=== PATIENT | female | born 1965 | race Caucasian/White ===

== ENCOUNTER 2024-01-23 18:36 | Emergency (ER) | payer MEDICAID, SELFPAY ==
[2024-01-23 18:37] VITALS: BP 122/68; PULSE 96; RESP 17; TEMP 36.3; O2SAT 97
--- NOTE | 2024-01-23 19:26 | CT_ITS ---
EXAM: CT RIGHT LOWER EXTREMITY WITHOUT INTRAVENOUS CONTRAST CLINICAL INDICATION: Pain TECHNIQUE: Helically acquired images were obtained of the right lower extremity without intravenous contrast. 2-D reformats were performed by the technologist. This CT exam was performed using one or more of the following dose reduction techniques: automated exposure control, adjustment of the mA and/or kV according to patient size, and/or use of iterative reconstruction technique. COMPARISON: No relevant prior studies available. FINDINGS: BONES/JOINTS: There is severe tricompartmental primary osteoarthritis. Medium-sized knee joint effusion. Tricompartmental joint space narrowing, marginal osteophytosis, articular sclerosis, patellar enthesopathy, and articular surfaces eburnation are identified. There is no acute fracture or dislocation. SOFT TISSUES: No significant abnormality. No soft tissue swelling or gas. No radiopaque foreign body. CT/Extremity Lower without Contra IMPRESSION: 1. There is severe tricompartmental primary osteoarthritis. Knee joint effusion. 2. There is no acute fracture or dislocation. Electronically Signed: Harry Story DO at 20:15 EDT ,
--- NOTE | 2024-01-23 19:37 | ED.VIS.LOWEX ---
HPI History of Present Illness HPI Narrative: Patient presents with possible fracture in her right knee that occurred today after a fall. Patient states she twisted her right knee and fell. Patient went to urgent care and had x-rays done of her left wrist and right knee. Patient states they initially read the x-rays as negative. Patient states that she was referred to [facility] for possible DVT of her leg. Patient states she had an ultrasound there which was negative. Patient states that when she went back to the urgent care, they told her she could have a fracture of her right tibial plateau. Patient states she was told to come to the emergency department for further imaging of her knee. Patient states that her wrist pain is still worse than her knee pain. Patient denies any head injury or loss of consciousness. Patient denies any other injuries. Chief Complaint: Lower Extremity Injury Informant: patient Occured/Mechanism Mechanism/Context: Yes injury Onset/Context/Timing Onset: Today Context: Sudden Onset Timing: Continuous Quality of Pain: Aching Location: Right knee, left wrist Worsened by: Weightbearing, movement Relieved by: Nothing Associated Symptoms Associated Symptoms: Negative for Parasthesia, Weakness or Loss of Funtion PFSH PFS Medical History (Updated 01/23/24 @ 21:[address] Carter Heart DO) Thyroid cancer Allergy/AdvReac Type Severity Reaction Status Date / Time ciprofloxacin (From Cipro) Allergy Mild Heart Verified 01/23/24 18:40 Condition fluconazole (From Diflucan) Allergy Mild Nausea Verified 01/23/24 18:40 Opioids - Morphine Analogues Allergy Mild Abd Pain Verified 01/23/24 18:40 Penicillins Allergy Mild Heart Verified 01/23/24 18:40 Condition Surgical History (Updated 01/23/24 @ 19:[address] Carter Heart DO) Hx of right knee surgery History of bladder suspension procedure History of herniorrhaphy History of total abdominal hysterectomy Hx of cholecystectomy Hx of appendectomy Social History Smoking Status: Never smoker ROS ROS ED Constitutional Constitutional ED: Denies chills or fever(s) Eyes Eyes: Denies blurry vision or change in vision ENT ENT ED: Denies rhinorrhea or sore throat Cardiovascular Cardiovascular: Denies chest pain or palpitations Respiratory/Chest Respiratory/Chest: Denies cough or dyspnea Gastrointestinal Gastrointestinal: Denies nausea or vomiting Genitourinary Genitourinary ED: Denies dysuria or hematuria Musculoskeletal Musculoskeletal: Reports neck pain; Denies back pain Integumentary Denies abscess or rash Neurologic Neurologic: Denies headache(s) or weakness Allergic/Immunologic Allergic/Immunologic ED: Denies mouth swelling or urticaria EXAM Physical Exam Const Vital Signs: 01/23/24 18:37 Temperature 97.4 F L Temperature Source Temporal Pulse Rate 96 Respiratory Rate 17 Blood Pressure 122/68 H Blood Pressure Mean 86 Pulse Ox 97 Oxygen Delivery Method Room Air Positive well nourished and well developed General Appearance ED: well developed and NAD HEENT Reports moist mucous membranes Neck full ROM Extremity Extremity Narrative: There is tenderness and mild edema over the left wrist. There is also mild tenderness over the right knee. There is no obvious deformity noted. Range of motion of the left wrist and right knee were somewhat limited in all motions secondary to pain. Radial and pedal pulses are equal bilaterally. Strength is 5/5 in the radial, median, and ulnar areas bilaterally. Strength is 5/5 bilaterally in the lower extremities. There are no sensory deficits noted. Neuro oriented x3, CN's II-XII intact bilaterally, moves all extremities and no sensory deficits noted Sensorium / Orientation: alert Motor Exam: strength 5/5 throughout MDM MDM MDM Narrative Medical decision making narrative: Differential diagnosis includes occult fracture of the left wrist, occult fracture of the right tibial plateau, sprain, and contusion. X-rays of the left wrist will be obtained to assess for fracture. CT scan of the right knee will be obtained to assess for tibial plateau fracture. Radiography Diagnostic Testing: Clinical Impression(s) from Imaging Studies Lower Extremity CT 01/23/24 19:26 IMPRESSION: 1. There is severe tricompartmental primary osteoarthritis. Knee joint effusion. 2. There is no acute fracture or dislocation. Electronically Signed: Harry Story DO at 20:15 EDT , Wrist X-Ray 01/23/24 20:02 IMPRESSION: No discrete fracture. Degenerative changes and soft tissue swelling. Electronically Signed: Harry Story DO at 20:15 EDT , X-rays of the left wrist were obtained. There are 3 views. On my independent interpretation, there is no acute fracture. There are some degenerative changes noted. There is some mild soft tissue swelling noted. Radiologist also interpreted the x-rays and agrees. CT scan of the right knee was obtained. There is osteoarthritis noted. There is a knee effusion. There is no acute fracture. This was interpreted by the radiologist was also independently reviewed by myself. Treatment and Re-Evaluation Narrative: Patient was advised of her findings. Patient was given a Velcro wrist splint. Patient was instructed to ice and elevate the left wrist and right knee. Patient was instructed to continue with Tylenol as needed for pain. Patient was instructed to return if worse in any way. Patient was instructed to follow-up with her primary care physician in 5 to 7 days. Patient and spouse understood and were agreeable with the plan. All questions were answered. Discharge Plan Triage Chief Complaint: Lower Extremity Injury ED Provider: Carter eHart Dx/Rx/DC Orders Clinical Impression: Right knee sprain, Left wrist sprain, Fall Instructions: ED Knee Sprain, ED Wrist Sprain Primary Care Provider: Care Physician,No Primary Referrals: Zoe Bose MD [Med Staff - Mechanical Research Engineer] - 5-7 Days Care Physician,No Primary [Primary Care Provider] - Print Language: Azeri Disposition Disposition: Home, Self Care
--- NOTE | 2024-01-23 20:02 | RAD_ITS ---
EXAM: XR LEFT WRIST COMPLETE, 3 OR MORE VIEWS CLINICAL INDICATION: Injury/Pain TECHNIQUE: Frontal, lateral and oblique views of the left wrist. COMPARISON: No relevant prior studies available. FINDINGS: BONES/JOINTS: Degenerative changes at the basal joint of the thumb. No acute fracture. No subluxation. Normal alignment. No sclerotic or destructive changes observed. SOFT TISSUES: Soft tissue swelling. No radiopaque foreign body. RAD/Wrist min 3 Views IMPRESSION: No discrete fracture. Degenerative changes and soft tissue swelling. Electronically Signed: Harry Story DO at 20:15 EDT ,
[2024-01-23 21:41] VITALS: BP 125/70; PULSE 81; RESP 17; TEMP 36.3; O2SAT 97
== END 2024-01-23 21:42 | disposition home or self-care (01) ==
PROVIDERS: Emergency Provider Emergency Medicine; Visit Provider Emergency Medicine
DX: S83.91XA Sprain of unspecified site of right knee, initial encounter (principal); S83.92XA Sprain of unspecified site of left knee, initial encounter; W19.XXXA Unspecified fall, initial encounter
CPT/HCPCS: 73110; 73700; 99283

== ENCOUNTER 2024-02-14 10:40 | Emergency (ER) | payer MEDICAID, SELFPAY ==
[2024-02-14 10:41] VITALS: BP 161/74; PULSE 93; RESP 14; TEMP 36.1; O2SAT 98
[2024-02-14 10:56] VITALS: BMI 42.3
--- NOTE | 2024-02-14 11:03 | EX.ED.DYSGE1 ---
HPI History of Present Illness Chief Complaint: Dizziness Informant: patient Onset/Context/Timing Onset: Days Context: Gradual Onset Current Severity: Mild Maximum Severity: Moderate Narrative Narrative: Patient presents secondary to diarrhea and weakness. She has a history of C. difficile, diagnosed in May of last year. She was on treatment until September of this year when she finally cleared the infection. She states over the past 5 days she has had recurrent diarrhea with a lot of mucus. She is now feeling weak and dizzy. She has not noted fever or chills. No blood in the stool. She moved here from [place] and does bring her records with her from her prior physician. [facility] Medical History (Updated 02/14/24 @ 14:[address] Sara Perales MD) Depression Hypertension History of ventricular tachycardia Hx of gastroesophageal reflux (GERD) Anxiety Gastritis Essential tremor Endometriosis COPD (chronic obstructive pulmonary disease) Cervical radiculopathy Coronary artery disease History of Clostridioides difficile colitis Right bundle branch block Atopic dermatitis Thyroid cancer Home Medications ?Medication ?Instructions ?Recorded ?Last Taken ?Type clonazepam 1 mg tablet mg PO 02/14/24 Unknown History dicyclomine 20 mg tablet 20 mg PO BID PRN abdominal pain 02/14/24 Unknown Rx #14 tabs valsartan 160 mg tablet 240 mg PO DAILY 02/14/24 Unknown History Allergy/AdvReac Type Severity Reaction Status Date / Time ciprofloxacin (From Cipro) Allergy Mild Heart Verified 02/14/24 10:41 Condition fluconazole (From Diflucan) Allergy Mild Nausea Verified 02/14/24 10:41 Opioids - Morphine Analogues Allergy Mild Abd Pain Verified 02/14/24 10:41 Penicillins Allergy Mild Heart Verified 02/14/24 10:41 Condition Surgical History Hx of right knee surgery History of bladder suspension procedure History of herniorrhaphy History of total abdominal hysterectomy Hx of cholecystectomy Hx of appendectomy Social History Smoking Status: Current every day smoker tobacco type: cigarettes ROS ROS ED Constitutional Constitutional ED: Denies chills or fever(s) Eyes Eyes: Denies change in vision ENT ENT ED: Denies rhinorrhea or sore throat Cardiovascular Cardiovascular: Denies chest pain or palpitations Respiratory/Chest Respiratory/Chest: Denies cough or dyspnea Gastrointestinal Gastrointestinal: Reports abdominal pain and diarrhea; Denies nausea or vomiting Genitourinary Genitourinary ED: Denies dysuria Musculoskeletal Musculoskeletal: Denies back pain or extremity pain Integumentary Denies Abrasions or rash Neurologic Neurologic: Reports weakness; Denies headache(s) Psychiatric Psychiatric: Denies anxiety or depression Allergic/Immunologic Allergic/Immunologic ED: Denies lip swelling or urticaria EXAM Physical Exam Const Vital Signs: 02/14/24 10:41 02/14/24 12:41 02/14/24 14:00 Temperature 96.9 F L Temperature Source Temporal Pulse Rate 93 81 75 Respiratory Rate 14 16 16 Blood Pressure 161/74 H 150/77 H 148/76 H Blood Pressure Mean 103 101 100 Pulse Ox 98 98 98 Oxygen Delivery Method Room Air Room Air Room Air Positive well nourished and well developed General Appearance ED: well developed HEENT Reports moist mucous membranes Eyes EOMs intact bilaterally Chest Wall inspection of chest normal and palpation of chest normal Resp normal respiratory effort and clear to auscultation bilaterally Cardio regular rate and regular rhythm GI GI Narrative: Abdomen soft with mild diffuse tenderness. No guarding or rebound. Extremity normal to inspection Neuro oriented x3 and no sensory deficits noted Motor Exam: strength 5/5 throughout Psych mental status grossly normal Skin no rashes or lesions noted MDM MDM MDM Narrative Medical decision making narrative: IV line established. Patient given IV fluids along with Bentyl for abdominal cramping. Labwork obtained to evaluate for leukocytosis, anemia, and electrolyte derangement. Stool studies will be sent to evaluate for potential recurrent C. difficile. History & Record Review Discussion w/independent historian: Patient Lab Data Attestation: I reviewed the patient's lab results. Labs: Laboratory Results - last 24 hr 02/14/24 02/14/24 11:22 11:40 WBC 11.9 H RBC 5.53 H Hgb 16.1 H Hct 49.7 H MCV 89.9 MCH 29.1 MCHC 32.4 RDW Std Deviation 46.5 H RDW Coeff of Davy 14.0 Plt Count 250 MPV 9.4 Immature Gran % (Auto) 0.400 Neut % (Auto) 68.9 Lymph % (Auto) 19.8 [place] % (Auto) 7.2 Eos % (Auto) 2.9 Baso % (Auto) 0.8 Absolute Neuts (auto) 8.2 H Absolute Lymphs (auto) 2.35 Nucleated RBC % 0 Sodium 140 Potassium 4.1 Chloride 107 Carbon Dioxide 27.0 Anion Gap 6 BUN 13 Creatinine 0.98 Estim Creat Clear Calc 92.40 Est GFR (MDRD) Af Amer 75 Est GFR (MDRD) Non-Af 62 BUN/Creatinine Ratio 13.3 Glucose 114 H Calcium 9.4 Urine Color Yellow Urine Clarity Clear Urine pH 5.0 Ur Specific Lancing 1.025 Urine Protein 15 H Urine Glucose (UA) Normal Urine Ketones 5 H Urine Occult Blood 25 H Urine Nitrite Negative Urine Bilirubin 1 H Urine Urobilinogen 1 H Ur Leukocyte Esterase 25 H Urine RBC 0 SEEN Urine WBC 0-5 SEEN Ur Squamous Epith Cells 10-25 SEEN Urine Bacteria 2+ Urine Mucus 3+ Radiography Diagnostic Testing: Clinical Impression(s) from Imaging Studies Abdomen/Pelvis CT 02/14/24 13:30 IMPRESSION: Status post cholecystectomy. Findings suggestive of a bilateral adrenal adenomas. Scattered sigmoid diverticula. Surgical anastomosis is seen in the rectum. Electronically Signed: Cuco Gonzalez MD at 13:48 EDT , Treatment and Re-Evaluation :: I repeat evaluation patient resting comfortably. She has not been able to have a bowel movement here but was able to provide a urine sample. CBC was a white count 11.9 with normal differential. Hemoglobin is concentrated at 16.1. Chemistry studies are remarkable only for glucose of 114. Renal function is normal. Potassium is normal at 4.1. Urinalysis reveals 10-25 epithelial cells with 2+ bacteria. 0-5 white cells and no nitrites noted. Patient has no dysuria. CT scan of the abdomen and pelvis with IV contrast is obtained. Findings suggestive of bilateral adrenal adenomas are noted. Scattered sigmoid diverticula with surgical anastomosis seen in the rectum. No evidence of colitis at this time. Patient will be given an outpatient order for stool studies. She has not yet established primary care in the area and states that any doctor's office she has called she has had to leave a message and not gotten a return call back. I will refer her to Dr. Hernandez who is next on the no doc list. I will also give her information for GI follow-up as well as surgery. She states that she has a thyroid nodule that needs to be biopsied and she has not been able to get this scheduled yet either. I will give her a prescription for Bentyl. Return instructions were provided. Discharge Plan Triage Chief Complaint: Dizziness ED Provider: Sara Perales Dx/Rx/DC Orders Clinical Impression: Diarrhea, Abdominal pain, Dehydration Instructions: ED Dehydration (Adult), ED Diarrhea, Unknown Cause Prescriptions: New dicyclomine 20 mg tablet 20 mg PO BID PRN (Reason: abdominal pain) Qty: 14 0RF No Action valsartan 160 mg tablet 240 mg PO DAILY clonazepam 1 mg tablet PO Primary Care Provider: Care Physician,No Primary Referrals: Lizzie Vilchis MD [Med Staff - Active Staff] - 1-2 Weeks Stewart Pastor MD [Non-Staff] - 1-2 Weeks Conor Hernandez MD [Med Staff - Product Picker] - As soon as possible Care Physician,No Primary [Primary Care Provider] - Print Language: [place] Islander Disposition Disposition: Home, Self Care
[2024-02-14] MEDS: Dicyclomine 10 MG Capsule 20 MG PO (11:22)
[2024-02-14] MEDS: 0.9% Normal Saline (1000mL) 1,000 ML 1000 ML IV (11:25)
[2024-02-14 11:35] LABS: Absolute Lymphocyte Count 2.35 X10^3/uL (0.83-4.51); Absolute Neutrophil Count 8.2 X10^3/uL (2.0-7.7); Basophil# 0.09 X10^3/uL; Basophil% 0.8 % (0-1); Eosinophil# 0.34 X10^3/uL; Eosinophils% 2.9 % (0-5); Hematocrit 49.7 % (37-47); Hemoglobin 16.1 g/dL (12.0-15.0); Lymphocyte # 2.35 X10^3/ul (0.83-4.51); Lymphocyte % 19.8 % (19-41); Mean Corp Hgb Conc 32.4 g/dL (32-36); Mean Corpuscular Hgb 29.1 pg (27.0-32.0); Mean Corpuscular Volume 89.9 fL (81-99); Mean Platelet Vol. 9.4 fl (6.2-12.0); Monocyte# 0.86 X10^3/uL; Monocyte% 7.2 % (0-10); NRBC Flagged by Analyzer 0 % (0-5); Neutrophil % 68.9 % (47-70); Platelet Count 250 K/mm3 (150-450); RBC Distribution Width SD 46.5 fl (35.1-43.9); Red Blood Count 5.53 M/mm3 (4.2-5.4); White Blood Count 11.9 K/mm3 (4.4-11.0)
[2024-02-14 11:49] LABS: Anion Gap 6 (5-15); BUN 13 mg/dL (7-18); BUN/Creat Ratio 13.3 RATIO (10-20); Calcium,Total 9.4 mg/dL (8.5-10.1); Chloride 107 mmol/L (98-107); Creatinine, Serum 0.98 mg/dL (0.55-1.02); EST Glomerular Filtration Rate 62 mL/min (>60); Est Glom Filt Rate - Afr Amer 75 mL/min (>60); Glucose 114 mg/dL (74-106); Potassium 4.1 mmol/L (3.5-5.1); Sodium Level 140 mmol/L (136-145)
[2024-02-14 11:52] LABS: Color, Urine Yellow (Yellow); Glucose, Dipstick Normal (Normal); Ketone-Dipstick 5 mg/dl (Negative); Leukocyte Esterase-Dipstick 25 /ul (Negative); Nitrite-Dipstick Negative (Negative); Occult Blood-Urine 25 /ul (Negative); Protein-Dipstick 15 mg/dl (Negative); Specific Gravity, Urine 1.025 (1.002-1.030); Urine Bilirubin Dipstick 1 mg/dL (Negative); Urine Clarity Clear (Clear); Urine Urobilinogen 1 mg/dl (Normal)
[2024-02-14 12:03] LABS: Bacteria 2+ /hpf (None Seen); Red Blood Cells-Urine 0 SEEN /hpf (0-5); Squamous Epithelial Cells - UA 10-25 SEEN /hpf (5-10); White Blood Cells 0-5 SEEN /hpf (0-5)
[2024-02-14 12:04] LABS: Mucous, Urine 3+ /hpf (<or=2+)
[2024-02-14 12:41] VITALS: BP 150/77; PULSE 81; RESP 16; O2SAT 98
--- NOTE | 2024-02-14 13:30 | CT_ITS ---
STUDY: CT ABDOMEN AND PELVIS WITH CONTRAST REASON FOR EXAM: Female, 58 years old. Colitis. 5 day history of diarrhea. RADIATION DOSAGE (If Supplied By Facility): CTDIvol = ( 14.39 ) mGy, DLP = ( 1195.81 ) mGycm TECHNIQUE: Transaxial images were obtained from the dome of the diaphragm to the symphysis pubis without oral contrast. IV 100mL Isovue-300 was administered. Sagittal and coronal images were reconstructed. Individualized dose optimization techniques were used for this CT. COMPARISON: None. FINDINGS: The visualized lung bases are unremarkable. The visualized portions of the heart are within normal limits. Normal liver. The patient is status post cholecystectomy. There is a benign calcified granuloma of the spleen. Normal pancreas. There is a small, circumscribed, smooth, low attenuation right adrenal mass, consistent with an adrenal adenoma. This measures 2.7 cm. There is also evidence of a 2.3 cm low-density nodule in the left adrenal gland suggestive of a left adrenal adenoma. Normal right kidney. Normal left kidney. Normal visualized stomach. Normal small intestine. There are scattered colonic diverticula consistent with diverticulosis. Surgical anastomosis is seen in the rectum. The appendix is visualized and appears normal. There is scattered atherosclerotic calcification of the abdominal aorta, without a demonstrated aneurysm. Normal inferior vena cava. Normal retroperitoneum. Normal urinary bladder. There is absence of the uterus consistent with a prior hysterectomy. There is a small umbilical hernia containing fat. Small benign-appearing bilateral inguinal lymph nodes. There are mild degenerative changes of the visualized lumbar spine. Straightening of the normal lumbar lordosis. CT/Abdomen/Pelvis W IV Cont ONLY IMPRESSION: Status post cholecystectomy. Findings suggestive of a bilateral adrenal adenomas. Scattered sigmoid diverticula. Surgical anastomosis is seen in the rectum. Electronically Signed: Cuco Gonzalez MD at 13:48 EDT ,
[2024-02-14 14:00] VITALS: BP 148/76; PULSE 75; RESP 16; O2SAT 98
[2024-02-14 15:00] VITALS: BP 139/88; PULSE 80; RESP 16; TEMP 36.7; O2SAT 99
== END 2024-02-14 15:01 | disposition home or self-care (01) ==
PROVIDERS: Emergency Provider Emergency Medicine; Visit Provider Emergency Medicine
DX: R19.7 Diarrhea, unspecified (principal); J44.9 Chronic obstructive pulmonary disease, unspecified; R10.9 Unspecified abdominal pain; E86.0 Dehydration; F17.210 Nicotine dependence, cigarettes, uncomplicated; I25.10 Atherosclerotic heart disease of native coronary artery without angina pectoris; Z79.899 Other long term (current) drug therapy
CPT/HCPCS: 74177; 80048; 81001; 85025; 99283; Q9967

== ENCOUNTER 2024-03-11 10:51 | Emergency (ER) | payer MEDICAID, SELFPAY ==
[2024-03-11] VITALS (9 sets, daily range): BP systolic 110–162; BP diastolic 60–84; PULSE 64–92; RESP 14–21; TEMP 36.3–36.4; O2SAT 95–99; BMI 42.2
--- NOTE | 2024-03-11 10:57 | ED.RN ---
DISCUSSED SX WITH DR. RUSSO, CONTINUE TRIAGING PT.
--- NOTE | 2024-03-11 12:41 | EKG12_ITS ---
Test Reason : Blood Pressure : / mmHG Vent. Rate : 077 BPM Atrial Rate : 077 BPM P-R Int : 170 ms QRS Dur : 098 ms QT Int : 374 ms P-R-T Axes : 065 243 051 degrees QTc Int : 423 ms Normal sinus rhythm Right superior axis deviation Cannot rule out Inferior-posterior infarct , age undetermined Abnormal ECG Confirmed by Toni Dean ([id number]), school photograph editor JARRED JURADO ([id number]) on 03/12/2024 9:55:22 AM Referred By: Confirmed By:Toni Dean
--- NOTE | 2024-03-11 12:42 | CT_ITS ---
STUDY: CT BRAIN WITHOUT CONTRAST REASON FOR EXAM: Female, 59 years old. Two-week history of light headedness. RADIATION DOSAGE (If Supplied By Facility): CTDIvol = ( 47.06 ) mGy, DLP = ( 890.33 ) mGycm TECHNIQUE: Transaxial CT imaging of the brain was performed without administration of intravenous contrast material. Individualized dose optimization techniques were used for this CT. COMPARISON: No relevant priors. FINDINGS: Normal soft tissue structures. Normal calvarium. There is mild cerebral atrophy with widening of the extra-axial spaces and ventricular dilatation. Question 1.1 cm soft tissue density in the left lateral ventricle with focal calcification. Correlation with MRI is recommended. Normal white matter tracts of the cerebral hemispheres. Normal basal ganglia and thalami. Normal brainstem. Normal cerebellum. There is no intracranial hemorrhage. There are no findings of an acute ischemic infarction. Normal visualized paranasal sinuses. CT/Brain/Head without Contrast IMPRESSION: Chronic involutional changes of the brain. 1.1 cm questionable soft tissue density in the body of the left lateral ventricle with focal calcification. Correlation with MRI recommended. Electronically Signed: Cuco Gonzalez MD at 13:26 EDT ,
[2024-03-11] MEDS: DiphenhydrAMINE 50 MG/ML Syringe 25 MG IV (12:47)
[2024-03-11] MEDS: Metoclopramide 10 MG/2 ML Vial IV (12:48)
[2024-03-11] MEDS: 0.9% Normal Saline (1000mL) 1,000 ML 999 ML IV (12:48)
--- NOTE | 2024-03-11 12:49 | NURSING ---
NO OLD EKGS
[2024-03-11 12:54] LABS: Absolute Lymphocyte Count 1.81 X10^3/uL (0.83-4.51); Absolute Neutrophil Count 7.7 X10^3/uL (2.0-7.7); Basophil# 0.09 X10^3/uL; Basophil% 0.9 % (0-1); Eosinophil# 0.24 X10^3/uL; Eosinophils% 2.3 % (0-5); Hematocrit 51.3 % (37-47); Hemoglobin 16.5 g/dL (12.0-15.0); Lymphocyte # 1.81 X10^3/ul (0.83-4.51); Lymphocyte % 17.2 % (19-41); Mean Corp Hgb Conc 32.2 g/dL (32-36); Mean Corpuscular Hgb 29.1 pg (27.0-32.0); Mean Corpuscular Volume 90.5 fL (81-99); Mean Platelet Vol. 9.7 fl (6.2-12.0); Monocyte# 0.71 X10^3/uL; Monocyte% 6.7 % (0-10); NRBC Flagged by Analyzer 0 % (0-5); Neutrophil # 7.65 X10^3/uL (2.7-7.7); Neutrophil % 72.5 % (47-70); Platelet Count 238 K/mm3 (150-450); RBC Distribution Width CV 14.1 % (11.6-14.6); RBC Distribution Width SD 47.3 fl (35.1-43.9); Red Blood Count 5.67 M/mm3 (4.2-5.4); White Blood Count 10.5 K/mm3 (4.4-11.0)
--- NOTE | 2024-03-11 13:05 | RAD_ITS ---
STUDY: X-RAY CHEST REASON FOR EXAM: Female, 59 years old. Chest pain TECHNIQUE: Single AP portable view of the chest. COMPARISON: None. FINDINGS: EKG electrodes are seen. The lungs are clear and expanded. There is no demonstrated pleural abnormality. Normal size heart. Normal mediastinum and elissa. Normal visualized pulmonary arteries. Normal visualized aortic arch and descending thoracic aorta. Normal visualized thoracic spine. Normal visualized ribs, clavicles, and shoulders. There is no demonstrated abnormality of the visualized soft tissue structures of the upper abdomen. RAD/Chest 1 View (Portable) IMPRESSION: Normal x-ray examination of the chest. Electronically Signed: Cuco Gonzalez MD at 13:27 EDT ,
[2024-03-11 13:14] LABS: Anion Gap 6 (5-15); BUN 12 mg/dL (7-18); BUN/Creat Ratio 11.8 RATIO (10-20); Calcium,Total 9.1 mg/dL (8.5-10.1); Chloride 107 mmol/L (98-107); Creatinine, Serum 1.02 mg/dL (0.55-1.02); EST Glomerular Filtration Rate 59 mL/min (>60); Est Glom Filt Rate - Afr Amer 71 mL/min (>60); Glucose 117 mg/dL (74-106); Potassium 4.4 mmol/L (3.5-5.1); Sodium Level 138 mmol/L (136-145); Thyroid Stim Hormone (TSH) 1.76 uIU/mL (0.358-3.74); Troponin-I HS < 3 pg/mL (3.0-54.0)
--- NOTE | 2024-03-11 14:56 | EX.ED.VIS.HA ---
HPI History of Present Illness Chief Complaint: Dizziness Narrative Narrative: Patient presenting with headache for about a week. She states she has had fevers next week. She denies neck stiffness. No history of migraines or other types of headaches. Patient states her last fever was 101 ?F yesterday. She states that at times she feels lightheaded and her vision goes blurry. She states this happens at rest and with walking. She states Tylenol seems to help. It does not alleviate the pain completely. She has not tried ibuprofen. Denies any trauma. She is not on any anticoagulation. Patient reports she recently moved here and she was in the middle of trying to diagnose thyroid cancer. She states her thyroid numbers were normal. She is currently following with Dr. Jayne gupta he did some lab work last week and she noted she had a 13,000 white count. Patient denies any cough, shortness of breath. She denies urinary or vaginal complaints. Denies abdominal pain. [facility] Medical History Depression Hypertension History of ventricular tachycardia Hx of gastroesophageal reflux (GERD) Anxiety Gastritis Essential tremor Endometriosis COPD (chronic obstructive pulmonary disease) Cervical radiculopathy Coronary artery disease History of Clostridioides difficile colitis Right bundle branch block Atopic dermatitis Thyroid cancer Home Medications ?Medication ?Instructions ?Recorded ?Last Taken ?Type clonazepam 1 mg tablet mg PO 02/14/24 Unknown History dicyclomine 20 mg tablet 20 mg PO BID PRN abdominal pain 02/14/24 Unknown Rx #14 tabs valsartan 160 mg tablet 240 mg PO DAILY 02/14/24 Unknown History Allergy/AdvReac Type Severity Reaction Status Date / Time ciprofloxacin (From Cipro) Allergy Mild Heart Verified 03/11/24 10:51 Condition fluconazole (From Diflucan) Allergy Mild Nausea Verified 03/11/24 10:51 Opioids - Morphine Analogues Allergy Mild Abd Pain Verified 03/11/24 10:51 Penicillins Allergy Mild Heart Verified 03/11/24 10:51 Condition Surgical History Hx of right knee surgery History of bladder suspension procedure History of herniorrhaphy History of total abdominal hysterectomy Hx of cholecystectomy Hx of appendectomy Social History Smoking Status: Current every day smoker tobacco type: cigarettes ROS ROS ED Constitutional Constitutional ED: Denies chills, fever(s) or sweats Eyes Eyes: Reports other Details: Blurring of vision ; Denies blurry vision or change in vision ENT ENT ED: Denies ear pain or sore throat Cardiovascular Cardiovascular: Denies chest pain, palpitations or racing heartbeat Respiratory/Chest Respiratory/Chest: Denies cough, dyspnea or sputum Gastrointestinal Gastrointestinal: Denies abdominal pain, constipation, diarrhea, nausea or vomiting Genitourinary Genitourinary ED: Denies dysuria, hematuria or urinary frequency Musculoskeletal Musculoskeletal: Denies arthralgias, myalgias or neck pain Integumentary Denies abscess, Abrasions or rash Neurologic Neurologic: Reports headache(s); Denies paresthesias or weakness Psychiatric Psychiatric: Denies anxiety, depression, suicidal ideation or suicidal thoughts Endocrine Endocrinology: Denies polydipsia or polyuria EXAM Physical Exam Const Vital Signs: 03/11/24 10:51 03/11/24 11:57 03/11/24 12:00 Temperature 97.3 F L Temperature Source Temporal Pulse Rate 82 81 Pulse Rate [Lying] Pulse Rate [Sitting (for 1 minute prior to obtaining)] Pulse Rate [Standing (for 1 minute prior to obtaining)] Respiratory Rate 14 17 Blood Pressure 162/80 H 142/82 H 147/81 H Blood Pressure [Lying] Blood Pressure [Sitting (for 1 minute prior to obtaining)] Blood Pressure [Standing (for 1 minute prior to obtaining)] Blood Pressure Mean 107 102 103 Blood Pressure Mean [Lying] Blood Pressure Mean [Sitting (for 1 minute prior to obtaining)] Blood Pressure Mean [Standing (for 1 minute prior to obtaining)] Pulse Ox 98 98 Oxygen Delivery Method Room Air Room Air 03/11/24 12:41 03/11/24 13:00 03/11/24 14:00 Temperature Temperature Source Pulse Rate 81 82 Pulse Rate [Lying] Pulse Rate [Sitting (for 1 minute prior to obtaining)] Pulse Rate [Standing (for 1 minute prior to obtaining)] Respiratory Rate 18 21 H Blood Pressure 110/64 113/73 Blood Pressure [Lying] Blood Pressure [Sitting (for 1 minute prior to obtaining)] Blood Pressure [Standing (for 1 minute prior to obtaining)] Blood Pressure Mean 79 86 Blood Pressure Mean [Lying] Blood Pressure Mean [Sitting (for 1 minute prior to obtaining)] Blood Pressure Mean [Standing (for 1 minute prior to obtaining)] Pulse Ox 98 98 95 Oxygen Delivery Method Nasal Cannula Room Air Room Air 03/11/24 14:27 Temperature Temperature Source Pulse Rate Pulse Rate [Lying] 74 Pulse Rate [Sitting (for 1 minute prior to obtaining)] 76 Pulse Rate [Standing (for 1 minute prior to obtaining)] 92 Respiratory Rate Blood Pressure Blood Pressure [Lying] 117/60 Blood Pressure [Sitting (for 1 minute prior to obtaining)] 113/73 Blood Pressure [Standing (for 1 minute prior to obtaining)] 124/84 H Blood Pressure Mean Blood Pressure Mean [Lying] 79 Blood Pressure Mean [Sitting (for 1 minute prior to obtaining)] 86 Blood Pressure Mean [Standing (for 1 minute prior to obtaining)] 97 Pulse Ox Oxygen Delivery Method General Appearance ED: Negative for pallor HEENT Reports normocephalic atraumatic Eyes PERRL and EOMs intact bilaterally Neck no lymphadenopathy and no meningeal signs Resp normal respiratory effort and clear to auscultation bilaterally Cardio regular rate and regular rhythm GI non-tender Neuro oriented x3 and CN's II-XII intact bilaterally Neuro Narrative: No focal neurologic deficits. Motor Exam: strength 5/5 throughout Psych mental status grossly normal Mood & Affect: tearful Skin General Skin Exam: Negative for jaundice or pallor MDM MDM MDM Narrative Medical decision making narrative: Patient presenting with headache. She states has had about a week. She does have intermittent fevers. No neck pain or stiffness. No meningeal signs. Vital signs stable and patient is afebrile. No focal neurologic deficits on exam. Negative Maico-Hallpike. Differential includes dysrhythmia, dehydration, anemia, electrolyte abnormalities, atypical migraine, brain mass, intracranial hemorrhage, viral syndrome. CBC will be obtained to assess white blood cell count, hemoglobin, platelets. BMP to assess renal function, electrolytes, glucose. High-sensitivity troponin and EKG to assess for ischemia/dysrhythmia. Chest x-ray to rule out pneumonia. CT of the brain will be obtained to rule out acute female pathology. TSH reviewed with [facility], thyroid studies normal. Urine CBC shows normal white blood cell count on file. He provide 16.5. Platelets 238. Renal function and electrolytes was negative. High-sensitivity troponin less than 3. Orthostatic vital signs were negative. EKG she states she has interpreted by myself shows a sinus rhythm at 77 bpm without sign of ischemic change or dysrhythmia. CT of the brain shows a 1.1 cm questionable soft tissue density in the lateral ventricle. I spoke with radiology regarding this and recommendation is for a follow-up outpatient MRI. He did not believe the patient needed anything acute. Discussed this at length with the patient. I did put a call out to her primary care physician who has not called back yet. I counseled her that if she calls back after she is discharged I will arrange follow-up. She was given follow-up with Dr. Sawant as well. All questions were answered. Impression: 1. Headache 2. Soft tissue mass left lateral ventricle 1.1 cm Lab Data Attestation: I reviewed the patient's lab results. Labs: Laboratory Results - last 24 hr 03/11/24 12:09 WBC 10.5 RBC 5.67 H Hgb 16.5 H Hct 51.3 H MCV 90.5 MCH 29.1 MCHC 32.2 RDW Std Deviation 47.3 H RDW Coeff of Davy 14.1 Plt Count 238 MPV 9.7 Immature Gran % (Auto) 0.400 Neut % (Auto) 72.5 H Lymph % (Auto) 17.2 L [place] % (Auto) 6.7 Eos % (Auto) 2.3 Baso % (Auto) 0.9 Absolute Neuts (auto) 7.7 Absolute Lymphs (auto) 1.81 Nucleated RBC % 0 Sodium 138 Potassium 4.4 Chloride 107 Carbon Dioxide 25.0 Anion Gap 6 BUN 12 Creatinine 1.02 Est GFR (MDRD) Af Amer 71 Est GFR (MDRD) Non-Af 59 L BUN/Creatinine Ratio 11.8 Glucose 117 H Calcium 9.1 Troponin I High Sens < 3 L TSH 1.76 Radiography Diagnostic Testing: Clinical Impression(s) from Imaging Studies Brain CT 03/11/24 12:42 IMPRESSION: Chronic involutional changes of the brain. 1.1 cm questionable soft tissue density in the body of the left lateral ventricle with focal calcification. Correlation with MRI recommended. Electronically Signed: Cuco Gonzalez MD at 13:26 EDT , Chest X-Ray 03/11/24 13:05 IMPRESSION: Normal x-ray examination of the chest. Electronically Signed: Cuco Gonzalez MD at 13:27 EDT , Discharge Plan Triage Chief Complaint: Dizziness ED Provider: Michael Gauthier Dx/Rx/DC Orders Clinical Impression: Brain mass Instructions: Self-Care for Headaches Prescriptions: No Action valsartan 160 mg tablet 240 mg PO DAILY clonazepam 1 mg tablet PO dicyclomine 20 mg tablet 20 mg PO BID PRN (Reason: abdominal pain) Qty: 14 0RF Primary Care Provider: Jayne Gupta Referrals: Jayne Gupta DO [Primary Care Provider] - Sj Wray MD [Non-Staff -Ordering Privileges] - As soon as possible Activity Restrictions/Additional Instructions: You were found today to have a 1.1 cm mass on the left lateral ventricle. I discussed this with the radiologist recommended that you do follow-up for an MRI of the brain. I reached out to your primary care physician who is not called back. Please touch base with her office and make sure you make follow-up. I will give you follow-up with Dr. Sawant from neurology. Print Language: Japanese Disposition Disposition: Home, Self Care
== END 2024-03-11 15:47 | disposition home or self-care (01) ==
PROVIDERS: Emergency Provider Student in an Organized Health Care Education/Training Program; PCP Family Medicine; Visit Provider Student in an Organized Health Care Education/Training Program
DX: R51.9 Headache, unspecified (principal); J44.9 Chronic obstructive pulmonary disease, unspecified; R22.0 Localized swelling, mass and lump, head; I25.10 Atherosclerotic heart disease of native coronary artery without angina pectoris; F17.210 Nicotine dependence, cigarettes, uncomplicated; I10 Essential (primary) hypertension
CPT/HCPCS: 70450; 71045; 80048; 84443; 84484; 85025; 93005; 96374; 96375; 99283; J7030; A4216

== ENCOUNTER 2024-05-18 11:47 | Emergency (ER) | payer MEDICARE, SELFPAY ==
[2024-05-18 11:48] VITALS: BP 169/58; PULSE 92; RESP 20; TEMP 37.1; O2SAT 94; BMI 42.5
[2024-05-18 13:00] VITALS: BP 161/82; PULSE 78; RESP 19; TEMP 36.6
--- NOTE | 2024-05-18 13:06 | CT_ITS ---
STUDY: CT ABDOMEN AND PELVIS WITH CONTRAST REASON FOR EXAM: Female, 59 years old. LLQ abdominal pain RADIATION DOSAGE (If Supplied By Facility): CTDIvol = ( 34.74 ) mGy, DLP = ( 1883.73 ) mGycm TECHNIQUE: IV 100mL Isovue-370 was administered. Transaxial images were obtained from the dome of the diaphragm to the symphysis pubis. Multiplanar coronal and sagittal images were reformatted. The protocol utilizes one or more of the following dose reduction techniques: automated exposure control, adjustment of mA and/or kV according to patient size,and/or use of iterative reconstruction technique. COMPARISON: Prior study dated: 02/14/2024 FINDINGS: The visualized lung bases are unremarkable. The visualized portions of the heart are within normal limits. Mild coronary calcifications. Mild hepatic steatosis. No focal lesion is seen in the liver. Absent gallbladder likely due to previous cholecystectomy. Normal spleen. Normal pancreas. Bilateral adrenal masses unchanged prior examination consistent with bilateral adenomas. Normal visualized stomach. Normal in caliber small bowel loops. No evidence of acute diverticulitis. Surgical anastomosis sutures in the region of the rectum. There is non-visualization of the appendix. There is diffuse atherosclerotic calcification of the abdominal aorta, without a demonstrated aneurysm. No retroperitoneal adenopathy. Normal right kidney. Normal left kidney. Normal urinary bladder. There is absence of the uterus consistent with a prior hysterectomy. There is a small umbilical hernia containing fat. Degenerative changes in the lower lumbar spine. CT/Abdomen/Pelvis W IV Cont ONLY IMPRESSION: 1. No focal acute inflammatory process. 2. Cholecystectomy, hysterectomy and rectal surgery. 3. Bilateral adrenal masses/adenomas unchanged. Electronically Signed: Isaiah Crews MD at 15:35 EDT ,
--- NOTE | 2024-05-18 13:07 | ED.VIS.GI ---
HPI HPI - GI History of Present Illness Chief Complaint: Abd Pain Detail of Chief Complaint: Abdominal pain Informant: patient Narrative Narrative: Patient presents to the emergency department complaint of lower abdominal pain that she has had for going on 2 weeks. She states she has had off-and-on low-grade fever. She was seen by her primary care physician 5 days ago and had a urinalysis that was unremarkable but thought that she might have diverticulitis so she was started on Flagyl because of some allergies that she has and she has had prior history of C. difficile that took 4 months to clear up. Patient states that she did not do well with the Flagyl made her very sick after the second dose and she became hypoxic and so her doctor told her to discontinue it. Today she woke up and had 2 bouts of watery stool and now has left lower quadrant and left upper quadrant abdominal pain. Patient's had prior appendectomy as well as cholecystectomy and prior bladder suspension and hysterectomy. PFSH PFSH Medical History (Updated 05/18/24 @ 16:[address] Courtney Figueroa DO) Chest pain Fibromyalgia Depression Hypertension History of ventricular tachycardia Hx of gastroesophageal reflux (GERD) Anxiety Gastritis Essential tremor Endometriosis COPD (chronic obstructive pulmonary disease) Cervical radiculopathy Coronary artery disease History of Clostridioides difficile colitis Right bundle branch block Atopic dermatitis Thyroid cancer Home Medications ?Medication ?Instructions ?Recorded ?Last Taken ?Type dicyclomine 20 mg tablet 20 mg PO BID PRN abdominal pain 02/14/24 Unknown Rx #14 tabs valsartan 160 mg tablet 240 mg PO DAILY 02/14/24 Unknown History clonazepam 1 mg tablet 1 mg PO 03/28/24 Unknown History Allergy/AdvReac Type Severity Reaction Status Date / Time metronidazole (From Flagyl) Allergy Severe Shortness Verified 05/18/24 11:48 of breath ciprofloxacin (From Cipro) Allergy Mild Heart Verified 05/18/24 11:48 Condition fluconazole (From Diflucan) Allergy Mild Nausea Verified 05/18/24 11:48 Opioids - Morphine Analogues Allergy Mild Abd Pain Verified 05/18/24 11:48 Penicillins Allergy Mild Rash, GI Verified 05/18/24 11:48 Upset Family History (Updated 03/28/24 @ 08:56 by Didi Kim RN) Mother Hypertension Father Leukemia Surgical History Hx of right knee surgery History of bladder suspension procedure History of herniorrhaphy History of total abdominal hysterectomy Hx of cholecystectomy Hx of appendectomy Social History (Updated 03/28/24 @ 08:56 by Didi Kim RN) Smoking Status: Current every day smoker tobacco type: cigarettes alcohol intake: never substance use type: does not use ROS ROS ED Review of Systems ROS Unobtainable: other Constitutional Constitutional ED: Reports lethargy; Denies chills, fever(s), sweats or weight loss Eyes Eyes: Denies blurry vision, change in vision or diplopia ENT ENT ED: Denies rhinorrhea or sore throat Cardiovascular Cardiovascular: Denies chest pain, orthopnea or racing heartbeat Respiratory/Chest Respiratory/Chest: Denies cough, dyspnea, dyspnea on exertion, orthopnea or sputum Gastrointestinal Gastrointestinal: Reports abdominal pain, diarrhea and nausea; Denies vomiting Genitourinary Genitourinary ED: Denies dysuria, hematuria or urinary frequency Musculoskeletal Musculoskeletal: Denies arthralgias, back pain, myalgias or neck pain Integumentary Denies abscess, Abrasions or rash Neurologic Neurologic: Denies headache(s) or weakness Psychiatric Psychiatric: Denies anxiety, depression or suicidal thoughts Endocrine Endocrinology: Denies polydipsia, polyphagia or polyuria Hematologic/Lymphatic Hematologic/Lymphatic: Denies easy bleeding, easy bruising or lymphadenopathy Allergic/Immunologic Allergic/Immunologic ED: Denies mouth swelling, tongue swelling or urticaria EXAM Physical Exam Const Vital Signs: 05/18/24 11:48 05/18/24 13:00 05/18/24 14:00 Temperature 98.8 F 98 F 98.2 F Temperature Source Oral Oral Oral Pulse Rate 92 78 81 Respiratory Rate 20 H 19 H 16 Blood Pressure 169/58 H 161/82 H 120/69 Blood Pressure Mean 95 108 86 Pulse Ox 94 96 Oxygen Delivery Method Room Air Room Air 05/18/24 14:00 05/18/24 16:01 Temperature 98.2 F 98 F Temperature Source Oral Pulse Rate 81 78 Respiratory Rate 16 18 Blood Pressure 120/69 122/81 H Blood Pressure Mean 86 94 Pulse Ox 96 99 Oxygen Delivery Method Room Air Positive well nourished and well developed General Appearance ED: well developed and NAD HEENT Reports TM's clear and moist mucous membranes normocephalic and atraumatic; Negative for trauma or tenderness Tympanic Membrane ED: Yes TM's clear Eyes PERRL and EOMs intact bilaterally General Eye ED: Negative for pale conjunctiva or scleral icterus Neck no lymphadenopathy, supple and no JVD General: Negative for tenderness Chest Wall inspection of chest normal and palpation of chest normal Chest: Negative for tenderness Resp normal respiratory effort and clear to auscultation bilaterally Effort and Inspection: Negative for respiratory distress or pain with movement Auscultation: Negative for rhonchi, wheezes or diminished lung sounds Cardio regular rate, regular rhythm, S1 normal heart sound, S2 normal heart sound and no murmurs Peripheral Pulses: pulses 2+ throughout GI normal to inspection, nondistended, normoactive bowel sounds, soft to palpation, non-distended and no masses GI Narrative: Tenderness palpation over suprapubic region left lower quadrant with some mild guarding. There is no rebound, rigidity, or purulent signs. No mass palpated. Back/Spine no CVA tenderness and no thoracic nor lumbar tenderness Extremity normal to inspection General Extremety ED: Negative for edema General Extremity: Negative for edema Neuro oriented x3, CN's II-XII intact bilaterally, no sensory deficits noted and gait normal Sensorium / Orientation: awake, alert, oriented to person, oriented to place and oriented to time Motor Exam: strength 5/5 throughout and strength abnormal Psych mental status grossly normal Skin no rashes or lesions noted and no wounds MDM MDM MDM Narrative Medical decision making narrative: Patient presents with abdominal pain that she has had for over 2 weeks. Initially was thought she may have a UTI but had a urinalysis that was unremarkable and then was empirically started on Flagyl to treat possible diverticulitis which she could not tolerate the Flagyl very well and discontinued. Today she had diarrhea x 2. Pains mostly left lower quadrant today. She does have remote history of C. difficile. CBC with differential count 12.8 with hemoglobin 16.8 and platelet count of 299. Chemistries unremarkable. LFTs unremarkable. Lactate was elevated 3.1 however I do not think patient is septic. Urinalysis was unremarkable. I did obtain a CT scan of the abdomen pelvis with IV contrast that did not show any acute process or inflammatory process. This point etiology of her pain unclear. I did order stool for C. difficile as well as enteric pathogens however she could not produce sample. This point I will give her an outpatient order to bring back a stool sample. Advised to follow-up with general surgeon on-call if pain persists. Advised to return if worsening pain, fever, vomiting, or condition should worsen anyway. Patient also tells me she had a colonoscopy in September of this year that was normal. Lab Data Attestation: I reviewed the patient's lab results. Labs: Laboratory Results - last 24 hr 05/18/24 05/18/24 05/18/24 13:02 13:15 13:16 WBC 12.8 H RBC 5.82 H Hgb 16.8 H Hct 52.3 H MCV 89.9 MCH 28.9 MCHC 32.1 RDW Std Deviation 46.8 H RDW Coeff of Davy 14.3 Plt Count 299 MPV 9.3 Immature Gran % (Auto) 0.500 Neut % (Auto) 68.7 Lymph % (Auto) 20.0 Terry % (Auto) 7.8 Eos % (Auto) 2.3 Baso % (Auto) 0.7 Absolute Neuts (auto) 8.8 H Absolute Lymphs (auto) 2.56 Nucleated RBC % 0 Sodium 137 Potassium 3.4 L Chloride 101 Carbon Dioxide 27.0 Anion Gap 9 BUN 14 Creatinine 1.02 Estim Creat Clear Calc 87.78 Est GFR (MDRD) Af Amer 71 Est GFR (MDRD) Non-Af 59 L BUN/Creatinine Ratio 13.7 Glucose 115 H Lactic Acid 3.1 H* Calcium 9.6 Total Bilirubin 0.30 AST 15 ALT 31 Alkaline Phosphatase 100 Total Protein 7.7 Albumin 3.6 Globulin 4.1 Albumin/Globulin Ratio 0.9 Urine Color Yellow Urine Clarity Urine pH Ur Specific [place] U Specif Grav (Refrac) Urine Protein Urine Glucose (UA) Urine Ketones Urine Occult Blood Urine Nitrite Urine Bilirubin Urine Urobilinogen Ur Leukocyte Esterase Urine RBC Urine WBC Ur Squamous Epith Cells Ur Transition Epith Cell Ur Renal Epithelial Cell Calcium Oxalate Crystal Uric Acid Crystals Triple Phos Crystals Other Crystals Amorphous Sediment Urine Bacteria Hyaline Casts Fine Granular Casts Coarse Granular Casts Waxy Casts RBC Casts WBC Casts Urine Mucus Urine Trichomonas Urine Yeast 05/18/24 05/18/24 05/18/24 13:16 13:16 13:16 WBC RBC Hgb Hct MCV MCH MCHC RDW Std Deviation RDW Coeff of Davy Plt Count MPV Immature Gran % (Auto) Neut % (Auto) Lymph % (Auto) Terry % (Auto) Eos % (Auto) Baso % (Auto) Absolute Neuts (auto) Absolute Lymphs (auto) Nucleated RBC % Sodium Potassium Chloride Carbon Dioxide Anion Gap BUN Creatinine Estim Creat Clear Calc Est GFR (MDRD) Af Amer Est GFR (MDRD) Non-Af BUN/Creatinine Ratio Glucose Lactic Acid Calcium Total Bilirubin AST ALT Alkaline Phosphatase Total Protein Albumin Globulin Albumin/Globulin Ratio Urine Color Cancelled Urine Clarity Sl. Cloudy Cancelled Urine pH 5.0 Cancelled Ur Specific [place] 1.025 U Specif Grav (Refrac) Urine Protein Urine Glucose (UA) Urine Ketones Urine Occult Blood Urine Nitrite Urine Bilirubin Urine Urobilinogen Ur Leukocyte Esterase Urine RBC Urine WBC Ur Squamous Epith Cells Ur Transition Epith Cell Ur Renal Epithelial Cell Calcium Oxalate Crystal Uric Acid Crystals Triple Phos Crystals Other Crystals Amorphous Sediment Urine Bacteria Hyaline Casts Fine Granular Casts Coarse Granular Casts Waxy Casts RBC Casts WBC Casts Urine Mucus Urine Trichomonas Urine Yeast 05/18/24 05/18/24 05/18/24 13:16 13:16 13:16 WBC RBC Hgb Hct MCV MCH MCHC RDW Std Deviation RDW Coeff of Davy Plt Count MPV Immature Gran % (Auto) Neut % (Auto) Lymph % (Auto) Terry % (Auto) Eos % (Auto) Baso % (Auto) Absolute Neuts (auto) Absolute Lymphs (auto) Nucleated RBC % Sodium Potassium Chloride Carbon Dioxide Anion Gap BUN Creatinine Estim Creat Clear Calc Est GFR (MDRD) Af Amer Est GFR (MDRD) Non-Af BUN/Creatinine Ratio Glucose Lactic Acid Calcium Total Bilirubin AST ALT Alkaline Phosphatase Total Protein Albumin Globulin Albumin/Globulin Ratio Urine Color Urine Clarity Urine pH Ur Specific [place] Cancelled U Specif Grav (Refrac) Cancelled Urine Protein 30 H Cancelled Urine Glucose (UA) Normal Cancelled Urine Ketones Negative Urine Occult Blood Urine Nitrite Urine Bilirubin Urine Urobilinogen Ur Leukocyte Esterase Urine RBC Urine WBC Ur Squamous Epith Cells Ur Transition Epith Cell Ur Renal Epithelial Cell Calcium Oxalate Crystal Uric Acid Crystals Triple Phos Crystals Other Crystals Amorphous Sediment Urine Bacteria Hyaline Casts Fine Granular Casts Coarse Granular Casts Waxy Casts RBC Casts WBC Casts Urine Mucus Urine Trichomonas Urine Yeast 05/18/24 05/18/24 05/18/24 13:16 13:16 13:16 WBC RBC Hgb Hct MCV MCH MCHC RDW Std Deviation RDW Coeff of Davy Plt Count MPV Immature Gran % (Auto) Neut % (Auto) Lymph % (Auto) Terry % (Auto) Eos % (Auto) Baso % (Auto) Absolute Neuts (auto) Absolute Lymphs (auto) Nucleated RBC % Sodium Potassium Chloride Carbon Dioxide Anion Gap BUN Creatinine Estim Creat Clear Calc Est GFR (MDRD) Af Amer Est GFR (MDRD) Non-Af BUN/Creatinine Ratio Glucose Lactic Acid Calcium Total Bilirubin AST ALT Alkaline Phosphatase Total Protein Albumin Globulin Albumin/Globulin Ratio Urine Color Urine Clarity Urine pH Ur Specific [place] U Specif Grav (Refrac) Urine Protein Urine Glucose (UA) Urine Ketones Cancelled Urine Occult Blood 10 H Cancelled Urine Nitrite Negative Cancelled Urine Bilirubin Negative Urine Urobilinogen Ur Leukocyte Esterase Urine RBC Urine WBC Ur Squamous Epith Cells Ur Transition Epith Cell Ur Renal Epithelial Cell Calcium Oxalate Crystal Uric Acid Crystals Triple Phos Crystals Other Crystals Amorphous Sediment Urine Bacteria Hyaline Casts Fine Granular Casts Coarse Granular Casts Waxy Casts RBC Casts WBC Casts Urine Mucus Urine Trichomonas Urine Yeast 05/18/24 05/18/24 05/18/24 13:16 13:16 13:16 WBC RBC Hgb Hct MCV MCH MCHC RDW Std Deviation RDW Coeff of Davy Plt Count MPV Immature Gran % (Auto) Neut % (Auto) Lymph % (Auto) Terry % (Auto) Eos % (Auto) Baso % (Auto) Absolute Neuts (auto) Absolute Lymphs (auto) Nucleated RBC % Sodium Potassium Chloride Carbon Dioxide Anion Gap BUN Creatinine Estim Creat Clear Calc Est GFR (MDRD) Af Amer Est GFR (MDRD) Non-Af BUN/Creatinine Ratio Glucose Lactic Acid Calcium Total Bilirubin AST ALT Alkaline Phosphatase Total Protein Albumin Globulin Albumin/Globulin Ratio Urine Color Urine Clarity Urine pH Ur Specific [place] U Specif Grav (Refrac) Urine Protein Urine Glucose (UA) Urine Ketones Urine Occult Blood Urine Nitrite Urine Bilirubin Cancelled Urine Urobilinogen 1 H Cancelled Ur Leukocyte Esterase 25 H Cancelled Urine RBC 0 SEEN Urine WBC Ur Squamous Epith Cells Ur Transition Epith Cell Ur Renal Epithelial Cell Calcium Oxalate Crystal Uric Acid Crystals Triple Phos Crystals Other Crystals Amorphous Sediment Urine Bacteria Hyaline Casts Fine Granular Casts Coarse Granular Casts Waxy Casts RBC Casts WBC Casts Urine Mucus Urine Trichomonas Urine Yeast 05/18/24 05/18/24 05/18/24 13:16 13:16 13:16 WBC RBC Hgb Hct MCV MCH MCHC RDW Std Deviation RDW Coeff of Davy Plt Count MPV Immature Gran % (Auto) Neut % (Auto) Lymph % (Auto) Terry % (Auto) Eos % (Auto) Baso % (Auto) Absolute Neuts (auto) Absolute Lymphs (auto) Nucleated RBC % Sodium Potassium Chloride Carbon Dioxide Anion Gap BUN Creatinine Estim Creat Clear Calc Est GFR (MDRD) Af Amer Est GFR (MDRD) Non-Af BUN/Creatinine Ratio Glucose Lactic Acid Calcium Total Bilirubin AST ALT Alkaline Phosphatase Total Protein Albumin Globulin Albumin/Globulin Ratio Urine Color Urine Clarity Urine pH Ur Specific [place] U Specif Grav (Refrac) Urine Protein Urine Glucose (UA) Urine Ketones Urine Occult Blood Urine Nitrite Urine Bilirubin Urine Urobilinogen Ur Leukocyte Esterase Urine RBC Cancelled Urine WBC 0-5 SEEN Cancelled Ur Squamous Epith Cells 5-10 SEEN Cancelled Ur Transition Epith Cell Cancelled Ur Renal Epithelial Cell Cancelled Calcium Oxalate Crystal Cancelled Uric Acid Crystals Cancelled Triple Phos Crystals Cancelled Other Crystals Cancelled Amorphous Sediment Cancelled Urine Bacteria 1+ Hyaline Casts Fine Granular Casts Coarse Granular Casts Waxy Casts RBC Casts WBC Casts Urine Mucus Urine Trichomonas Urine Yeast 05/18/24 05/18/24 05/18/24 13:16 13:16 13:16 WBC RBC Hgb Hct MCV MCH MCHC RDW Std Deviation RDW Coeff of Davy Plt Count MPV Immature Gran % (Auto) Neut % (Auto) Lymph % (Auto) Terry % (Auto) Eos % (Auto) Baso % (Auto) Absolute Neuts (auto) Absolute Lymphs (auto) Nucleated RBC % Sodium Potassium Chloride Carbon Dioxide Anion Gap BUN Creatinine Estim Creat Clear Calc Est GFR (MDRD) Af Amer Est GFR (MDRD) Non-Af BUN/Creatinine Ratio Glucose Lactic Acid Calcium Total Bilirubin AST ALT Alkaline Phosphatase Total Protein Albumin Globulin Albumin/Globulin Ratio Urine Color Urine Clarity Urine pH Ur Specific [place] U Specif Grav (Refrac) Urine Protein Urine Glucose (UA) Urine Ketones Urine Occult Blood Urine Nitrite Urine Bilirubin Urine Urobilinogen Ur Leukocyte Esterase Urine RBC Urine WBC Ur Squamous Epith Cells Ur Transition Epith Cell Ur Renal Epithelial Cell Calcium Oxalate Crystal Uric Acid Crystals Triple Phos Crystals Other Crystals Amorphous Sediment Urine Bacteria Cancelled Hyaline Casts 0-5 SEEN Cancelled Fine Granular Casts Cancelled Coarse Granular Casts Cancelled Waxy Casts Cancelled RBC Casts Cancelled WBC Casts Cancelled Urine Mucus RARE Cancelled Urine Trichomonas Cancelled Urine Yeast Cancelled Radiography Diagnostic Testing: Clinical Impression(s) from Imaging Studies Abdomen/Pelvis CT 05/18/24 13:06 IMPRESSION: 1. No focal acute inflammatory process. 2. Cholecystectomy, hysterectomy and rectal surgery. 3. Bilateral adrenal masses/adenomas unchanged. Electronically Signed: Isaiah Crews MD at 15:35 EDT , Discharge Plan Triage Chief Complaint: Abd Pain ED Provider: Courtney Figueroa Dx/Rx/DC Orders Clinical Impression: Abdominal pain, Diarrhea Instructions: ED Abdominal Pain Unkn Cause Fem, ED Diarrhea, Unknown Cause Prescriptions: No Action valsartan 160 mg tablet 240 mg PO DAILY dicyclomine 20 mg tablet 20 mg PO BID PRN (Reason: abdominal pain) Qty: 14 0RF clonazepam 1 mg tablet 1 mg PO Rx Instructions: one tablet in AM and two tablets in PM Primary Care Provider: Jayne Gaspar Referrals: Jayne Gaspar DO [Primary Care Provider] - Lizzie Vilchis MD [Med Staff - Active Staff] - 3-5 Days Print Language: Greek Disposition Disposition: Home, Self Care Discharge Date/Time: 05/18/24 16:12
[2024-05-18 13:16] LABS: Absolute Lymphocyte Count 2.56 X10^3/uL (0.83-4.51); Absolute Neutrophil Count 8.8 X10^3/uL (2.0-7.7); Basophil# 0.09 X10^3/uL; Basophil% 0.7 % (0-1); Eosinophil# 0.29 X10^3/uL; Eosinophils% 2.3 % (0-5); Hematocrit 52.3 % (37-47); Hemoglobin 16.8 g/dL (12.0-15.0); Lymphocyte # 2.56 X10^3/ul (0.83-4.51); Mean Corp Hgb Conc 32.1 g/dL (32-36); Mean Corpuscular Hgb 28.9 pg (27.0-32.0); Mean Corpuscular Volume 89.9 fL (81-99); Mean Platelet Vol. 9.3 fl (6.2-12.0); Monocyte% 7.8 % (0-10); NRBC Flagged by Analyzer 0 % (0-5); Neutrophil # 8.82 X10^3/uL (2.7-7.7); Neutrophil % 68.7 % (47-70); Platelet Count 299 K/mm3 (150-450); RBC Distribution Width CV 14.3 % (11.6-14.6); RBC Distribution Width SD 46.8 fl (35.1-43.9); Red Blood Count 5.82 M/mm3 (4.2-5.4); White Blood Count 12.8 K/mm3 (4.4-11.0)
[2024-05-18] MEDS: 0.9% Normal Saline (1000mL) 1,000 ML 125 ML IV (13:17)
[2024-05-18 13:26] LABS: Red Blood Cells-Urine 0 SEEN /hpf (0-5)
[2024-05-18 13:28] LABS: ALB/GLOB Ratio 0.9 RATIO (0.9-2.4); AST(SGOT) 15 U/L (15-37); Alanine Aminotransfer ALT/SGPT 31 U/L (13-56); Albumin, Serum 3.6 g/dL (3.2-5.0); Alkaline Phosphatase 100 U/L (45-117); Anion Gap 9 (5-15); BUN 14 mg/dL (7-18); BUN/Creat Ratio 13.7 RATIO (10-20); Calcium,Total 9.6 mg/dL (8.5-10.1); Chloride 101 mmol/L (98-107); Creatinine, Serum 1.02 mg/dL (0.55-1.02); EST Glomerular Filtration Rate 59 mL/min (>60); Est Glom Filt Rate - Afr Amer 71 mL/min (>60); Estimated Creatinine Clearance 87.78 ml/min; Globulin 4.1 g/dL (2.2-4.2); Glucose 115 mg/dL (74-106); Potassium 3.4 mmol/L (3.5-5.1); Protein, Total 7.7 g/dL (6.4-8.2); Sodium Level 137 mmol/L (136-145)
[2024-05-18 13:40] LABS: Color, Urine Yellow (Yellow); Glucose, Dipstick Normal (Normal); Ketone-Dipstick Negative (Negative); Leukocyte Esterase-Dipstick 25 /ul (Negative); Nitrite-Dipstick Negative (Negative); Occult Blood-Urine 10 /ul (Negative); Protein-Dipstick 30 mg/dl (Negative); Specific Gravity, Urine 1.025 (1.002-1.030); Urine Bilirubin Dipstick Negative (Negative); Urine Clarity Sl. Cloudy (Clear); Urine Urobilinogen 1 mg/dl (Normal)
[2024-05-18 13:52] LABS: Bacteria 1+ /hpf (None Seen); Hyaline Cast 0-5 SEEN /lpf (0-5); White Blood Cells 0-5 SEEN /hpf (0-5)
[2024-05-18 13:54] LABS: Mucous, Urine RARE /hpf (<or=2+); Squamous Epithelial Cells - UA 5-10 SEEN /hpf (5-10)
[2024-05-18 14:00] VITALS: BP 120/69; PULSE 81; RESP 16; TEMP 36.8; O2SAT 96
[2024-05-18 14:05] LABS: Lactic Acid 3.1 mmol/L (0.4-1.9)
[2024-05-18 16:01] VITALS: BP 122/81; PULSE 78; RESP 18; TEMP 36.6; O2SAT 99
[2024-05-18 17:32] LABS: Reflex Lactate? Y
== END 2024-05-18 16:12 | disposition home or self-care (01) ==
PROVIDERS: Emergency Provider Emergency Medicine; PCP Family Medicine; Visit Provider Emergency Medicine
DX: R10.32 Left lower quadrant pain (principal); J44.9 Chronic obstructive pulmonary disease, unspecified; R10.12 Left upper quadrant pain; R19.7 Diarrhea, unspecified; F41.9 Anxiety disorder, unspecified; I10 Essential (primary) hypertension; M79.7 Fibromyalgia; I25.10 Atherosclerotic heart disease of native coronary artery without angina pectoris; F17.210 Nicotine dependence, cigarettes, uncomplicated; Z88.1 Allergy status to other antibiotic agents; Z88.0 Allergy status to penicillin; Z88.5 Allergy status to narcotic agent; Z90.49 Acquired absence of other specified parts of digestive tract; Z86.19 Personal history of other infectious and parasitic diseases; Z87.19 Personal history of other diseases of the digestive system; Z85.850 Personal history of malignant neoplasm of thyroid; Z79.899 Other long term (current) drug therapy
CPT/HCPCS: 74177; 80053; 81001; 83605; 85025; 99282; J7030; Q9967; A4216

== ENCOUNTER → 2024-05-18 | Outpatient (CLI) | payer MEDICARE, SELFPAY | END | disposition home or self-care (01) | PROVIDERS: Referring Provider Family Medicine; Visit Provider Family Medicine | DX: R19.7 Diarrhea, unspecified (principal) | CPT/HCPCS: 87493; 87506 ==

== ENCOUNTER 2024-06-26 14:10 | Emergency (ER) | payer MEDICARE, MEDICAID, SELFPAY ==
[2024-06-26] VITALS (10 sets, daily range): BP systolic 124–144; BP diastolic 69–96; PULSE 78–94; RESP 16–22; TEMP 36.8–37.1; O2SAT 95–98; BMI 42.4
[2024-06-26 16:32] LABS: Lactic Acid 1.7 mmol/L (0.4-1.9)
--- NOTE | 2024-06-26 17:38 | EDS_ITS ---
HPI History of Present Illness Chief Complaint: Fever Informant: patient Narrative Narrative: 59-year-old female that presents with a fever up to 101 that started yesterday, generalized malaise, and myalgias with low back pain nonlateralizing. She is currently dealing with her fourth bout of C. difficile in the last couple years, this 1 started with aggressive diarrhea and left lower quadrant pain 3 weeks ago, the next day she had a stool specimen that was positive for C. difficile and her doctor started her on oral vancomycin. She states the diarrhea has improved compared with how it was in the very beginning but not totally resolved. This fever started yesterday, and she states she had a bad night of diarrhea which has happened before in the last several weeks. The left lower quadrant pain is still there but it has been there throughout the last few weeks and not necessarily worse. She also states for the past 5 or 6 weeks she has had dysuria with urinary urgency but no gross hematuria. Those symptoms have not really changed. She states based on all of this she did a telemedicine visit today and was advised to go to the ER. They told her that she could be septic from C. difficile and need a medication change. The vancomycin that she is on is on a long taper that is not due to be finished well into July. She states she just tapered for the first time 4 days ago to the stepdown dose compared with the beginning dose. She states all day today, she has not had any diarrhea. She is seen and evaluated around 1730. [facility] Medical History Chest pain Fibromyalgia Depression Hypertension History of ventricular tachycardia Hx of gastroesophageal reflux (GERD) Anxiety Gastritis Essential tremor Endometriosis COPD (chronic obstructive pulmonary disease) Cervical radiculopathy Coronary artery disease History of Clostridioides difficile colitis Right bundle branch block Atopic dermatitis Thyroid cancer Home Medications ?Medication ?Instructions ?Recorded ?Last Taken ?Type dicyclomine 20 mg tablet 20 mg PO BID PRN abdominal pain 02/14/24 Unknown Rx #14 tabs valsartan 160 mg tablet 240 mg PO DAILY 02/14/24 Unknown History clonazepam 1 mg tablet 1 mg PO 03/28/24 Unknown History Allergy/AdvReac Type Severity Reaction Status Date / Time metronidazole (From Flagyl) Allergy Severe Shortness Verified 05/18/24 11:48 of breath ciprofloxacin (From Cipro) Allergy Mild Heart Verified 05/18/24 11:48 Condition fluconazole (From Diflucan) Allergy Mild Nausea Verified 05/18/24 11:48 Opioids - Morphine Analogues Allergy Mild Abd Pain Verified 05/18/24 11:48 Penicillins Allergy Mild Rash, GI Verified 05/18/24 11:48 Upset phenazopyridine (From Allergy Vomiting Verified 06/26/24 14:13 Pyridium) Family History Mother Hypertension Father Leukemia Surgical History Hx of right knee surgery History of bladder suspension procedure History of herniorrhaphy History of total abdominal hysterectomy Hx of cholecystectomy Hx of appendectomy Social History Smoking Status: Current every day smoker tobacco type: cigarettes alcohol intake: never substance use type: does not use ROS ROS ED Constitutional Constitutional ED: Reports chills, fever(s), malaise and weakness Eyes Eyes: Denies change in vision or diplopia ENT ENT ED: Denies ear pain, rhinorrhea or sore throat Cardiovascular Cardiovascular: Denies chest pain or palpitations Respiratory/Chest Respiratory/Chest: Denies cough or dyspnea Gastrointestinal Gastrointestinal: Reports abdominal pain and diarrhea; Denies hematochezia, nausea or vomiting Genitourinary Genitourinary ED: Reports dysuria and urinary urgency; Denies hematuria Musculoskeletal Musculoskeletal: Reports back pain and myalgias; Denies neck pain Integumentary Denies abscess or rash Neurologic Neurologic: Denies headache(s), paresthesias or weakness EXAM Physical Exam Const Vital Signs: 06/26/24 14:13 06/26/24 14:16 06/26/24 15:36 Temperature 98.8 F 98.8 F Temperature Source Oral Oral Pulse Rate 94 94 Respiratory Rate 22 H 22 H Respiratory Effort Respiratory Pattern Blood Pressure 132/89 H 132/89 H Blood Pressure Mean 103 103 Pulse Ox 98 98 96 Oxygen Delivery Method Room Air Room Air Room Air 06/26/24 15:36 06/26/24 15:36 06/26/24 15:38 Temperature 98.4 F Temperature Source Oral Pulse Rate Respiratory Rate 18 Respiratory Effort Normal Non-Labored Respiratory Pattern Normal Blood Pressure Blood Pressure Mean Pulse Ox 96 Oxygen Delivery Method Room Air 06/26/24 16:16 06/26/24 17:00 06/26/24 18:00 Temperature 98.4 F 98.4 F 98.3 F Temperature Source Oral Oral Oral Pulse Rate 80 78 78 Respiratory Rate 17 16 16 Respiratory Effort Respiratory Pattern Blood Pressure 144/79 H 128/69 H 132/80 H Blood Pressure Mean 100 88 97 Pulse Ox 98 98 95 Oxygen Delivery Method Room Air Room Air Room Air 06/26/24 19:00 06/26/24 20:00 06/26/24 21:00 Temperature 98.6 F 98.3 F Temperature Source Oral Oral Pulse Rate 81 78 89 Respiratory Rate 16 18 Respiratory Effort Respiratory Pattern Blood Pressure 132/84 H 124/76 H 136/96 H Blood Pressure Mean 100 92 109 Pulse Ox 98 98 Oxygen Delivery Method Room Air Room Air Positive well nourished, well developed and obese General Appearance ED: well developed and NAD Nutritional Appearance: obese HEENT Reports moist mucous membranes normocephalic and atraumatic Eyes PERRL and EOMs intact bilaterally Neck full ROM and supple Resp normal respiratory effort and clear to auscultation bilaterally Cardio regular rate, regular rhythm and no murmurs GI non-distended GI Narrative: Mildly tender suprapubic area and left lower quadrant no guarding or rebound tenderness. Auscultation: normoactive bowel sounds Palpation: soft Back/Spine no CVA tenderness General Back: other FROM; pain is bilat L-S back, much lower than renal level Extremity normal to inspection General Extremety ED: Negative for edema, pulses abnormal or tenderness General Extremity: Negative for edema or pulses abnormal Neuro oriented x3, CN's II-XII intact bilaterally and no sensory deficits noted Sensorium / Orientation: awake and alert Motor Exam: strength 5/5 throughout Psych mental status grossly normal Skin no rashes or lesions noted and no wounds MDM MDM MDM Narrative Medical decision making narrative: Patient has not had diarrhea all day and her abdominal symptoms are no worse than they had been, so my suspicion is that this is not worsening C. difficile colitis. I did a workup evaluating for other causes of her fevers which she does not have here, in addition to a lactic acid evaluating for sepsis related to C. difficile. I reviewed all these test, there essentially normal. She has a slightly elevated alkaline phosphatase and AST which are nonspecific. Her other liver enzymes are normal. Urinalysis cath urine specimen given her symptoms is negative for acute infection to explain this. Her COVID test is negative. Do not think she needs a chest x-ray. There is no IV fluid shortage so is not able to give her a bolus of fluids but she is not dehydrated according to her renal function. Her vital signs are normal. She does have fibromyalgia which may be contributing to the symptoms. At this time I do not think I would change the vancomycin based on all of this. It is certainly possible that she has a different virus that is contributing to all of this, that I cannot test for. She understands. She states that her doctor referred her to Dr. Deanna CULP. I advised her that I would be happy to consult with him however he is not on-call tonight. Advised to follow-up. Lab Data Attestation: I reviewed the patient's lab results. Labs: Laboratory Results - last 24 hr 06/26/24 06/26/24 15:45 17:43 WBC 11.0 RBC 5.93 H Hgb 17.2 H Hct 53.2 H MCV 89.7 MCH 29.0 MCHC 32.3 RDW Std Deviation 46.0 H RDW Coeff of Davy 13.9 Plt Count 294 MPV 10.0 Immature Gran % (Auto) 0.500 Neut % (Auto) 66.5 Lymph % (Auto) 22.4 Young % (Auto) 7.8 Eos % (Auto) 2.0 Baso % (Auto) 0.8 Absolute Neuts (auto) 7.3 Absolute Lymphs (auto) 2.45 Nucleated RBC % 0 Sodium 137 Potassium 4.9 Chloride 109 H Carbon Dioxide 22.0 Anion Gap 6 BUN 13 Creatinine 0.94 Estim Creat Clear Calc 95.22 Est GFR (MDRD) Af Amer 79 Est GFR (MDRD) Non-Af 65 BUN/Creatinine Ratio 13.9 Glucose 103 Lactic Acid 1.7 Calcium 9.0 Total Bilirubin 0.30 AST 38 H ALT 42 Alkaline Phosphatase 123 H Total Protein 7.7 Albumin 3.4 Globulin 4.3 H Albumin/Globulin Ratio 0.8 L Urine Color Yellow Urine Clarity Sl. Cloudy Urine pH 5.0 Ur Specific [place] 1.015 Urine Protein 15 H Urine Glucose (UA) Normal Urine Ketones Negative Urine Occult Blood 10 H Urine Nitrite Negative Urine Bilirubin Negative Urine Urobilinogen 1 H Ur Leukocyte Esterase 25 H Urine RBC 0 SEEN Urine WBC 0-5 SEEN Ur Squamous Epith Cells 5-10 SEEN Urine Bacteria 1+ Urine Mucus 0 SEEN Discharge Plan Triage Chief Complaint: Fever Other Complaint: Weakness ED Provider: Ludin Parker Dx/Rx/DC Orders Clinical Impression: Fever, C. difficile colitis, Dysuria Instructions: My C. Diff Infection Treatment Plan Prescriptions: No Action valsartan 160 mg tablet 240 mg PO DAILY dicyclomine 20 mg tablet 20 mg PO BID PRN (Reason: abdominal pain) Qty: 14 0RF clonazepam 1 mg tablet 1 mg PO Rx Instructions: one tablet in AM and two tablets in PM Primary Care Provider: Jayne Gaspar Referrals: Jayne Gaspar DO [Primary Care Provider] - 3-5 Days if not improving Prashant Huerta DO [Med Staff - Active Staff] - (call for appt) Activity Restrictions/Additional Instructions: Unclear if your fevers are related to your C. difficile, viral infection that we were not able to test for, or something else but your test were otherwise unremarkable. Continue the vancomycin as prescribed and follow-up with your doctor and/or GI when able. Print Language: [place] Disposition Disposition: Home, Self Care
[2024-06-26 17:48] LABS: Mucous, Urine 0 SEEN /hpf (<or=2+); Red Blood Cells-Urine 0 SEEN /hpf (0-5)
[2024-06-26 17:53] LABS: Color, Urine Yellow (Yellow); Glucose, Dipstick Normal (Normal); Ketone-Dipstick Negative (Negative); Leukocyte Esterase-Dipstick 25 /ul (Negative); Nitrite-Dipstick Negative (Negative); Occult Blood-Urine 10 /ul (Negative); Protein-Dipstick 15 mg/dl (Negative); Specific Gravity, Urine 1.015 (1.002-1.030); Urine Bilirubin Dipstick Negative (Negative); Urine Clarity Sl. Cloudy (Clear); Urine Urobilinogen 1 mg/dl (Normal)
[2024-06-26 17:57] LABS: Absolute Lymphocyte Count 2.45 X10^3/uL (0.83-4.51); Absolute Neutrophil Count 7.3 X10^3/uL (2.0-7.7); Basophil# 0.09 X10^3/uL; Basophil% 0.8 % (0-1); Eosinophil# 0.22 X10^3/uL; Hematocrit 53.2 % (37-47); Hemoglobin 17.2 g/dL (12.0-15.0); Lymphocyte # 2.45 X10^3/ul (0.83-4.51); Lymphocyte % 22.4 % (19-41); Mean Corp Hgb Conc 32.3 g/dL (32-36); Mean Corpuscular Volume 89.7 fL (81-99); Monocyte# 0.85 X10^3/uL; Monocyte% 7.8 % (0-10); NRBC Flagged by Analyzer 0 % (0-5); Neutrophil % 66.5 % (47-70); Platelet Count 294 K/mm3 (150-450); RBC Distribution Width CV 13.9 % (11.6-14.6); Red Blood Count 5.93 M/mm3 (4.2-5.4)
[2024-06-26 18:05] LABS: Bacteria 1+ /hpf (None Seen); Squamous Epithelial Cells - UA 5-10 SEEN /hpf (5-10); White Blood Cells 0-5 SEEN /hpf (0-5)
--- OUTSIDE RECORDS SUMMARY | 2024-06-26 18:13 | XMS RPT_ITS | CCD ---
Author Organization [facility] Care Team Providers Care Solution Manager Name Role Phone Unavailable Primary Care Provider Unavailabl e Sheets DO, Jayne C Primary Care Provider SHEETS, JAYNE C Referring Unavailable SHEETS, JAYNE C Primary Care Unavailable PROVIDER, UNKNOWN Referring Unavailable SHEETS, JAYNE C Primary Care Unavailable ELLEN JIM Attending Unavailable SHEETS, JAYNE C Primary Care Unavailable SHEETS, JAYNE C Referring Unavailable SHEETS, JAYNE C Primary Care Unavailable BRYAN DURAND Attending Unavailable SHEETS, JAYNE C Primary Care Unavailable KATINA BROOKS Referring Unavailable SHEETS, JAYNE C Primary Care Unavailable BRYAN DURAND Attending Unavailable KEENAN CHAMPAGNE JR Attending Unava ilable SHEETS, JAYNE C Primary Care Unavailable SHEETS, JAYNE C Primary Care Unavailable SHEETS, JAYNE C Referring Unavailable SHEETS, JANYE C Primary Care Unavailable SHEETS, JAYNE C Referring Unavailable SHEETS, JAYNE C Primary Care Unavailable SHEETS, JAYNE C Attending Unavailable SHEETS, JAYNE C Primary Care Unavailable SHEETS, JAYNE C Primary Care Unavailable SHEETS, JAYNE C Referring Unavailable SHEETS, JAYNE C Attending Unavailable SHEETS, JAYNE C Primary Care Unavailable SHEETS, JAYNE C Attending Unavailable SHEETS, JAYNE C Primary Care Unavailable SHEETS, JAYNE C Referring Unavailable SHEETS, JAYNE C Primary Care Unavailable SHEETS, JAYNE C Attending Unavailable SELF Referring Unavailable SHEETS, JAYNE C Primary Care Unavailable SHEETS, JAYNE C Referring Unavailable Allergies Allergy Classification Reported Allergen(s) Allergy Type Date of Onset Reaction(s) Facility Azole Antifungals (1 source) Fluconazole Drug Allergy 4 GI Upset [facility] Penicillins (antibiotic) (1 source) Penicillins Drug Allergy 4 Rash, GI Upset [facility] Quinolones (antibiotic) (1 source) Ciprofloxacin Drug Allergy 4 Other: See Comments [facility] (20 sources) Ciprofloxacin; Translations: [CIPROFLOXACIN HCL] Drug Allergy 4 Other: See Comments [facility] (20 sources) Fluconazole; Translations: [FLUCONAZOLE] Drug Allergy 4 GI Upset [facility] (20 sources) Morphinan opioid; Translations: [OPIOIDS - MORPHINE ANALOGUES] Drug Intolerance 4 GI Upset [facility] (20 sources) Penicillins; Translations: [PENICILLINS] Drug Allergy 4 Rash, GI Upset [facility] (14 sources) aMILoride / hydroCHLOROthiazi de; Translations: [AMILORIDE-HYDROC HLOROTHIAZIDE] Drug Allergy 4 Intolerance [facility] (14 sources) metroNIDAZOLE; Translations: [METRONIDAZOLE] Drug Allergy 4 Shortness of Breath [facility] Medications Current Medications Medication Drug Class(es) Dates Sig (Normalized) Sig (Original) atropine sulfate 0.025 mg / diphenoxylate hydrochloride 2.5 mg oral tablet (5 sources) Anticholinergic, Cholinergic Muscarinic Antagonist, Antidiarrheal Start: 05-22-2024 take 1 tablet by mouth once at bedtime diphenoxylate-atrop ine (LOMOTIL) 2.5-0.025 mg per tablet Indications: Diarrhea, unspecified type Take 1 tablet by mouth before meals and at bedtime for 5 days. 20 tablet 05/22/2024 Active clonazePAM 1 mg oral tablet (20 sources) Benzodiazepine Start: 01-04-2024 End: 05-11-2024 take 1 tablet by mouth in the morning, then take 2 tablets by mouth in the evening clonazePAM (KLONOPIN) 1 mg tablet Indications: Depression with anxiety TAKE 1 TABLET BY MOUTH IN THE MORNING AND 2 IN THE EVENING 90 tablet 04/10/2024 Active iv contrast (will be provided with radiology test) (2 sources) Start: 05-14-2024 End: 05-15-2024 iv contrast (will be provided with radiology test) Indications: Generalized abdominal pain CT ABD/PEL -Inject, intravenously, once for 1 dose.No IV access, insert saline lock prior to the beginning of sedation, infusion, injection of imaging exam. Discontinue saline lock post exam. If Pt. has a central line or IVAD, may access for administration according to line specific nursing protocol. Once exam is complete flush line and de-access according to line specific nursing protocol in the CT contrast administration guidelines link. 1 Each 05/14/2024 05/15/2024 Active Start: 03-11-2024 End: 03-12-2024 inject 1 dose intravenously once iv contrast (will be provided with radiology test) MRI Brain Inject, intravenously, once for 1 dose.No IV access, insert saline lock prior to beginning of sedation, infusion, injection of imaging exam.Discontinue saline lock post exam. If Pt. has a central line or IVAD, may access for administration according to line specific nursing protocol.Once exam is complete flush line and de-access according to line specific nursing protocol in the MR contrast administration guidelines link 1 Each 0 03/11/2024 03/12/2024 Active methylPREDNISolone (2 sources) Corticosteroid Start: 03-12-2024 End: 03-18-2024 methylPREDNISolone (MEDROL, KINDRA,) 4 mg Dose-Pack Take as instructed per package. 21 tablet 0 03/12/2024 03/18/2024 Active mirtazapine 15 mg oral tablet (13 sources) Start: 05-12-2024 take 1 tablet by mouth once daily at bedtime mirtazapine (REMERON) 15 mg tablet Take 15 mg by mouth daily at bedtime. 05/12/2024 Active phenazopyridine hydrochloride 100 mg oral tablet (5 sources) Start: 06-04-2024 take 2 tablets by mouth every eight hours as needed phenazopyridine (PYRIDIUM) 100 mg tablet Take 2 tablets by mouth three times a day as needed. 12 tablet 06/04/2024 Active sulfamethoxazole 800 mg / trimethoprim 160 mg oral tablet (3 sources) Dihydrofolate Reductase Inhibitor Antibacterial, Sulfonamide Antimicrobial Start: 06-09-2024 End: 06-12-2024 take 1 tablet by mouth twice daily sulfamethoxazole-trim ethoprim (BACTRIM DS) 800-160 mg per tablet Take 1 tablet by mouth two times a day for 3 days. 6 tablet 06/09/2024 06/12/2024 Active valsartan 160 mg oral tablet (20 sources) Angiotensin 2 Receptor Joseph Start: 05-20-2024 take 1 tablet by mouth once valsartan (DIOVAN) 160 mg tablet Indications: Hypertension, essential Take 1 tablet by mouth every afternoon. 30 tablet 2 05/20/2024 Active Start: 01-04-2024 End: 05-13-2024 take 1 tablet by mouth once valsartan (DIOVAN) 160 mg tablet Take 1 tablet by mouth every afternoon. 01/04/2024 05/13/2024 Discontinued End: 05-13-2024 take 1 tablet by mouth once daily valsartan (DIOVAN) 80 mg tablet Take 80 mg by mouth once daily. 05/13/2024 Discontinued vancomycin 125 mg oral capsule (3 sources) Glycopeptide Antibacterial Start: 06-09-2024 End: 07-21-2024 take 1 capsule by mouth four times daily, then take 1 capsule by mouth twice daily, then take 1 capsule by mouth once daily, then take 1 capsule by mouth every other day vancomycin (VANCOCIN) 125 mg capsule Indications: C. difficile colitis Take 1 capsule by mouth four times daily for 14 days, THEN 1 capsule two times a day for 7 days, THEN 1 capsule once daily for 7 days, THEN 1 capsule every other day for 14 days. 84 capsule 06/09/2024 07/21/2024 Active Completed/Discontinued Medications Medication Drug Class(es) Dates Sig (Normalized) Sig (Original) doxycycline hyclate 100 mg oral tablet (7 sources) Tetracycline-class Drug Start: 4 End: 4 take 1 tablet by mouth twice daily doxycycline (VIBRA-TABS) 100 mg tablet Take 1 tablet by mouth two times a day. 20 tablet 03/20/2024 05/05/2024 Discontinued (Course of therapy completed) hydroCHLOROthiazide 12.5 mg / valsartan 160 mg oral tablet (6 sources) Thiazide Diuretic, Angiotensin 2 Receptor Joseph Start: 4 End: 4 take 1 tablet by mouth once daily Valsartan-hydroCHL OROthiazide (DIOVAN HCT) 160-12.5 mg per tablet Indications: Hypertension, essential Take 1 tablet by mouth once daily. 30 tablet 2 05/13/2024 05/20/2024 Discontinued metroNIDAZOLE 500 mg oral tablet (6 sources) Nitroimidazole Antimicrobial Start: 4 End: 4 take 1 tablet by mouth three times daily metroNIDAZOLE (FLAGYL) 500 mg tablet Indications: Lower abdominal pain , Diverticulosis Take 1 tablet by mouth three times a day for 10 days. 20 tablet 05/13/2024 05/20/2024 Discontinued Problems Active Problems Problem Classification Problem Date Documented Da te Episodic/Chronic Abdominal pain (7 sources) Lower abdominal pain; Translations: [Lower abdominal pain, unspecified] Onset: 4 05-05-2024 Episodic Anxiety disorders (20 sources) Generalized anxiety disorder; Translations: [Generalized anxiety disorder] Onset: 4 03-07-2024 Chronic Chronic obstructive pulmonary disease and bronchiectasis (20 sources) Chronic bronchitis; Translations: [Unspecified chronic bronchitis] Onset: 4 03-07-2024 Chronic Diseases of white blood cells (4 sources) Leukocytosis; Translations: [Elevated white blood cell count, unspecified] Onset: 4 03-07-2024 Chronic Diverticulosis and diverticulitis (2 sources) Diverticular disease; Translations: [Diverticulosis of intestine, part unspecified, without perforation or abscess without bleeding] Onset: 4 05-13-2024 Chronic Essential hypertension (20 sources) Essential hypertension; Translations: [Essential (primary) hypertension] Onset: 4 03-07-2024 Chronic Fluid and electrolyte disorders (12 sources) Hypokalemia; Translations: [Hypokalemia] Onset: 4 05-20-2024 Episodic Genitourinary symptoms and ill-defined conditions (3 sources) Urgent desire to urinate; Translations: [Urgency of urination] 05-05-2024 Episodic Headache; including migraine (1 source) Headache; including migraine; Translations: [Headache, unspecified headache type] Onset: 4 Intestinal infection (2 sources) Enterocolitis due to Clostridium difficile, not specified as recurrent; Translations: [Clostridium difficile colitis] Onset: 4 06-09-2024 Episodic Other connective tissue disease (2 sources) Swelling of lower limb; Translations: [Other specified soft tissue disorders] 01-23-2024 Episodic Other endocrine disorders (1 source) Disorder of adrenal gland, unspecified; Translations: [Adrenal nodule (HCC)] Onset: 4 Chronic Other endocrine disorders (1 source) Adrenal mass; Translations: [Disorder of adrenal gland, unspecified] 06-09-2024 Chronic Other female genital disorders (1 source) Pruritus of vagina; Translations: [Other specified noninflammatory disorders of vagina] 03-19-2024 Episodic Other female genital disorders (1 source) Other specified noninflammatory disorders of vagina; Translations: [Vaginal itching] Onset: Episodic Other gastrointestinal disorders (2 sources) Diarrhea; Translations: [Diarrhea, unspecified] 05-20-2024 Episodic Other gastrointestinal disorders (3 sources) Diarrhea, unspecified; Translations: [Diarrhea, unspecified type] Onset: Episodic Other nervous system disorders (2 sources) Mass lesion of brain; Translations: [Other specified disorders of brain] 03-11-2024 Chronic Other nervous system disorders (1 source) Other specified disorders of brain; Translations: [Brain mass] Onset: Chronic Other non-traumatic joint disorders (1 source) Pain in wrist; Translations: [Pain in left wrist] 01-23-2024 Episodic Other nutritional; endocrine; and metabolic disorders (20 sources) Severe obesity; Translations: [Morbid (severe) obesity due to excess calories] Onset: 4 03-07-2024 Chronic Other nutritional; endocrine; and metabolic disorders (1 source) Morbid (severe) obesity due to excess calories; Translations: [Class 3 severe obesity with body mass index (BMI) of 45.0 to 49.9 in adult, unspecified obesity type, unspecified whether serious comorbidity present (HCC)] Onset: 4 Chronic Other nutritional; endocrine; and metabolic disorders (1 source) Body mass index (BMI) 45.0-49.9, adult; Translations: [Class 3 severe obesity with body mass index (BMI) of 45.0 to 49.9 in adult, unspecified obesity type, unspecified whether serious comorbidity present (HCC)] Onset: 4 Chronic Rheumatoid arthritis and related disease (20 sources) Undifferentiated inflammatory arthritis; 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 polyarthropathy] Onset: 4 03-07-2024 Chronic Substance-related disorders (20 sources) Smoker; Translations: [Nicotine dependence, unspecified, uncomplicated] Onset: 03-07-2024 Chronic Thyroid disorders (20 sources) Thyroid nodule; Translations: [Nontoxic single thyroid nodule] Onset: 4 03-07-2024 Chronic Urinary tract infections (2 sources) Interstitial cystitis (chronic) without hematuria; Translations: [Chronic interstitial cystitis] Onset: 06-09-2024 Chronic Past or Other Problems Problem Classification Problem Date Documented Da te Episodic/Chronic Allergic reactions (20 sources) Allergy to drug; Translations: [Allergy status to narcotic agent status] Onset: 03-07-2024 03-07-2024 Episodic E Codes: Fall (3 sources) Fall; Translations: [Unspecified fall, initial encounter] Onset: 01-23-2024 01-23-2024 Episodic Fever of unknown origin (2 sources) Fever; Translations: [Fever presenting with conditions classified elsewhere] Onset: 03-07-2024 03-07-2024 Episodic Headache; including migraine (20 sources) Headache; Translations: [Headache, unspecified headache type] Onset: 03-07-2024 03-07-2024 Episodic Inflammatory diseases of female pelvic organs (2 sources) Chronic vaginitis; Translations: [Subacute and chronic vaginitis] Onset: 03-07-2024 03-07-2024 Episodic Nonspecific chest pain (2 sources) Chest pain; Translations: [Other chest pain] Onset: 03-07-2024 03-07-2024 Episodic Other connective tissue disease (1 source) Other specified soft tissue disorders; Translations: [Leg swelling] Onset: 01-23-2024 Episodic Other injuries and conditions due to external causes (1 source) Unspecified injury of right lower leg, initial encounter; Translations: [Knee injury, right, initial encounter] Onset: 01-23-2024 Episodic Other screening for suspected conditions (not mental disorders or infectious disease) (9 sources) Plain X-ray knee abnormal; Translations: [Abnormal findings on diagnostic imaging of limbs] Onset: 03-07-2024 01-23-2024 Episodic Other upper respiratory disease (20 sources) Polyp of nasal cavity and/or nasal sinus; Translations: [Nasal polyp, unspecified] Onset: 03-07-2024 03-07-2024 Episodic Other upper respiratory disease (1 source) Nasal polyp, unspecified; Translations: [Nose polyp] Onset: 03-07-2024 Episodic Other upper respiratory infections (4 sources) Sore throat symptom; Translations: [Acute pharyngitis, unspecified] Onset: 03-07-2024 03-07-2024 Episodic Results Test Name Value Interpretation Reference Range Facility [facility] 06-12-[address] [facility] Telephone (AGFAMPLE) CARLI JEREZ ([id number]) 1965 F Date Time Provider Department 06/12/24 JAYNE KHANNA During your visit today, we recorded the following information about you: Jeanna Napoles MA 06/12/2024 8:17 AM Signed ----- Message from John Nieves MA sent at 05/13/2024 11:39 AM EDT ----- Remind pt time to recheck potassium after starting valsartan/ hctz Allergies As of Date: 06/12/2024 Noted Allergy Reaction CIPRO (CIPROFLOXACIN HCL) 01/23/2024 14 - Other: See Comments Comments: Messes with heart DIFLUCAN (FLUCONAZOLE) 01/23/2024 8 - GI Upset FLAGYL (METRONIDAZOLE) 05/20/2024 12 - Shortness of Breath HCTZ (AMILORIDE-HYDROCHLOROT HIAZI*05/20/2024 5 - Intolerance Comments: Hypokalemia OPIOIDS - MORPHINE ANALOGUES 01/23/2024 8 - GI Upset PENICILLINS 01/23/2024 2 - Rash 8 - GI Upset Date Reviewed: 06/09/2024 Reviewed by: Jayne Khanna DO - Fully Assessed Reason for Visit: Lab Orders [[id number]] Prescriptions as of 06/12/2024 - vancomycin (VANCOCIN) 125 mg capsule Take 1 capsule by mouth four times daily for 14 days, THEN 1 capsule two times a day for 7 days, THEN 1 capsule once daily for 7 days, THEN 1 capsule every other day for 14 days. - sulfamethoxazole-trimet hoprim (BACTRIM DS) 800-160 mg per tablet Take 1 tablet by mouth two times a day for 3 days. - phenazopyridine (PYRIDIUM) 100 mg tablet Take 2 tablets by mouth three times a day as needed. - diphenoxylate-atropine (LOMOTIL) 2.5-0.025 mg per tablet Take 1 tablet by mouth before meals and at bedtime for 5 days. - valsartan (DIOVAN) 160 mg tablet Take 1 tablet by mouth every afternoon. - mirtazapine (REMERON) 15 mg tablet Take 15 mg by mouth daily at bedtime. - clonazePAM (KLONOPIN) 1 mg tablet TAKE 1 TABLET BY MOUTH IN THE MORNING AND 2 IN THE EVENING Problem List As Of Date 06/12/2024 Noted Resolved Chronic bronchitis (HCC) [J42] 03/07/2024 BLAISE (generalized anxiety disorder) [F41.1] 03/07/2024 Hypertension, essential [I10] 03/07/2024 Depression with anxiety [F41.8] 03/07/2024 Undifferentiated inflammatory arthritis (HCC) [*03/07/2024 Class 3 severe obesity with body mass index (BM*03/07/2024 Thyroid nodule [E04.1] 03/07/2024 Headache, unspecified headache type [R51.9] 03/07/2024 Nose polyp [J33.9] 03/07/2024 Smoker [F17.200] 03/07/2024 Allergy to opioid analgesic [Z88.5] 03/07/2024 Hypokalemia [E87.6] 05/20/2024 Encounter Status:Closed by JEANNA NAPOLES on 06/12/24 Normal [facility] CBC W Auto Differential pane l (Bld)on 06-06-2024 Basophils (Bld) [#/Vol] 0.06 10*3/uL Normal <0.11 [facility] Comment on above: Order Comment: Speci men Type: BLOOD SPECIMEN Ordering Facility: [facility] Address: [address] [place] [address] Performed By: #### 5 7021-8 #### [facility] CLIA [id number] [address] [place] Basophils/100 WBC (Bld) 0.6 % Normal [facility] Comment on above: Order Comment: Speci men Type: BLOOD SPECIMEN Ordering Facility: [facility] Address: [facility] [place] [address] Performed By: #### 5 7021-8 #### [facility] CLIA [id number] [address] [place] Differential cell count method Nom (Bld) Auto Normal [facility] Comment on above: Order Comment: Speci men Type: BLOOD SPECIMEN Ordering Facility: [facility] Address: [address] [place] [address] Performed By: #### 5 7021-8 #### [facility] CLIA [id number] [address] [place] Eosinophils (Bld) [#/Vol] 0.27 10*3/uL Normal <0.46 [facility] Comment on above: Order Comment: Speci men Type: BLOOD SPECIMEN Ordering Facility: [facility] Address: [address] [place] [address] Performed By: #### 5 7021-8 #### [facility] CLIA [id number] [address] [place] [facility] Eosinophils/100 WBC (Bld) 2.7 % Normal [facility] Comment on above: Order Comment: Speci men Type: BLOOD SPECIMEN Ordering Facility: [facility] Address: [address] [place] [address] Performed By: #### 5 7021-8 #### [facility] CLIA [id number] [address] [place] Erythrocyte distribution width (RBC) [Ratio] 14.2 % Normal 11.5-15.0 [facility] Comment on above: Order Comment: Speci men Type: BLOOD SPECIMEN Ordering Facility: [facility] Address: [address] [place] [address] Performed By: #### 5 7021-8 #### [facility] CLIA [id number] [address] [place] Hematocrit (Bld) [Volume fraction] 50.8 % High 36.0-46.0 [facility] Comment on above: Order Comment: Speci men Type: BLOOD SPECIMEN Ordering Facility: [facility] Address: [address] [place] [address] Performed By: #### 5 7021-8 #### [facility] CLIA [id number] [address] [place] [address] [place] Hemoglobin (Bld) [Mass/Vol] 16.6 g/dL High 11.5-15.5 [facility] Comment on above: Order Comment: Speci men Type: BLOOD SPECIMEN Ordering Facility: [facility] Address: [address] [place] [address] Performed By: #### 5 7021-8 #### [facility] CLIA [id number] [address] [place] [address] [place] Immature granulocytes (Bld) [#/Vol] 0.05 10*3/uL Normal <0.10 [facility] Comment on above: Order Comment: Speci men Type: BLOOD SPECIMEN Ordering Facility: [facility] Address: [address] [place] [address] Performed By: #### 5 7021-8 #### [facility] CLIA [id number] [address] [place] [address] [place] Immature granulocytes/100 WBC (Bld) 0.5 % Normal [facility] Comment on above: Order Comment: Speci men Type: BLOOD SPECIMEN Ordering Facility: [facility] Address: [address] [place] [address] Performed By: #### 5 7021-8 #### [facility] CLIA [id number] [address] [place] [address] [place] Lymphocytes (Bld) [#/Vol] 1.95 10*3/uL Normal 1.00-4.00 [facility] Comment on above: Order Comment: Speci men Type: BLOOD SPECIMEN Ordering Facility: [facility] Address: [address] [place] [address] Performed By: #### 5 7021-8 #### [facility] CLIA [id number] [address] Lymphocytes/100 WBC (Bld) 19.4 % Normal [facility] Comment on above: Order Comment: Speci men Type: BLOOD SPECIMEN Ordering Facility: [facility] Address: [facility] [place] [address] Performed By: #### 5 7021-8 #### [facility] CLIA [id number] [address] MCH (RBC) [Entitic mass] 29.3 pg Normal 26.0-34.0 [facility] Comment on above: Order Comment: Speci men Type: BLOOD SPECIMEN Ordering Facility: [facility] Address: [address] [place] [address] Performed By: #### 5 7021-8 #### [facility] CLIA [id number] [address] MCHC (RBC) [Mass/Vol] 32.7 g/dL Normal 30.5-36.0 [facility] Comment on above: Order Comment: Speci men Type: BLOOD SPECIMEN Ordering Facility: [facility] Address: [address] [place] [address] Performed By: #### 5 7021-8 #### [facility] CLIA [id number] [address] MCV (RBC) [Entitic vol] 89.8 fL Normal 80.0-100.0 [facility] Comment on above: Order Comment: Speci men Type: BLOOD SPECIMEN Ordering Facility: [facility] Address: [address] [place] [address] Performed By: #### 5 7021-8 #### [facility] CLIA [id number] [address] Monocytes (Bld) [#/Vol] 0.75 10*3/uL Normal <0.87 [facility] Comment on above: Order Comment: Speci men Type: BLOOD SPECIMEN Ordering Facility: [facility] Address: [address] [place] [address] Performed By: #### 5 7021-8 #### [facility] CLIA [id number] [address] Monocytes/100 WBC (Bld) 7.5 % Normal [facility] Comment on above: Order Comment: Speci men Type: BLOOD SPECIMEN Ordering Facility: [facility] Address: [address] [place] [address] Performed By: #### 5 7021-8 #### [facility] CLIA [id number] [address] [place] [address] [place] Neutrophils (Bld) [#/Vol] 6.98 10*3/uL Normal 1.45-7.50 [facility] Comment on above: Order Comment: Speci men Type: BLOOD SPECIMEN Ordering Facility: [facility] Address: [address] [place] [address] Performed By: #### 5 7021-8 #### [facility] CLIA [id number] [address] Neutrophils/100 WBC (Bld) 69.3 % Normal [facility] Comment on above: Order Comment: Speci men Type: BLOOD SPECIMEN Ordering Facility: [facility] Address: [address] [place] [address] Performed By: #### 5 7021-8 #### [facility] CLIA [id number] [address] [place] [address] [place] Nucleated RBC (Bld) [#/Vol] 10*3/uL Normal <0.01 [facility] Comment on above: Order Comment: Speci men Type: BLOOD SPECIMEN Ordering Facility: [facility] Address: [address] [place] [address] Performed By: #### 5 7021-8 #### [facility] CLIA [id number] [address] [place] [address] [facility] [place] Nucleated RBC/100 WBC (Bld) [Ratio] 0.0 /100 WBC Normal [facility] Comment on above: Order Comment: Speci men Type: BLOOD SPECIMEN Ordering Facility: [facility] Address: [address] [place] [address] Performed By: #### 5 7021-8 #### [facility] CLIA [id number] [address] [place] [address] [place] Platelet mean volume (Bld) [Entitic vol] 9.1 fL Normal 9.0-12.7 [facility] Comment on above: Order Comment: Speci men Type: BLOOD SPECIMEN Ordering Facility: [facility] Address: [address] [place] [address] Performed By: #### 5 7021-8 #### [facility] CLIA [id number] [address] [place] [address] [place] Platelets (Bld) [#/Vol] 277 10*3/uL Normal 150-400 [facility] Comment on above: Order Comment: Shahnazi men Type: BLOOD SPECIMEN Ordering Facility: [facility] Address: [address] [place] [address] Performed By: #### 5 7021-8 #### [facility] CLIA [id number] [address] [place] [address] [place] RBC (Bld) [#/Vol] 5.66 10*6/uL High 3.90-5.20 [facility] Comment on above: Order Comment: Speci men Type: BLOOD SPECIMEN Ordering Facility: [facility] Address: [address] [place] [address] Performed By: #### 5 7021-8 #### [facility] CLIA [id number] [address] [place] WBC (Bld) [#/Vol] 10.06 10*3/uL Normal 3.70-11.00 [facility] Comment on above: Order Comment: Shahnazi men Type: BLOOD SPECIMEN Ordering Facility: [facility] Address: [address] [place] [address] Performed By: #### 5 7021-8 #### [facility] CLIA [id number] [address] [place] [address] [facility] [place] CT ABD/PEL WO IVCONon 2023 CT ABD/PEL WO IVCON * * *Final Report* * * DATE OF EXAM: Jun 06 2024 2:23PM [facility] 0531 - CT ABD/PEL WO IVCON / PROCEDURE REASON: diarrhea, low abd pain * * * * Physician Interpretation * * * * EXAMINATION: CT ABDOMEN AND PELVIS WITHOUT IV CONTRAST CLINICAL HISTORY: Diarrhea and lower abdominal pain TECHNIQUE: Non-IV contrast imaging of the abdomen and pelvis was performed using standard technique, scanning from just above the dome of the diaphragm to the symphysis pubis. Unenhanced imaging is limited for the evaluation of some intra-abdominal and pelvic pathology. MQ: CTAPWO_3 Contrast: IV: None CT Radiation dose: Integrated Dose-length product (DLP) for this visit = 1351 mGy*cm. CT Dose Reduction Employed: Automated exposure control(AEC) and iterative recon COMPARISON: None. RESULT: Abdomen / Pelvis: Liver: Unremarkable. Biliary: S/p cholecystectomy. Spleen: No splenomegaly. Pancreas: Unremarkable. Adrenals: Lateral RIGHT adrenal mass 2.9 x 1.8 cm with attenuation -10 Hounsfield units. LEFT adrenal nodule measuring 5.0 x 3.2 x 2.7 cm. Attenuation -19 Hounsfield units. Kidneys: No calculus, hydronephrosis or finding to suggest a cyst or mass in the unenhanced kidney. GI Tract: No bowel dilation. There are bowel sutures at the region of the rectum and distal colon. No diverticulosis is noted. Lymph Nodes: No lymphadenopathy. Mesentery/peritoneum: No ascites. Retroperitoneum: No mass. Vasculature: Arterial atherosclerotic disease without aneurysm. Pelvis: No mass or ascites. Bones/Soft Tissues: No acute abnormality. Lower thorax: Unremarkable. Localizer images: No additional findings. IMPRESSION: No acute finding Bilateral adrenal nodules. Left adrenal nodule larger than RIGHT with maximal diameter of 5 cm. Recommend biochemical assay to determine functional status and exclude pheochromocytoma. Consider surgical resection. Right adrenal nodule 2.9 cm maximal diameter suggesting adenoma. Commercial Coordinator: PSCB Transcribe Date/Time: Jun 06 2024 2:31P Dictated by : TRUONG CARREON MD This examination was interpreted and the report reviewed and electronically signed by: TRUONG CARREON MD on Jun 06 2024 2:50PM EST [id number] Normal [facility] Comprehensive metabolic 2000 panelon 06-06-2024 Albumin [Mass/Vol] 4.0 g/dL Normal 3.9-4.9 [facility] Comment on above: Order Comment: Speci men Type: BLOOD SPECIMEN Ordering Facility: [facility] Address: [address] [place] [address] Performed By: #### 2 4323-8, 3040-3, #### [facility] CLIA [id number] [address] [place] [address] [place] ALP [Catalytic activity/Vol] 102 U/L Normal 34-123 [facility] Comment on above: Order Comment: Speci men Type: BLOOD SPECIMEN Ordering Facility: [facility] Address: [address] [place] [address] Performed By: #### 2 4323-8, 3040-3, #### [facility] CLIA [id number] [address] [place] [address] [place] ALT [Catalytic activity/Vol] 21 U/L Normal 7-38 [facility] Comment on above: Order Comment: Speci men Type: BLOOD SPECIMEN Ordering Facility: [facility] Address: [address] [place] [address] Performed By: #### 2 4323-8, 3040-3, #### [facility] CLIA [id number] [address] [place] [address] [place] Anion gap [Moles/Vol] 9 mmol/L Normal 8-15 [facility] Comment on above: Order Comment: Speci men Type: BLOOD SPECIMEN Ordering Facility: [facility] Address: [address] [place] [address] Performed By: #### 2 4323-8, 3040-3, #### [facility] CLIA [id number] [address] [place] AST [Catalytic activity/Vol] 17 U/L Normal 13-35 [facility] Comment on above: Order Comment: Speci men Type: BLOOD SPECIMEN Ordering Facility: [facility] Address: [address] [place] [address] Performed By: #### 2 4323-8, 3040-3, #### [facility] CLIA [id number] [address] [place] [address] [place] Bilirubin [Mass/Vol] 0.3 mg/dL Normal 0.2-1.3 [facility] Comment on above: Order Comment: Speci men Type: BLOOD SPECIMEN Ordering Facility: [facility] Address: [address] [place] [address] Performed By: #### 2 4323-8, 3040-3, #### [facility] CLIA [id number] [address] [place] [address] [place] Calcium [Mass/Vol] 9.1 mg/dL Normal 8.5-10.2 [facility] Comment on above: Order Comment: Speci men Type: BLOOD SPECIMEN Ordering Facility: [facility] Address: [address] [place] [address] Performed By: #### 2 4323-8, 0-3, #### [facility] CLIA [id number] [address] [place] [address] [place] Chloride [Moles/Vol] 103 mmol/L Normal 98-107 [facility] Comment on above: Order Comment: Speci men Type: BLOOD SPECIMEN Ordering Facility: [facility] Address: [address] [place] [address] Performed By: #### 2 4323-8, 3, #### [facility] CLIA [id number] [address] [place] [address] [place] CO2 [Moles/Vol] 27 mmol/L Normal 22-30 [facility] Comment on above: Order Comment: Speci men Type: BLOOD SPECIMEN Ordering Facility: [facility] Address: [address] [place] [address] Performed By: #### 2 4323-8, 3, #### [facility] CLIA [id number] [address] [place] [address] [place] Creatinine [Mass/Vol] 0.92 mg/dL Normal 0.58-0.96 [facility] Comment on above: Order Comment: Speci men Type: BLOOD SPECIMEN Ordering Facility: [facility] Address: [address] [place] [address] Performed By: #### 2 4323-8, 0-3, #### [facility] CLIA [id number] [address] [place] [address] [place] Creatinine and Glomerular filtration rate.predicted panel (S/P/Bld) 71 mL/min/1.73m??? Normal >=60 [facility] Comment on above: Order Comment: Princess lawton Type: BLOOD SPECIMEN Ordering Facility: [facility] Address: [address] [place] [address] Result Comment: Paola mated Glomerular Filtration Rate (eGFR) is calculated using the 2020 CKD-EPI creatinine equation. This equation utilizes serum creatinine, sex, and age as parameters. The creatinine assay has traceable calibration to isotope dilution-mass spectrometry. Refer to KDIGO guidelines for clinical interpretation. In patients with unstable renal function, e.g. those with acute kidney injury, the eGFR may not accurately reflect actual GFR. Performed By: #### 2 4323-8, 0-3, #### [facility] CLIA [id number] [address] [place] [address] [place] Glucose [Mass/Vol] 103 mg/dL High 74-99 [facility] Comment on above: Order Comment: Princess lawton Type: BLOOD SPECIMEN Ordering Facility: [facility] Address: [address] [place] [address] Result Comment: The [place] [employer] (ADA) provides guidance for cutoff values for fasting glucose and random glucose. The ADA defines fasting as no caloric intake for at least 8 hours. Fasting plasma glucose results between 100 to 125 mg/dL indicate increased risk for diabetes (prediabetes). Fasting plasma glucose results greater than or equal to 126 mg/dL meet the criteria for diagnosis of diabetes. In the absence of unequivocal hyperglycemia, results should be confirmed by repeat testing. In a patient with classic symptoms of hyperglycemia or hyperglycemic crisis, random plasma glucose results greater than or equal to 200 mg/dL meet the criteria for diagnosis of diabetes. Reference: Standards of Medical Care in Diabetes 2016, [place] [employer]. Diabetes Care. 2016.39(Suppl 1). Performed By: #### 2 4323-8, 0-3, #### [facility] CLIA [id number] [address] [place] [address] [place] Potassium [Moles/Vol] 4.5 mmol/L Normal 3.7-5.1 [facility] Comment on above: Order Comment: Speci men Type: BLOOD SPECIMEN Ordering Facility: [facility] Address: [address] [place], [place] [address] Performed By: #### 2 4323-8, 3040-3, #### [facility] CLIA [id number] [address] [place] Protein [Mass/Vol] 7.1 g/dL Normal 6.3-8.0 [facility] Comment on above: Order Comment: Speci men Type: BLOOD SPECIMEN Ordering Facility: [facility] Address: [address] [place] [address] Performed By: #### 2 4323-8, 3040-3, #### [facility] CLIA [id number] [address] Sodium [Moles/Vol] 139 mmol/L Normal 136-144 [facility] Comment on above: Order Comment: Speci men Type: BLOOD SPECIMEN Ordering Facility: [facility] Address: [address] [place] [address] Performed By: #### 2 4323-8, 3040-3, #### [facility] CLIA [id number] [address] [place] Urea nitrogen [Mass/Vol] 6 mg/dL Low 7-21 [facility] Comment on above: Order Comment: Speci men Type: BLOOD SPECIMEN Ordering Facility: [facility] Address: [address] [place] [address] Performed By: #### 2 4323-8, 3040-3, #### [facility] CLIA [id number] [address] [place] [address] [place] ED NOTEon 06-06-2024 ED NOTE HNO ID: [id number] Author: ESTEPHANIA BOSWELL RN Service: ? Author Type: Registered Nurse Type: ED Notes Filed: 06/06/2024 16:28 Note Text: Discharge instructions d/w pt and spouse at bedside. Stated understanding with no further questions for this nurse. Encouraged f/u with PCP and referring doctors given. Stated understanding. Normal [facility] ED PROV NOTEon 06-06-2024 ED PROV NOTE HNO ID: [id number] Author: ELLEN JIM MD Service: ? Author Type: Physician Type: ED Provider Notes Filed: 06/06/2024 17:38 Note Text: ED Provider Note Patient Name: Carli Jerez : 1965 SERVICE DATE: 06/06/24 History Patient presents with: Abdominal Pain: Patient presents to ED with CC of lower abdominal pain and diarrhea. Patient states she has had hx of c difficile in the past and this feels similar. Patient states she started with symptoms yesterday. She reports associated nausea with no vomiting. Decreased oral intake. She notes recent flagyl use. She started oral vancomycin at home last night. Diarrhea Patient presents for 1 month of diarrhea, worsening yesterday, with low abdominal and pelvic pain. Patient has a history of prior C. difficile diarrhea. She has been tested recently and it was negative. She states yesterday she had an uncontrolled episode of diarrhea that was very foul-smelling. She is having pelvic pain for which she saw gynecology yesterday. Patient's pelvic pain returned after she had completed a course of Flagyl for C. difficile. She had oral vancomycin that she started last night that had been written as a as needed prescription by a doctor in [place]. Patient has nausea and feels chilled. PAST MEDICAL HISTORY Diagnosis Date Cervical radiculopathy COPD (chronic obstructive pulmonary disease) (HCC) Coronary artery disease Depression Endometriosis Essential hypertension Essential tremor Fibromyalgia Gastritis Generalized anxiety disorder GERD (gastroesophageal reflux disease) History of Clostridioides difficile colitis Thyroid cancer (HCC) PAST SURGICAL HISTORY Procedure Laterality Date APPENDECTOMY 2003 BLADDER SURGERY HX 2003 bladder lift COLON SURGERY HX 2003 colon resection COLONOSCOPY SCREENING 10/17/2023 ESOPHAGUS stricture repair HERNIA REPAIR HX 2002 x2 KNEE SURGERY HX Right 2014 cleaned out REDUCTION OF LARGE BREAST 1992 REMOVAL GALLBLADDER 2010 TOTAL ABDOM HYSTERECTOMY FAMILY HISTORY Problem Relation Age of Onset Hypertension Mother Leukemia Father metastacized Social History Tobacco Use Smoking status: Every Day Current packs/day: 0.25 Types: Cigarettes Passive exposure: Current Smokeless tobacco: Never Vaping Use Vaping status: Never Used Substance and Sexual Activity Alcohol use: Never Drug use: Never Sexual activity: Not on file ALLERGIES Allergen Reactions Cipro [Ciprofloxaci* Other: See Comments Messes with heart Diflucan [Fluconazo* GI Upset Flagyl [Metronidazo* Shortness of Breath Hctz [Amiloride-Hyd* Intolerance Hypokalemia Opioids - Morphine * GI Upset Penicillins Rash, GI Upset Review of Systems Constitutional: Pertinent positives and negatives as per HPI. Physical Exam Vitals [06/06/24 1321] BP Pulse Temp Temp src Resp SpO2 Weight Height 149/74 (!) 91 36.6 ?C (97.9 ?F) Oral 20 98 % 133.8 kg (295 lb) -- Physical Exam Vitals and nursing note reviewed. Constitutional: Appearance: She is well-developed. She is not ill-appearing. Comments: Patient very tearful Cardiovascular: Rate and Rhythm: Normal rate and regular rhythm. Heart sounds: No murmur heard. Pulmonary: Effort: Pulmonary effort is normal. Breath sounds: No wheezing, rhonchi or rales. Abdominal: Palpations: Abdomen is soft. Tenderness: There is abdominal tenderness in the right lower quadrant, periumbilical area, suprapubic area and left lower quadrant. There is no guarding or rebound. Neurological: General: No focal deficit present. Mental Status: She is alert and oriented to person, place, and time. Diagnostic Testing ED Labs Ordered and Reviewed - No data to display Procedures ED Course / Clinical Impression ED Course as of 06/06/241735 Ellen Jim's Documentation SunJun 06, 2024 1455 Urinalysis w Microscopic, reflex Culture(!): Color Yellow Clarity Slightly Cloudy(!) Glucose, Urine Negative Bilirubin, Urine Negative Ketones, Urine Negative Specific [place], Ur 1.015 Hemoglobin/Blood,Ur Trace(!) pH, Urine 6.0 Protein, Urine Negative Urobilinogen 0.2 EU/dL Nitrites Negative Leukest Negative WBC, Urine 0-5 /HPF RBC, Urine 0-3 /HPF Epithelial Cells Moderate Urine is negative for infection 1455 Lipase: 25 Lipase normal 1455 Glucose(!): 103 Glucose appropriate, no electrolyte, renal or hepatic abnormalities Clinical Impressions as of 06/06/24 1736 Abdominal pain, unspecified abdominal location Diarrhea, unspecified type Hypertension, essential MDM / Disposition / Plan Medical Decision Making: Differential includes, but is not limited to, C. difficile diarrhea, colitis, diverticulitis, UTI, kidney stone, viral syndrome. Patient was given Zofran for symptomatic treatment. She was offered pain medication and declined. She is sensitive to multiple pain medications. Patient's (more content not included)... Normal [facility] Lipase SerPl-cCncon 06-06-20 24 Lipase [Catalytic activity/Vol] 25 U/L Normal 16-61 [facility] Comment on above: Order Comment: Speci men Type: BLOOD SPECIMEN Ordering Facility: [facility] Address: [address] [place] [address] Performed By: #### 2 4323-8, 0-3, #### [facility] CLIA [id number] [address] [place] Magnesium [facility]-mCncon 06-06 Magnesium [Mass/Vol] 2.0 mg/dL Normal 1.7-2.3 [facility] Comment on above: Order Comment: Speci men Type: BLOOD SPECIMEN Ordering Facility: [facility] Address: [address] [place] [address] Performed By: #### 2 4323-8, 3039-3, #### [facility] CLIA [id number] [address] [place] SEPSIS LACTATE W/ REFLEX (IN ITIAL)on 06-06-2024 Lactate [Moles/Vol] 1.3 mmol/L Normal 0.5-2.0 [facility] Comment on above: Order Comment: Speci men Type: BLOOD SPECIMEN Ordering Facility: [facility] Address: [address] [place] [address] Performed By: #### S LACTR #### [facility] CLIA [id number] [address] [place] Urinalysis complete panel (U )on 06-06-2024 Bilirubin Ql (U) Negative Normal Negative [facility] Comment on above: Order Comment: Speci men Type: URINE SPECIMEN Ordering Facility: [facility] Address: [address] [place] [address] Performed By: #### 2 4356-8 #### [facility] CLIA [id number] [address] [place] [address] [place] Clarity (Unsp spec) Slightly Cloudy Abnormal Clear [facility] Comment on above: Order Comment: Speci men Type: URINE SPECIMEN Ordering Facility: [facility] Address: [address] [place] [address] Performed By: #### 2 4356-8 #### [facility] CLIA [id number] [address] [place] Color (U) Yellow Normal Yellow [facility] Comment on above: Order Comment: Speci men Type: URINE SPECIMEN Ordering Facility: [facility] Address: [address] [place] [address] Performed By: #### 2 4356-8 #### [facility] CLIA [id number] [address] [place] Epithelial cells LM.HPF (Urine sed) [#/Area] Moderate Normal [facility] Comment on above: Order Comment: Speci men Type: URINE SPECIMEN Ordering Facility: [facility] Address: [address] [place] [address] Performed By: #### 2 4356-8 #### [facility] CLIA [id number] [address] [place] Glucose Test strip (U) [Mass/Vol] Negative Normal Negative [facility] Comment on above: Order Comment: Speci men Type: URINE SPECIMEN Ordering Facility: [facility] Address: [address] [place] [address] Performed By: #### 2 4356-8 #### [facility] CLIA [id number] [address] [place] [address] [place] Hemoglobin Ql (U) Trace Abnormal Negative [facility] Comment on above: Order Comment: Speci men Type: URINE SPECIMEN Ordering Facility: [facility] Address: [address] [place] [address] Performed By: #### 2 4356-8 #### [facility] CLIA [id number] [address] [place] Ketones Ql (U) Negative Normal Negative [facility] Comment on above: Order Comment: Speci men Type: URINE SPECIMEN Ordering Facility: [facility] Address: [address] [place] [address] Performed By: #### 2 4356-8 #### [facility] CLIA [id number] [address] Leukocyte esterase Test strip Ql (U) Negative Normal Negative [facility] Comment on above: Order Comment: Speci men Type: URINE SPECIMEN Ordering Facility: [facility] Address: [address] [place] [address] Performed By: #### 2 4356-8 #### [facility] CLIA [id number] [address] [place] [address] [place] Nitrite Ql (U) Negative Normal Negative [facility] Comment on above: Order Comment: Speci men Type: URINE SPECIMEN Ordering Facility: [facility] Address: [address] [place] [address] Performed By: #### 2 4356-8 #### [facility] CLIA [id number] [address] [place] pH (U) 6.0 [pH] Normal 5.0-8.0 [facility] Comment on above: Order Comment: Speci men Type: URINE SPECIMEN Ordering Facility: [facility] Address: [address] [place] [address] Performed By: #### 2 4356-8 #### [facility] CLIA [id number] [address] [place] Protein (U) [Mass/Vol] Negative Normal Negative [facility] Comment on above: Order Comment: Speci men Type: URINE SPECIMEN Ordering Facility: [facility] Address: [address] [place] [address] Performed By: #### 2 4356-8 #### [facility] CLIA [id number] [address] [place] [address] [place] RBC LM.HPF (Urine sed) [#/Area] 0-3 /HPF Normal 0-3 /HPF [facility] Comment on above: Order Comment: Speci men Type: URINE SPECIMEN Ordering Facility: [facility] Address: [address] [place] [address] Performed By: #### 2 4356-8 #### [facility] CLIA [id number] [address] Specific gravity (U) [Rel density] 1.015 Normal 1.005-1.030 [facility] Comment on above: Order Comment: Speci men Type: URINE SPECIMEN Ordering Facility: [facility] Address: [address] [place] [address] Performed By: #### 2 4356-8 #### [facility] CLIA [id number] [address] [place] [address] [place] Urobilinogen Ql (U) 0.2 EU/dL Normal 0.2-1.0 EU/dL [facility] Comment on above: Order Comment: Speci men Type: URINE SPECIMEN Ordering Facility: [facility] Address: [address] [place] [address] Performed By: #### 2 4356-8 #### [facility] CLIA [id number] [address] [place] WBC LM.HPF (Urine sed) [#/Area] 0-5 /HPF Normal 0-5 /HPF [facility] Comment on above: Order Comment: Speci men Type: URINE SPECIMEN Ordering Facility: [facility] Address: [address] [place] [address] Performed By: #### 2 4356-8 #### [facility] CLIA [id number] [address] OF [facility] CNOVon 06-04-2024 CNOV Office Visit (OBGYWM ) CARLI JEREZ ([id number]) 1965 F Date Time Provider Department 06/04/24 9:30 AM BRYAN DURAND OBGYWM During your visit today, we recorded the following information about you: Blood pressure 112/70 Bryan Durand MD 06/04/2024 10:25 AM 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 Carli Jerez is a 59 year old female who presents for problem visit evaluation of suprapubic pain for ~ month and evaluated in the ER w/o a specific diagnosis.. HPI: Hx of TENA BSO OB History No obstetric history on file. 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 Comments: Sexual Activity: No sexual activity data on record; No partner data on record Contraception: No contraception data on record PAST MEDICAL HISTORY Diagnosis Date Cervical radiculopathy COPD (chronic obstructive pulmonary disease) (HCC) Coronary artery disease Depression Endometriosis Essential hypertension Essential tremor Fibromyalgia Gastritis Generalized anxiety disorder GERD (gastroesophageal reflux disease) History of Clostridioides difficile colitis Thyroid cancer (HCC) PAST SURGICAL HISTORY Procedure Laterality Date APPENDECTOMY 2003 BLADDER SURGERY HX 2003 bladder lift COLON SURGERY HX 2003 colon resection COLONOSCOPY SCREENING 10/17/2023 ESOPHAGUS stricture repair HERNIA REPAIR HX 2003 x2 KNEE SURGERY HX Right 2015 cleaned out REDUCTION OF LARGE BREAST 1992 REMOVAL GALLBLADDER 2010 TOTAL ABDOM HYSTERECTOMY FAMILY HISTORY Problem Relation Age of Onset Hypertension Mother Leukemia Father metastacized Social History Tobacco Use Smoking status: Every Day Current packs/day: 0.25 Types: Cigarettes Passive exposure: Current Smokeless tobacco: Never Vaping Use Vaping status: Never Used Substance Use Topics Alcohol use: Never Drug use: Never Current Outpatient Medications Medication Sig diphenoxylate-atropine (LOMOTIL) 2.5-0.025 mg per tablet Take 1 tablet by mouth before meals and at bedtime for 5 days. valsartan (DIOVAN) 160 mg tablet Take 1 tablet by mouth every afternoon. mirtazapine (REMERON) 15 mg tablet Take 15 mg by mouth daily at bedtime. clonazePAM (KLONOPIN) 1 mg tablet TAKE 1 TABLET BY MOUTH IN THE MORNING AND 2 IN THE EVENING No current facility-administered medications for this visit. Allergies As of Date: 06/04/2024 Allergen Noted Reaction CIPRO [CIPROFLOXACIN HCL] 01/23/2024 Other: See Comments DIFLUCAN [FLUCONAZOLE] 01/23/2024 GI Upset FLAGYL [METRONIDAZOLE] 05/20/2024 Shortness of Breath HCTZ [AMILORIDE-HYDROCHLOROT HIAZI*05/20/2024 Intolerance OPIOIDS - MORPHINE ANALOGUES 01/23/2024 GI Upset PENICILLINS 01/23/2024 Rash and GI Upset Fully Assessed 05/20/2024 REVIEW OF SYSTEMS Abdomen: No abdominal pain, nausea, vomiting, diarrhea, or constipation. No bloating, early satiety, indigestion, or increased flatulence. No abdominal pain, nausea, vomiting, diarrhea, or constipation. Bladder: No dysuria, gross hematuria, urinary frequency, urinary urgency, or incontinence. Breast: No breast lumps, nipple d/c, overlying skin changes, redness or skin retraction. Expanded ROS: N/A Allergies and current medication updated:Yes SENSITIVE EXAM: The sensitive examination was discussed with the Patient or Patient's Authorized Environmental Services Manager. As applicable, any other physician, advance practice provider, medical student, or other health professional student that will be observing or involved in the sensitive examination for educational or training purposes was discussed with the Patient or Authorized Environmental Services Manager. The Patient or Authorized Environmental Services Manager has agreed to proceed with the sensitive examination. (Sensitive examination includes inspection and/or palpation of the breasts, pelvis, prostate and anorectal regions). EXAM: BP 112/70 Wt 0 lb (0.0kg) GENERAL: pleasant, female ABDOMEN: soft, non-tender, no masses, and obese PELVIC: external genitalia normal, normal Bartholin's glands, urethra, George Mason's glands, no vulvar lesions, good vaginal support, physiologic discharge present, normal appearing perineal body and perianal region, cervix surgically absent BIMANUAL: no adnexal masses, non-tender, and uterus surgically absent. Retropubic tenderness NEURO: alert and oriented x3,exam grossly non-focal ASSESSMENT AND PLAN: ? bladder tenderness - pyridium trial ftfc>30m Bryan Durand MD Allergies As of Date: 06/04/2024 Noted Allergy Reaction CIPRO (CIPROFLOXACIN HCL) 01/23/2024 14 - Other: See Comments Comments: Messes with heart DIFLUCAN (FLUCONAZOLE) 01/23/2024 8 - GI Upset FLAGYL (METRONIDAZOLE) 05/20/2024 12 - Shortness of Breath HCTZ (AMILORIDE-HYDROCHLOROT HIAZI*05/20/2024 5 - (more content not included)... Normal [facility] G lamblia+Cryptosp Ag Stl Ql IAon 05-21-2024 G. lamblia+Cryptosporidi um sp Ag IA Ql (Stl) CRYPTOSPORIDIUM ANTIGEN BY EIA: Negative for Cryptosporidium by EIA. GIARDIA ANTIGEN BY EIA: Negative for Giardia lamblia by EIA. Normal [facility] Comment on above: Performed By: #### 4 8059-0 ####[facility] LABCLIA [id number] [place] [address] [place] C diff Tox gens Stl Ql MICHELINE+p robeon 05-20-2024 C. difficile toxin genes MICHELINE+probe Ql (Stl) Negative Normal Negative for C. difficile toxin by PCR [facility] Comment on above: Order Comment: Speci men Type: STOOL SPECIMENOrdering Facility: [facility] Address: [address] [place] [address] Performed By: #### 5 4067-4, 25628-6 ####[facility] LABCLIA [id number] [address] [place] CNOVon 05-20-2024 CNOV Office Visit (AGFAMP LE) CARLI JEREZ ([id number]) 1965 F Date Time Provider Department 05/20/24 8:20 AM JAYNE KHANNA During your visit today, we recorded the following information about you: Temperature Pulse Respiration Blood pressure 97.9 degrees 89/minute 18/minute 110/68 Weight Height 134.7 kg 1.715 m Jayne Khanna DO 05/20/2024 2:46 PM Signed Subjective HPI Pt is here for ER f/u She was seen in the ED of [place] for diarrhea She had stool study at [place], negative for c. Diff, but sample was not prepared properly Before the diarrhea, she was constipated and stools were bloody, possibly due to hemorrhoids She had diarrhea yesterday morning, has not had BM yet today In the ED her potassium was low At her last visit here, she requested that she be put back on losartan/hctz in spite of low potassium, She had CT of the abdomen, that did not show diverticulitis She is intolerant to flagyl, got shortness of breath, only took 2 doses then stopped ALLERGIES Allergen Reactions Cipro [Ciprofloxaci* Other: See Comments Messes with heart Diflucan [Fluconazo* GI Upset Flagyl [Metronidazo* Shortness of Breath Opioids - Morphine * GI Upset Penicillins Rash, GI Upset Current Outpatient Medications Medication Sig Dispense Refill mirtazapine (REMERON) 15 mg tablet Take 15 mg by mouth daily at bedtime. Valsartan-hydroCHLOROth iazide (DIOVAN HCT) 160-12.5 mg per tablet Take 1 tablet by mouth once daily. 30 tablet 2 clonazePAM (KLONOPIN) 1 mg tablet TAKE 1 TABLET BY MOUTH IN THE MORNING AND 2 IN THE EVENING 90 tablet 0 metroNIDAZOLE (FLAGYL) 500 mg tablet Take 1 tablet by mouth three times a day for 10 days. (Patient not taking: Reported on 05/20/2024) 20 tablet 0 No current facility-administered medications for this visit. ACTIVE PROBLEM LIST Chronic Bronchitis (Hcc) Blaise (Generalized Anxiety Disorder) Hypertension, Essential Depression With Anxiety Undifferentiated Inflammatory Arthritis (Hcc) Class 3 Severe Obesity With Body Mass Index (Bmi) of 45.0 to 49.9 in Adult (Hcc) Thyroid Nodule Headache, Unspecified Headache Type Nose Polyp Smoker Allergy to Opioid Analgesic Social History Tobacco Use Smoking status: Every Day Current packs/day: 0.25 Types: Cigarettes Passive exposure: Current Smokeless tobacco: Never Vaping Use Vaping status: Never Used Substance Use Topics Alcohol use: Never Drug use: Never Family History Problem Relation Age of Onset Hypertension Mother Leukemia Father metastacized Reviewed past medical history, family history and surgeries. All medications and supplements were reviewed with the patient. Review of Systems Constitutional: Negative for chills, diaphoresis, fever, malaise/fatigue and weight loss. HENT: Negative for ear pain and hearing loss. Eyes: Negative for blurred vision and double vision. Respiratory: Negative for cough and shortness of breath. Cardiovascular: Negative for chest pain, palpitations and leg swelling. Gastrointestinal: Positive for abdominal pain, blood in stool and diarrhea. Negative for constipation, heartburn, nausea and vomiting. Genitourinary: Negative for dysuria and frequency. Musculoskeletal: Negative for back pain, falls, joint pain and myalgias. Skin: Negative for itching and rash. Neurological: Negative for dizziness, weakness and headaches. Endo/Heme/Allergies: Does not bruise/bleed easily. Psychiatric/Behavioral: Negative for depression and substance abuse. The patient does not have insomnia. Objective BP 110/68 Pulse 89 Temp 36.6 ?C (97.9 ?F) Resp 18 Ht 171.5 cm (5' 7.5 ) Wt 134.7 kg (297 lb) SpO2 96% BMI 45.83 kg/m? Physical Exam Constitutional: Appearance: Normal appearance. She is obese. HENT: Head: Normocephalic and atraumatic. Nose: Nose normal. Mouth/Throat: Mouth: Mucous membranes are moist. Dentition: Normal dentition. Eyes: General: Lids are normal. Extraocular Movements: Extraocular movements intact. Conjunctiva/sclera: Conjunctivae normal. Pupils: Pupils are equal, round, and reactive to light. Neck: Thyroid: No thyroid mass or thyromegaly. Vascular: No carotid bruit. Trachea: Phonation normal. Cardiovascular: Rate and Rhythm: Normal rate and regular rhythm. Heart sounds: Normal heart sounds. No murmur heard. No friction rub. No gallop. Pulmonary: Effort: Pulmonary effort is normal. Breath sounds: Normal breath sounds. No wheezing or rales. Abdominal: General: Bowel sounds are normal. There is no distension (in left lower quadrant). Palpations: Abdomen is soft. There is no mass. Tenderness: There is abdominal tenderness. There is no rebound. Musculoskeletal: General: No swelling or tenderness. Normal range of motion. Cervical back: Normal range of motion and neck supple. No edema. (more content not included)... Normal [facility] 05-20-[address] [facility] Telephone (YAZ) SOLITARIOCARLI ([id number]) 1965 F Date Time Provider Department 05/20/24 JAYNE KHANNA During your visit today, we recorded the following information about you: Jayne Khanna DO 05/20/2024 11:41 AM Signed I cannot sign the repeat order for the test, because the computer thinks it was already ordered today. Please call Lab Client Services [phone] for override thanks Jayne Khanna DO ENTERIC BACTERIAL PANEL BY PCR [SQSTLPCR] ... already ordered: 05/20/2024 8:52 AM Jayy Jones MA 05/20/2024 1:30 PM Signed Called Client Services and spoke with Isabella who states she cancelled the order that was started this morning and would like Dr. Khanna to try and sign the pending order. Will need to call Isabella back at [phone] once order is signed. Please advise. BETINA Aguirre Kimberly C, DO 05/20/2024 2:20 PM Signed Order still won't let me sign - I am getting a red box DO Zev Galarza Janie, MA 05/20/2024 3:07 PM Signed Isabella informed order was able to be placed. Jayy Jones MA Allergies As of Date: 05/20/2024 Noted Allergy Reaction CIPRO (CIPROFLOXACIN HCL) 01/23/2024 14 - Other: See Comments Comments: Messes with heart DIFLUCAN (FLUCONAZOLE) 01/23/2024 8 - GI Upset FLAGYL (METRONIDAZOLE) 05/20/2024 12 - Shortness of Breath HCTZ (AMILORIDE-HYDROCHLOROT HIAZI*05/20/2024 5 - Intolerance Comments: Hypokalemia OPIOIDS - MORPHINE ANALOGUES 01/23/2024 8 - GI Upset PENICILLINS 01/23/2024 2 - Rash 8 - GI Upset Date Reviewed: 05/20/2024 Reviewed by: Jayne Khanna DO - Fully Assessed Reason for Visit: Orders [681] Prescriptions as of 05/20/2024 - valsartan (DIOVAN) 160 mg tablet Take 1 tablet by mouth every afternoon. - mirtazapine (REMERON) 15 mg tablet Take 15 mg by mouth daily at bedtime. - clonazePAM (KLONOPIN) 1 mg tablet TAKE 1 TABLET BY MOUTH IN THE MORNING AND 2 IN THE EVENING Problem List As Of Date 05/20/2024 Noted Resolved Chronic bronchitis (HCC) [J42] 03/07/2024 BLAISE (generalized anxiety disorder) [F41.1] 03/07/2024 Hypertension, essential [I10] 03/07/2024 Depression with anxiety [F41.8] 03/07/2024 Undifferentiated inflammatory arthritis (HCC) [*03/07/2024 Class 3 severe obesity with body mass index (BM*03/07/2024 Thyroid nodule [E04.1] 03/07/2024 Headache, unspecified headache type [R51.9] 03/07/2024 Nose polyp [J33.9] 03/07/2024 Smoker [F17.200] 03/07/2024 Allergy to opioid analgesic [Z88.5] 03/07/2024 Hypokalemia [E87.6] 05/20/2024 Encounter Status:Closed by JAYY JONES on 05/20/24 Normal [facility] Gastrointestinal pathogens i dentified MICHELINE+probe Nom (Stl)on 05-20-2024 Campylobacter sp DNA MICHELINE+probe Nom (Unsp spec) Not detected Normal Not Detected [facility] Comment on above: Order Comment: Speci men Type: STOOL SPECIMENOrdering Facility: [facility] Address: [address] [place] [address] Performed By: #### 5 4067-4, 27707-2 ####[facility] LABCLIA [id number] [place] [address] [place] Salmonella sp DNA MICHELINE+probe Ql (Unsp spec) Not detected Normal Not Detected [facility] Comment on above: Order Comment: Speci men Type: STOOL SPECIMENOrdering Facility: [facility] Address: [address] [place] [address] Performed By: #### 5 4067-4, 87724-0 ####[facility] LABCLIA [id number] [address] [place] Shiga toxin stx gene MICHELINE+probe Nom (Unsp spec) Not detected Normal Not Detected [facility] Comment on above: Order Comment: Speci men Type: STOOL SPECIMENOrdering Facility: [facility] Address: [address] [place] [address] Performed By: #### 5 4067-4, 77010-7 ####[facility] LABIA [id number] [address] Shigella sp DNA MICHELINE+probe Ql (Unsp spec) Not detected Normal Not Detected [facility] Comment on above: Order Comment: Speci men Type: STOOL SPECIMENOrdering Facility: [facility] Address: [address] [place] [address] Performed By: #### 5 4067-4, 37830-0 ####[facility] LABIA [id number] [place] [address] [place] CREATININE BLDon 05-14-2024 Creatinine [Mass/Vol] 1.02 mg/dL High 0.58 - 0.96 mg/dL [facility] GFR/1.73 sq M.predicted among non-blacks MDRD (S/P/Bld) [Vol rate/Area] 63 mL/min/{1.73_m2} - PINF [facility] Comment on above: Estimated Glomerular Filtration Rate (eGFR) is calculated using the 2020 CKD-EPI creatinine equation. This equation utilizes serum creatinine, sex, and age as parameters. The creatinine assay has traceable calibration to isotope dilution-mass spectrometry. Refer to KDIGO guidelines for clinical interpretation. In patients with unstable renal function, e.g. those with acute kidney injury, the eGFR may not accurately reflect actual GFR. Interpretation and review of laboratory results Abnormal [facility] Creatinine [Mass/Vol] 1.02 mg/dL High 0.58-0.96 [facility] Comment on above: Order Comment: Speci men Type: BLOOD SPECIMENOrdering Facility: [facility] Address: [address] [place] [address] Performed By: #### C RET1 ####[facility] LABCLIA [id number] [place] [id number] [facility] Creatinine and Glomerular filtration rate.predicted panel (S/P/Bld) 63 mL/min/1.73m??? Normal >=60 [facility] Comment on above: Order Comment: Speci men Type: BLOOD SPECIMENOrdering Facility: [facility] Address: [address] [place] [address] Result Comment: Paola mated Glomerular Filtration Rate (eGFR) is calculated using the 2020 CKD-EPI creatinine equation. This equation utilizes serum creatinine, sex, and age as parameters. The creatinine assay has traceable calibration to isotope dilution-mass spectrometry. Refer to KDIGO guidelines for clinical interpretation. In patients with unstable renal function, e.g. those with acute kidney injury, the eGFR may not accurately reflect actual GFR. Performed By: #### C RET1 ####[facility] LAB[facility] [id number] [place], [place] [id number] [place] [address] [place] [facility] CBC W Auto Differential pane l (Bld)on 05-13-2024 Basophils (Bld) [#/Vol] 0.03 10*3/uL Normal <0.11 [facility] Comment on above: Order Comment: Speci men Type: BLOOD SPECIMENOrdering Facility: [facility] Address: [address] [place] [address] Performed By: #### 5 7021-8 ####[facility] LABCLIA [id number] [place] [address] [facility] Basophils/100 WBC (Bld) 0.2 % Normal [facility] Comment on above: Order Comment: Speci men Type: BLOOD SPECIMENOrdering Facility: [facility] Address: [address] [place] [address] Performed By: #### 5 7021-8 ####[facility] LABCLIA [id number] [place] [address] [facility] Differential cell count method Nom (Bld) Auto Normal [facility] Comment on above: Order Comment: Speci men Type: BLOOD SPECIMENOrdering Facility: [facility] Address: [address] [place] [address] Performed By: #### 5 7021-8 ####[facility] LABCLIA [id number] [place] [address] [facility] Eosinophils (Bld) [#/Vol] 0.38 10*3/uL Normal <0.46 [facility] Comment on above: Order Comment: Speci men Type: BLOOD SPECIMENOrdering Facility: [facility] Address: [address] [place] [address] Performed By: #### 5 7021-8 ####[facility] LABCLIA [id number] [place] [id number] [facility] Eosinophils/100 WBC (Bld) 2.8 % Normal [facility] Comment on above: Order Comment: Speci men Type: BLOOD SPECIMENOrdering Facility: [facility] Address: [address] [place] [address] Performed By: #### 5 7021-8 ####[facility] LABCLIA [id number] [place] [address] [facility] Erythrocyte distribution width (RBC) [Ratio] 14.5 % Normal 11.5-15.0 [facility] Comment on above: Order Comment: Speci men Type: BLOOD SPECIMENOrdering Facility: [facility] Address: [address] [place] [address] Performed By: #### 5 7021-8 ####[facility] LABCLIA [id number] [place] [id number] [facility] Hematocrit (Bld) [Volume fraction] 51.2 % High 36.0-46.0 [facility] Comment on above: Order Comment: Speci men Type: BLOOD SPECIMENOrdering Facility: [facility] Address: [address] [place] [address] Performed By: #### 5 7021-8 ####[facility] LABCLIA [id number] [place] [address] [place] Hemoglobin (Bld) [Mass/Vol] 16.2 g/dL High 11.5-15.5 [facility] Comment on above: Order Comment: Speci men Type: BLOOD SPECIMENOrdering Facility: [facility] Address: [address] [place] [address] Performed By: #### 5 7021-8 ####[facility] LABCLIA [id number] [facility] [place] [address] [place] Immature granulocytes (Bld) [#/Vol] 0.05 10*3/uL Normal <0.10 [facility] Comment on above: Order Comment: Speci men Type: BLOOD SPECIMENOrdering Facility: [facility] Address: [address] [place] [address] Performed By: #### 5 7021-8 ####[facility] LABCLIA [id number] [place] [address] [place] Immature granulocytes/100 WBC (Bld) 0.4 % Normal [facility] Comment on above: Order Comment: Speci men Type: BLOOD SPECIMENOrdering Facility: [facility] Address: [address] [place] [address] Performed By: #### 5 7021-8 ####[facility] LABCLIA [id number] [place] [address] [place] Lymphocytes (Bld) [#/Vol] 3.16 10*3/uL Normal 1.00-4.00 [facility] Comment on above: Order Comment: Speci men Type: BLOOD SPECIMENOrdering Facility: [facility] Address: [address] [place] [address] Performed By: #### 5 7021-8 ####[facility] LABCLIA [id number] [place] [address] [facility] [place] Lymphocytes/100 WBC (Bld) 23.1 % Normal [facility] Comment on above: Order Comment: Speci men Type: BLOOD SPECIMENOrdering Facility: [facility] Address: [address] [place] [address] Performed By: #### 5 7021-8 ####[facility] LABCLIA [id number] [place] [address] [facility] MCH (RBC) [Entitic mass] 29.3 pg Normal 26.0-34.0 [facility] Comment on above: Order Comment: Speci men Type: BLOOD SPECIMENOrdering Facility: [facility] Address: [address] [place] [address] Performed By: #### 5 7021-8 ####[facility] LABCLIA [id number] [place] [id number] [place] MCHC (RBC) [Mass/Vol] 31.6 g/dL Normal 30.5-36.0 [facility] Comment on above: Order Comment: Speci men Type: BLOOD SPECIMENOrdering Facility: [facility] Address: [address] [place] [address] Performed By: #### 5 7021-8 ####[facility] LABCLIA [id number] [address] [place] MCV (RBC) [Entitic vol] 92.6 fL Normal 80.0-100.0 [facility] Comment on above: Order Comment: Speci men Type: BLOOD SPECIMENOrdering Facility: [facility] Address: [address] [place] [address] Performed By: #### 5 7021-8 ####[facility] LABCLIA [id number] [place] [address] [facility] [place] Monocytes (Bld) [#/Vol] 1.07 10*3/uL High <0.87 [facility] Comment on above: Order Comment: Speci men Type: BLOOD SPECIMENOrdering Facility: [facility] Address: [address] [place] [address] Performed By: #### 5 7021-8 ####[facility] LABCLIA [id number] [facility] [place] [address] [place] Monocytes/100 WBC (Bld) 7.8 % Normal [facility] Comment on above: Order Comment: Speci men Type: BLOOD SPECIMENOrdering Facility: [facility] Address: [address] [place] [address] Performed By: #### 5 7021-8 ####[facility] LABCLIA [id number] [facility] [place] [address] [place] Neutrophils (Bld) [#/Vol] 8.98 10*3/uL High 1.45-7.50 [facility] Comment on above: Order Comment: Speci men Type: BLOOD SPECIMENOrdering Facility: [facility] Address: [address] [place] [address] Performed By: #### 5 7021-8 ####[facility] LABCLIA [id number] [facility] [place] [address] [place] Neutrophils/100 WBC (Bld) 65.7 % Normal [facility] Comment on above: Order Comment: Speci men Type: BLOOD SPECIMENOrdering Facility: [facility] Address: [address] [place] [address] Performed By: #### 5 7021-8 ####[facility] LABCLIA [id number] [facility] [place] [address] [place] Nucleated RBC (Bld) [#/Vol] Normal [facility] Comment on above: Order Comment: Speci men Type: BLOOD SPECIMENOrdering Facility: [facility] Address: [address] [place] [address] Performed By: #### 5 7021-8 ####[facility] LABCLIA [id number] [place] [address] [place] Nucleated RBC/100 WBC (Bld) [Ratio] Normal [facility] Comment on above: Order Comment: Speci men Type: BLOOD SPECIMENOrdering Facility: [facility] Address: [address] [place] [address] Performed By: #### 5 7021-8 ####[facility] [facility] LAB[facility]IA [id number] [facility] [place] [place] [address] [place] Platelet mean volume (Bld) [Entitic vol] 9.5 fL Normal 9.0-12.7 [facility] Comment on above: Order Comment: Speci men Type: BLOOD SPECIMENOrdering Facility: [facility] Address: [address] [place] [address] Performed By: #### 5 7021-8 ####[facility] LABCLIA [id number] [facility] [address] [facility] [place] Platelets (Bld) [#/Vol] 294 10*3/uL Normal 150-400 [facility] Comment on above: Order Comment: Speci men Type: BLOOD SPECIMENOrdering Facility: [facility] Address: [address] [place] [address] Performed By: #### 5 7021-8 ####[facility] LABCLIA [id number] [place] [address] [facility] [place] RBC (Bld) [#/Vol] 5.53 10*6/uL High 3.90-5.20 [facility] Comment on above: Order Comment: Speci men Type: BLOOD SPECIMENOrdering Facility: [facility] Address: [address] [place] [address] Performed By: #### 5 7021-8 ####[facility] LABCLIA [id number] [place] [address] [place] WBC (Bld) [#/Vol] 13.67 10*3/uL High 3.70-11.00 [facility] Comment on above: Order Comment: Speci men Type: BLOOD SPECIMENOrdering Facility: [facility] Address: [address] [place] [address] Performed By: #### 5 7021-8 ####[facility] LABCLIA [id number] [facility] [place] [address] [facility] CNOVon 05-13-2024 CNOV Office Visit (DEONDRE MICHAUD) JASONCARLI MORALES ([id number]) 1965 F Date Time Provider Department 05/13/24 10:40 AM JAYNE KHANNA During your visit today, we recorded the following information about you: Temperature Pulse Respiration Blood pressure 97.9 degrees 72/minute 16/minute 118/76 Weight Height 137 kg 1.715 m Jayne Khanna DO 05/20/2024 8:48 AM Signed Subjective HPI Pt is here for acute visit She has had suprapubic pain for about 2 weeks It started after a bout of constipation She was seen at an Urgent Care, not treated with antibiotics Pain is relieved by urination, having BMs or passing gas She had partial bowel resection for colon polyp, not cancer She was constipated, took senna, had multiple soft BMs, and pain relieved for a little while after that She had CT of the abdomen at [facility] in February 2024, showing diverticulosis She does not have a known history of diverticulitis She has had pain in her left lower quadrant in the past, but has not been treated for this pain She would like to talk about her BP meds She was on valsartan/hctz, but hctz was discontinued because she had low potassium She is retaining water, would like to go back on the combined medication ALLERGIES Allergen Reactions Cipro [Ciprofloxaci* Other: See Comments Messes with heart Diflucan [Fluconazo* GI Upset Opioids - Morphine * GI Upset Penicillins Rash, GI Upset Current Outpatient Medications Medication Sig Dispense Refill mirtazapine (REMERON) 15 mg tablet Take 15 mg by mouth daily at bedtime. clonazePAM (KLONOPIN) 1 mg tablet TAKE 1 TABLET BY MOUTH IN THE MORNING AND 2 IN THE EVENING 90 tablet 0 valsartan (DIOVAN) 160 mg tablet Take 1 tablet by mouth every afternoon. valsartan (DIOVAN) 80 mg tablet Take 80 mg by mouth once daily. No current facility-administered medications for this visit. ACTIVE PROBLEM LIST Chronic Bronchitis (Hcc) Blaise (Generalized Anxiety Disorder) Hypertension, Essential Depression With Anxiety Undifferentiated Inflammatory Arthritis (Hcc) Class 3 Severe Obesity With Body Mass Index (Bmi) of 45.0 to 49.9 in Adult (Hcc) Thyroid Nodule Headache, Unspecified Headache Type Nose Polyp Smoker Allergy to Opioid Analgesic Social History Tobacco Use Smoking status: Every Day Current packs/day: 0.25 Types: Cigarettes Passive exposure: Current Smokeless tobacco: Never Vaping Use Vaping status: Never Used Substance Use Topics Alcohol use: Never Drug use: Never Family History Problem Relation Age of Onset Hypertension Mother Leukemia Father metastacized Reviewed past medical history, family history and surgeries. All medications and supplements were reviewed with the patient. Review of Systems Constitutional: Negative for chills, diaphoresis, fever, malaise/fatigue and weight loss. HENT: Negative for ear pain and hearing loss. Eyes: Negative for blurred vision and double vision. Respiratory: Negative for cough and shortness of breath. Cardiovascular: Positive for leg swelling. Negative for chest pain and palpitations. Gastrointestinal: Negative for constipation, diarrhea and heartburn. Genitourinary: Negative for dysuria and frequency. Musculoskeletal: Negative for back pain, falls, joint pain and myalgias. Skin: Negative for itching and rash. Neurological: Negative for dizziness, weakness and headaches. Endo/Heme/Allergies: Does not bruise/bleed easily. Psychiatric/Behavioral: Negative for depression and substance abuse. The patient does not have insomnia. Objective BP 118/76 Pulse 72 Temp 36.6 ?C (97.9 ?F) Resp 16 Ht 171.5 cm (5' 7.5 ) Wt (!) 137 kg (302 lb) SpO2 95% BMI 46.60 kg/m? Physical Exam Constitutional: Appearance: Normal appearance. She is obese. HENT: Head: Normocephalic and atraumatic. Nose: Nose normal. Mouth/Throat: Mouth: Mucous membranes are moist. Dentition: Normal dentition. Eyes: General: Lids are normal. Extraocular Movements: Extraocular movements intact. Conjunctiva/sclera: Conjunctivae normal. Pupils: Pupils are equal, round, and reactive to light. Neck: Thyroid: No thyroid mass or thyromegaly. Vascular: No carotid bruit. Trachea: Phonation normal. Cardiovascular: Rate and Rhythm: Normal rate and regular rhythm. Heart sounds: Normal heart sounds. No murmur heard. No friction rub. No gallop. Pulmonary: Effort: Pulmonary effort is normal. Breath sounds: Normal breath sounds. No wheezing or rales. Abdominal: General: Bowel sounds are normal. There is no distension. Palpations: Abdomen is soft. There is no mass. Tenderness: There is no abdominal tenderness. Musculoskeletal: General: No swelling or tenderness. Normal range of motion. Cervical back: Normal range of motion and neck supple. No edema. Lymphadenopathy: Cervical (more content not included)... Normal [facility] 05-13-2024 CNPN Telephone (AGClonelessLE) CARLI JEREZ ([id number]) 1965 F Date Time Provider Department 05/13/24 JAYNE KHANNA During your visit today, we recorded the following information about you: John Barbour MA 05/13/2024 11:39 AM Signed ----- Message from Jayne Khanna DO sent at 05/13/2024 11:00 AM EDT ----- Check potassium in one month after restarting valsartan/hctz DO Shanice Galarza Mary, MA 05/13/2024 11:39 AM Signed Reminder placed. John Barbour MA Allergies As of Date: 05/13/2024 Noted Allergy Reaction CIPRO (CIPROFLOXACIN HCL) 01/23/2024 14 - Other: See Comments Comments: Messes with heart DIFLUCAN (FLUCONAZOLE) 01/23/2024 8 - GI Upset OPIOIDS - MORPHINE ANALOGUES 01/23/2024 8 - GI Upset PENICILLINS 01/23/2024 2 - Rash 8 - GI Upset Date Reviewed: 05/13/2024 Reviewed by: Sheets, Jayne C, DO - Fully Assessed Reason for Visit: Orders [681] Prescriptions as of 05/13/2024 - mirtazapine (REMERON) 15 mg tablet Take 15 mg by mouth daily at bedtime. - metroNIDAZOLE (FLAGYL) 500 mg tablet Take 1 tablet by mouth three times a day for 10 days. - Valsartan-hydroCHLOROth iazide (DIOVAN HCT) 160-12.5 mg per tablet Take 1 tablet by mouth once daily. - clonazePAM (KLONOPIN) 1 mg tablet TAKE 1 TABLET BY MOUTH IN THE MORNING AND 2 IN THE EVENING Problem List As Of Date 05/13/2024 Noted Resolved Chronic bronchitis (HCC) [J42] 03/07/2024 BLAISE (generalized anxiety disorder) [F41.1] 03/07/2024 Hypertension, essential [I10] 03/07/2024 Depression with anxiety [F41.8] 03/07/2024 Undifferentiated inflammatory arthritis (HCC) [*03/07/2024 Class 3 severe obesity with body mass index (BM*03/07/2024 Thyroid nodule [E04.1] 03/07/2024 Headache, unspecified headache type [R51.9] 03/07/2024 Nose polyp [J33.9] 03/07/2024 Smoker [F17.200] 03/07/2024 Allergy to opioid analgesic [Z88.5] 03/07/2024 Encounter Status:Closed by JOHN BARBOUR on 05/13/24 Normal [facility] UA DIP, URINE (POC)on 2023 BILIRUBIN UA (POCT) Small Abnormal Negative [facility] CLARITY UA (POCT) Cloudy [facility] COLOR UA (POCT) Dark yellow [facility] GLUCOSE UA (POCT) Negative Negative mg/dL [facility] Hemoglobin Ql (U) Negative Negative [facility] Interpretation and review of laboratory results Abnormal [facility] KETONE UA (POCT) Negative Negative mg/dL [facility] LEUKOCYTES UA (POCT) Negative Negative [facility] NITRITE UA (POCT) Negative Negative [facility] PH UA (POCT) 5.5 4.5 - 8.0 [facility] Protein Ql (U) Negative Negative mg/dL [facility] SPECIFIC GRAVITY UA (POCT) >=1.030 1.005 - 1.030 [facility] UROBILINOGEN UA (POCT) 0.2 Normal E.U./dL [facility] Location:[facility], [address] [place] [address], [address] [place] [address] POINT OF CARE [facility] CNPNon 05-08-2024 CNPN Telephone (AGFAMPLE) CARLI JEREZ ([id number]) 1965 F Date Time Provider Department 05/08/24 JAYNE KHANNA AGFAMPLE During your visit today, we recorded the following information about you: Jeanna Napoles MA 05/08/2024 7:31 AM Signed ----- Message from Jayy Coffey MA sent at 04/07/2024 8:58 AM EDT ----- Patient due for 1 month recheck CBC+Diff. BETINA Aguirre Kimberly C, DO 05/08/2024 2:11 PM Signed Order DO Chasity Matos Kimberly C, 05/08/2024 2:11 PM Signed Addended by: JAYNE KHANNA on: 05/08/2024 02:11 PM Modules accepted: Orders Jeanna Napoles MA 05/08/2024 2:59 PM Signed Patient is informed Jeanna Napoles MA Allergies As of Date: 05/08/2024 Noted Allergy Reaction CIPRO (CIPROFLOXACIN HCL) 01/23/2024 14 - Other: See Comments Comments: Messes with heart DIFLUCAN (FLUCONAZOLE) 01/23/2024 8 - GI Upset OPIOIDS - MORPHINE ANALOGUES 01/23/2024 8 - GI Upset PENICILLINS 01/23/2024 2 - Rash 8 - GI Upset Date Reviewed: 05/05/2024 Reviewed by: Vandana Molina PA-C - Fully Assessed Reason for Visit: Lab Orders [1688] Primary Visit Diagnosis:Neutrophilia [D72.9] Order(s):COMPLETE BLOOD COUNT AND DIFFERENTIAL [SQCBCDIF] Order #: [id number] FUTURE Prescriptions as of 05/08/2024 - clonazePAM (KLONOPIN) 1 mg tablet TAKE 1 TABLET BY MOUTH IN THE MORNING AND 2 IN THE EVENING - valsartan (DIOVAN) 160 mg tablet Take 1 tablet by mouth every afternoon. - valsartan (DIOVAN) 80 mg tablet Take 80 mg by mouth once daily. Problem List As Of Date 05/08/2024 Noted Resolved Chronic bronchitis (HCC) [J42] 03/07/2024 BLAISE (generalized anxiety disorder) [F41.1] 03/07/2024 Hypertension, essential [I10] 03/07/2024 Depression with anxiety [F41.8] 03/07/2024 Undifferentiated inflammatory arthritis (HCC) [*03/07/2024 Class 3 severe obesity with body mass index (BM*03/07/2024 Thyroid nodule [E04.1] 03/07/2024 Headache, unspecified headache type [R51.9] 03/07/2024 Nose polyp [J33.9] 03/07/2024 Smoker [F17.200] 03/07/2024 Allergy to opioid analgesic [Z88.5] 03/07/2024 Encounter Status:Closed by JEANNA NAPOLES on 05/08/24 [facility] 05-06-[address] [facility] Telephone (UCTR) CARLI JEREZ ([id number]) 1965 F Date Time Provider Department 05/06/24 CLEVE ZAVALA [facility] During your visit today, we recorded the following information about you: Cleve Zavala APRN.[facility] 05/06/2024 7:54 PM Signed Please notify that the urine culture showed no infection. Hematuria noted on ua, patient should have urine retested with pcp in 2-4 weeks to see if persisting. Salvador Flores LPN 05/06/2024 8:05 PM Signed Patient given results and verbalized understanding of instructions given. Salvador Folres LPN Allergies As of Date: 05/06/2024 Noted Allergy Reaction CIPRO (CIPROFLOXACIN HCL) 01/23/2024 14 - Other: See Comments Comments: Messes with heart DIFLUCAN (FLUCONAZOLE) 01/23/2024 8 - GI Upset OPIOIDS - MORPHINE ANALOGUES 01/23/2024 8 - GI Upset PENICILLINS 01/23/2024 2 - Rash 8 - GI Upset Date Reviewed: 05/05/2024 Reviewed by: Vandana Molina PA-C - Fully Assessed Reason for Visit: Results [95] Prescriptions as of 05/06/2024 - clonazePAM (KLONOPIN) 1 mg tablet TAKE 1 TABLET BY MOUTH IN THE MORNING AND 2 IN THE EVENING - valsartan (DIOVAN) 160 mg tablet Take 1 tablet by mouth every afternoon. - valsartan (DIOVAN) 80 mg tablet Take 80 mg by mouth once daily. Problem List As Of Date 05/06/2024 Noted Resolved Chronic bronchitis (HCC) [J42] 03/07/2024 BLAISE (generalized anxiety disorder) [F41.1] 03/07/2024 Hypertension, essential [I10] 03/07/2024 Depression with anxiety [F41.8] 03/07/2024 Undifferentiated inflammatory arthritis (HCC) [*03/07/2024 Class 3 severe obesity with body mass index (BM*03/07/2024 Thyroid nodule [E04.1] 03/07/2024 Headache, unspecified headache type [R51.9] 03/07/2024 Nose polyp [J33.9] 03/07/2024 Smoker [F17.200] 03/07/2024 Allergy to opioid analgesic [Z88.5] 03/07/2024 Encounter Status:Closed by SALVADOR FLORES on 05/06/24 Normal [facility] Bacteria Ur Culton Bacteria identified Cx Nom (U) ORGANISM ID: 1 10,000 -<50,000 CFU/ml Mixed microbiota No further workup Normal [facility] Comment on above: Performed By: #### 6 30-4 ####[facility] LABJUANIA [id number] LIANNA HELLERUNIVERSITY OF CALIFORNIA, IRV[facility] MEDICAL CENTEREzequiel [id number] [place], [place] [id number] [place] CNOVon 05-05-2024 CNOV Office Visit (UCWSTR ) CARLI JEREZ ([id number]) 1965 F Date Time Provider Department 05/05/24 2:30 PM VANDANA MOLINA WS During your visit today, we recorded the following information about you: Temperature Pulse Respiration Blood pressure 97.6 degrees 115/minute 22/minute 122/76 Weight 137.6 kg Vandana Molina PA-C 05/05/2024 2:46 PM Signed Subjective Carli Jerez is a 59 year old female with a past medical history of hypertension, COPD, anxiety, and depression who presents [facility] today for evaluation of urinary urgency, dysuria, and urinary frequency x 1 week. She also endorses pelvic bone pain . She states that the pain started after she was straining to have a bowel movement so she is unsure if she just pulled a muscle. She denies any fevers, sweats, chills, nausea, vomiting, or flank pain. Review of Systems Constitutional: Negative for chills, diaphoresis and fever. Gastrointestinal: Negative for abdominal pain, constipation, diarrhea, nausea and vomiting. Genitourinary: Positive for dysuria, frequency, pelvic pain and urgency. Negative for difficulty urinating and flank pain. Skin: Negative for rash and wound. All other systems reviewed and are negative. Objective BP 122/76 Pulse 115 Temp 36.4 ?C (97.6 ?F) Resp 22 Wt (!) 137.6 kg (303 lb 5.7 oz) SpO2 98% BMI 46.81 kg/m? Physical Exam Vitals reviewed. Constitutional: General: She is not in acute distress. Appearance: Normal appearance. She is obese. She is not ill-appearing or toxic-appearing. Comments: The patient appears to be non-toxic, in no acute distress, and resting comfortably on the table. HENT: Head: Normocephalic and atraumatic. Eyes: Extraocular Movements: Extraocular movements intact. Cardiovascular: Rate and Rhythm: Normal rate and regular rhythm. Heart sounds: Normal heart sounds. No murmur heard. No friction rub. No gallop. Pulmonary: Effort: Pulmonary effort is normal. No respiratory distress. Breath sounds: Normal breath sounds. No wheezing. Abdominal: Tenderness: There is no right CVA tenderness or left CVA tenderness. Musculoskeletal: General: Normal range of motion. Cervical back: Normal range of motion. Skin: General: Skin is warm and dry. Findings: No erythema or rash. Neurological: General: No focal deficit present. Mental Status: She is alert and oriented to person, place, and time. Mental status is at baseline. Psychiatric: Mood and Affect: Mood normal. Behavior: Behavior normal. Thought Content: Thought content normal. Assessment and Plan UA shows trace hemoglobin with no signs of infection. Chart review shows patient has a history of hematuria. Urine culture obtained. Results discussed with patient. Patient counseled regarding suspected diagnosis and advised to follow-up with her primary care provider as needed. ASSESSMENT/PLAN: 1. Urgency of urination - ICD9: 788.63, ICD10: R39.15 (primary diagnosis) - UA DIP, URINE (POC) - URINE CULTURE 2. Dysuria - ICD9: 788.1, ICD10: R30.0 - UA DIP, URINE (POC) - URINE CULTURE 3. Lower abdominal pain - ICD9: 789.09, ICD10: R10.30 - UA DIP, URINE (POC) - URINE CULTURE 4. Urinary frequency - ICD9: 788.41, ICD10: R35.0 - UA DIP, URINE (POC) - URINE CULTURE Medical Decision Making: Problems: Low: Acute, uncomplicated illness or injury Risk: Minimal: Minimal risk from testing/treatment Moderate: Drug management Medical Decision Making Level: 3 - Low I spent a total of 20 minutes on the date of the service which included preparing to see the patient, ozno-lp-libu patient care, completing clinical documentation, performing a medically appropriate examination, counseling and educating the patient/family/caregive r, and ordering medications, tests, or procedures. DANIEL Dejesus Ariana P, PA-C 05/05/2024 2:41 PM Signed PLEASE FOLLOW UP WITH YOUR PRIMARY CARE DOCTOR NEEDED. Allergies As of Date: 05/05/2024 Noted Allergy Reaction CIPRO (CIPROFLOXACIN HCL) 01/23/2024 14 - Other: See Comments Comments: Messes with heart DIFLUCAN (FLUCONAZOLE) 01/23/2024 8 - GI Upset OPIOIDS - MORPHINE ANALOGUES 01/23/2024 8 - GI Upset PENICILLINS 01/23/2024 2 - Rash 8 - GI Upset Date Reviewed: 05/05/2024 Reviewed by: Vandana Molina PA-C - Fully Assessed Reason for Visit: Urinary Problem [252] Cmt: Pelvis pain, burning with urination, urgency x 6 days Primary Visit Diagnosis:Urgency of urination [R39.15] Other Visit Diagnoses:Dysuria [R30.0] Lower abdominal pain [R10.30] Urinary frequency [R35.0] Order(s):UA DIP, URINE (POC) [8064570] Order #: [id number]. #:[id number] URINE CULTURE [SQURCUL] Order #: [id number]. #:[id number] Prescriptions as of 05/06/2024 - clonazePAM (KLONOPIN) 1 mg tablet TAKE 1 TABLET BY MOUTH IN T (more content not included)... Normal [facility] UA DIP, URINE (POC)on 2023 BILIRUBIN UA (POCT) Negative Negative [facility] CLARITY UA (POCT) Clear [facility] COLOR UA (POCT) Dark yellow [facility] GLUCOSE UA (POCT) Negative Negative mg/dL [facility] Hemoglobin Ql (U) Trace-intact Abnormal Negative [facility] Interpretation and review of laboratory results Abnormal [facility] KETONE UA (POCT) Negative Negative mg/dL [facility] LEUKOCYTES UA (POCT) Negative [facility] NITRITE UA (POCT) Negative Negative [facility] PH UA (POCT) 5.5 4.5 - 8.0 [facility] Protein Ql (U) Negative Negative mg/dL [facility] SPECIFIC GRAVITY UA (POCT) 1.025 1.005 - 1.030 [facility] UROBILINOGEN UA (POCT) 0.2 Normal E.U./dL [facility] Location:[facility], [address] [place] [address], [place], [address] [facility] HNO ID: [id number] Author: COORDINATOR, MAMMOGRAPHY, ? Service: ? Author Type: Physician Type: Letter Filed: 04/01/2024 11:09 Note Text: April 01, 2024 PID: [id number] Carli Jerez [address] [place] [address] Dear Ms. Jerez, We are pleased to inform you that the results of your recent breast imaging exam on 03/31/2024 are normal. Breast tissue can be either dense or not dense. Dense tissue makes it harder to find breast cancer on a mammogram and also raises the risk of developing breast cancer. Your breast tissue is not dense. Talk to your healthcare provider about breast density, risks for breast cancer, and your individual situation. Early detection of cancer is very important. We also understand recommendations regarding breast cancer screening are controversial. Please discuss with your primary care provider which strategy is best for you and whether a mammogram is right for you. Your imaging studies and report will be kept on file at [facility] as part of your permanent medical record and are available for your continuing care. Thank you for allowing us to help in meeting your health care needs. Sincerely, Dr. Rahman Interpreting Radiologist [facility] (Normal over 40) Normal [facility] MARU SCREENING W TOMOon 03-31 MARU SCREENING W MARIALUISA * * *Final Report* * * DATE OF EXAM: Mar 31 2024 2:41PM WRW [id number] - MARU SCREENING W MARIALUISA / PROCEDURE REASON: Encounter for screening mammogram for breast cancer * * * * Physician Interpretation * * * * RESULT: #[id number] - [facility] SCREENING W MARIALUISA BILATERAL DIGITAL SCREENING MAMMOGRAM TOMOSYNTHESIS WITH CAD: 03/31/2024 HISTORY: Encounter For Screening Mammogram For Breast Cancer /Screening Mammogram with MARIALUISA - patient reports NO breast symptoms /Patient has signed release for outside images that is scanned into syngo. RESULT: TECHNIQUE: The study was acquired using full field digital technology and interpreted from soft copy. Digital Breast Tomosynthesis (DBT) images were obtained and used to assist in the interpretation of this examination. Current study was also evaluated with a Computer Aided Detection (CAD). No prior exams were available for comparison. The breasts are almost entirely fatty. No significant masses, calcifications, or other findings are seen in either breast. IMPRESSION: NEGATIVE There is no mammographic evidence of malignancy. A 1 year screening mammogram is recommended. Kaitlin Rahman M.D. fa/derik:04/01/2024 11:09:17 Pyrometer Temperature Regulator(s): RT Veronika(R)(M), [facility] letter sent: Normal over 40 Mammogram BI-RADS: Category 1: Negative Multiple national specialty organizations have released breast cancer screening guidelines for women at average risk for developing breast cancer - guidelines that are based on both evidence and opinion, yet differ on when to start and how often to screen for breast cancer. With representation from Breast Imaging, Internal Medicine, Women's Health, Family Medicine, and Medical/Surgical Oncology, the [facility] has carefully reviewed the data and reached the following consensus: 1) All women should engage in shared decision-making with their providers to decide when to start and how often to screen; 2) All women should have the opportunity to start screening mammography at age 40; 3) For women ages 45-55, we recommend annual screening mammograms; 4) For women ages 55 and over, we support both the transition from an annual to a biennial interval if this aligns more with patient's values and preferences, or continuation with annual screening; 5) All women should discuss with their providers when to stop screening mammograms. Commercial Coordinator: Derik Transcribe Date/Time: Mar 31 2024 2:18P Dictated by: KAITLIN RAHMAN MD This examination was interpreted and the report reviewed and electronically signed by: KAITLIN RAHMAN MD on Apr 01 2024 11:09AM EST [id number] Normal [facility] CBC W Auto Differential pane l (Bld)on 03-29-2024 Basophils (Bld) [#/Vol] 0.04 10*3/uL Normal <0.11 [facility] Comment on above: Order Comment: Speci men Type: BLOOD SPECIMENOrdering Facility: [facility] Address: [address] [place] [address] Performed By: #### 5 7021-8 ####[facility] [place] LABCLIA [id number] [place] [address] [place] Basophils/100 WBC (Bld) 0.3 % Normal [facility] Comment on above: Order Comment: Speci men Type: BLOOD SPECIMENOrdering Facility: [facility] Address: [address] [place] [address] Performed By: #### 5 7021-8 ####[facility] [place] LABCLIA [id number] [place] [facility] [address] [facility] Differential cell count method Nom (Bld) Auto Normal [facility] Comment on above: Order Comment: Speci men Type: BLOOD SPECIMENOrdering Facility: [facility] Address: [address] [place] [address] Performed By: #### 5 7021-8 ####[facility] [place] LABCLIA [id number] [place] [address] [place] [facility] Eosinophils (Bld) [#/Vol] 0.38 10*3/uL Normal <0.46 [facility] Comment on above: Order Comment: Speci men Type: BLOOD SPECIMENOrdering Facility: [facility] Address: [address] [place] [address] Performed By: #### 5 7021-8 ####[facility] [place] LABCLIA [id number] [place] [address] [place] [facility] Eosinophils/100 WBC (Bld) 3.0 % Normal [facility] Comment on above: Order Comment: Speci men Type: BLOOD SPECIMENOrdering Facility: [facility] Address: [address] [place] [address] Performed By: #### 5 7021-8 ####[facility] [place] LABCLIA [id number] [place] [address] [place] Erythrocyte distribution width (RBC) [Ratio] 14.2 % Normal 11.5-15.0 [facility] Comment on above: Order Comment: Speci men Type: BLOOD SPECIMENOrdering Facility: [facility] Address: [address] [place] [address] Performed By: #### 5 7021-8 ####[facility] [place] LABCLIA [id number] [place] [address] [place] Hematocrit (Bld) [Volume fraction] 50.9 % High 36.0-46.0 [facility] Comment on above: Order Comment: Speci men Type: BLOOD SPECIMENOrdering Facility: [facility] Address: [address] [place] [address] Performed By: #### 5 7021-8 ####[facility] [id number] [place] [address] [place] Hemoglobin (Bld) [Mass/Vol] 15.9 g/dL High 11.5-15.5 [facility] Comment on above: Order Comment: Speci men Type: BLOOD SPECIMENOrdering Facility: [facility] Address: [address] [place] [address] Performed By: #### 5 7021-8 ####[facility] LAB[facility] [id number] [place] [address] [place] Immature granulocytes (Bld) [#/Vol] 0.05 10*3/uL Normal <0.10 [facility] Comment on above: Order Comment: Speci men Type: BLOOD SPECIMENOrdering Facility: [facility] Address: [address] [place] [address] Performed By: #### 5 7021-8 ####[facility] [place] LABCLIA [id number] [place] [address] [facility] [place] Immature granulocytes/100 WBC (Bld) 0.4 % Normal [facility] Comment on above: Order Comment: Speci men Type: BLOOD SPECIMENOrdering Facility: [facility] Address: [address] [place] [address] Performed By: #### 5 7021-8 ####[facility] [place] LABCLIA [id number] [place] [address] [place] Lymphocytes (Bld) [#/Vol] 2.96 10*3/uL Normal 1.00-4.00 [facility] Comment on above: Order Comment: Speci men Type: BLOOD SPECIMENOrdering Facility: [facility] Address: [address] [place] [address] Performed By: #### 5 7021-8 ####[facility] [id number] [place] [address] [facility] Lymphocytes/100 WBC (Bld) 23.7 % Normal [facility] Comment on above: Order Comment: Speci men Type: BLOOD SPECIMENOrdering Facility: [facility] Address: [address] [place] [address] Performed By: #### 5 7021-8 ####[facility] LAB[facility] [id number] [place] [address] [facility] MCH (RBC) [Entitic mass] 29.0 pg Normal 26.0-34.0 [facility] Comment on above: Order Comment: Speci men Type: BLOOD SPECIMENOrdering Facility: [facility] Address: [address] [place] [address] Performed By: #### 5 7021-8 ####[facility] LAB[facility] [id number] [place] [address] [place] MCHC (RBC) [Mass/Vol] 31.2 g/dL Normal 30.5-36.0 [facility] Comment on above: Order Comment: Speci men Type: BLOOD SPECIMENOrdering Facility: [facility] Address: [address] [place] [address] Performed By: #### 5 7021-8 ####[facility] LAB[facility] [id number] [place] [address] [place] MCV (RBC) [Entitic vol] 92.7 fL Normal 80.0-100.0 [facility] Comment on above: Order Comment: Speci men Type: BLOOD SPECIMENOrdering Facility: [facility] Address: [address] [place] [address] Performed By: #### 5 7021-8 ####[facility] [place] LABCLIA [id number] [place] [address] [place] Monocytes (Bld) [#/Vol] 0.91 10*3/uL High <0.87 [facility] Comment on above: Order Comment: Speci men Type: BLOOD SPECIMENOrdering Facility: [facility] Address: [address] [place] [address] Performed By: #### 5 7021-8 ####[facility] [place] LABCLIA [id number] [place] [address] [place] Monocytes/100 WBC (Bld) 7.3 % Normal [facility] Comment on above: Order Comment: Speci men Type: BLOOD SPECIMENOrdering Facility: [facility] Address: [address] [place] [address] Performed By: #### 5 7021-8 ####[facility] [place] LABCLIA [id number] [place] [address] [place] Neutrophils (Bld) [#/Vol] 8.16 10*3/uL High 1.45-7.50 [facility] Comment on above: Order Comment: Speci men Type: BLOOD SPECIMENOrdering Facility: [facility] Address: [address] [place] [address] Performed By: #### 5 7021-8 ####[facility] [place] LABCLIA [id number] [place] [address] [place] Neutrophils/100 WBC (Bld) 65.3 % Normal [facility] Comment on above: Order Comment: Speci men Type: BLOOD SPECIMENOrdering Facility: [facility] Address: [address] [place] [address] Performed By: #### 5 7021-8 ####[facility] [place] LABCLIA [id number] [place] [address] [place] Nucleated RBC (Bld) [#/Vol] Normal [facility] Comment on above: Order Comment: Speci men Type: BLOOD SPECIMENOrdering Facility: [facility] Address: [address] [id number] Performed By: #### 5 7021-8 ####[facility] [id number] [place] [address] [place] Nucleated RBC/100 WBC (Bld) [Ratio] Normal [facility] Comment on above: Order Comment: Speci men Type: BLOOD SPECIMENOrdering Facility: [facility] Address: [address] [place] [address] Performed By: #### 5 7021-8 ####[facility] [id number] [place] [address] [place] Platelet mean volume (Bld) [Entitic vol] 9.5 fL Normal 9.0-12.7 [facility] Comment on above: Order Comment: Speci men Type: BLOOD SPECIMENOrdering Facility: [facility] Address: [address] [place] [address] Performed By: #### 5 7021-8 ####[facility] LAB[facility] [id number] [place] [address] [place] Platelets (Bld) [#/Vol] 262 10*3/uL Normal 150-400 [facility] Comment on above: Order Comment: Speci men Type: BLOOD SPECIMENOrdering Facility: [facility] Address: [address] [place] [address] Performed By: #### 5 7021-8 ####[facility] LAB[facility] [id number] [place] [address] [place] RBC (Bld) [#/Vol] 5.49 10*6/uL High 3.90-5.20 [facility] Comment on above: Order Comment: Speci men Type: BLOOD SPECIMENOrdering Facility: [facility] Address: [address] [place] [address] Performed By: #### 5 7021-8 ####[facility] [place] LABCLIA [id number] [place] [address] [place] WBC (Bld) [#/Vol] 12.50 10*3/uL High 3.70-11.00 [facility] Comment on above: Order Comment: Speci men Type: BLOOD SPECIMENOrdering Facility: [facility] Address: [address] [place] [address] Performed By: #### 5 7021-8 ####[facility] [place] LABCLIA [id number] [place] [address] [facility] CNOVon 03-19-2024 CNOV Office Visit (OBGYWM ) ELMOCARLI BARRIOS ([id number]) 1965 F Date Time Provider Department 03/19/24 8:20 AM BRYAN DURAND OBMIGUEL AWElliott During your visit today, we recorded the following information about you: Blood pressure Weight 120/64 134.6 kg Bryan Durand MD 03/19/2024 9:27 AM Signed 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 Carli Jerez is a 59 year old female who presents for problem visit to evaluate longstanding vulvovaginal itching since 2016 refractory to all manner of topical treatments. Wakes up scratching and sleeps with towel between legs. Similar itching on abdomen, thighs (always unilateral?never bilateral)and even nose. Some improvement with benadryl cream. Very savvy re. vulvar irritants - uses only clear detergents and no dryer sheets. . HPI: as above OB History No obstetric history on file. 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 PAST SURGICAL HISTORY Procedure Laterality Date APPENDECTOMY 2003 BLADDER SURGERY HX 2003 bladder lift COLON SURGERY HX 2003 colon resection ESOPHAGUS stricture repair HERNIA REPAIR HX 2003 x2 KNEE SURGERY HX Right 2015 cleaned out REDUCTION OF LARGE BREAST 1992 REMOVAL GALLBLADDER 2010 TOTAL ABDOM HYSTERECTOMY FAMILY HISTORY Problem Relation Age of Onset Hypertension Mother Leukemia Father metastacized Social History Tobacco Use Smoking status: Every Day Packs/day: .75 Types: Cigarettes Passive exposure: Current Smokeless tobacco: Never Vaping Use Vaping Use: Never used Substance Use Topics Alcohol use: Never Drug use: Never Current Outpatient Medications Medication Sig clonazePAM (KLONOPIN) 1 mg tablet TAKE 1 TABLET BY MOUTH EVERY MORNING and 2 (TWO) TABLETS EVERY EVENING valsartan (DIOVAN) 160 mg tablet Take 1 tablet by mouth every afternoon. valsartan (DIOVAN) 80 mg tablet Take 80 mg by mouth once daily. No current facility-administered medications for this visit. Allergies As of Date: 03/19/2024 Allergen Noted Reaction CIPRO [CIPROFLOXACIN HCL] 01/23/2024 Other: See Comments DIFLUCAN [FLUCONAZOLE] 01/23/2024 GI Upset OPIOIDS - MORPHINE ANALOGUES 01/23/2024 GI Upset PENICILLINS 01/23/2024 Rash and GI Upset Fully Assessed 03/07/2024 REVIEW OF SYSTEMS Abdomen: No bloating, early satiety, indigestion, or increased flatulence. No abdominal pain, nausea, vomiting, diarrhea, or constipation. Bladder: No dysuria, gross hematuria, urinary frequency, urinary urgency, or incontinence. Breast: No breast lumps, nipple d/c, overlying skin changes, redness or skin retraction. Expanded ROS: N/A Allergies and current medication updated:Yes EXAM: BP 120/64 Wt 296 lb 12.8 oz (134.6kg) GENERAL: pleasant, female in no apparent distress PELVIC: external genitalia normal, normal Bartholin's glands, urethra, George Mason's glands, no vulvar lesions, good vaginal support, physiologic discharge present, normal appearing perineal body and perianal region, cervix surgically absent BIMANUAL: no adnexal masses, non-tender, and uterus surgically absent DERM: nbo lesions to account for itching ASSESSMENT AND PLAN: Vulvovaginal itching with convoluted history and no evidence of lesions of any kind Yeast culture pending - given sx beyond vulva/perineum will likely need derm referral. ftfc>30m Bryan Durand MD Allergies As of Date: 03/19/2024 Noted Allergy Reaction CIPRO (CIPROFLOXACIN HCL) 01/23/2024 14 - Other: See Comments Comments: Messes with heart DIFLUCAN (FLUCONAZOLE) 01/23/2024 8 - GI Upset OPIOIDS - MORPHINE ANALOGUES 01/23/2024 8 - GI Upset PENICILLINS 01/23/2024 2 - Rash 8 - GI Upset Date Reviewed: 03/07/2024 Reviewed by: Jayne Khanna DO - Fully Assessed Reason for Visit: problem visit [Other] Cmt: Vaginal Irritation Primary Visit Diagnosis:Vaginal itching [N89.8] Order(s):BACT/KERRIE VAG GRAM STAIN [SQBVCNSM] Order #: [id number]. #:[id number] Prescriptions as of 03/19/2024 - clonazePAM (KLONOPIN) 1 mg tablet TAKE 1 TABLET BY MOUTH EVERY MORNING and 2 (TWO) TABLETS EVERY EVENING - valsartan (DIOVAN) 160 mg tablet Take 1 tablet by mouth every afternoon. - valsartan (DIOVAN) 80 mg tablet Take 80 mg by mouth once daily. Problem List As Of Date 03/19/2024 Noted Resolved Chronic bronchitis (HCC) [J42] 03/07/2024 BLAISE (generalized anxiety disorder) [F41.1] 03/07/2024 Hypertension, essential [I10] 03/07/2024 Depression with anxiety [F41.8] 03/07/2024 Undifferentiated inflammatory arthritis (HCC) [*03/07/2024 Class 3 severe obesity with body mass index (BM*03/07/2024 Thyroi (more content not included)... Normal [facility] Gram Stn Vagon 03-19-2024 Microscopic observation Gram stain Nom (Vag fld) BACTERIAL VAGINOSIS: BACTERIAL VAGINOSIS RESULT: Stain results consistent with normal vaginal oren. No Yeast observed No Polymorphonuclear Leukocytes Normal [facility] Comment on above: Performed By: #### 1 4361-0 ####[facility] LABCLIA [id number] [place] [id number] [place] MR Brain WO and W contrast I Von 03-16-2024 IMPRESSION: Normal MRI of the brain for age. Commercial Coordinator: KISHORE Transcribe Date/Time: Mar 16 2024 12:06P Dictated by : ELINOR RAHMAN MD This examination was interpreted and the report reviewed and electronically signed by: ELINOR RAHMAN MD on Mar 16 2024 12:14PM [facility] * * *Final Report* * * DATE OF EXAM: Mar 16 2024 10:17AM [facility] 0295 - MRI BRAIN WO/W IVCON / PROCEDURE REASON: Brain mass * * * * Physician Interpretation * * * * EXAMINATION: MRI BRAIN WO/W IVCON CLINICAL HISTORY: Brain mass. Primary neoplasm/metastasis. TECHNIQUE: Routine brain MRI protocol without and with contrast including diffusion images. MQ: MRBWOW_2 Contrast: 20 mL Dotarem IV COMPARISON: None. RESULT: Acute Change: There is no evidence of restricted diffusion to suggest an acute infarct. Hemorrhage: No evidence of prior parenchymal hemorrhage on the gradient echo images. Mass Lesion/ Mass Effect: No evidence of an intracranial mass or extra-axial fluid collection. No abnormal parenchymal or leptomeningeal enhancement is noted following contrast administration. No significant mass effect. Chronic Change: Scattered punctate foci of increased T2 and FLAIR signal are noted in the supratentorial white matter which is a nonspecific finding, but likely represents minimal chronic microvascular ischemia. Parenchyma: No significant volume loss for age. The brain parenchyma is otherwise within normal limits of signal intensity and morphology. Ventricles: Normal caliber and morphology. Skull Base: Hypothalamic and pituitary region are grossly normal. Craniocervical junction is normal. No significant marrow replacement process. Vasculature: Major intracranial arterial structures, and dural venous sinuses show typical flow void, suggesting patency by spin echo criteria. Other: Minimal mucosal thickening within the maxillary sinuses, otherwise the paranasal sinuses are clear. The mastoid air cells are clear. The orbits and extracranial soft tissues are unremarkable. [facility] Provider, Malu Davis - 03/16/2024 * * *Final Report* * * DATE OF EXAM: Mar 16 2024 10:17AM [facility] 0295 - MRI BRAIN WO/W IVCON / PROCEDURE REASON: Brain mass * * * * Physician Interpretation * * * * EXAMINATION: MRI BRAIN WO/W IVCON CLINICAL HISTORY: Brain mass. Primary neoplasm/metastasis. TECHNIQUE: Routine brain MRI protocol without and with contrast including diffusion images. MQ: MRBWOW_2 Contrast: 20 mL Dotarem IV COMPARISON: None. RESULT: Acute Change: There is no evidence of restricted diffusion to suggest an acute infarct. Hemorrhage: No evidence of prior parenchymal hemorrhage on the gradient echo images. Mass Lesion/ Mass Effect: No evidence of an intracranial mass or extra-axial fluid collection. No abnormal parenchymal or leptomeningeal enhancement is noted following contrast administration. No significant mass effect. Chronic Change: Scattered punctate foci of increased T2 and FLAIR signal are noted in the supratentorial white matter which is a nonspecific finding, but likely represents minimal chronic microvascular ischemia. Parenchyma: No significant volume loss for age. The brain parenchyma is otherwise within normal limits of signal intensity and morphology. Ventricles: Normal caliber and morphology. Skull Base: Hypothalamic and pituitary region are grossly normal. Craniocervical junction is normal. No significant marrow replacement process. Vasculature: Major intracranial arterial structures, and dural venous sinuses show typical flow void, suggesting patency by spin echo criteria. Other: Minimal mucosal thickening within the maxillary sinuses, otherwise the paranasal sinuses are clear. The mastoid air cells are clear. The orbits and extracranial soft tissues are unremarkable. IMPRESSION IMPRESSION: Normal MRI of the brain for age. Commercial Coordinator: KISHORE Transcribe Date/Time: Mar 16 2024 12:06P Dictated by : ELINOR RAHMAN MD This examination was interpreted and the report reviewed and electronically signed by: ELINOR RAHMAN MD on Mar 16 2024 12:14PM EST [facility] Radiology Study observation (narrative) [facility] MR Brain WO and W contrast I VOrdered By: [facility] Provider on 03-16-2024 [facility] MRI BRAIN WO/W IVCONon 03-16 MRI BRAIN WO/W IVCON * * *Final Report* * * DATE OF EXAM: Mar 16 2024 10:17AM [facility] 0295 - MRI BRAIN WO/W IVCON / PROCEDURE REASON: Brain mass * * * * Physician Interpretation * * * * EXAMINATION: MRI BRAIN WO/W IVCON CLINICAL HISTORY: Brain mass. Primary neoplasm/metastasis. TECHNIQUE: Routine brain MRI protocol without and with contrast including diffusion images. MQ: MRBWOW_2 Contrast: 20 mL Dotarem IV COMPARISON: None. RESULT: Acute Change: There is no evidence of restricted diffusion to suggest an acute infarct. Hemorrhage: No evidence of prior parenchymal hemorrhage on the gradient echo images. Mass Lesion/ Mass Effect: No evidence of an intracranial mass or extra-axial fluid collection. No abnormal parenchymal or leptomeningeal enhancement is noted following contrast administration. No significant mass effect. Chronic Change: Scattered punctate foci of increased T2 and FLAIR signal are noted in the supratentorial white matter which is a nonspecific finding, but likely represents minimal chronic microvascular ischemia. Parenchyma: No significant volume loss for age. The brain parenchyma is otherwise within normal limits of signal intensity and morphology. Ventricles: Normal caliber and morphology. Skull Base: Hypothalamic and pituitary region are grossly normal. Craniocervical junction is normal. No significant marrow replacement process. Vasculature: Major intracranial arterial structures, and dural venous sinuses show typical flow void, suggesting patency by spin echo criteria. Other: Minimal mucosal thickening within the maxillary sinuses, otherwise the paranasal sinuses are clear. The mastoid air cells are clear. The orbits and extracranial soft tissues are unremarkable. IMPRESSION: Normal MRI of the brain for age. Commercial Coordinator: PSCB Transcribe Date/Time: Mar 16 2024 12:06P Dictated by : ELINOR RAHMAN MD This examination was interpreted and the report reviewed and electronically signed by: ELINOR RAHMAN MD on Mar 16 2024 12:14PM EST [id number] Normal [facility] NURSING PROGon 03-16-2024 NURSING PROG HNO ID: [id number] Author: KATIA MANCILLA RN Service: Nursing Author Type: Registered Nurse Type: Nursing Progress Note Filed: 03/16/2024 09:50 Note Text: Radiology Service Progress Note DATE OF SERVICE: March 16, 2024 TIME: 9:44 AM PATIENT WEIGHT: 294LBS PATIENT IDENTITY VERIFICATION COMPLETED USING TWO (2) STANDARD IDENTIFIERS: Name and Date of confirmed by patient verbally and Name and Date of confirmed by identification band. FALL SCREENING: Has the patient had 2 falls in the last year or 1 fall with injury or currently using an Ambulatory Assistive Device (Walker, Cane, Wheelchair, Crutches, etc.)? Yes, Patient High Risk for Falls What interventions were put in place to prevent falls during this visit? [place] Falls Risk Wristband Applied, Instructed Patient to Call for Help if Needed, Offered Assistance with Transfers/Clothing, Instructed Patient to Remain Seated (Not on Exam Table) Until Exam, and Increased Observations by Caregivers PATIENT GENDER DATA: Female. status: : No status: NO. ALLERGIES: Reviewed and unchanged CONTRAST ALLERGY: No EXAM: MRI - CONTRAST TYPE: GROUP II IV SITE: Ambulatory: A peripheral IV was started in the Right antecubital site with a Angio cath: 22 gauge. IV SITE APPEARANCE: Clean,Dry and Intact SIGNATURE: Katia Mancilla RN PATIENT NAME: Carli Jerez DATE: March 16, 2024 TIME: 9:44 AM [facility] 03-13-[address] [facility] Telephone (AGClonelessLE) SAMUELCARLI SOLORIO ([id number]) 1965 F Date Time Provider Department 03/13/24 JAYNE KHANNA During your visit today, we recorded the following information about you: Jayne Khanna DO 03/13/2024 9:00 PM Signed Please call pt - her blood work shows a high white blood cell count and elevated hemoglobin. It also shows some other abnormalities that are not significant. I would like to order more blood work DO Shanice Galarza Mary, MA 03/14/2024 8:48 AM Signed Lm on pt. Vm with all information. BETINA Fernandez Mary, MA 03/14/2024 9:43 AM Signed Pt. States she received message. She wants to let you know every time she uses a steroid her wbc is elevated. Also she states she smokes. BETINA Fernandez Kimberly C, DO 03/14/2024 9:52 AM Signed Steroids and smoking do increase wbcs. We can wait until she is off steroids to recheck the WBCs DO Zev Galarza Janie, MA 03/14/2024 10:22 AM Signed Patient informed. Jayy Jones MA Allergies As of Date: 03/13/2024 Noted Allergy Reaction CIPRO (CIPROFLOXACIN HCL) 01/23/2024 14 - Other: See Comments Comments: Messes with heart DIFLUCAN (FLUCONAZOLE) 01/23/2024 8 - GI Upset OPIOIDS - MORPHINE ANALOGUES 01/23/2024 8 - GI Upset PENICILLINS 01/23/2024 2 - Rash 8 - GI Upset Date Reviewed: 03/07/2024 Reviewed by: Jayne Khanna DO - Fully Assessed Reason for Visit: Results [95] Primary Visit Diagnosis:Leukocytosis, unspecified type [D72.829] Order(s):COMPLETE BLOOD COUNT AND DIFFERENTIAL [SQCBCDIF] Order #: [id number] FUTURE Prescriptions as of 03/14/2024 - clonazePAM (KLONOPIN) 1 mg tablet TAKE 1 TABLET BY MOUTH EVERY MORNING and 2 (TWO) TABLETS EVERY EVENING - methylPREDNISolone (MEDROL, KINDRA,) 4 mg Dose-Pack Take as instructed per package. - valsartan (DIOVAN) 160 mg tablet Take 1 tablet by mouth every afternoon. - valsartan (DIOVAN) 80 mg tablet Take 80 mg by mouth once daily. Problem List As Of Date 03/13/2024 Noted Resolved Chronic bronchitis (HCC) [J42] 03/07/2024 BLAISE (generalized anxiety disorder) [F41.1] 03/07/2024 Hypertension, essential [I10] 03/07/2024 Depression with anxiety [F41.8] 03/07/2024 Undifferentiated inflammatory arthritis (HCC) [*03/07/2024 Class 3 severe obesity with body mass index (BM*03/07/2024 Thyroid nodule [E04.1] 03/07/2024 Headache, unspecified headache type [R51.9] 03/07/2024 Nose polyp [J33.9] 03/07/2024 Smoker [F17.200] 03/07/2024 Allergy to opioid analgesic [Z88.5] 03/07/2024 Encounter Status:Closed by JOHN BARBOUR on 03/14/24 [facility] 03-11-2024 CNPN Telephone (ELODIAMPLE) CARLI JEREZ ([id number]) 1965 F Date Time Provider Department 03/11/24 JAYNE KHANNA During your visit today, we recorded the following information about you: Jayne Khanna DO 03/11/2024 3:07 PM Signed Pt is in the ED. She has a headache and fever. She had a CT of the brain showing 1.1 cm questionable soft tissue density in the body of the left ventricle. Needs MRI, he gave name of Neuro. Terry Burgess. Jayne Khanna DO Allergies As of Date: 03/11/2024 Noted Allergy Reaction CIPRO (CIPROFLOXACIN HCL) 01/23/2024 14 - Other: See Comments Comments: Messes with heart DIFLUCAN (FLUCONAZOLE) 01/23/2024 8 - GI Upset OPIOIDS - MORPHINE ANALOGUES 01/23/2024 8 - GI Upset PENICILLINS 01/23/2024 2 - Rash 8 - GI Upset Date Reviewed: 03/07/2024 Reviewed by: Jayne Khanna DO - Fully Assessed Reason for Visit: Call From ER [[id number]] Prescriptions as of 03/13/2024 - clonazePAM (KLONOPIN) 1 mg tablet TAKE 1 TABLET BY MOUTH EVERY MORNING and 2 (TWO) TABLETS EVERY EVENING - methylPREDNISolone (MEDROL, KINDRA,) 4 mg Dose-Pack Take as instructed per package. - valsartan (DIOVAN) 160 mg tablet Take 1 tablet by mouth every afternoon. - valsartan (DIOVAN) 80 mg tablet Take 80 mg by mouth once daily. Problem List As Of Date 03/11/2024 Noted Resolved Chronic bronchitis (HCC) [J42] 03/07/2024 BLAISE (generalized anxiety disorder) [F41.1] 03/07/2024 Hypertension, essential [I10] 03/07/2024 Depression with anxiety [F41.8] 03/07/2024 Undifferentiated inflammatory arthritis (HCC) [*03/07/2024 Class 3 severe obesity with body mass index (BM*03/07/2024 Thyroid nodule [E04.1] 03/07/2024 Headache, unspecified headache type [R51.9] 03/07/2024 Nose polyp [J33.9] 03/07/2024 Smoker [F17.200] 03/07/2024 Allergy to opioid analgesic [Z88.5] 03/07/2024 Encounter Status:Closed by JAYNE KHANNA on 03/13/24 [facility] COVID & INFLUENZA A/B & RSV NAAT, ROUTINEon 03-08-2024 FLUAV RNA MICHELINE+probe Ql (Unsp spec) Not detected Not Detected [facility] FLUBV RNA MICHELINE+probe Ql (Unsp spec) Not detected Not Detected [facility] Interpretation and review of laboratory results Normal [facility] RSV A RNA MICHELINE+probe Ql (Unsp spec) Not detected Not Detected [facility] SARS-CoV-2 (COVID-19) RNA MICHELINE+probe Ql (Resp) Not detected See comment [facility] Comment on above: The method used is R T-PCR or an equivalent NAAT method. Reference Range (the expected result in uninfected individuals): Not detected For upper respirator y tract samples, this test has been authorized by FDA under Emergenecy Use Authorization (EUA). For lower respiratory tract samples, this test was developed and its performance characteristics determined by [facility]'s [facility] ([facility] It has not been cleared or approved by the FDA. [facility] is regulated under CLIA as qualified to perform high-complexity testing. This test is used for clinical purposes. It should not be regarded as investigational or for research. Test performed by [facility], [facility] [place], [facility] [place], [place] [address]. [facility] CBC W Auto Differential pane l (Bld)Ordered By: Carlita Vickers on 03-07-2024 Eosinophils/100 WBC (Bld) 3.0 % [facility] Lymphocytes/100 WBC (Bld) 27.0 % [facility] Monocytes/100 WBC (Bld) 7.0 % [facility] Neutrophils/100 WBC (Bld) 63.0 % [facility] Platelets Estimate (Bld) [#/Vol] Adequate [facility] Red Cell Morph Reviewed: unremarkable [facility] CBC W Auto Differential pane l (Bld)on 03-07-2024 Eosinophils/100 WBC (Bld) 3.0 % [facility] Comment on above: Order Comment: Speci men Type: BLOOD SPECIMENOrdering Facility: [facility] Address: [address] [place] [address] Performed By: #### 5 7021-8 ####[facility] LABCLIA [id number] [place] [address] [place] Lymphocytes/100 WBC (Bld) 27.0 % [facility] Comment on above: Order Comment: Speci men Type: BLOOD SPECIMENOrdering Facility: [facility] Address: [address] [place] [address] Performed By: #### 5 7021-8 ####[facility] LABCLIA [id number] [place] [address] [place] Monocytes/100 WBC (Bld) 7.0 % [facility] Comment on above: Order Comment: Speci men Type: BLOOD SPECIMENOrdering Facility: [facility] Address: [address] [place] [address] Performed By: #### 5 7021-8 ####[facility] LABCLIA [id number] [place] [address] [place] Neutrophils/100 WBC (Bld) 63.0 % [facility] Comment on above: Order Comment: Speci men Type: BLOOD SPECIMENOrdering Facility: [facility] Address: [address] [place] [address] Performed By: #### 5 7021-8 ####[facility] LABCLIA [id number] [place] [address] [place] Platelets Estimate (Bld) [#/Vol] Adequate [facility] Comment on above: Order Comment: Speci men Type: BLOOD SPECIMENOrdering Facility: [facility] Address: [address] [place] [address] Performed By: #### 5 7021-8 ####[facility] LABCL[facility] [id number] [place] [address] [facility] RED CELL MORPH Reviewed: unremarkable [facility] Comment on above: Order Comment: Speci men Type: BLOOD SPECIMENOrdering Facility: [facility] Address: [address] [place] [address] Performed By: #### 5 7021-8 ####[facility] LABCLIA [id number] [place] [address] [facility] CBC panel Auto (Bld)on 03-07 Erythrocyte distribution width (RBC) [Ratio] 13.9 % 11.5 - 15.0 % [facility] Hematocrit (Bld) [Volume fraction] 51.7 % High 36.0 - 46.0 % [facility] Hemoglobin (Bld) [Mass/Vol] 16.6 g/dL High 11.5 - 15.5 g/dL [facility] Interpretation and review of laboratory results Abnormal [facility] MCH (RBC) [Entitic mass] 29.5 pg 26.0 - 34.0 pg [facility] MCHC (RBC) [Mass/Vol] 32.1 g/dL 30.5 - 36.0 g/dL [facility] MCV (RBC) [Entitic vol] 91.8 fL 80.0 - 100.0 fL [facility] Platelet mean volume (Bld) [Entitic vol] 9.5 fL 9.0 - 12.7 fL [facility] Platelets (Bld) [#/Vol] 274 10*3/uL [facility] RBC (Bld) [#/Vol] 5.63 10*6/uL High 3.90 - 5.2 0 m/uL [facility] WBC (Bld) [#/Vol] 13.41 10*3/uL [facility] Erythrocyte distribution width (RBC) [Ratio] 13.9 % Normal 11.5-15.0 [facility] Comment on above: Order Comment: Speci men Type: BLOOD SPECIMENOrdering Facility: [facility] Address: [address] [place] [address] Performed By: #### 5 8410-2 ####[facility] LABCLIA [id number] [place] [address] [place] [facility] Hematocrit (Bld) [Volume fraction] 51.7 % High 36.0-46.0 [facility] Comment on above: Order Comment: Speci men Type: BLOOD SPECIMENOrdering Facility: [facility] Address: [address] [place] [address] Performed By: #### 5 8410-2 ####[facility] LABCLIA [id number] [place] [address] [facility] [place] Hemoglobin (Bld) [Mass/Vol] 16.6 g/dL High 11.5-15.5 [facility] Comment on above: Order Comment: Speci men Type: BLOOD SPECIMENOrdering Facility: [facility] Address: [address] [place] [address] Performed By: #### 5 8410-2 ####[facility] LABCLIA [id number] [place] [address] [place] MCH (RBC) [Entitic mass] 29.5 pg Normal 26.0-34.0 [facility] Comment on above: Order Comment: Speci men Type: BLOOD SPECIMENOrdering Facility: [facility] Address: [address] [place] [address] Performed By: #### 5 8410-2 ####[facility] LABCLIA [id number] [place] [address] [place] MCHC (RBC) [Mass/Vol] 32.1 g/dL Normal 30.5-36.0 [facility] Comment on above: Order Comment: Speci men Type: BLOOD SPECIMENOrdering Facility: [facility] Address: [address] [place] [address] Performed By: #### 5 8410-2 ####[facility] LABCLIA [id number] [place] [address] [place] MCV (RBC) [Entitic vol] 91.8 fL Normal 80.0-100.0 [facility] Comment on above: Order Comment: Speci men Type: BLOOD SPECIMENOrdering Facility: [facility] Address: [address] [place] [address] Performed By: #### 5 8410-2 ####[facility] LABCLIA [id number] [place] [address] [place] Platelet mean volume (Bld) [Entitic vol] 9.5 fL Normal 9.0-12.7 [facility] Comment on above: Order Comment: Speci men Type: BLOOD SPECIMENOrdering Facility: [facility] Address: [address] [place] [address] Performed By: #### 5 8410-2 ####[facility] LABCLIA [id number] [place] [address] [facility] Platelets (Bld) [#/Vol] 274 10*3/uL Normal 150-400 [facility] Comment on above: Order Comment: Speci men Type: BLOOD SPECIMENOrdering Facility: [facility] Address: [address] [place] [address] Performed By: #### 5 8410-2 ####[facility] LABCLIA [id number] [place] [address] [place] RBC (Bld) [#/Vol] 5.63 10*6/uL High 3.90-5.20 [facility] Comment on above: Order Comment: Speci men Type: BLOOD SPECIMENOrdering Facility: [facility] Address: [address] [place] [address] Performed By: #### 5 8410-2 ####[facility] LABCLIA [id number] [place] [address] [place] WBC (Bld) [#/Vol] 13.41 10*3/uL High 3.70-11.00 [facility] Comment on above: Order Comment: Princess lawton Type: BLOOD SPECIMENOrdering Facility: [facility] Address: [address], [place] [address] Performed By: #### 5 8410-2 ####[facility] OBDULIA [id number] [place] [address] [facility] CNOVon 03-07-2024 CNOV Office Visit (DEONDRE MICHAUD) CARLI JEREZ ([id number]) 1965 F Date Time Provider Department 03/07/24 9:00 AM JAYNE KHANNA During your visit today, we recorded the following information about you: Temperature Pulse Respiration Blood pressure 100.1 degrees 86/minute 16/minute 118/72 Weight Height 133.4 kg 1.715 m Jayne Khanna DO 03/12/2024 11:22 AM Signed SUBJECTIVE: 59 year old female here to establish. I have fully reviewed the past medical, surgical, social and family history and updated the Histories section of [facility]. She has a history of a thyroid nodule, HTN, anxiety, polyp in left nare, chronic yeast infection, essential tremor, fibromyalgia She has had mid-sternal chest pain It lasts about 5 minutes She has had pain in her left fifth finger with the chest pain She gets the chest pain at rest She does not get short of breath with the chest pain, but does get short of breath with exertion Pain is a deep ache, occasionally radiates to left shoulder She has a sore throat and fever today She reports that the sore throat is chronic, and she believes it is due the calcification in her thyroid She has sinus pressure, no cough, no sinus drainage, no ear pain She has been having headaches around her eyes and in her temples b/l She has had some burning with urination She smokes about 1 PPD, but is quitting She is cutting back by 2 cigarettes per day No LMP recorded. ALLERGIES Allergen Reactions Cipro [Ciprofloxaci* Other: See Comments Messes with heart Diflucan [Fluconazo* GI Upset Opioids - Morphine * GI Upset Penicillins Rash, GI Upset Current Outpatient Medications Medication Sig Dispense Refill valsartan (DIOVAN) 160 mg tablet Take 1 tablet by mouth every afternoon. clonazePAM (KLONOPIN) 1 mg tablet TAKE 1 TABLET BY MOUTH EVERY MORNING and 2 (TWO) TABLETS EVERY EVENING valsartan (DIOVAN) 80 mg tablet Take 80 mg by mouth once daily. No current facility-administered medications for this visit. There is no problem list on file for this patient. Social History Tobacco Use Smoking status: Every Day Packs/day: .75 Types: Cigarettes Passive exposure: Current Smokeless tobacco: Never Vaping Use Vaping Use: Never used Substance Use Topics Alcohol use: Never Drug use: Never Family History Problem Relation Age of Onset Hypertension Mother Leukemia Father metastacized Reviewed past medical history, family history and surgeries. All medications and supplements were reviewed with the patient. REVIEW OF SYSTEMS GENERAL: positive for fever today, no weight loss HEENT: Positive for headache, sinus congestion, throat tightness, no changes in hearing or vision, no nose bleeds NECK: Negative for lumps, goiter, pain and significant neck swelling RESPIRATORY: Positive for shortness of breath, negative for cough, hemoptysis, wheezing CARDIOVASCULAR:Positive for chest pain, shortness of breath GI: No nausea, vomiting, or diarrhea :positive for urinary frequency and urgency MUSCULOSKELETAL: Positive for muscle and joint pain SKIN: Negative for lesions, rash, and itching PSYCH: Positive for depression with anxiety HEMATOLOGY/LYMPHOLOGY: Negative for prolonged bleeding, bruising easily or swollen nodes ENDOCRINE: Negative for cold or heat intolerance, polyuria, polydipsia and goiter NEURO: No history of syncope, paralysis, seizures or tremors PHYSICAL EXAMINATION: BP 118/72 Pulse 86 Temp 37.8 ?C (100.1 ?F) Resp 16 Ht 171.5 cm (5' 7.5 ) Wt 133.4 kg (294 lb) SpO2 95% BMI 45.37 kg/m? General appearance: Well appearing, alert, in no acute distress, well-hydrated, obese Skin: Skin color, texture, turgor normal, no suspicious rashes or lesions Head: Normocephalic, no masses, lesions, tenderness or abnormalities Eyes: Anicteric sclera. Pupils are equally round and reactive to light. Extraocular movements are intact. Ears: External ears normal, canals clear Nose/Sinuses: Nares normal, septum midline, mucosa normal, no drainage or sinus tenderness Oropharynx: Lips, mucosa, and tongue normal, teeth and gums normal, oropharynx normal Neck: Supple, no adenopathy; thyroid symmetric, normal size, no bruits Back: Normal exam Lungs: Lungs clear to auscultation. No wheezing, rhonchi, rales. Heart: RRR without murmur, gallop, or rubs. No ectopy Abdomen: Normal abdominal exam, Abdomen soft, non-tender. Bowel sounds normal. No masses, organomegaly Extremities: No deformities, edema, skin discoloration, clubbing or cyanosis. Good capillary refill. Musculoskeletal: No joint swelling, deformity, or tenderness Peripheral pulses: Normal Neuro: Walks with rollator. ASSESSMENT/PLAN: 1. Hypertension, essential - ICD9: 401.9, ICD10: I10 (primary diagnosis) - Controlled - Recommend home blood pressure monitoring, to kirstie (more content not included)... [facility] COVID AND INFLUENZA A/B AND RSV NAAT, ROUTINEon 03-07-2024 SARS-CoV-2 (COVID-19) RNA MICHELINE+probe Ql (Unsp spec) COVID 19 RESULT: Not detected The method used is RT-PCR or an equivalent NAAT method. Reference Range (the expected result in uninfected individuals): Not detected INFLUENZA A PCR: Not detected INFLUENZA B PCR: Not detected RSV PCR: Not detected [facility] Comment on above: Performed By: #### C VFLRS ####[facility] LABCLIA [id number] [place] [address] [place] Comprehensive metabolic 2000 panelon 03-07-2024 Albumin [Mass/Vol] 3.9 g/dL 3.9 - 4.9 g/dL [facility] ALP [Catalytic activity/Vol] 128 U/L High 34 - 123 U/L [facility] ALT With P-5'-P [Catalytic activity/Vol] 31 U/L 7 - 38 U/L [facility] Anion gap [Moles/Vol] 12 mmol/L 8 - 15 mmol/L [facility] AST With P-5'-P [Catalytic activity/Vol] 19 U/L 13 - 35 U/L [facility] Bilirubin [Mass/Vol] 0.2 mg/dL 0.2 - 1 .3 mg/dL [facility] Calcium [Mass/Vol] 9.5 mg/dL 8.5 - 10. 2 mg/dL [facility] Chloride [Moles/Vol] 103 mmol/L 98 - 10 7 mmol/L [facility] CO2 [Moles/Vol] 25 mmol/L 22 - 30 mmol/L [facility] Creatinine [Mass/Vol] 1.02 mg/dL High 0.58 - 0.96 mg/dL [facility] GFR/1.73 sq M.predicted among non-blacks MDRD (S/P/Bld) [Vol rate/Area] 63 mL/min/{1.73_m2} - PINF [facility] Comment on above: Estimated Glomerular Filtration Rate (eGFR) is calculated using the 2020 CKD-EPI creatinine equation. This equation utilizes serum creatinine, sex, and age as parameters. The creatinine assay has traceable calibration to isotope dilution-mass spectrometry. Refer to KDIGO guidelines for clinical interpretation. In patients with unstable renal function, e.g. those with acute kidney injury, the eGFR may not accurately reflect actual GFR. Glucose [Mass/Vol] 109 mg/dL High 74 - 99 mg/dL [facility] [place] Comment on above: The [place] Diab[employer] Association (ADA) provides guidance for cutoff values for fasting glucose and random glucose. The ADA defines fasting as no caloric intake for at least 8 hours. Fasting plasma glucose results between 100 to 125 mg/dL indicate increased risk for diabetes (prediabetes). Fasting plasma glucose results greater than or equal to 126 mg/dL meet the criteria for diagnosis of diabetes. In the absence of unequivocal hyperglycemia, results should be confirmed by repeat testing. In a patient with classic symptoms of hyperglycemia or hyperglycemic crisis, random plasma glucose results greater than or equal to 200 mg/dL meet the criteria for diagnosis of diabetes. Reference: Standards of Medical Care in Diabetes 2016, [place] [employer]. Diabetes Care. 2016.39(Suppl 1). Potassium [Moles/Vol] 4.4 mmol/L 3.7 - 5.1 mmol/L [facility] Protein [Mass/Vol] 7.2 g/dL 6.3 - 8.0 g/dL [facility] Sodium [Moles/Vol] 140 mmol/L 136 - 144 mmol/L [facility] Urea nitrogen [Mass/Vol] 11 mg/dL 7 - 21 mg/dL [facility] Albumin [Mass/Vol] 3.9 g/dL Normal 3.9-4.9 [facility] Comment on above: Order Comment: Speci men Type: BLOOD SPECIMENOrdering Facility: [facility] Address: [address] [place] [address] Performed By: #### 2 4323-8, 52843-5 ####[facility] LABCLIA [id number] [place] [address] [place] [facility] ALP [Catalytic activity/Vol] 128 U/L High 34-123 [facility] Comment on above: Order Comment: Speci men Type: BLOOD SPECIMENOrdering Facility: [facility] Address: [address] [place] [address] Performed By: #### 2 4323-8, 01908-3 ####[facility] LABCLIA [id number] [place] [address] [place] ALT With P-5'-P [Catalytic activity/Vol] 31 U/L Normal 7-38 [facility] Comment on above: Order Comment: Speci men Type: BLOOD SPECIMENOrdering Facility: [facility] Address: [address] [place] [address] Performed By: #### 2 4323-8, 34400-6 ####[facility] LABCLIA [id number] [place] [address] [place] Anion gap [Moles/Vol] 12 mmol/L Normal 8-15 [facility] Comment on above: Order Comment: Speci men Type: BLOOD SPECIMENOrdering Facility: [facility] Address: [address] [place] [address] Performed By: #### 2 4323-8, 99487-8 ####[facility] LABCLIA [id number] [place] [address] [place] AST With P-5'-P [Catalytic activity/Vol] 19 U/L Normal 13-35 [facility] Comment on above: Order Comment: Speci men Type: BLOOD SPECIMENOrdering Facility: [facility] Address: [address] [place] [address] Performed By: #### 2 4323-8, 58275-5 ####[facility] LABCLIA [id number] [place] [address] [place] Bilirubin [Mass/Vol] 0.2 mg/dL Normal 0.2-1.3 [facility] Comment on above: Order Comment: Speci men Type: BLOOD SPECIMENOrdering Facility: [facility] Address: [address] [place] [address] Performed By: #### 2 4323-8, 71045-6 ####[facility] LABCLIA [id number] [place] [address] [place] Calcium [Mass/Vol] 9.5 mg/dL Normal 8.5-10.2 [facility] Comment on above: Order Comment: Speci men Type: BLOOD SPECIMENOrdering Facility: [facility] Address: [address] [place] [address] Performed By: #### 2 4323-8, 88338-4 ####[facility] LABCLIA [id number] [place] [address] [place] Chloride [Moles/Vol] 103 mmol/L Normal 98-107 [facility] Comment on above: Order Comment: Speci men Type: BLOOD SPECIMENOrdering Facility: [facility] Address: [address] [place] [address] Performed By: #### 2 4323-8, 74159-5 ####[facility] LABCLIA [id number] [place] [address] [place] CO2 [Moles/Vol] 25 mmol/L Normal 22-30 [facility] Comment on above: Order Comment: Speci men Type: BLOOD SPECIMENOrdering Facility: [facility] Address: [address] [place] [address] Performed By: #### 2 4323-8, 23395-6 ####[facility] LABIA [id number] [place] [address] [place] [facility] Creatinine [Mass/Vol] 1.02 mg/dL High 0.58-0.96 [facility] Comment on above: Order Comment: Princess lawton Type: BLOOD SPECIMENOrdering Facility: [facility] Address: [address] [place] [address] Performed By: #### 2 4323-8, 24200-5 ####[facility] LABIA [id number] [place] [address] [facility] Creatinine and Glomerular filtration rate.predicted panel (S/P/Bld) 63 mL/min/1.73m??? Normal >=60 [facility] Comment on above: Order Comment: Princess lawton Type: BLOOD SPECIMENOrdering Facility: [facility] [facility] Address: [address] [place] [address] Result Comment: Paola mated Glomerular Filtration Rate (eGFR) is calculated using the 2020 CKD-EPI creatinine equation. This equation utilizes serum creatinine, sex, and age as parameters. The creatinine assay has traceable calibration to isotope dilution-mass spectrometry. Refer to KDIGO guidelines for clinical interpretation. In patients with unstable renal function, e.g. those with acute kidney injury, the eGFR may not accurately reflect actual GFR. Performed By: #### 2 4323-8, 98393-5 ####[facility] LABIA [id number] [place] [address] [place] Glucose [Mass/Vol] 109 mg/dL High 74-99 [facility] Comment on above: Order Comment: Princess lawton Type: BLOOD SPECIMENOrdering Facility: [facility] Address: [address] [place] [address] Result Comment: The [place] Diabetes Association (ADA) provides guidance for cutoff values for fasting glucose and random glucose. The ADA defines fasting as no caloric intake for at least 8 hours. Fasting plasma glucose results between 100 to 125 mg/dL indicate increased risk for diabetes (prediabetes). Fasting plasma glucose results greater than or equal to 126 mg/dL meet the criteria for diagnosis of diabetes. In the absence of unequivocal hyperglycemia, results should be confirmed by repeat testing. In a patient with classic symptoms of hyperglycemia or hyperglycemic crisis, random plasma glucose results greater than or equal to 200 mg/dL meet the criteria for diagnosis of diabetes. Reference: Standards of Medical Care in Diabetes 2016, [place] Diabetes Association. Diabetes Care. 2016.39(Suppl 1). Performed By: #### 2 4323-8, 66036-0 ####[facility] [employer] LABCLIA [id number] [place] [address] [place] Potassium [Moles/Vol] 4.4 mmol/L Normal 3.7-5.1 [facility] Comment on above: Order Comment: Princess lawton Type: BLOOD SPECIMENOrdering Facility: [facility] Address: [address] [place] [address] Performed By: #### 2 43238, ####[facility] LABCLIA [id number] [place] [address] [place] Protein [Mass/Vol] 7.2 g/dL Normal 6.3-8.0 [facility] Comment on above: Order Comment: Princess lawton Type: BLOOD SPECIMENOrdering Facility: [facility] Address: [address] [place] [address] Performed By: #### 2 4323-8, ####[facility] LABCLIA [id number] [place] [address] [place] Sodium [Moles/Vol] 140 mmol/L Normal 136-144 [facility] Comment on above: Order Comment: Princess lawton Type: BLOOD SPECIMENOrdering Facility: [facility] Address: [address] [place] [address] Performed By: #### 2 4323-8, ####[facility] LABCLIA [id number] [place] [address] [place] Urea nitrogen [Mass/Vol] 11 mg/dL Normal 7-21 [facility] Comment on above: Order Comment: Speci men Type: BLOOD SPECIMENOrdering Facility: [facility] Address: [address] [place] [id number] Performed By: #### 2 4323-8, 91121-1 ####[facility] LABCLIA [id number] [place] [address] [place] ECG B/O W INTERP (MED OFFICE )on 03-07-2024 NSR with Marta Khanna DO [facility] Lipid 1996 panelon 4 Cholesterol [Mass/Vol] 156 mg/dL NINF - 200 mg/dL [facility] Comment on above: <200 mg/dL, Desirabl e 200-239 mg/dL, Borderline high >239 mg/dL, High Cholesterol in HDL [Mass/Vol] 47 mg/dL 39 - PINF mg/dL [facility] Comment on above: 40-59 mg/dL, Accepta ble >59 mg/dL, High: Negative risk factor for coronary heart disease <40 mg/dL, Low: Positive risk factor for coronary heart disease Cholesterol in LDL [Mass/Vol] 68 mg/dL NINF - 100 mg/dL [facility] Comment on above: <100 mg/dL, Optimal 100-129 mg/dL, Near optimal/above optimal 130-159 mg/dL, Borderline high 160-189 mg/dL, High >189 mg/dL, Very high Secondary prevention optimal LDL Cholesterol levels are recommended to be < 70 mg/dL Cholesterol in LDL/Cholesterol in HDL [Mass ratio] 1.45 {ratio} NINF - 2.54 [facility] Comment on above: Reference: 1. National Cholesterol Education Program ATP III Guideline At-A-Glance Quick Desk Reference: National Heart, Lung, and Blood [place]ball. National Institutes of Health. 2001: NIH Publication No. 01-3305. 2. An International Atherosclerosis Society position paper: global recommendations for the management of dyslipidemia: executive summary, Atherosclerosis. 2014: 232(2):410-413. Cholesterol in VLDL [Mass/Vol] 41 mg/dL High NINF - 30 mg/dL [facility] Cholesterol non HDL [Mass/Vol] 109 mg/dL NINF - 130 mg/dL [facility] Comment on above: <130 mg/dL, Optimal 130-159 mg/dL, Near optimal/above optimal 160-189 mg/dL, Borderline high 190-219 mg/dL, High >219 mg/dL, Very high Secondary prevention optimal non HDL Cholesterol levels are recommended to be <100 mg/dL Cholesterol.total/Cho lesterol in HDL [Mass ratio] 3.32 {ratio} NINF - 5.10 [facility] Fasting Time 12 hrs [facility] Triglyceride [Mass/Vol] 205 mg/dL High NINF - 150 mg/dL [facility] Comment on above: <150 mg/dL, Normal 150-199 mg/dL, Borderline high 200-499 mg/dL, High >499 mg/dL, Very high Cholesterol [Mass/Vol] 156 mg/dL Normal <200 [facility] Comment on above: Order Comment: Princess lawton Type: BLOOD SPECIMENOrdering Facility: [facility] Address: [address] [place] [address] Result Comment: <200 mg/dL, Desirable 200-239 mg/dL, Borderline high >239 mg/dL, High Performed By: #### 2 4323-8, 54416-4 ####[facility] [employer] LABIA [id number] [place] [address] [facility] Cholesterol in HDL [Mass/Vol] 47 mg/dL Normal >39 [facility] Comment on above: Order Comment: Princess lawton Type: BLOOD SPECIMENOrdering Facility: [facility] Address: [address] [place] [address] Result Comment: 40-5 9 mg/dL, Acceptable >59 mg/dL, High: Negative risk factor for coronary heart disease <40 mg/dL, Low: Positive risk factor for coronary heart disease Performed By: #### 2 4323-8, 82028-0 ####[facility] [employer] LABCLIA [id number] [place] [address] [facility] Cholesterol in LDL [Mass/Vol] 68 mg/dL Normal <100 [facility] Comment on above: Order Comment: Princess [facility] Type: BLOOD SPECIMENOrdering Facility: [facility] Address: [address] [place] [address] Result Comment: <100 mg/dL, Optimal 100-129 mg/dL, Near optimal/above optimal 130-159 mg/dL, Borderline high 160-189 mg/dL, High >189 mg/dL, Very high Secondary prevention optimal LDL Cholesterol levels are recommended to be < 70 mg/dL Performed By: #### 2 4323-8, 52600-6 ####[facility] LABCLIA [id number] [place] [address] [facility] Cholesterol in LDL/Cholesterol in HDL [Mass ratio] 1.45 {ratio} Normal <2.54 [facility] Comment on above: Order Comment: Princess leighann Type: BLOOD SPECIMENOrdering Facility: [facility] Address: [address] [place] [address] Result Comment: Refe normance: 1. National Cholesterol Education Program ATP III Guideline At-A-Glance Quick Desk Reference: National Heart, Lung, and Blood Kimball. National Institutes of Health. 2001: NIH Publication No. 01-3305. 2. An International Atherosclerosis Society position paper: global recommendations for the management of dyslipidemia: executive summary, Atherosclerosis. 2014: 232(2):410-413. Performed By: #### 2 4323-8, 76769-3 ####[facility] [employer] LABCLIA [id number] [place] [address] [place] Cholesterol in VLDL [Mass/Vol] 41 mg/dL High <30 [facility] Comment on above: Order Comment: Princess lawton Type: BLOOD SPECIMENOrdering Facility: [facility] Address: [address] [place] [address] Performed By: #### 2 4323-8, 36446-6 ####[facility] LABCLIA [id number] [place] [address] [place] Cholesterol non HDL [Mass/Vol] 109 mg/dL Normal <130 [facility] Comment on above: Order Comment: Princess leighann Type: BLOOD SPECIMENOrdering Facility: [facility] Address: [address] [place] [address] Result Comment: <130 mg/dL, Optimal 130-159 mg/dL, Near optimal/above optimal 160-189 mg/dL, Borderline high 190-219 mg/dL, High >219 mg/dL, Very high Secondary prevention optimal non HDL Cholesterol levels are recommended to be <100 mg/dL Performed By: #### 2 4323-8, 62918-4 ####[facility] LABCLIA [id number] [place] [address] [place] Cholesterol.total/Cho lesterol in HDL [Mass ratio] 3.32 {ratio} Normal <5.10 [facility] Comment on above: Order Comment: Speci men Type: BLOOD SPECIMENOrdering Facility: [facility] Address: [address] [place] [address] Performed By: #### 2 4323-8, 80361-0 ####[facility] LABCLIA [id number] [place] [address] [place] FASTING TIME 12 hrs Normal [facility] Comment on above: Order Comment: Speci men Type: BLOOD SPECIMENOrdering Facility: [facility] Address: [address] [place] [address] Performed By: #### 2 4323-8, 07613-7 ####[facility] LABCLIA [id number] [place] [address] [place] Triglyceride [Mass/Vol] 205 mg/dL High <150 [facility] Comment on above: Order Comment: Speci men Type: BLOOD SPECIMENOrdering Facility: [facility] Address: [address] [place] [address] Result Comment: <150 mg/dL, Normal 150-199 mg/dL, Borderline high 200-499 mg/dL, High >499 mg/dL, Very high Performed By: #### 2 4323-8, 26878-4 ####[facility] [employer] LABCLIA [id number] [place] [address] [place] No Panel Informationon 03-07 Interpretation and review of laboratory results Abnormal [facility] STREP A MOLECULAR (POC)on Procedural Control Valid [facility] Strep A (POCT) Negative Negative [facility] UA DIP, URINE (POC)on 2023 BILIRUBIN UA (POCT) Negative Negative [facility] CLARITY UA (POCT) Slightly Cloudy Cl [facility] COLOR UA (POCT) Light yellow [facility] GLUCOSE UA (POCT) Negative Negative mg/dL [facility] Hemoglobin Ql (U) Trace-intact Abnormal Negative [facility] Interpretation and review of laboratory results Abnormal [facility] KETONE UA (POCT) Negative Negative mg/dL [facility] LEUKOCYTES UA (POCT) [facility] NITRITE UA (POCT) Negative Negative [facility] PH UA (POCT) 5.5 4.5 - 8.0 [facility] Protein Ql (U) Negative Negative mg/dL [facility] SPECIFIC GRAVITY UA (POCT) <=1.005 Abnormal 1.005 - 1.030 [facility] UROBILINOGEN UA (POCT) 0.2 Normal E.U./dL [facility] Location:[facility], [address] [place] [address] POINT OF CARE [facility] ED PROV NOTEon 01-24-2024 ED PROV NOTE HNO ID: [id number] Author: KEENAN CHAMPAGNE JR, MD Service: Emergency Medicine Author Type: Physician Type: ED Provider Notes Filed: 01/24/2024 01:22 Note Text: ED E-CONSULT PROVIDER TO PROVIDER NOTE SERVICE DATE: 01/23/2024 PATIENT LOCATION: [facility] SERVICE TIME: 6:00 PM REQUESTING PROVIDER: Katina Brooks PA-C REQUESTING LOCATAION: [facility] CONSULTING SERVICE: Emergency Services I am being asked to provide an opinion on management for Carli who is a 58 year old female. Patient with a recent fall. Asked to give an opinion on right knee x-ray. Patient has pain to the area. Lucency noted in the lateral tibial plateau. Unclear if acute. ASSESSMENT 58-year-old with a possible tibial plateau fracture. RECOMMENDATIONS To [place] ED for for further evaluation. This plan was discussed with DANIEL I spent 10 minutes reviewing records, addressing clinical questions/concerns, and transmitting my assessment and recommendations (by direct communication if indicated) to the requesting team. The patient or patient's major account representative consented to e-consultation. SIGNATURE: Keenan Champagne MD PATIENT NAME: Carli Jerez DATE: January 23, 2024 TIME: 6:20 PM I have communicated my name and active licensure. The patient's identity and physical location were verified at the time of this visit. Either the patient or their legal major account representative has been informed of the risks and benefits of -- and alternatives to -- treatment through a remote evaluation and consents to proceed with the evaluation remotely. KEENAN CHAMPAGNE 01/24/24 0121 KEENAN CHAMPAGNE 01/24/24 0122 [facility] CNOVon 01-23-2024 CNOV Office Visit (UCWSTR ) CARLI JEREZ ([id number]) 1965 F Date Time Provider Department 01/23/24 2:30 PM KATINA BROOKS [facility] During your visit today, we recorded the following information about you: Temperature Pulse Respiration Blood pressure 98.9 degrees 105/minute 21/minute 110/68 Weight 133.8 kg Katina Brooks PA-C 01/23/2024 6:36 PM Signed This note was created using REscourter. Subjective Carli Jerez is a 58 year old female. HPI Presents with a chief complaint of a fall. She states she had tripped over her cat's food bowl onto some towels on the left side of her body. She caught herself with her arm. No head injury or neck pain. She states she also twisted her right knee on the way down. She is mainly complaining of pain to the left wrist. She states she has chronic problems with the right knee and knows she needs a replacement due to arthritis. She has been able to walk on the leg. No other injuries. She also has been having some swelling of the right leg over the past 3 weeks. She states they had driven 11 hours from [place] at the beginning of January. She denies chest pain or shortness of breath. States the top of her foot and calf area have felt swollen. Denies history of DVT before, she states she has had a superficial phlebitis in the left leg before. Review of Systems Constitutional: Negative. HENT: Negative. Respiratory: Negative. Cardiovascular: Positive for leg swelling. Gastrointestinal: Negative. Musculoskeletal: Left wrist and elbow pain, right knee pain, right leg swelling All other systems reviewed and are negative. No past medical history on file. Current Outpatient Medications Medication Sig Dispense Refill valsartan (DIOVAN) 160 mg tablet Take 1 tablet by mouth every afternoon. clonazePAM (KLONOPIN) 1 mg tablet TAKE 1 TABLET BY MOUTH EVERY MORNING and 2 (TWO) TABLETS EVERY EVENING valsartan (DIOVAN) 80 mg tablet Take 80 mg by mouth once daily. No current facility-administered medications for this visit. No past surgical history on file. No family history on file. Social History Tobacco Use Smoking status: Every Day Types: Cigarettes Passive exposure: Current Smokeless tobacco: Never Objective BP 110/68 Pulse 105 Temp 37.2 ?C (98.9 ?F) Resp 21 Wt 133.8 kg (294 lb 15.6 oz) SpO2 96% Physical Exam Vitals reviewed. Constitutional: Appearance: Normal appearance. HENT: Head: Normocephalic and atraumatic. Musculoskeletal: Comments: Patient does have limited flexion extension of the right knee, she does have chronic arthritic changes to the knee. She has some bowing of the knee. She is tender on the medial calf. Difficult to distinguish due to body habitus. No erythema. Patient has some tenderness to palpation to the dorsal left wrist. Some mild swelling. She is able to flex and extend, pain with pronation and supination of the forearm. Able to fully flex and extend at the elbow but states she does have pain. No tenderness to the medial or lateral epicondyle or olecranon of the elbow. Radial pulse 2+. Normal hand grasp strength. Skin: General: Skin is warm and dry. Neurological: Mental Status: She is alert. Assessment and Plan ASSESSMENT/PLAN: 1. Fall, initial encounter - ICD9: E888.9, ICD10: W19.XXXA (primary diagnosis) X-rays of the left wrist and left elbow are negative. X-ray of the right knee showed a lucency in the lateral tibial plateau, fracture considered per the radiologist but was not sure if this is acute or old. Patient does have a lot of pain with weightbearing on the knee. I did also obtain an ultrasound of the leg to rule out DVT from her right leg swelling the past 3 weeks, this was negative for DVT. I did attempt to page Dr. Elam with orthopedics, did not hear back. I then spoke with the ER virtual list Dr. Champagne who recommended she have a CT of the need to make sure if she has a fracture or not. He did recommend she be seen in the emergency department for this. The patient had already driven to [place] once today and was not willing to go back as she was back in [place] at this point. I did call and speak with Dr. English from [facility] and gave report. Patient was called and will go to [place] ER today. - XR KNEE GENERAL 4V AP BOTH/PA BOTH/LAT/MERC RIGHT - XR ELBOW SPECIAL VIEWS AP/LAT/OTHER LEFT - XR WRIST INJURY 4V PA/LAT/OBL/SCAPH LEFT 2. Leg swelling - ICD9: 729.81, ICD10: M79.89 - US DVT LOWER RIGHT 3. Abnormal x-ray of knee - ICD9: 793.7, ICD10: R93.6 4. Wrist pain, acute, left - ICD9: 719.43, ICD10: M25.532 Katina Brooks PA-C Allergies As of Date: 01/23/2024 Noted Allergy Reaction CIPRO (CIPROFLOXACIN HCL) 01/23/2024 14 - Other: See Comments Comments: Messes with heart DIFLUCAN (FLUCONAZOLE) 01/23/2024 8 - GI Upset OPIOIDS - MORPHINE ANALOGUES 01/23/2024 8 - GI Upse (more content not included)... Normal [facility] No Panel Informationon 01-22 [facility] Radiology Study observation (narrative) [facility] US DVT LOWER RTon 01-23-2024 US DVT LOWER RT * * *Final Report* * * DATE OF EXAM: Jan 23 2024 5:00PM [facility] 1007 - US DVT LOWER RT / PROCEDURE REASON: M79.89-Leg swelling * * * * Physician Interpretation * * * * EXAMINATION: RIGHT LOWER EXTREMITY DEEP VENOUS ULTRASOUND WITH DOPPLER IMAGING CLINICAL HISTORY: Lower extremity swelling. Knee pain. TECHNIQUE: Grayscale with compression maneuvers, color Doppler and spectral Doppler imaging of the right proximal deep veins was performed. Grayscale with compression maneuvers of the peroneal and posterior tibial veins was performed. The right great and small saphenous veins were evaluated at their insertion to the deep system. The contralateral common femoral vein was imaged for comparison. Images were obtained and stored in a permanent archive. MQ: USLER_1 COMPARISON: None RESULT: RIGHT LOWER EXTREMITY PROXIMAL DEEP VEINS Distal External Iliac, Common Femoral and proximal Profunda Veins: Compression: Normal Doppler: Normal, spontaneous respirophasic flow. Normal response to augmentation. Femoral vein: Compression: Normal Doppler: Normal, spontaneous flow. Normal response to augmentation. Popliteal vein: Compression: Normal Doppler: Normal, spontaneous flow. Normal response to augmentation. CALF DEEP VEINS Peroneal veins: Normal compression. Posterior tibial veins: Normal compression. Gastrocnemius and Soleal veins: Not imaged. SUPERFICIAL VEINS Great saphenous: Patent and compressible at insertion into common femoral vein; not otherwise assessed. Small Saphenous: Patent and compressible in the proximal calf, not otherwise assessed. LEFT LOWER EXTREMITY (FOR COMPARISON) Common Femoral Vein: Compression: Normal Doppler: Normal, spontaneous respirophasic flow. Normal response to augmentation. IMPRESSION: Negative study for proximal DVT in the right lower extremity. Negative study for calf DVT in the right lower extremity, although suboptimally visualized. Negative study for superficial thrombophlebitis in the imaged segments of the right lower extremity. Commercial Coordinator: KISHORE Transcribe Date/Time: Jan 23 2024 5:22P Dictated by : PRO ORTEGA MD This examination was interpreted and the report reviewed and electronically signed by: PRO ORTEGA MD on Jan 23 2024 5:22PM EST [id number] [facility] Lower extremity vein - ri [facility] 01-23-2024 IMPRESSION: Negative study for proximal DVT in the right lower extremity. Negative study for calf DVT in the right lower extremity, although suboptimally visualized. Negative study for superficial thrombophlebitis in the imaged segments of the right lower extremity. Commercial Coordinator: KISHORE Transcribe Date/Time: Jan 23 2024 5:22P Dictated by : PRO ORTEGA MD This examination was interpreted and the report reviewed and electronically signed by: PRO ORTEGA MD on Jan 23 2024 5:22PM [facility] * * *Final Report* * * DATE OF EXAM: Jan 23 2024 5:00PM [facility] [place] DVT LOWER RT / PROCEDURE REASON: M79.89-Leg swelling * * * * Physician Interpretation * * * * EXAMINATION: RIGHT LOWER EXTREMITY DEEP VENOUS ULTRASOUND WITH DOPPLER IMAGING CLINICAL HISTORY: Lower extremity swelling. Knee pain. TECHNIQUE: Grayscale with compression maneuvers, color Doppler and spectral Doppler imaging of the right proximal deep veins was performed. Grayscale with compression maneuvers of the peroneal and posterior tibial veins was performed. The right great and small saphenous veins were evaluated at their insertion to the deep system. The contralateral common femoral vein was imaged for comparison. Images were obtained and stored in a permanent archive. MQ: USLER_1 COMPARISON: None RESULT: RIGHT LOWER EXTREMITY PROXIMAL DEEP VEINS Distal External Iliac, Common Femoral and proximal Profunda Veins: Compression: Normal Doppler: Normal, spontaneous respirophasic flow. Normal response to augmentation. Femoral vein: Compression: Normal Doppler: Normal, spontaneous flow. Normal response to augmentation. Popliteal vein: Compression: Normal Doppler: Normal, spontaneous flow. Normal response to augmentation. CALF DEEP VEINS Peroneal veins: Normal compression. Posterior tibial veins: Normal compression. Gastrocnemius and Soleal veins: Not imaged. SUPERFICIAL VEINS Great saphenous: Patent and compressible at insertion into common femoral vein; not otherwise assessed. Small Saphenous: Patent and compressible in the proximal calf, not otherwise assessed. LEFT LOWER EXTREMITY (FOR COMPARISON) Common Femoral Vein: Compression: Normal Doppler: Normal, spontaneous respirophasic flow. Normal response to augmentation. [facility] Provider, Malu Davis - 01/23/2024 * * *Final Report* * * DATE OF EXAM: Jan 23 2024 5:00PM [facility] - US DVT LOWER RT / PROCEDURE REASON: M79.89-Leg swelling * * * * Physician Interpretation * * * * EXAMINATION: RIGHT LOWER EXTREMITY DEEP VENOUS ULTRASOUND WITH DOPPLER IMAGING CLINICAL HISTORY: Lower extremity swelling. Knee pain. TECHNIQUE: Grayscale with compression maneuvers, color Doppler and spectral Doppler imaging of the right proximal deep veins was performed. Grayscale with compression maneuvers of the peroneal and posterior tibial veins was performed. The right great and small saphenous veins were evaluated at their insertion to the deep system. The contralateral common femoral vein was imaged for comparison. Images were obtained and stored in a permanent archive. MQ: PAMELA_1 COMPARISON: None RESULT: RIGHT LOWER EXTREMITY PROXIMAL DEEP VEINS Distal External Iliac, Common Femoral and proximal Profunda Veins: Compression: Normal Doppler: Normal, spontaneous respirophasic flow. Normal response to augmentation. Femoral vein: Compression: Normal Doppler: Normal, spontaneous flow. Normal response to augmentation. Popliteal vein: Compression: Normal Doppler: Normal, spontaneous flow. Normal response to augmentation. CALF DEEP VEINS Peroneal veins: Normal compression. Posterior tibial veins: Normal compression. Gastrocnemius and Soleal veins: Not imaged. SUPERFICIAL VEINS Great saphenous: Patent and compressible at insertion into common femoral vein; not otherwise assessed. Small Saphenous: Patent and compressible in the proximal calf, not otherwise assessed. LEFT LOWER EXTREMITY (FOR COMPARISON) Common Femoral Vein: Compression: Normal Doppler: Normal, spontaneous respirophasic flow. Normal response to augmentation. IMPRESSION IMPRESSION: Negative study for proximal DVT in the right lower extremity. Negative study for calf DVT in the right lower extremity, although suboptimally visualized. Negative study for superficial thrombophlebitis in the imaged segments of the right lower extremity. Commercial Coordinator: KISHORE Transcribe Date/Time: Jan 23 2024 5:22P Dictated by : PRO ORTEGA MD This examination was interpreted and the report reviewed and electronically signed by: PRO ORTEGA MD on Jan 23 2024 5:22PM [facility] XR ELBOW 3V AP/LAT/OTHER LTo n 01-23-2024 XR ELBOW 3V AP/LAT/OTHER LT * * *Final Report* * * DATE OF EXAM: Jan 23 2024 3:41PM WOX [id number] - XR ELBOW 3V AP/LAT/OTHER LT / PROCEDURE REASON: Fall, initial encounter * * * * Physician Interpretation * * * * History: Fall FINDINGS: 3 views of the left elbow have been obtained. There is no acute fracture or dislocation. Joint spaces are maintained. There is no joint effusion. IMPRESSION: No acute process is seen. Commercial Coordinator: KISHORE Transcribe Date/Time: Jan 23 2024 3:45P Dictated by : ALEXANDER GARRISON MD This examination was interpreted and the report reviewed and electronically signed by: ALEXANDER GARRISON MD on Jan 23 2024 3:45PM EST [id number] Normal [facility] XR Elbow - left AP and Later al and obliqueon 01-23-2024 IMPRESSION: No acute process is seen. Commercial Coordinator: KISHORE Transcribe Date/Time: Jan 23 2024 3:45P Dictated by : ALEXANDER GARRISON MD This examination was interpreted and the report reviewed and electronically signed by: ALEXANDER GARRISON MD on Jan 23 2024 3:45PM EST DIVISION OF RADIOLOGY * * *Final Report* * * DATE OF EXAM: Jan 23 2024 3:41PM WOX [id number] - XR ELBOW 3V AP/LAT/OTHER LT / PROCEDURE REASON: Fall, initial encounter * * * * Physician Interpretation * * * * History: Fall FINDINGS: 3 views of the left elbow have been obtained. There is no acute fracture or dislocation. Joint spaces are maintained. There is no joint effusion. DIVISION OF RADIOLOGY Provider, [facility] * * *Final Report* * * DATE OF EXAM: Jan 23 2024 3:41PM WOX 5324 - XR ELBOW 3V AP/LAT/OTHER LT / PROCEDURE REASON: Fall, initial encounter * * * * Physician Interpretation * * * * History: Fall FINDINGS: 3 views of the left elbow have been obtained. There is no acute fracture or dislocation. Joint spaces are maintained. There is no joint effusion. IMPRESSION IMPRESSION: No acute process is seen. Commercial Coordinator: [employer] Transcribe Date/Time: Jan 23 2024 3:45P Dictated by : ALEXANDER GARRISON MD This examination was interpreted and the report reviewed and electronically signed by: ALEXANDER GARRISON MD on Jan 23 2024 3:45PM EST [facility] XR KNEE 4V AP/PA BOTH+LAT/ME R RTon 01-23-2024 XR KNEE 4V AP/PA BOTH+LAT/YAEL RT * * *Final Report* * * DATE OF EXAM: Jan 23 2024 3:41PM WOX 5203 - XR KNEE 4V AP/PA BOTH+LAT/YAEL RT / PROCEDURE REASON: Fall, initial encounter * * * * Physician Interpretation * * * * History: Fall FINDINGS: AP, PA, merchant, and lateral views of both knees have been obtained. Images of the right knee demonstrate vague oblique lucency of the lateral tibial plateau, fracture not excluded. Finding may be related to prior trauma, clinical correlation is needed. There is femoral tibial joint space narrowing most pronounced medially, as well as femoral patellar joint space narrowing with tricompartmental osteophyte formation. There is genu varus. There is chondrocalcinosis. No significant joint effusion is seen. Images of the left knee demonstrate femoral tibial joint space narrowing, more pronounced medially, and femoral patellar joint space narrowing, with tricompartmental osteophyte formation. There is genu varus. No acute bony process is seen. There is no significant joint effusion. IMPRESSION: Bilateral degenerative changes. Vague lucency of the lateral right tibial plateau, fracture considered, clinical correlation needed. Commercial Coordinator: [facility] Transcribe Date/Time: Jan 23 2024 3:40P Dictated by : ALEXANDER GARRISON MD This examination was interpreted and the report reviewed and electronically signed by: ALEXANDER GARRISON MD on Jan 23 2024 3:44PM EST [id number] Normal [facility] XR Knee - right 4 Viewson IMPRESSION: Bilatera l degenerative changes. Vague lucency of the lateral right tibial plateau, fracture considered, clinical correlation needed. Commercial Coordinator: [facility] Transcribe Date/Time: Jan 23 2024 3:40P Dictated by : ALEXANDER GARRISON MD This examination was interpreted and the report reviewed and electronically signed by: ALEXANDER GARRISON MD on Jan 23 2024 3:44PM EST DIVISION OF RADIOLOGY * * *Final Report* * * DATE OF EXAM: Jan 23 2024 3:41PM WOX 5203 - XR KNEE 4V AP/PA BOTH+LAT/YAEL RT / PROCEDURE REASON: Fall, initial encounter * * * * Physician Interpretation * * * * History: Fall FINDINGS: AP, PA, merchant, and lateral views of both knees have been obtained. Images of the right knee demonstrate vague oblique lucency of the lateral tibial plateau, fracture not excluded. Finding may be related to prior trauma, clinical correlation is needed. There is femoral tibial joint space narrowing most pronounced medially, as well as femoral patellar joint space narrowing with tricompartmental osteophyte formation. There is genu varus. There is chondrocalcinosis. No significant joint effusion is seen. Images of the left knee demonstrate femoral tibial joint space narrowing, more pronounced medially, and femoral patellar joint space narrowing, with tricompartmental osteophyte formation. There is genu varus. No acute bony process is seen. There is no significant joint effusion. DIVISION OF RADIOLOGY Provider, Malu Andrade [facility] - 01/23/2024 * * *Final Report* * * DATE OF EXAM: Jan 23 2024 3:41PM WOX 5203 - XR KNEE 4V AP/PA BOTH+LAT/YAEL RT / PROCEDURE REASON: Fall, initial encounter * * * * Physician Interpretation * * * * History: Fall FINDINGS: AP, PA, merchant, and lateral views of both knees have been obtained. Images of the right knee demonstrate vague oblique lucency of the lateral tibial plateau, fracture not excluded. Finding may be related to prior trauma, clinical correlation is needed. There is femoral tibial joint space narrowing most pronounced medially, as well as femoral patellar joint space narrowing with tricompartmental osteophyte formation. There is genu varus. There is chondrocalcinosis. No significant joint effusion is seen. Images of the left knee demonstrate femoral tibial joint space narrowing, more pronounced medially, and femoral patellar joint space narrowing, with tricompartmental osteophyte formation. There is genu varus. No acute bony process is seen. There is no significant joint effusion. IMPRESSION IMPRESSION: Bilateral degenerative changes. Vague lucency of the lateral right tibial plateau, fracture considered, clinical correlation needed. Commercial Coordinator: [employer] Transcribe Date/Time: Jan 23 2024 3:40P Dictated by : ALEXANDER GARRISON MD This examination was interpreted and the report reviewed and electronically signed by: ALEXANDER GARRISON MD on Jan 23 2024 3:44PM EST [facility] XR Knee - right 4 ViewsOrder ed By: [facility] Provider on 01-23-2024 [facility] XR WRIST 4V PA/LAT/OBL/SCAPH LTon 01-23-2024 XR WRIST 4V PA/LAT/OBL/SCAPH LT * * *Final Report* * * DATE OF EXAM: Jan 23 2024 3:41PM WOX 5272 - XR WRIST 4V PA/LAT/OBL/SCAPH LT / PROCEDURE REASON: Fall, initial encounter * * * * Physician Interpretation * * * * History: Fall FINDINGS: 4 views of the left wrist have been obtained. There is no acute fracture or dislocation. Joint spaces are maintained. No gross soft tissue abnormality is seen. IMPRESSION: No acute process is seen. Commercial Coordinator: [employer] Transcribe Date/Time: Jan 23 2024 3:44P Dictated by : ALEXANDER GARRISON MD This examination was interpreted and the report reviewed and electronically signed by: ALEXANDER GARRISON MD on Jan 23 2024 3:45PM EST [id number] Normal [facility] XR Wrist - left 4 Viewson IMPRESSION: No acute process is seen. Commercial Coordinator: [employer] Transcribe Date/Time: Jan 23 2024 3:44P Dictated by : ALEXANDER GARRISON MD This examination was interpreted and the report reviewed and electronically signed by: ALEXANDER GARRISON MD on Jan 23 2024 3:45PM EST DIVISION OF RADIOLOGY * * *Final Report* * * DATE OF EXAM: Jan 23 2024 3:41PM WOX 5272 - XR WRIST 4V PA/LAT/OBL/SCAPH LT / PROCEDURE REASON: Fall, initial encounter * * * * Physician Interpretation * * * * History: Fall FINDINGS: 4 views of the left wrist have been obtained. There is no acute fracture or dislocation. Joint spaces are maintained. No gross soft tissue abnormality is seen. DIVISION OF RADIOLOGY Provider, [facility] 01/23/[facility]24 * * *Final Report* * * DATE OF EXAM: Jan 23 2024 3:41PM WOX 5272 - XR WRIST 4V PA/LAT/OBL/SCAPH LT / PROCEDURE REASON: Fall, initial encounter * * * * Physician Interpretation * * * * History: Fall FINDINGS: 4 views of the left wrist have been obtained. There is no acute fracture or dislocation. Joint spaces are maintained. No gross soft tissue abnormality is seen. IMPRESSION IMPRESSION: No acute process is seen. Commercial Coordinator: [employer] Transcribe Date/Time: Jan 23 2024 3:44P Dictated by : ALEXANDER GARRISON MD This examination was interpreted and the report reviewed and electronically signed by: ALEXANDER GARRISON MD on Jan 23 2024 3:45PM [facility] Vital Signs Date Time Vital Sign Value Performing Clinician Facility 06-04-2024 09:58-0400 Diastolic blood pressure 70 mm[Hg] Bryan Durand MD Work Phone: [facility] 06-04-2024 09:58-0400 Systolic blood pressure 112 mm[Hg] Bryan Durand MD Work Phone: [facility] 05-20-2024 08:16-0400 Body height 171.5 cm Jayne Sheets DO Work Phone: [facility] 05-20-2024 08:16-0400 Body mass index (BMI) [Ratio] 45.83 kg/m2 Jayne Sheets DO Work Phone: [facility] 05-20-2024 08:16-0400 Body temperature 97.9 [degF] Jayne Sheets DO Work Phone: [facility] 05-20-2024 08:16-0400 Body weight 134.72 kg Jayne Sheets DO Work Phone: [facility] 05-20-2024 08:16-0400 Diastolic blood pressure 68 mm[Hg] Jayne Sheets DO Work Phone: [facility] 05-20-2024 08:16-0400 Heart rate 89 /min Jayne Sheets DO Work Phone: [facility] 05-20-2024 08:16-0400 Respiratory rate 18 /min Jayne Sheets DO Work Phone: [facility] 05-20-2024 08:16-0400 SaO2% (BldA) [Mass fraction] 96 % Jayne Sheets DO Work Phone: [facility] 05-20-2024 08:16-0400 Systolic blood pressure 110 mm[Hg] Jayne Sheets DO Work Phone: [facility] 05-13-2024 10:30-0400 Body height 171.5 cm Jayne Sheets DO Work Phone: [facility] 05-13-2024 10:30-0400 Body mass index (BMI) [Ratio] 46.6 kg/m2 Jayne Sheets DO Work Phone: [facility] 05-13-2024 10:30-0400 Body temperature 97.9 [degF] Jayne Sheets DO Work Phone: [facility] 05-13-2024 10:30-0400 Body weight 136.99 kg Jayne Sheets DO Work Phone: [facility] 05-13-2024 10:30-0400 Diastolic blood pressure 76 mm[Hg] Jayne Sheets DO Work Phone: [facility] 05-13-2024 10:30-0400 Heart rate 72 /min Jayne Sheets DO Work Phone: [facility] 05-13-2024 10:30-0400 Respiratory rate 16 /min Jayne Sheets DO Work Phone: [facility] 05-13-2024 10:30-0400 SaO2% (BldA) [Mass fraction] 95 % Jayne Sheets DO Work Phone: [facility] 05-13-2024 10:30-0400 Systolic blood pressure 118 mm[Hg] Jayne Sheets DO Work Phone: [facility] 05-05-2024 14:28-0400 Body mass index (BMI) [Ratio] 46.81 kg/m2 Vandana Wormald PA-C Work Phone: [facility] 05-05-2024 14:28-0400 Body temperature 97.59 [degF] Vandana Wormald PA-C Work Phone: [facility] 05-05-2024 14:28-0400 Body weight 137.6 kg Vandana Wormald PA-C Work Phone: [facility] 05-05-2024 14:28-0400 Diastolic blood pressure 76 mm[Hg] Vandana Wormald PA-C Work Phone: [facility] 05-05-2024 14:28-0400 Heart rate 115 /min Vandana Wormald PA-C Work Phone: [facility] 05-05-2024 14:28-0400 Respiratory rate 22 /min Vandana Wormald PA-C Work Phone: [facility] 05-05-2024 14:28-0400 SaO2% (BldA) [Mass fraction] 98 % Vandana Wormald PA-C Work Phone: [facility] 05-05-2024 14:28-0400 Systolic blood pressure 122 mm[Hg] Vandana Wormald PA-C Work Phone: [facility] 03-19-2024 08:24-0400 Body mass index (BMI) [Ratio] 45.8 kg/m2 Bryan Durand MD Work Phone: [facility] 03-19-2024 08:24-0400 Body weight 134.63 kg Bryan Durand MD Work Phone: [facility] 03-19-2024 08:24-0400 Diastolic blood pressure 64 mm[Hg] Bryan Durand MD Work Phone: [facility] 03-19-2024 08:24-0400 Systolic blood pressure 120 mm[Hg] Bryan Durand MD Work Phone: [facility] 03-07-2024 08:59-0400 Body height 171.5 cm Jayne Sheets DO Work Phone: [facility] 03-07-2024 08:59-0400 Body mass index (BMI) [Ratio] 45.37 kg/m2 Jayne Sheets DO Work Phone: [facility] 03-07-2024 08:59-0400 Body temperature 100.09 [degF] Jayne Sheets DO Work Phone: [facility] 03-07-2024 08:59-0400 Body weight 133.36 kg Jayne Sheets DO Work Phone: [facility] 03-07-2024 08:59-0400 Diastolic blood pressure 72 mm[Hg] Jayne Sheets DO Work Phone: [facility] 03-07-2024 08:59-0400 Heart rate 86 /min Jayne Sheets DO Work Phone: [facility] 03-07-2024 08:59-0400 Respiratory rate 16 /min Jyane Sheets DO Work Phone: [facility] 03-07-2024 08:59-0400 SaO2% (BldA) [Mass fraction] 95 % Jayne Sheets DO Work Phone: [facility] 03-07-2024 08:59-0400 Systolic blood pressure 118 mm[Hg] Jayne Sheets DO Work Phone: [facility] 01-23-2024 14:45-0400 Body temperature 98.91 [degF] Katina Athy PA-C Work Phone: [facility] 01-23-2024 14:45-0400 Body weight 133.8 kg Katina Athy PA-C Work Phone: [facility] 01-23-2024 14:45-0400 Diastolic blood pressure 68 mm[Hg] Katina Athy PA-C Work Phone: [facility] 01-23-2024 14:45-0400 Heart rate 105 /min Katina Athy PA-C Work Phone: [facility] 01-23-2024 14:45-0400 Respiratory rate 21 /min Katina Athy PA-C Work Phone: [facility] 01-23-2024 14:45-0400 SaO2% (BldA) [Mass fraction] 96 % Katina Athy PA-C Work Phone: [facility] 01-23-2024 14:45-0400 Systolic blood pressure 110 mm[Hg] Katina Athy PA-C Work Phone: [facility] Encounters Encounter Date Encounter Type Care Provider Facility Start: 06-12-2024 End: 06-12-2024 Telephone encounter Jayne C Sheets DO Work Phone: [facility] Comment on above: Lab Orders Start: 06-10-2024 End: 06-10-2024 ambulatory Samreen Cantrell RN Work Phone: [employer] Start: 06-10-2024 End: 06-10-2024 Patient encounter procedure Samreen Cantrell RN Work Phone: [employer] Comment on above: KATE ALMONTE RN ( ED Utilization Review per request of payor/) Start: 06-09-2024 End: 06-09-2024 Telemedicine consultation with patient Jayne C Sheets DO Work Phone: [facility] Start: 06-09-2024 End: 06-09-2024 ambulatory JAYNE C SHEETS Facility:[facility] Comment on above: Test results Diarrhea, unspecifie d type (Primary Dx); C. difficile colitis; Interstitial cystitis; Adrenal nodule (HCC) Start: 06-06-2024 End: 06-06-2024 Emergency department patient visit JAYNE C SHEETS Facility:[facility] Start: 06-04-2024 End: 06-04-2024 ambulatory JAYNE C SHEETS Facility:[facility] Start: 06-04-2024 End: 06-04-2024 Patient encounter procedure Bryan Durand MD Work Phone: OB/Gynecology Comment on above: Vulvar pain (Primary Dx) Start: 05-21-2024 End: 05-21-2024 ambulatory Jayne C Sheets DO Work Phone: [facility] Comment on above: Stool sample Start: 05-20-2024 End: 05-20-2024 Telephone encounter Jayne C Sheets DO Work Phone: [facility] Comment on above: Orders Start: 05-20-2024 End: 05-20-2024 Patient encounter procedure Jayne C Sheets DO Work Phone: [facility] Comment on above: Diarrhea, unspecifie d type (Primary Dx); Hypertension, essential; Hypokalemia; Smoker Start: 05-20-2024 End: 05-20-2024 ambulatory Jayne C Sheets DO Work Phone: [facility] Comment on above: Valsartan 160 Start: 05-18-2024 End: 05-20-2024 ambulatory Jayne C Sheets DO Work Phone: [facility] Comment on above: Lactic Acid 3.1. Hig h wbc , kidney function 59 and Severe back pain lower Start: 05-14-2024 End: 05-14-2024 ambulatory Jayne C Sheets DO Work Phone: [facility] Comment on above: Flagyl Start: 05-13-2024 End: 05-13-2024 Telephone encounter Jayne C Sheets DO Work Phone: [facility] Comment on above: Orders Start: 05-13-2024 End: 05-13-2024 Patient encounter procedure Jayne C Sheets DO Work Phone: [facility] Comment on above: Lower abdominal pain (Primary Dx); Hypertension, essential; Diverticulosis Start: 05-13-2024 End: 05-13-2024 ambulatory JAYNE C SHEETS Facility:[facility] Start: 05-08-2024 End: 05-08-2024 Telephone encounter Jayne C Sheets DO Work Phone: [facility] Comment on above: Lab Orders Start: 05-06-2024 End: 05-06-2024 Telephone encounter Cleve Zavala APRN.CNP Work Phone: [facility] Comment on above: Results Start: 05-05-2024 End: 05-05-2024 ambulatory JAYNE C SHEETS Facility:[facility] Start: 05-05-2024 End: 05-05-2024 Patient encounter procedure Vandana Molina PA-C Work Phone: [facility] Comment on above: Urgency of urination (Primary Dx); Dysuria; Lower abdominal pain; Urinary frequency Start: 04-08-2024 Refill Jayne Conrad Vitale ets DO Work Phone: [facility] Comment on above: Refill Request Start: 04-08-2024 Refill Jayne Conrad Vitale ets DO Work Phone: [facility] Comment on above: Refill Request Start: 04-01-2024 Documentation procedure Mammog bret Coordinator [facility] Start: 04-01-2024 Letter encounter Mammography Coordinator [facility] Start: 03-31-2024 End: 03-31-2024 ambulatory JAYNE C SHEETS Facility:[facility] Start: 03-31-2024 End: 03-31-2024 Subsequent hospital visit by physician Screen Mammo [facility] Comment on above: Encounter for screen ing mammogram for breast cancer [Z12.31] Start: 03-29-2024 End: 03-29-2024 ambulatory JAYNE C SHEETS Facility:[facility] Start: 03-28-2024 ambulatory Jayne C Winifred ets DO Work Phone: [facility] Comment on above: ENT Start: 03-20-2024 End: 03-20-2024 ambulatory Jayne C Sheets DO Work Phone: [facility] Comment on above: My headaches Start: 03-20-2024 End: 03-20-2024 Telemedicine consultation with patient Marylin Riki Barraza [employer] Work Phone: Telemedicine Comment on above: Acute rhinosinusitis (Primary Dx); Viral upper respiratory tract infection with cough Start: 03-19-2024 End: 03-19-2024 Patient encounter procedure Bryan Durand MD Work Phone: OB/Gynecology Comment on above: Vaginal itching (Joanne john Dx) Start: 03-19-2024 End: 03-19-2024 ambulatory BRYAN DURAND Facility:[facility] Start: 03-16-2024 ambulatory JAYNE C SHEETS Facil ity:[facility] Start: 03-16-2024 End: 03-16-2024 Subsequent hospital visit by physician [facility] (I-Stat/1.5t) Radiology Comment on above: Brain mass [G93.89] Start: 03-13-2024 Telephone encounter Jayne Khanna DO Work Phone: [facility] Comment on above: Results Start: 03-11-2024 ambulatory Jayne Vitale ets DO Work Phone: [facility] Comment on above: Brain mass Start: 03-11-2024 Telephone encounter Jayne Martines Sheets DO Work Phone: [facility] Comment on above: Call From ER Start: 03-09-2024 Get Medical Advice Jayne Martines Sheets DO Work Phone: [facility] Comment on above: Clonazepam refill Start: 03-07-2024 End: 03-07-2024 ambulatory JAYNE C SHEETS Facility:[facility] Start: 03-07-2024 End: 03-07-2024 Patient encounter procedure Jayne Martines Sheets DO Work Phone: [facility] Comment on above: Hypertension, essent ial (Primary Dx); Thyroid nodule; Sore throat; Fever in other diseases; Depression with anxiety; Chronic bronchitis, unspecified chronic bronchitis type (HCC); Undifferentiated inflammatory arthritis (HCC); Headache, unspecified headache type; Nose polyp; Other chest pain; Smoker; Allergy to opioid analgesic; Screening for lipid disorders; Encounter for screening mammogram for breast cancer; Abnormal EKG; Chronic vaginitis; Leukocytosis, unspecified type; Class 3 severe obesity with body mass index (BMI) of 45.0 to 49.9 in adult, unspecified obesity type, unspecified whether serious comorbidity present (HCC) Start: 03-07-2024 End: 03-07-2024 ambulatory JAYNE C SHEETS Facility:[facility] Start: 01-23-2024 End: 01-23-2024 Emergency department patient visit KEENAN CHAMPAGNE JR Facility:[facility] Start: 01-23-2024 ambulatory UNKNOWN PROVIDER Facili ty:[facility] Start: 01-23-2024 End: 01-23-2024 Subsequent hospital visit by physician [facility] Work Phone: Radiology Comment on above: Leg swelling [M79.89 ] Fall, initial encoun ter [W19.XXXA] Start: 01-23-2024 End: 01-23-2024 ambulatory KATINA BROOKS Facility:[facility] Start: 01-23-2024 End: 01-23-2024 Patient encounter procedure Katina Brooks PA-C Work Phone: [facility] Comment on above: Fall, initial encoun ter (Primary Dx); Leg swelling; Abnormal x-ray of knee; Wrist pain, acute, left Procedures Date Procedure Procedure Detail Performing Clinician Start: 05-13-2024 Urnls dip stick/tabl et rgnt auto w/o microscopy Jayne C Sheets DO Work Phone: Start: 05-05-2024 Urnls dip stick/tabl et rgnt auto w/o microscopy Bandar Vieyra APRN.[employer] Work Phone: Start: 03-16-2024 Mri brain brain stem w/o w/contrast material Jayne C Sheets DO Work Phone: Start: 03-07-2024 Ecg routine ecg w/le ast 12 lds w/i&r Jayne C Sheets DO Work Phone: Start: 03-07-2024 Urnls dip stick/tabl et rgnt auto w/o microscopy Jayne C Sheets DO Work Phone: Start: 03-07-2024 COVID & INFLUENZA A/ B & RSV NAAT, ROUTINE Jayne C Sheets DO Work Phone: Start: 03-07-2024 STREP A MOLECULAR (POC) Jayne C Sheets DO Work Phone: Start: 03-07-2024 Lipid 1996 panel - S ladonna or Plasma Jayne Sheets DO Work Phone: Start: 01-23-2024 Dup-scan xtr veins unilateral/limited study Katina Brooks PA-C Work Phone: Start: 01-23-2024 Radex elbow complete minimum 3 views Katina Brooks PA-C Work Phone: Plan of Treatment Date Care Activity Detail Author Start: 09-03-2033 Urine microalbumin profile DTaP,Tdap,Td Vaccine (2 - Td or Tdap) [facility] Start: 03-07-2029 Lipid panel Lipid Screening [facility] Start: 06-06-2027 Diabetes Screening Diabetes Screening [facility] Start: 03-07-2027 Diabetes Screening Diabetes Screening [facility] Start: 06-09-2025 Annual PCP Team Chronic Disease Visit Annual PCP Team Chronic Disease Visit [facility] Start: 06-04-2025 BP Controlled (<130/80) BP Controlled (<130/80) [facility] Start: 05-20-2025 Annual PCP Team Chronic Disease Visit Annual PCP Team Chronic Disease Visit [facility] Start: 05-20-2025 BP Controlled (<130/80) BP Controlled (<130/80) [facility] Start: 05-13-2025 Annual PCP Team Chronic Disease Visit Annual PCP Team Chronic Disease Visit [facility] Start: 05-13-2025 BP Controlled (<130/80) BP Controlled (<130/80) [facility] Start: 05-05-2025 BP Controlled (<130/80) BP Controlled (<130/80) [facility] Start: 03-31-2025 Screening for malignant neoplasm of breast Mammogram Screening [facility] Start: 03-19-2025 BP Controlled (<130/80) BP Controlled (<130/80) [facility] Start: 03-07-2025 Annual PCP Team Chronic Disease Visit Annual PCP Team Chronic Disease Visit [facility] Start: 03-07-2025 BP Controlled (<130/80) BP Controlled (<130/80) [facility] Start: 07-22-2024 End: 07-22-2024 Patient encounter procedure 07/22/2024 1:25 PM EST Office Visit Otolaryngology [address] [place] [address] [place] [address] [place] [address] Nasal polyp left sinus. 2 mm papilloma left tonsil. T Rads 4 on left thyroid. T Rads 3 on right Thyroid. Otolaryngology Comment on above: Nasal polyp left sinus. 2 mm papilloma l eft tonsil. T Rads 4 on left thyroid. T Rads 3 on right Thyroid. Start: 07-08-2024 End: 07-08-2024 Patient encounter procedure 07/08/2024 4:00 PM EST Office Visit [facility] [address] [place] [address] Jayne Khanna, DO [address], [place] [id number] 4 weeks follow up [facility] Comment on above: 4 weeks follow up Start: 06-19-2024 End: 06-19-2024 Patient encounter procedure Cat Scan Comment on above: CT ABD/PEL W IVCON Start: 06-12-2024 End: 06-12-2024 Patient encounter procedure 06/12/2024 9:40 AM EDT Office Visit Otolaryngology [address] [place] [address] [place] [address] [place] [address] Nasal polyp left sinus. 2 mm papilloma left tonsil. T Rads 4 on left thyroid. T Rads 3 on right Thyroid. Otolaryngology Comment on above: Nasal polyp left sinus. 2 mm papilloma l eft tonsil. T Rads 4 on left thyroid. T Rads 3 on right Thyroid. Start: 06-09-2024 End: 06-09-2024 Patient encounter procedure 06/09/2024 11:20 AM EDT Office Visit [facility] [address] [place] [address] Jayne Khanna, DO [address] [place] [address] 3 mth f/u anxiety [facility] Comment on above: 3 mth f/u anxiety Start: 05-28-2024 End: 05-28-2024 Patient encounter procedure 05/28/2024 11:00 AM EDT Appointment [facility] [address] [place] [id number] Generalized abdominal pain [R10.84] [facility] Comment on above: Generalized abdominal pain [R10.84] Start: 05-21-2024 End: 05-21-2024 ambulatory 05/21/2024 7:00 AM EDT Results Only [facility] [address] [place] [address] [facility] Start: 05-20-2024 End: 08-19-2024 Clostridioides difficile toxin genes [Presence] in Stool by MICHELINE with probe detection C. DIFFICILE PCR Lab Routine Diarrhea, unspecified type Expected: 05/20/2024, Expires: 08/19/2024 [facility] Comment on above: Expected: 05/20/2024, Expires: Start: 05-20-2024 End: 08-19-2024 Giardia lamblia+Cryptosporidium sp Ag [Presence] in Stool by Immunoassay CRYPTOSPORIDIUM AND GIARDIA ANTIGENS BY EIA Microbiology Routine Diarrhea, unspecified type Expected: 05/20/2024, Expires: 08/19/2024 [facility] Work Phone: Comment on above: Expected: 05/20/2024, Expires: 4 Start: 05-13-2024 End: 05-13-2024 Patient encounter procedure 05/13/2024 10:40 AM EDT Office Visit [address] [address] Jayne Khanna DO [address] [place] [address] per patient, bladder and kidney pain (patient requests Sunday 05/13) [facility] Comment on above: per patient, bladder and kidney pain (pa tient requests Sunday 05/13) Start: 05-04-2024 Influenza vaccination [facility] Start: 03-31-2024 End: 03-31-2024 Patient encounter procedure 03/31/2024 2:10 PM EDT Appointment Mammogram [address] [place] [address] Mammogram Start: 03-29-2024 End: 03-29-2024 ambulatory 03/29/2024 11:45 AM EDT Results Only [facility] [address] [place] [id number] [facility] Start: 03-19-2024 End: 03-19-2024 Patient encounter procedure 03/19/2024 8:20 AM EDT Office Visit OB/Gynecology [address] [place] [address] Bryan Durand MD [address] [place] [address] Vaginal Irritation OB/Gynecology Comment on above: Vaginal Irritation Start: 03-18-2024 End: 03-18-2024 Patient encounter procedure 03/18/2024 3:00 PM EDT Appointment Mammogram [address] [place] [address] Mammogram Start: 03-16-2024 End: 03-16-2024 Patient encounter procedure 03/16/2024 10:00 AM EDT Appointment Radiology [address] [place] [address] MRI BRAIN WO/W IVCON Radiology Comment on above: MRI BRAIN WO/W IVCON Start: 03-13-2024 End: 06-12-2024 CBC W Auto Differential panel - Blood COMPLETE BLOOD COUNT AND DIFFERENTIAL Lab Routine Leukocytosis, unspecified type Expected: 03/13/2024, Expires: 06/12/2024 [facility] Work Phone: Comment on above: Expected: 03/13/2024, Expires: Start: 03-12-2024 End: 04-10-2025 MR Brain WO and W contrast IV MRI BRAIN WO/W IVCON Radiology Routine Brain mass Expected: 03/12/2024, Expires: 04/10/2025 [facility] Work Phone: Comment on above: Expected: 03/12/2024, Expires: Start: 2024 RSV Vaccine (1 - 1-dose 60+ series) RSV Vaccine (1 - 1-dose 60+ series) [facility] Start: 2024 RSV Vaccine (1 - Risk 60-74 years 1-dose series) RSV Vaccine (1 - Risk 60-74 years 1-dose series) [facility] Start: 09-03-2023 Behavioral Health Screening Behavioral Health Screening [facility] Start: 05-04-2023 Covid-19 Vaccine ( season) Covid-19 Vaccine ( season) [facility] Start: 02-14-2014 Shingrix Vaccine (1 of 2) Shingrix Vaccine (1 of 2) [facility] Start: 02-14-2009 Diabetes Screening Diabetes Screening [facility] Start: 02-14-2009 Lipid panel Lipid Screening [facility] Start: 02-14-2009 Screening for malignant neoplasm of colon [facility] Start: 2004 Screening for malignant neoplasm of breast Mammogram Screening [facility] Start: 02-14-1994 Screening for malignant neoplasm of cervix HPV Testing [facility] Start: 02-14-1985 Screening for malignant neoplasm of cervix Pap Testing [facility] Start: 02-14-1983 Urine microalbumin profile DTaP,Tdap,Td Vaccine (1 - Tdap) [facility] Start: 02-14-1982 Hepatitis C screening Hepatitis C Screening [facility] Start: 02-14-1982 HIV screening HIV Screening [facility] Start: 02-14-1970 Pneumococcal vaccination Pneumococcal Vaccine (1 of 2 - PCV) [facility] Bacteria identified in Urine by Culture URINE CULTURE Microbiology Routine Urgency of urination Dysuria Lower abdominal pain Urinary frequency Ordered: 05/05/2024 [facility] Work Phone: Comment on above: Ordered: 05/05/2024 End: 06-13-2025 CT Abdomen and Pelvis W contrast IV CT ABD/PEL W IVCON Radiology Routine Generalized abdominal pain 1 Occurrences starting 05/14/2024 until 06/13/2025 [facility] Work Phone: Comment on above: 1 Occurrences starting 05/14/2024 until 06/13/2025 End: 04-06-2025 DBT Breast - bilateral screening MARU SCREENING W [facility] Radiology Routine Encounter for screening mammogram for breast cancer 1 Occurrences starting 03/07/2024 until 04/06/2025 [facility] Work Phone: Comment on above: 1 Occurrences starting 03/07/2024 until 04/06/2025 DBT Breast - bilater al screening MARU SCREENING W [facility] Radiology Routine Encounter for screening mammogram for breast cancer 03/31/2024 2:41 PM EDT [facility] Work Phone: ENTERIC BACTERIAL PA VIVIENNE BY PCR ENTERIC BACTERIAL PANEL BY PCR Lab Routine Diarrhea, unspecified type Ordered: 05/20/2024 [facility] Comment on above: Ordered: 05/20/2024 Microscopic observat ion [Identifier] in Vaginal fluid by Gram stain BACT/KERRIE VAG GRAM STAIN Microbiology Routine Vaginal itching 03/19/2024 9:18 AM EDT [facility] Work Phone: XR Wrist - right 4 Views XR WRIST INJURY 4V PA/LAT/OBL/SCAPH RIGHT Radiology STAT Fall, initial encounter 01/23/2024 3:03 PM EDT [facility] Work Phone: Immunizations Immunization Date Immunization Notes Care Provider Fabrizio lamb 09-03-2023 tetanus toxoid, redu hung diphtheria toxoid, and acellular pertussis vaccine, adsorbed Jayne Sheets DO Work Phone: [facility] Payers Date Payer Category Payer Medicare HU[employer] MEDICARE HU[employer]NA MEDICARE PPO [id number] 2024-Present [phone] [address] [address] [place] [address] PPO [id number] 2024 Medicare [id number] 2024 Medicaid [id number] 2024 Unknown [id number] Social History Date Type Detail Facility Start: 01-23-2024 End: 05-13-2024 Tobacco smoking status NHIS Smokes tobacco daily [facility] History of tobacco use Cigarette Smoker [facility] History of tobacco use Passive smoker [facility] Start: 01-23-2024 End: 05-13-2024 Tobacco use and exposure Smokeless tobacco non-user [facility] Start: 01-23-2024 End: 03-19-2024 History of Social function [facility] Start: 01-23-2024 End: 03-19-2024 Tobacco use panel [facility] Start: 1965 Sex Assigned At Not on file C [facility] Start: 03-07-2024 End: 06-09-2024 Alcohol intake Lifetime non-drinker (finding) [facility] National Score (1-10 0), lower number is lower risk 67 [facility] Start: 1965 Sex Assigned At Female C [facility] Start: 02-25-2024 Gender identity Identifies as female gender (finding) [facility] Start: 02-25-2024 Sexual orientation Heterosexual (fin asif) [facility] Clinical Notes 01-23-2024 to 06-12-2024 Telephone Encounter - Jeanna Napoles MA - 06/12/2024 8:17 AM EDTTelephone Encounter - Jeanna Napoles MA - 06/12/2024 8:17 AM Samreen Colon RN - 06/10/2024 11:57 AM EDTPatient Instructions Note Date & Type Note Facility 06-12-2024 Telephone encounter Note ----- Message from John Nieves MA sent at 05/13/2024 11:39 AM EDT ----- Remind pt time to recheck potassium after starting valsartan/ hctz [facility] 06-12-2024 Miscellaneous Notes ----- Message from John Nieves MA sent at 05/13/2024 11:39 AM EDT ----- Remind pt time to recheck potassium after starting valsartan/ hctz documented in this encounter [facility] 06-10-2024 Note HNO ID: [id number] Author: SAMREEN CANTRELL RN Service: ? Author Type: Registered Nurse Type: Progress Notes Filed: 06/10/2024 13:10 Note Text: ACM JUAN RN Patient identified by name and date of . Reason for review or outreach: Chart Review Juan Priority Emergency Department Utilization REQUESTED ACTION/FYI: None Exclusion Criteria Does not meet exclusion criteria Utilization in past 6 months: # Occurrences Date Last Occurrence Hospital Admission 0 Not applicable Hospital Observation 0 Not applicable ED 5 06-06-24 SNF / Acute Rehab / LTAC 0 Not applicable ED DIAGNOSES/REASON(S) FOR ED USE: Chart updated via Care Everywhere. 01-23-24 at [facility] Documentation not available for review. No follow up noted. 02-14-24 at [facility] Documentation not available for review. No follow up noted. 03-11-24 at [facility]: Headache; Dizziness 1.1 cm mass on the left lateral ventricle. Recommended MRI and follow up with Dr. Sawant/Neurology. Documentation for review limited. MRI done 03-16-24. 05-18-24 at [facility]: Abdominal Pain; Diarrhea Documentation not available for review. Follow Up: 05-20-[address] Khanna/PCP 06-06-24 at [facility]: Abdominal Pain; Diarrhea From Medical Decision Making: There were some sutures noted in the rectum, which patient states are from a large polyp resection in 2002. We discussed that she should talk to her doctor about whether the sutures could be contributing to her ongoing pelvic pain. Follow Up: 06-09-[address] Khanna/PCP OTHER FINDINGS/SUMMARY: None Patient Attributed To: QAE Payer: Dejaclaribel MOFFETT Action Taken: Referrals/Routed: Contact made with patient: No, Chart review only. Signature: Samreen Cantrell RN [facility] 06-10-2024 History of Presen t illness Narrative ACM JUAN RN Patient identified by name and date of . Reason for review or outreach: Chart Review Juan Priority Emergency Department Utilization REQUESTED ACTION/FYI: None Exclusion Criteria Does not meet exclusion criteria Utilization in past 6 months: # Occurrences Date Last Occurrence Hospital Admission 0 Not applicable Hospital Observation 0 Not applicable ED 5 06-06-24 SNF / Acute Rehab / LTAC 0 Not applicable ED DIAGNOSES/REASON(S) FOR ED USE: Chart updated via Care Everywhere. 01-23-24 at [facility] Documentation not available for review. No follow up noted. 02-14-24 at [facility] Documentation not available for review. No follow up noted. 03-11-24 at [facility]: Headache; Dizziness 1.1 cm mass on the left lateral ventricle. Recommended MRI and follow up with Dr. Sawant/Neurology. Documentation for review limited. MRI done 03-16-24. 05-18-24 at [facility]: Abdominal Pain; Diarrhea Documentation not available for review. Follow Up: 05-20-[address] Khanna/PCP 06-06-24 at [facility]: Abdominal Pain; Diarrhea From Medical Decision Making: There were some sutures noted in the rectum, which patient states are from a large polyp resection in 2002. We discussed that she should talk to her doctor about whether the sutures could be contributing to her ongoing pelvic pain. Follow Up: 06-09-[address] Khanna/PCP OTHER FINDINGS/SUMMARY: None Patient Attributed To: QAE Payer: Fausto MOFFETT Action Taken: Referrals/Routed: Contact made with patient: No, Chart review only. Signature: Samreen Cantrell RN documented in this encounter [facility] 06-10-2024 Note Patient Outreach ([facility] CARLI JEREZ ([id number]) 1965 F Date Time Provider Department 06/10/24 SAMREEN CANTRELL [facility] During your visit today, we recorded the following information about you: Samreen Cantrell RN 06/10/2024 1:10 PM Signed AC JUAN RN Patient identified by name and date of . Reason for review or outreach: Chart Review Juan Priority Emergency Department Utilization REQUESTED ACTION/FYI: None Exclusion Criteria Does not meet exclusion criteria Utilization in past 6 months: # Occurrences Date Last Occurrence Hospital Admission 0 Not applicable Hospital Observation 0 Not applicable ED 5 06-06-24 SNF / Acute Rehab / LTAC 0 Not applicable ED DIAGNOSES/REASON(S) FOR ED USE: Chart updated via Care Everywhere. 01-23-24 at [facility] Documentation not available for review. No follow up noted. 02-14-24 at [facility] Documentation not available for review. No follow up noted. 03-11-24 at [facility]: Headache; Dizziness 1.1 cm mass on the left lateral ventricle. Recommended MRI and follow up with Dr. Sawant/Neurology. Documentation for review limited. MRI done 03-16-24. 05-18-24 at [facility]: Abdominal Pain; Diarrhea Documentation not available for review. Follow Up: 05-20-[address] Khanna/PCP 06-06-24 at [facility]: Abdominal Pain; Diarrhea From Medical Decision Making: There were some sutures noted in the rectum, which patient states are from a large polyp resection in 2002. We discussed that she should talk to her doctor about whether the sutures could be contributing to her ongoing pelvic pain. Follow Up: 06-09-[address] Khanna/PCP OTHER FINDINGS/SUMMARY: None Patient Attributed To: QAE Payer: Dejaclaribel [place] Action Taken: Referrals/Routed: Contact made with patient: No, Chart review only. Signature: Samreen Cantrell RN Allergies As of Date: 06/10/2024 Noted Allergy Reaction CIPRO (CIPROFLOXACIN HCL) 01/23/2024 14 - Other: See Comments Comments: Messes with heart DIFLUCAN (FLUCONAZOLE) 01/23/2024 8 - GI Upset FLAGYL (METRONIDAZOLE) 05/20/2024 12 - Shortness of Breath HCTZ (AMILORIDE-HYDROCHLOROTHIAZI* 5 - Intolerance Comments: Hypokalemia OPIOIDS - MORPHINE ANALOGUES 01/23/2024 8 - GI Upset PENICILLINS 01/23/2024 2 - Rash 8 - GI Upset Date Reviewed: 06/09/2024 Reviewed by: Jayne Khanna DO - Fully Assessed Reason for Visit: ACM JUAN RN [[id number]] Cmt: ED Utilization Review per request of payor Prescriptions as of 06/10/2024 - vancomycin (VANCOCIN) 125 mg capsule Take 1 capsule by mouth four times daily for 14 days, THEN 1 capsule two times a day for 7 days, THEN 1 capsule once daily for 7 days, THEN 1 capsule every other day for 14 days. - sulfamethoxazole-trimethoprim (BACTRIM DS) 800-160 mg per tablet Take 1 tablet by mouth two times a day for 3 days. - phenazopyridine (PYRIDIUM) 100 mg tablet Take 2 tablets by mouth three times a day as needed. - diphenoxylate-atropine (LOMOTIL) 2.5-0.025 mg per tablet Take 1 tablet by mouth before meals and at bedtime for 5 days. - valsartan (DIOVAN) 160 mg tablet Take 1 tablet by mouth every afternoon. - mirtazapine (REMERON) 15 mg tablet Take 15 mg by mouth daily at bedtime. - clonazePAM (KLONOPIN) 1 mg tablet TAKE 1 TABLET BY MOUTH IN THE MORNING AND 2 IN THE EVENING Problem List As Of Date 06/10/2024 Noted Resolved Chronic bronchitis (HCC) [J42] 03/07/2024 BLAISE (generalized anxiety disorder) [F41.1] 03/07/2024 Hypertension, essential [I10] 03/07/2024 Depression with anxiety [F41.8] 03/07/2024 Undifferentiated inflammatory arthritis (HCC) [*03/07/2024 Class 3 severe obesity with body mass index (BM*03/07/2024 Thyroid nodule [E04.1] 03/07/2024 Headache, unspecified headache type [R51.9] 03/07/2024 Nose polyp [J33.9] 03/07/2024 Smoker [F17.200] 03/07/2024 Allergy to opioid analgesic [Z88.5] 03/07/2024 Hypokalemia [E87.6] 05/20/2024 Encounter Status:Closed by SAMREEN CANTRELL on 06/10/24 [facility] 06-09-2024 Note HNO ID: [id number] Author: JAYNE KHANNA Service: ? Author Type: Physician Type: Progress Notes Filed: 06/10/2024 10:11 Note Text: VIRTUAL VISIT PROGRESS NOTE This is a virtual visit using Finger[employer] Video Visit. It required patient-provider interaction for the medical decision making as documented below. I have communicated my name and active licensure. The patient's identity and physical location were verified at the time of this visit. Either the patient or their legal major account representative has been informed of the risks and benefits of -- and alternatives to -- treatment through a remote evaluation and consents to proceed with the evaluation remotely. Carli Jerez is a 59 year old female seen for anxiety and persistent diarrhea She believes she has c. Diff She has uncontrollable diarrhea, has had fecal incontinence She has had 2 visits to the ED, and one visit to this office with c/o chronic diarrhea and abdominal pain Stool study in [place] was positive for c. Diff spores but not toxin She has been taking oral vancomycin prescribed for her by her former PCP in [place] She reports that it has been helping her symptoms She had a colonoscopy in 10/2023, was clear of c. Diff at that time She has not taken any antibiotics from that time until she started the oral vancomycin she had at home She has had c. Diff only once before this current episode She [facility] appt with [facility] because of pelvic pain She was started on pyridium, which she could not tolerate She started taking bactrim DS that she had at home, ran out and then started macrobid, and is out of those She was told that she may have interstitial cystitis She has had problems with urination since she was 10 years old She has a history of adrenal adenomas on CT of abd She would like to see an steam conditioner filling to see if she needs further testing and/or surgery HISTORY REVIEWED (electronic chart updated): PAST MEDICAL HISTORY Diagnosis Date Cervical radiculopathy COPD (chronic obstructive pulmonary disease) (HCC) Coronary artery disease Depression Endometriosis Essential hypertension Essential tremor Fibromyalgia Gastritis Generalized anxiety disorder GERD (gastroesophageal reflux disease) History of Clostridioides difficile colitis Thyroid cancer (HCC) PAST SURGICAL HISTORY Procedure Laterality Date APPENDECTOMY 2003 BLADDER SURGERY HX 2003 bladder lift COLON SURGERY HX 2003 colon resection COLONOSCOPY SCREENING 10/17/2023 ESOPHAGUS stricture repair HERNIA REPAIR HX 2003 x2 KNEE SURGERY HX Right 2015 cleaned out REDUCTION OF LARGE BREAST 1992 REMOVAL GALLBLADDER 2010 TOTAL ABDOM HYSTERECTOMY FAMILY HISTORY Problem Relation Age of Onset Hypertension Mother Leukemia Father metastacized Social History Tobacco Use Smoking status: Every Day Current packs/day: 0.25 Types: Cigarettes Passive exposure: Current Smokeless tobacco: Never Vaping Use Vaping status: Never Used Substance Use Topics Alcohol use: Never Drug use: Never Current Outpatient Medications Medication Sig phenazopyridine (PYRIDIUM) 100 mg tablet Take 2 tablets by mouth three times a day as needed. diphenoxylate-atropine (LOMOTIL) 2.5-0.025 mg per tablet Take 1 tablet by mouth before meals and at bedtime for 5 days. valsartan (DIOVAN) 160 mg tablet Take 1 tablet by mouth every afternoon. mirtazapine (REMERON) 15 mg tablet Take 15 mg by mouth daily at bedtime. clonazePAM (KLONOPIN) 1 mg tablet TAKE 1 TABLET BY MOUTH IN THE MORNING AND 2 IN THE EVENING No current facility-administered medications for this visit. ALLERGIES Allergen Reactions Cipro [Ciprofloxaci* Other: See Comments Messes with heart Diflucan [Fluconazo* GI Upset Flagyl [Metronidazo* Shortness of Breath Hctz [Amiloride-Hyd* Intolerance Hypokalemia Opioids - Morphine * GI Upset Penicillins Rash, GI Upset REVIEW OF SYSTEMS: GENERAL: feeling well without fatigue, no recent change in weight RESPIRATORY: no cough, no wheezing or shortness of breath CARDIOVASCULAR: no chest pain, no palpitations GI: positive for chronic diarrhea, fecal incontinence : positive for pelvic pain PSYCH: denies depressed or anxious mood, sleep is normal NEURO: no numbness or paresthesias and no weakness of the extremities PHYSICAL EXAMINATION: VIDEO EXAM: (if completed, performed via video enabled technology) GENERAL: alert and appropriate, in no distress, well-hydrated, well nourished, and happy, smiling, interactive SKIN: no rash noted HEAD: normocephalic, no abnormality or lesion noted EYES: no injection and visual acuity is grossly normal RESPIRATORY: breathing non-labored Patient Info Patient Name Sex Carli Jerez ([id number]) Female 1965 06/06/2024 2:52 PM - Radiology, [place] In Impression IMPRESSION: No acute finding Bilateral adrenal nodules. Left adrenal nodule larger gio (more content not included)... [facility] 06-09-2024 History of Presen t illness Narrative VIRTUAL VISIT PROGRESS NOTE This is a virtual visit using Fingerprintom Video Visit. It required patient-provider interaction for the medical decision making as documented below. I have communicated my name and active licensure. The patient's identity and physical location were verified at the time of this visit. Either the patient or their legal major account representative has been informed of the risks and benefits of -- and alternatives to -- treatment through a remote evaluation and consents to proceed with the evaluation remotely. Carli Jerez is a 59 year old female seen for anxiety and persistent diarrhea She believes she has c. Diff She has uncontrollable diarrhea, has had fecal incontinence She has had 2 visits to the ED, and one visit to this office with c/o chronic diarrhea and abdominal pain Stool study in [place] was positive for c. Diff spores but not toxin She has been taking oral vancomycin prescribed for her by her former PCP in [place] She reports that it has been helping her symptoms She had a colonoscopy in 10/2023, was clear of c. Diff at that time She has not taken any antibiotics from that time until she started the oral vancomycin she had at home She has had c. Diff only once before this current episode She had appt with [facility] because of pelvic pain She was started on pyridium, which she could not tolerate She started taking bactrim DS that she had at home, ran out and then started macrobid, and is out of those She was told that she may have interstitial cystitis She has had problems with urination since she was 10 years old She has a history of adrenal adenomas on CT of abd She would like to see an steam conditioner filling to see if she needs further testing and/or surgery HISTORY REVIEWED (electronic chart updated): PAST MEDICAL HISTORY Diagnosis Date Cervical radiculopathy COPD (chronic obstructive pulmonary disease) (HCC) Coronary artery disease Depression Endometriosis Essential hypertension Essential tremor Fibromyalgia Gastritis Generalized anxiety disorder GERD (gastroesophageal reflux disease) History of Clostridioides difficile colitis Thyroid cancer (HCC) PAST SURGICAL HISTORY Procedure Laterality Date APPENDECTOMY 2003 BLADDER SURGERY HX 2003 bladder lift COLON SURGERY HX 2003 colon resection COLONOSCOPY SCREENING 10/17/2023 ESOPHAGUS stricture repair HERNIA REPAIR HX 2003 x2 KNEE SURGERY HX Right 2015 cleaned out REDUCTION OF LARGE BREAST 1992 REMOVAL GALLBLADDER 2010 TOTAL ABDOM HYSTERECTOMY FAMILY HISTORY Problem Relation Age of Onset Hypertension Mother Leukemia Father metastacized Social History Tobacco Use Smoking status: Every Day Current packs/day: 0.25 Types: Cigarettes Passive exposure: Current Smokeless tobacco: Never Vaping Use Vaping status: Never Used Substance Use Topics Alcohol use: Never Drug use: Never Current Outpatient Medications Medication Sig phenazopyridine (PYRIDIUM) 100 mg tablet Take 2 tablets by mouth three times a day as needed. diphenoxylate-atropine (LOMOTIL) 2.5-0.025 mg per tablet Take 1 tablet by mouth before meals and at bedtime for 5 days. valsartan (DIOVAN) 160 mg tablet Take 1 tablet by mouth every afternoon. mirtazapine (REMERON) 15 mg tablet Take 15 mg by mouth daily at bedtime. clonazePAM (KLONOPIN) 1 mg tablet TAKE 1 TABLET BY MOUTH IN THE MORNING AND 2 IN THE EVENING No current facility-administered medications for this visit. ALLERGIES Allergen Reactions Cipro [Ciprofloxaci* Other: See Comments Messes with heart Diflucan [Fluconazo* GI Upset Flagyl [Metronidazo* Shortness of Breath Hctz [Amiloride-Hyd* Intolerance Hypokalemia Opioids - Morphine * GI Upset Penicillins Rash, GI Upset REVIEW OF SYSTEMS: GENERAL: feeling well without fatigue, no recent change in weight RESPIRATORY: no cough, no wheezing or shortness of breath CARDIOVASCULAR: no chest pain, no palpitations GI: positive for chronic diarrhea, fecal incontinence : positive for pelvic pain PSYCH: denies depressed or anxious mood, sleep is normal NEURO: no numbness or paresthesias and no weakness of the extremities PHYSICAL EXAMINATION: VIDEO EXAM: (if completed, performed via video enabled technology) GENERAL: alert and appropriate, in no distress, well-hydrated, well nourished, and happy, smiling, interactive SKIN: no rash noted HEAD: normocephalic, no abnormality or lesion noted EYES: no injection and visual acuity is grossly normal RESPIRATORY: breathing non-labored Patient Info Patient Name Sex Carli Piña ([id number]) Female 1965 06/06/2024 2:52 PM - Radiology, [place] Impression IMPRESSION: No acute finding Bilateral adrenal nodules. Left adrenal nodule larger than RIGHT with maximal diameter of 5 cm. Recommend biochemical assay to determine functional status and exclude pheochromocytoma. Consider surgical resection. Right adrenal nodule 2.9 cm maximal diameter suggesting adenoma. Commercial Coordinator: KISHORE Transcribe Date/Time: Jun 06 2024 2:31P Dictated by : TRUONG CARREON MD This examination was interpreted and the report reviewed and electronically signed by: TRUONG CARREON MD on Jun 06 2024 2:50PM EST Results-Findings * * *Final Report* * * DATE OF EXAM: Jun 06 2024 2:23PM [facility]31 - CT ABD/PEL WO IVCON / PROCEDURE REASON: diarrhea, low abd pain * * * * Physician Interpretation * * * * EXAMINATION: CT ABDOMEN AND PELVIS WITHOUT IV CONTRAST CLINICAL HISTORY: Diarrhea and lower abdominal pain TECHNIQUE: Non-IV contrast imaging of the abdomen and pelvis was performed using standard technique, scanning from just above the dome of the diaphragm to the symphysis pubis. Unenhanced imaging is limited for the evaluation of some intra-abdominal and pelvic pathology. MQ: [id number] Contrast: IV: None CT Radiation dose: Integrated Dose-length product (DLP) for this visit = 1351 mGy*cm. CT Dose Reduction Employed: Automated exposure control(AEC) and iterative recon COMPARISON: None. RESULT: Abdomen / Pelvis: Liver: Unremarkable. Biliary: S/p cholecystectomy. Spleen: No splenomegaly. Pancreas: Unremarkable. Adrenals: Lateral RIGHT adrenal mass 2.9 x 1.8 cm with attenuation -10 Hounsfield units. LEFT adrenal nodule measuring 5.0 x 3.2 x 2.7 cm. Attenuation -19 Hounsfield units. Kidneys: No calculus, hydronephrosis or finding to suggest a cyst or mass in the unenhanced kidney. GI Tract: No bowel dilation. There are bowel sutures at the region of the rectum and distal colon. No diverticulosis is noted. Lymph Nodes: No lymphadenopathy. Mesentery/peritoneum: No ascites. Retroperitoneum: No mass. Vasculature: Arterial atherosclerotic disease without aneurysm. Pelvis: No mass or ascites. Bones/Soft Tissues: No acute abnormality. Lower thorax: Unremarkable. Localizer images: No additional findings. Result History CT ABD/PEL WO IVCON (Order #[id number]) on 06/06/2024 - Order Result History Report Result Information Status Provider Status Final result (06/06/2024 2:52 PM) Ordered Exam Performed Date and Time 06/06/2024 2:23 PM ASSESSMENT/PLAN: 1. Diarrhea, unspecified type - ICD9: 787.91, ICD10: R19.7 (primary diagnosis) Pt has persistent diarrhea Has had multiple stool studies Stool study in [place] showed positive c. Diff spores, but no toxins Pt has been taking oral vancomycin that she had left over from a prior provider Her diarrhea resolved after starting the oral vancomycin, but has returned - CONSULT TO GASTROENTEROLOGY 2. C. difficile colitis - ICD9: 008.45, ICD10: A04.72 See above Will treat pt for presumptive c. Diff colitis based on stool studies from [place] - VANCOMYCIN 125 MG CAPSULE Vancomycin PO 125mg q6h x 10-14d, then BID x 7d, then daily x 7d, then q2-3d x 2-8 weeks3. Interstitial cystitis - ICD9: 595.1, ICD10: N30.10 Pt was told in the past she may have IC - CONSULT TO UROLOGY 4. Adrenal nodule (HCC) - ICD9: 255.9, ICD10: E27.9 - CONSULT TO ENDOCRINOLOGY Jayne Khanna DO There are no Patient Instructions on file for this visit. I spent a total of 45 minutes on the date of the service which included preparing to see the patient, [id number] patient care, completing clinical documentation, obtaining and/or reviewing separately obtained history, performing a medically appropriate examination, counseling and educating the patient/family/caregiver, ordering medications, tests, or procedures, communicating with other HCPs (not separately reported), and care coordination (not separately reported) Jayne Khanna DO documented in this encounter [facility] 06-04-2024 Note HNO ID: [id number] Author: BRYAN DURAND MD Service: ? 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 Carli Jerez is a 59 year old female who presents for problem visit evaluation of suprapubic pain for ~ month and evaluated in the ER w/o a specific diagnosis.. HPI: Hx of TENA BSO OB History No obstetric history on file. 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 Comments: Sexual Activity: No sexual activity data on record; No partner data on record Contraception: No contraception data on record PAST MEDICAL HISTORY Diagnosis Date Cervical radiculopathy COPD (chronic obstructive pulmonary disease) (HCC) Coronary artery disease Depression Endometriosis Essential hypertension Essential tremor Fibromyalgia Gastritis Generalized anxiety disorder GERD (gastroesophageal reflux disease) History of Clostridioides difficile colitis Thyroid cancer (HCC) PAST SURGICAL HISTORY Procedure Laterality Date APPENDECTOMY 2003 BLADDER SURGERY HX 2003 bladder lift COLON SURGERY HX 2003 colon resection COLONOSCOPY SCREENING 10/17/2023 ESOPHAGUS stricture repair HERNIA REPAIR HX 2003 x2 KNEE SURGERY HX Right 2015 cleaned out REDUCTION OF LARGE BREAST 1992 REMOVAL GALLBLADDER 2010 TOTAL ABDOM HYSTERECTOMY FAMILY HISTORY Problem Relation Age of Onset Hypertension Mother Leukemia Father metastacized Social History Tobacco Use Smoking status: Every Day Current packs/day: 0.25 Types: Cigarettes Passive exposure: Current Smokeless tobacco: Never Vaping Use Vaping status: Never Used Substance Use Topics Alcohol use: Never Drug use: Never Current Outpatient Medications Medication Sig diphenoxylate-atropine (LOMOTIL) 2.5-0.025 mg per tablet Take 1 tablet by mouth before meals and at bedtime for 5 days. valsartan (DIOVAN) 160 mg tablet Take 1 tablet by mouth every afternoon. mirtazapine (REMERON) 15 mg tablet Take 15 mg by mouth daily at bedtime. clonazePAM (KLONOPIN) 1 mg tablet TAKE 1 TABLET BY MOUTH IN THE MORNING AND 2 IN THE EVENING No current facility-administered medications for this visit. Allergies As of Date: 06/04/2024 Allergen Noted Reaction CIPRO [CIPROFLOXACIN HCL] 01/23/2024 Other: See Comments DIFLUCAN [FLUCONAZOLE] 01/23/2024 GI Upset FLAGYL [METRONIDAZOLE] 05/20/2024 Shortness of Breath HCTZ [AMILORIDE-HYDROCHLOROTHIAZI* Intolerance OPIOIDS - MORPHINE ANALOGUES 01/23/2024 GI Upset PENICILLINS 01/23/2024 Rash and GI Upset Fully Assessed 05/20/2024 REVIEW OF SYSTEMS Abdomen: No abdominal pain, nausea, vomiting, diarrhea, or constipation. No bloating, early satiety, indigestion, or increased flatulence. No abdominal pain, nausea, vomiting, diarrhea, or constipation. Bladder: No dysuria, gross hematuria, urinary frequency, urinary urgency, or incontinence. Breast: No breast lumps, nipple d/c, overlying skin changes, redness or skin retraction. Expanded ROS: N/A Allergies and current medication updated:Yes SENSITIVE EXAM: The sensitive examination was discussed with the Patient or Patient's Authorized Environmental Services Manager. As applicable, any other physician, advance practice provider, medical student, or other health professional student that will be observing or involved in the sensitive examination for educational or training purposes was discussed with the Patient or Authorized Environmental Services Manager. The Patient or Authorized Environmental Services Manager has agreed to proceed with the sensitive examination. (Sensitive examination includes inspection and/or palpation of the breasts, pelvis, prostate and anorectal regions). EXAM: BP 112/70 Wt 0 lb (0.0kg) GENERAL: pleasant, female ABDOMEN: soft, non-tender, no masses, and obese PELVIC: external genitalia normal, normal Bartholin's glands, urethra, George Mason's glands, no vulvar lesions, good vaginal support, physiologic discharge present, normal appearing perineal body and perianal region, cervix surgically absent BIMANUAL: no adnexal masses, non-tender, and uterus surgically absent. Retropubic tenderness NEURO: alert and oriented x3,exam grossly non-focal ASSESSMENT AND PLAN: ? 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 Carli Jerez is a 59 year old female who presents for problem visit evaluation of suprapubic pain for ~ month and evaluated in the ER w/o a specific diagnosis.. HPI: Hx of TENA BSO OB History No obstetric history on file. 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 Comments: Sexual Activity: No sexual activity data on record; No partner data on record Contraception: No contraception data on record PAST MEDICAL HISTORY Diagnosis Date Cervical radiculopathy COPD (chronic obstructive pulmonary disease) (HCC) Coronary artery disease Depression Endometriosis Essential hypertension Essential tremor Fibromyalgia Gastritis Generalized anxiety disorder GERD (gastroesophageal reflux disease) History of Clostridioides difficile colitis Thyroid cancer (HCC) PAST SURGICAL HISTORY Procedure Laterality Date APPENDECTOMY 2002 BLADDER SURGERY HX 2003 bladder lift COLON SURGERY HX 2003 colon resection COLONOSCOPY SCREENING 10/17/2023 ESOPHAGUS stricture repair HERNIA REPAIR HX 2003 x2 KNEE SURGERY HX Right 2015 cleaned out REDUCTION OF LARGE BREAST 1992 REMOVAL GALLBLADDER 2010 TOTAL ABDOM HYSTERECTOMY FAMILY HISTORY Problem Relation Age of Onset Hypertension Mother Leukemia Father metastacized Social History Tobacco Use Smoking status: Every Day Current packs/day: 0.25 Types: Cigarettes Passive exposure: Current Smokeless tobacco: Never Vaping Use Vaping status: Never Used Substance Use Topics Alcohol use: Never Drug use: Never Current Outpatient Medications Medication Sig diphenoxylate-atropine (LOMOTIL) 2.5-0.025 mg per tablet Take 1 tablet by mouth before meals and at bedtime for 5 days. valsartan (DIOVAN) 160 mg tablet Take 1 tablet by mouth every afternoon. mirtazapine (REMERON) 15 mg tablet Take 15 mg by mouth daily at bedtime. clonazePAM (KLONOPIN) 1 mg tablet TAKE 1 TABLET BY MOUTH IN THE MORNING AND 2 IN THE EVENING No current facility-administered medications for this visit. Allergies As of Date: 06/04/2024 Allergen Noted Reaction CIPRO [CIPROFLOXACIN HCL] 01/23/2024 Other: See Comments DIFLUCAN [FLUCONAZOLE] 01/23/2024 GI Upset FLAGYL [METRONIDAZOLE] 05/20/2024 Shortness of Breath HCTZ [AMILORIDE-HYDROCHLOROTHIAZI* Intolerance OPIOIDS - MORPHINE ANALOGUES 01/23/2024 GI Upset PENICILLINS 01/23/2024 Rash and GI Upset Fully Assessed 05/20/2024 REVIEW OF SYSTEMS Abdomen: No abdominal pain, nausea, vomiting, diarrhea, or constipation. No bloating, early satiety, indigestion, or increased flatulence. No abdominal pain, nausea, vomiting, diarrhea, or constipation. Bladder: No dysuria, gross hematuria, urinary frequency, urinary urgency, or incontinence. Breast: No breast lumps, nipple d/c, overlying skin changes, redness or skin retraction. Expanded ROS: N/A Allergies and current medication updated:Yes SENSITIVE EXAM: The sensitive examination was discussed with the Patient or Patient's Authorized Environmental Services Manager. As applicable, any other physician, advance practice provider, medical student, or other health professional student that will be observing or involved in the sensitive examination for educational or training purposes was discussed with the Patient or Authorized Environmental Services Manager. The Patient or Authorized Environmental Services Manager has agreed to proceed with the sensitive examination. (Sensitive examination includes inspection and/or palpation of the breasts, pelvis, prostate and anorectal regions). EXAM: BP 112/70 Wt 0 lb (0.0kg) GENERAL: pleasant, female ABDOMEN: soft, non-tender, no masses, and obese PELVIC: external genitalia normal, normal Bartholin's glands, urethra, George Mason's glands, no vulvar lesions, good vaginal support, physiologic discharge present, normal appearing perineal body and perianal region, cervix surgically absent BIMANUAL: no adnexal masses, non-tender, and uterus surgically absent. Retropubic tenderness NEURO: alert and oriented x3,exam grossly non-focal ASSESSMENT AND PLAN: ? bladder tenderness - pyridium trial ftfc>30m Bryan Durand MD documented in this encounter [facility] 05-20-2024 Telephone encounter Note Isabella informed order was able to be placed. Jayy Jones MA [facility] 05-20-2024 Miscellaneous Notes Isabella informed order was able to be placed. Jayy Jones MA Order still won't let me sign - I am getting a red box Jayne Khanna DO Called Client Services and spoke with Isabella who states she cancelled the order that was started this morning and would like Dr. Khanna to try and sign the pending order. Will need to call Isabella back at [phone] once order is signed. Please advise. Jayy Jones MA I cannot sign the repeat order for the test, because the computer thinks it was already ordered today. Please call Lab Client Services [phone] ( [phone] for override thanks Jayne Khanna DO ENTERIC BACTERIAL PANEL BY PCR [SQSTLPCR] ... already ordered: 05/20/2024 8:52 AM documented in this encounter [facility] 05-20-2024 Telephone encounter Note Order still won't let me sign - I am getting a red box Jayne Khanna DO [facility] 05-20-2024 Telephone encounter Note Called Client Services and spoke with Isabella who states she cancelled the order that was started this morning and would like Dr. Khanna to try and sign the pending order. Will need to call Isabella back at [phone] once order is signed. Please advise. Jayy Jones MA [facility] 05-20-2024 Telephone encounter Note I cannot sign the repeat order for the test, because the computer thinks it was already ordered today. Please call Lab Client Services [phone] ( [phone] for override thanks Jayne Khanna DO ENTERIC BACTERIAL PANEL BY PCR [SQSTLPCR] ... already ordered: 05/20/2024 8:52 AM [facility] 05-20-2024 Telephone encounter Note Reviewed in office Jayne Khanna DO [facility] 05-20-2024 Miscellaneous Notes Reviewed in office Jayne Khanna DO documented in this encounter [facility] 05-20-2024 Note HNO ID: [id number] Author: JAYNE KHANNA DO Service: ? Author Type: Physician Type: Progress Notes Filed: 05/20/2024 14:46 Note Text: Subjective HPI Pt is here for ER f/u She was seen in the ED of [place] for diarrhea She had stool study at [place], negative for c. Diff, but sample was not prepared properly Before the diarrhea, she was constipated and stools were bloody, possibly due to hemorrhoids She had diarrhea yesterday morning, has not had BM yet today In the ED her potassium was low At her last visit here, she requested that she be put back on losartan/hctz in spite of low potassium, She had CT of the abdomen, that did not show diverticulitis She is intolerant to flagyl, got shortness of breath, only took 2 doses then stopped ALLERGIES Allergen Reactions Cipro [Ciprofloxaci* Other: See Comments Messes with heart Diflucan [Fluconazo* GI Upset Flagyl [Metronidazo* Shortness of Breath Opioids - Morphine * GI Upset Penicillins Rash, GI Upset Current Outpatient Medications Medication Sig Dispense Refill mirtazapine (REMERON) 15 mg tablet Take 15 mg by mouth daily at bedtime. Valsartan-hydroCHLOROthiazide (DIOVAN HCT) 160-12.5 mg per tablet Take 1 tablet by mouth once daily. 30 tablet 2 clonazePAM (KLONOPIN) 1 mg tablet TAKE 1 TABLET BY MOUTH IN THE MORNING AND 2 IN THE EVENING 90 tablet 0 metroNIDAZOLE (FLAGYL) 500 mg tablet Take 1 tablet by mouth three times a day for 10 days. (Patient not taking: Reported on 05/20/2024) 20 tablet 0 No current facility-administered medications for this visit. ACTIVE PROBLEM LIST Chronic Bronchitis (Hcc) Blaise (Generalized Anxiety Disorder) Hypertension, Essential Depression With Anxiety Undifferentiated Inflammatory Arthritis (Hcc) Class 3 Severe Obesity With Body Mass Index (Bmi) of 45.0 to 49.9 in Adult (Hcc) Thyroid Nodule Headache, Unspecified Headache Type Nose Polyp Smoker Allergy to Opioid Analgesic Social History Tobacco Use Smoking status: Every Day Current packs/day: 0.25 Types: Cigarettes Passive exposure: Current Smokeless tobacco: Never Vaping Use Vaping status: Never Used Substance Use Topics Alcohol use: Never Drug use: Never Family History Problem Relation Age of Onset Hypertension Mother Leukemia Father metastacized Reviewed past medical history, family history and surgeries. All medications and supplements were reviewed with the patient. Review of Systems Constitutional: Negative for chills, diaphoresis, fever, malaise/fatigue and weight loss. HENT: Negative for ear pain and hearing loss. Eyes: Negative for blurred vision and double vision. Respiratory: Negative for cough and shortness of breath. Cardiovascular: Negative for chest pain, palpitations and leg swelling. Gastrointestinal: Positive for abdominal pain, blood in stool and diarrhea. Negative for constipation, heartburn, nausea and vomiting. Genitourinary: Negative for dysuria and frequency. Musculoskeletal: Negative for back pain, falls, joint pain and myalgias. Skin: Negative for itching and rash. Neurological: Negative for dizziness, weakness and headaches. Endo/Heme/Allergies: Does not bruise/bleed easily. Psychiatric/Behavioral: Negative for depression and substance abuse. The patient does not have insomnia. Objective BP 110/68 Pulse 89 Temp 36.6 ?C (97.9 ?F) Resp 18 Ht 171.5 cm (5' 7.5 ) Wt 134.7 kg (297 lb) SpO2 96% BMI 45.83 kg/m? Physical Exam Constitutional: Appearance: Normal appearance. She is obese. HENT: Head: Normocephalic and atraumatic. Nose: Nose normal. Mouth/Throat: Mouth: Mucous membranes are moist. Dentition: Normal dentition. Eyes: General: Lids are normal. Extraocular Movements: Extraocular movements intact. Conjunctiva/sclera: Conjunctivae normal. Pupils: Pupils are equal, round, and reactive to light. Neck: Thyroid: No thyroid mass or thyromegaly. Vascular: No carotid bruit. Trachea: Phonation normal. Cardiovascular: Rate and Rhythm: Normal rate and regular rhythm. Heart sounds: Normal heart sounds. No murmur heard. No friction rub. No gallop. Pulmonary: Effort: Pulmonary effort is normal. Breath sounds: Normal breath sounds. No wheezing or rales. Abdominal: General: Bowel sounds are normal. There is no distension (in left lower quadrant). Palpations: Abdomen is soft. There is no mass. Tenderness: There is abdominal tenderness. There is no rebound. Musculoskeletal: General: No swelling or tenderness. Normal range of motion. Cervical back: Normal range of motion and neck supple. No edema. Lymphadenopathy: Cervical: No cervical adenopathy. Skin: General: Skin is warm and dry. Findings: No erythema or rash. Nails: There is no clubbing. Neurological: Mental Status: She is alert and oriented to person, place, and time. Cranial Nerves: No cranial nerve deficit. Motor: Motor function is intact. Coord (more content not included)... [facility] 05-20-2024 History of Presen t illness Narrative Subjective HPI Pt is here for ER f/u She was seen in the ED of [facility] for diarrhea She had stool study at [facility], negative for c. Diff, but sample was not prepared properly Before the diarrhea, she was constipated and stools were bloody, possibly due to hemorrhoids She had diarrhea yesterday morning, has not had BM yet today In the ED her potassium was low At her last visit here, she requested that she be put back on losartan/hctz in spite of low potassium, She had CT of the abdomen, that did not show diverticulitis She is intolerant to flagyl, got shortness of breath, only took 2 doses then stopped ALLERGIES Allergen Reactions Cipro [Ciprofloxaci* Other: See Comments Messes with heart Diflucan [Fluconazo* GI Upset Flagyl [Metronidazo* Shortness of Breath Opioids - Morphine * GI Upset Penicillins Rash, GI Upset Current Outpatient Medications Medication Sig Dispense Refill mirtazapine (REMERON) 15 mg tablet Take 15 mg by mouth daily at bedtime. Valsartan-hydroCHLOROthiazide (DIOVAN HCT) 160-12.5 mg per tablet Take 1 tablet by mouth once daily. 30 tablet 2 clonazePAM (KLONOPIN) 1 mg tablet TAKE 1 TABLET BY MOUTH IN THE MORNING AND 2 IN THE EVENING 90 tablet 0 metroNIDAZOLE (FLAGYL) 500 mg tablet Take 1 tablet by mouth three times a day for 10 days. (Patient not taking: Reported on 05/20/2024) 20 tablet 0 No current facility-administered medications for this visit. ACTIVE PROBLEM LIST Chronic Bronchitis (Hcc) Blaise (Generalized Anxiety Disorder) Hypertension, Essential Depression With Anxiety Undifferentiated Inflammatory Arthritis (Hcc) Class 3 Severe Obesity With Body Mass Index (Bmi) of 45.0 to 49.9 in Adult (Hcc) Thyroid Nodule Headache, Unspecified Headache Type Nose Polyp Smoker Allergy to Opioid Analgesic Social History Tobacco Use Smoking status: Every Day Current packs/day: 0.25 Types: Cigarettes Passive exposure: Current Smokeless tobacco: Never Vaping Use Vaping status: Never Used Substance Use Topics Alcohol use: Never Drug use: Never Family History Problem Relation Age of Onset Hypertension Mother Leukemia Father metastacized Reviewed past medical history, family history and surgeries. All medications and supplements were reviewed with the patient. Review of Systems Constitutional: Negative for chills, diaphoresis, fever, malaise/fatigue and weight loss. HENT: Negative for ear pain and hearing loss. Eyes: Negative for blurred vision and double vision. Respiratory: Negative for cough and shortness of breath. Cardiovascular: Negative for chest pain, palpitations and leg swelling. Gastrointestinal: Positive for abdominal pain, blood in stool and diarrhea. Negative for constipation, heartburn, nausea and vomiting. Genitourinary: Negative for dysuria and frequency. Musculoskeletal: Negative for back pain, falls, joint pain and myalgias. Skin: Negative for itching and rash. Neurological: Negative for dizziness, weakness and headaches. Endo/Heme/Allergies: Does not bruise/bleed easily. Psychiatric/Behavioral: Negative for depression and substance abuse. The patient does not have insomnia. Objective BP 110/68 Pulse 89 Temp 36.6 C (97.9 F) Resp 18 Ht 171.5 cm (5' 7.5 ) Wt 134.7 kg (297 lb) SpO2 96% BMI 45.83 kg/m Physical Exam Constitutional: Appearance: Normal appearance. She is obese. HENT: Head: Normocephalic and atraumatic. Nose: Nose normal. Mouth/Throat: Mouth: Mucous membranes are moist. Dentition: Normal dentition. Eyes: General: Lids are normal. Extraocular Movements: Extraocular movements intact. Conjunctiva/sclera: Conjunctivae normal. Pupils: Pupils are equal, round, and reactive to light. Neck: Thyroid: No thyroid mass or thyromegaly. Vascular: No carotid bruit. Trachea: Phonation normal. Cardiovascular: Rate and Rhythm: Normal rate and regular rhythm. Heart sounds: Normal heart sounds. No murmur heard. No friction rub. No gallop. Pulmonary: Effort: Pulmonary effort is normal. Breath sounds: Normal breath sounds. No wheezing or rales. Abdominal: General: Bowel sounds are normal. There is no distension (in left lower quadrant). Palpations: Abdomen is soft. There is no mass. Tenderness: There is abdominal tenderness. There is no rebound. Musculoskeletal: General: No swelling or tenderness. Normal range of motion. Cervical back: Normal range of motion and neck supple. No edema. Lymphadenopathy: Cervical: No cervical adenopathy. Skin: General: Skin is warm and dry. Findings: No erythema or rash. Nails: There is no clubbing. Neurological: Mental Status: She is alert and oriented to person, place, and time. Cranial Nerves: No cranial nerve deficit. Motor: Motor function is intact. Coordination: Coordination normal. Gait: Gait is intact. Psychiatric: Attention and Perception: Attention normal. Mood and Affect: Mood and affect normal. Speech: Speech normal. Behavior: Behavior normal. Behavior is cooperative. Thought Content: Thought content normal. Cognition and Memory: Cognition and memory normal. Judgment: Judgment normal. ASSESSMENT/PLAN: 1. Diarrhea, unspecified type - ICD9: 787.91, ICD10: R19.7 - CRYPTOSPORIDIUM AND GIARDIA ANTIGENS BY EIA - C. DIFFICILE PCR - ENTERIC BACTERIAL PANEL BY PCR - ENTERIC BACTERIAL PANEL BY PCR 2. Hypertension, essential - ICD9: 401.9, ICD10: I10 Potassium drops on losartan/hctz Pt will resume losartan, will increase dosage to compensate for stopping hctz 3. Hypokalemia - ICD9: 276.8, ICD10: E87.6 Stop hctz Repeat potassium in one month (when pt returns on 06/09) 4. Smoker - ICD9: 305.1, ICD10: F17.200 - Cessation encouraged. - Physiologic and physical aspects of tobacco addiction as well as strategies for quitting were discussed. - Counseling was given focusing on the harmful effects of this addiction especially given the patient's medical condition(s) which will be worsened because of the chemicals in tobacco. Jayne Khanna DO documented in this encounter [facility] 05-13-2024 Telephone encounter Note Reminder placed. John Barbour MA [facility] 05-13-2024 Telephone encounter Note ----- Message from Jayne Khanna DO sent at 05/13/2024 11:00 AM EDT ----- Check potassium in one month after restarting valsartan/hctz Jayne Khanna DO [facility] 05-13-2024 Miscellaneous Notes Reminder placed. John Barbour MA ----- Message from Jayne Khanna DO sent at 05/13/2024 11:00 AM EDT ----- Check potassium in one month after restarting valsartan/hctz Jayne Khanna DO documented in this encounter [facility] 05-13-2024 Note HNO ID: [id number] Author: JAYNE KHANNA DO Service: ? Author Type: Physician Type: Progress Notes Filed: 05/20/2024 08:48 Note Text: Subjective HPI Pt is here for acute visit She has had suprapubic pain for about 2 weeks It started after a bout of constipation She was seen at an Urgent Care, not treated with antibiotics Pain is relieved by urination, having BMs or passing gas She had partial bowel resection for colon polyp, not cancer She was constipated, took senna, had multiple soft BMs, and pain relieved for a little while after that She had CT of the abdomen at [facility] in February 2024, showing diverticulosis She does not have a known history of diverticulitis She has had pain in her left lower quadrant in the past, but has not been treated for this pain She would like to talk about her BP meds She was on valsartan/hctz, but hctz was discontinued because she had low potassium She is retaining water, would like to go back on the combined medication ALLERGIES Allergen Reactions Cipro [Ciprofloxaci* Other: See Comments Messes with heart Diflucan [Fluconazo* GI Upset Opioids - Morphine * GI Upset Penicillins Rash, GI Upset Current Outpatient Medications Medication Sig Dispense Refill mirtazapine (REMERON) 15 mg tablet Take 15 mg by mouth daily at bedtime. clonazePAM (KLONOPIN) 1 mg tablet TAKE 1 TABLET BY MOUTH IN THE MORNING AND 2 IN THE EVENING 90 tablet 0 valsartan (DIOVAN) 160 mg tablet Take 1 tablet by mouth every afternoon. valsartan (DIOVAN) 80 mg tablet Take 80 mg by mouth once daily. No current facility-administered medications for this visit. ACTIVE PROBLEM LIST Chronic Bronchitis (Hcc) Blaise (Generalized Anxiety Disorder) Hypertension, Essential Depression With Anxiety Undifferentiated Inflammatory Arthritis ([facility]) Class 3 Severe Obesity With Body Mass Index (Bmi) of 45.0 to 49.9 in Adult (Hcc) Thyroid Nodule Headache, Unspecified Headache Type Nose Polyp Smoker Allergy to Opioid Analgesic Social History Tobacco Use Smoking status: Every Day Current packs/day: 0.25 Types: Cigarettes Passive exposure: Current Smokeless tobacco: Never Vaping Use Vaping status: Never Used Substance Use Topics Alcohol use: Never Drug use: Never Family History Problem Relation Age of Onset Hypertension Mother Leukemia Father metastacized Reviewed past medical history, family history and surgeries. All medications and supplements were reviewed with the patient. Review of Systems Constitutional: Negative for chills, diaphoresis, fever, malaise/fatigue and weight loss. HENT: Negative for ear pain and hearing loss. Eyes: Negative for blurred vision and double vision. Respiratory: Negative for cough and shortness of breath. Cardiovascular: Positive for leg swelling. Negative for chest pain and palpitations. Gastrointestinal: Negative for constipation, diarrhea and heartburn. Genitourinary: Negative for dysuria and frequency. Musculoskeletal: Negative for back pain, falls, joint pain and myalgias. Skin: Negative for itching and rash. Neurological: Negative for dizziness, weakness and headaches. Endo/Heme/Allergies: Does not bruise/bleed easily. Psychiatric/Behavioral: Negative for depression and substance abuse. The patient does not have insomnia. Objective BP 118/76 Pulse 72 Temp 36.6 ?C (97.9 ?F) Resp 16 Ht 171.5 cm (5' 7.5 ) Wt (!) 137 kg (302 lb) SpO2 95% BMI 46.60 kg/m? Physical Exam Constitutional: Appearance: Normal appearance. She is obese. HENT: Head: Normocephalic and atraumatic. Nose: Nose normal. Mouth/Throat: Mouth: Mucous membranes are moist. Dentition: Normal dentition. Eyes: General: Lids are normal. Extraocular Movements: Extraocular movements intact. Conjunctiva/sclera: Conjunctivae normal. Pupils: Pupils are equal, round, and reactive to light. Neck: Thyroid: No thyroid mass or thyromegaly. Vascular: No carotid bruit. Trachea: Phonation normal. Cardiovascular: Rate and Rhythm: Normal rate and regular rhythm. Heart sounds: Normal heart sounds. No murmur heard. No friction rub. No gallop. Pulmonary: Effort: Pulmonary effort is normal. Breath sounds: Normal breath sounds. No wheezing or rales. Abdominal: General: Bowel sounds are normal. There is no distension. Palpations: Abdomen is soft. There is no mass. Tenderness: There is no abdominal tenderness. Musculoskeletal: General: No swelling or tenderness. Normal range of motion. Cervical back: Normal range of motion and neck supple. No edema. Lymphadenopathy: Cervical: No cervical adenopathy. Skin: General: Skin is warm and dry. Findings: No erythema or rash. Nails: There is no clubbing. Neurological: Mental Status: She is alert and oriented to person, place, and time. Cranial Nerves: No cranial nerve deficit. Motor: Motor function is intact. Coordination: Coordination normal. (more content not included)... [facility] 05-13-2024 History of Presen t illness Narrative Subjective HPI Pt is here for acute visit She has had suprapubic pain for about 2 weeks It started after a bout of constipation She was seen at an Urgent Care, not treated with antibiotics Pain is relieved by urination, having BMs or passing gas She had partial bowel resection for colon polyp, not cancer She was constipated, took senna, had multiple soft BMs, and pain relieved for a little while after that She had CT of the abdomen at [facility] in February 2024, showing diverticulosis She does not have a known history of diverticulitis She has had pain in her left lower quadrant in the past, but has not been treated for this pain She would like to talk about her BP meds She was on valsartan/hctz, but hctz was discontinued because she had low potassium She is retaining water, would like to go back on the combined medication ALLERGIES Allergen Reactions Cipro [Ciprofloxaci* Other: See Comments Messes with heart Diflucan [Fluconazo* GI Upset Opioids - Morphine * GI Upset Penicillins Rash, GI Upset Current Outpatient Medications Medication Sig Dispense Refill mirtazapine (REMERON) 15 mg tablet Take 15 mg by mouth daily at bedtime. clonazePAM (KLONOPIN) 1 mg tablet TAKE 1 TABLET BY MOUTH IN THE MORNING AND 2 IN THE EVENING 90 tablet 0 valsartan (DIOVAN) 160 mg tablet Take 1 tablet by mouth every afternoon. valsartan (DIOVAN) 80 mg tablet Take 80 mg by mouth once daily. No current facility-administered medications for this visit. ACTIVE PROBLEM LIST Chronic Bronchitis (Hcc) Blaise (Generalized Anxiety Disorder) Hypertension, Essential Depression With Anxiety Undifferentiated Inflammatory Arthritis (Hcc) Class 3 Severe Obesity With Body Mass Index (Bmi) of 45.0 to 49.9 in Adult (Hcc) Thyroid Nodule Headache, Unspecified Headache Type Nose Polyp Smoker Allergy to Opioid Analgesic Social History Tobacco Use Smoking status: Every Day Current packs/day: 0.25 Types: Cigarettes Passive exposure: Current Smokeless tobacco: Never Vaping Use Vaping status: Never Used Substance Use Topics Alcohol use: Never Drug use: Never Family History Problem Relation Age of Onset Hypertension Mother Leukemia Father metastacized Reviewed past medical history, family history and surgeries. All medications and supplements were reviewed with the patient. Review of Systems Constitutional: Negative for chills, diaphoresis, fever, malaise/fatigue and weight loss. HENT: Negative for ear pain and hearing loss. Eyes: Negative for blurred vision and double vision. Respiratory: Negative for cough and shortness of breath. Cardiovascular: Positive for leg swelling. Negative for chest pain and palpitations. Gastrointestinal: Negative for constipation, diarrhea and heartburn. Genitourinary: Negative for dysuria and frequency. Musculoskeletal: Negative for back pain, falls, joint pain and myalgias. Skin: Negative for itching and rash. Neurological: Negative for dizziness, weakness and headaches. Endo/Heme/Allergies: Does not bruise/bleed easily. Psychiatric/Behavioral: Negative for depression and substance abuse. The patient does not have insomnia. Objective BP 118/76 Pulse 72 Temp 36.6 C (97.9 F) Resp 16 Ht 171.5 cm (5' 7.5 ) Wt (!) 137 kg (302 lb) SpO2 95% BMI 46.60 kg/m Physical Exam Constitutional: Appearance: Normal appearance. She is obese. HENT: Head: Normocephalic and atraumatic. Nose: Nose normal. Mouth/Throat: Mouth: Mucous membranes are moist. Dentition: Normal dentition. Eyes: General: Lids are normal. Extraocular Movements: Extraocular movements intact. Conjunctiva/sclera: Conjunctivae normal. Pupils: Pupils are equal, round, and reactive to light. Neck: Thyroid: No thyroid mass or thyromegaly. Vascular: No carotid bruit. Trachea: Phonation normal. Cardiovascular: Rate and Rhythm: Normal rate and regular rhythm. Heart sounds: Normal heart sounds. No murmur heard. No friction rub. No gallop. Pulmonary: Effort: Pulmonary effort is normal. Breath sounds: Normal breath sounds. No wheezing or rales. Abdominal: General: Bowel sounds are normal. There is no distension. Palpations: Abdomen is soft. There is no mass. Tenderness: There is no abdominal tenderness. Musculoskeletal: General: No swelling or tenderness. Normal range of motion. Cervical back: Normal range of motion and neck supple. No edema. Lymphadenopathy: Cervical: No cervical adenopathy. Skin: General: Skin is warm and dry. Findings: No erythema or rash. Nails: There is no clubbing. Neurological: Mental Status: She is alert and oriented to person, place, and time. Cranial Nerves: No cranial nerve deficit. Motor: Motor function is intact. Coordination: Coordination normal. Gait: Gait is intact. Psychiatric: Attention and Perception: Attention normal. Mood and Affect: Mood and affect normal. Speech: Speech normal. Behavior: Behavior normal. Behavior is cooperative. Thought Content: Thought content normal. Cognition and Memory: Cognition and memory normal. Judgment: Judgment normal. ASSESSMENT/PLAN: 1. Lower abdominal pain - ICD9: 789.09, ICD10: R10.30 (primary diagnosis) - UA DIP, URINE (POC) - METRONIDAZOLE 500 MG TABLET Will treat with flagyl for possible diverticulitis Will not order ct as pt just had CT in February, showing diverticulosis She is wary of antibiotics as she had c. Diff colitis in the past 2. Hypertension, essential - ICD9: 401.9, ICD10: I10 Stop diovan 160 and 80 Restart diovan 160/12.5 Check potassium in one month - Controlled - Recommend home blood pressure monitoring, to bring results to next visit - Encouraged sodium restriction, DASH or Mediterranean diet - Recommend regular aerobic exercise - VALSARTAN 160 MG-HYDROCHLOROTHIAZIDE 12.5 MG TABLET 3. Diverticulosis - ICD9: 562.10, ICD10: K57.90 - METRONIDAZOLE 500 MG TABLET Jayne Khanna DO documented in this encounter [facility] 05-08-2024 Telephone encounter Note ----- Message from Jayy Coffey MA sent at 04/07/2024 8:58 AM EDT ----- Patient due for 1 month recheck CBC+Diff. Jayy Jones MA [facility] 05-08-2024 Miscellaneous Notes ----- Message from Jayy Coffey MA sent at 04/07/2024 8:58 AM EDT ----- Patient due for 1 month recheck CBC+Diff. Jayy Jones MA documented in this encounter [facility] 05-06-2024 Telephone encounter Note Patient given results and verbalized understanding of instructions given. Salvador Flores LPN [facility] 05-06-2024 Miscellaneous Notes Patient given results and verbalized understanding of instructions given. Salvador Flores LPN Please notify that the urine culture showed no infection. Hematuria noted on ua, patient should have urine retested with pcp in 2-4 weeks to see if persisting. documented in this encounter [facility] 05-06-2024 Telephone encounter Note Please notify that the urine culture showed no infection. Hematuria noted on ua, patient should have urine retested with pcp in 2-4 weeks to see if persisting. [facility] Work Phone: 05-05-2024 Instructions Vandana Molina PA-C - 05/05/2024 2:41 PM EDT PLEASE FOLLOW UP WITH YOUR PRIMARY CARE DOCTOR NEEDED. documented in this encounter [facility] 05-05-2024 Note HNO ID: [id number] Author: VANDANA MOLINA PA-C Service: ? Author Type: Physician Oracle Programmer Type: Progress Notes Filed: 05/05/2024 14:46 Note Text: Subjective Carli Jerez is a 59 year old female with a past medical history of hypertension, COPD, anxiety, and depression who presents [facility] today for evaluation of urinary urgency, dysuria, and urinary frequency x 1 week. She also endorses pelvic bone pain . She states that the pain started after she was straining to have a bowel movement so she is unsure if she just pulled a muscle. She denies any fevers, sweats, chills, nausea, vomiting, or flank pain. Review of Systems Constitutional: Negative for chills, diaphoresis and fever. Gastrointestinal: Negative for abdominal pain, constipation, diarrhea, nausea and vomiting. Genitourinary: Positive for dysuria, frequency, pelvic pain and urgency. Negative for difficulty urinating and flank pain. Skin: Negative for rash and wound. All other systems reviewed and are negative. Objective BP 122/76 Pulse 115 Temp 36.4 ?C (97.6 ?F) Resp 22 Wt (!) 137.6 kg (303 lb 5.7 oz) SpO2 98% BMI 46.81 kg/m? Physical Exam Vitals reviewed. Constitutional: General: She is not in acute distress. Appearance: Normal appearance. She is obese. She is not ill-appearing or toxic-appearing. Comments: The patient appears to be non-toxic, in no acute distress, and resting comfortably on the table. HENT: Head: Normocephalic and atraumatic. Eyes: Extraocular Movements: Extraocular movements intact. Cardiovascular: Rate and Rhythm: Normal rate and regular rhythm. Heart sounds: Normal heart sounds. No murmur heard. No friction rub. No gallop. Pulmonary: Effort: Pulmonary effort is normal. No respiratory distress. Breath sounds: Normal breath sounds. No wheezing. Abdominal: Tenderness: There is no right CVA tenderness or left CVA tenderness. Musculoskeletal: General: Normal range of motion. Cervical back: Normal range of motion. Skin: General: Skin is warm and dry. Findings: No erythema or rash. Neurological: General: No focal deficit present. Mental Status: She is alert and oriented to person, place, and time. Mental status is at baseline. Psychiatric: Mood and Affect: Mood normal. Behavior: Behavior normal. Thought Content: Thought content normal. Assessment and Plan UA shows trace hemoglobin with no signs of infection. Chart review shows patient has a history of hematuria. Urine culture obtained. Results discussed with patient. Patient counseled regarding suspected diagnosis and advised to follow-up with her primary care provider as needed. ASSESSMENT/PLAN: 1. Urgency of urination - ICD9: 788.63, ICD10: R39.15 (primary diagnosis) - UA DIP, URINE (POC) - URINE CULTURE 2. Dysuria - ICD9: 788.1, ICD10: R30.0 - UA DIP, URINE (POC) - URINE CULTURE 3. Lower abdominal pain - ICD9: 789.09, ICD10: R10.30 - UA DIP, URINE (POC) - URINE CULTURE 4. Urinary frequency - ICD9: 788.41, ICD10: R35.0 - UA DIP, URINE (POC) - URINE CULTURE Medical Decision Making: Problems: Low: Acute, uncomplicated illness or injury Risk: Minimal: Minimal risk from testing/treatment Moderate: Drug management Medical Decision Making Level: 3 - Low I spent a total of 20 minutes on the date of the service which included preparing to see the patient, [id number] patient care, completing clinical documentation, performing a medically appropriate examination, counseling and educating the patient/family/caregiver, and ordering medications, tests, or procedures. Vandana Molina PA-C [facility] 05-05-2024 History of Presen t illness Narrative Subjective Carli Jerez is a 59 year old female with a past medical history of hypertension, COPD, anxiety, and depression who presents [facility] today for evaluation of urinary urgency, dysuria, and urinary frequency x 1 week. She also endorses pelvic bone pain . She states that the pain started after she was straining to have a bowel movement so she is unsure if she just pulled a muscle. She denies any fevers, sweats, chills, nausea, vomiting, or flank pain. Review of Systems Constitutional: Negative for chills, diaphoresis and fever. Gastrointestinal: Negative for abdominal pain, constipation, diarrhea, nausea and vomiting. Genitourinary: Positive for dysuria, frequency, pelvic pain and urgency. Negative for difficulty urinating and flank pain. Skin: Negative for rash and wound. All other systems reviewed and are negative. Objective BP 122/76 Pulse 115 Temp 36.4 C (97.6 F) Resp 22 Wt (!) 137.6 kg (303 lb 5.7 oz) SpO2 98% BMI 46.81 kg/m Physical Exam Vitals reviewed. Constitutional: General: She is not in acute distress. Appearance: Normal appearance. She is obese. She is not ill-appearing or toxic-appearing. Comments: The patient appears to be non-toxic, in no acute distress, and resting comfortably on the table. HENT: Head: Normocephalic and atraumatic. Eyes: Extraocular Movements: Extraocular movements intact. Cardiovascular: Rate and Rhythm: Normal rate and regular rhythm. Heart sounds: Normal heart sounds. No murmur heard. No friction rub. No gallop. Pulmonary: Effort: Pulmonary effort is normal. No respiratory distress. Breath sounds: Normal breath sounds. No wheezing. Abdominal: Tenderness: There is no right CVA tenderness or left CVA tenderness. Musculoskeletal: General: Normal range of motion. Cervical back: Normal range of motion. Skin: General: Skin is warm and dry. Findings: No erythema or rash. Neurological: General: No focal deficit present. Mental Status: She is alert and oriented to person, place, and time. Mental status is at baseline. Psychiatric: Mood and Affect: Mood normal. Behavior: Behavior normal. Thought Content: Thought content normal. Assessment and Plan UA shows trace hemoglobin with no signs of infection. Chart review shows patient has a history of hematuria. Urine culture obtained. Results discussed with patient. Patient counseled regarding suspected diagnosis and advised to follow-up with her primary care provider as needed. ASSESSMENT/PLAN: 1. Urgency of urination - ICD9: 788.63, ICD10: R39.15 (primary diagnosis) - UA DIP, URINE (POC) - URINE CULTURE 2. Dysuria - ICD9: 788.1, ICD10: R30.0 - UA DIP, URINE (POC) - URINE CULTURE 3. Lower abdominal pain - ICD9: 789.09, ICD10: R10.30 - UA DIP, URINE (POC) - URINE CULTURE 4. Urinary frequency - ICD9: 788.41, ICD10: R35.0 - UA DIP, URINE (POC) - URINE CULTURE Medical Decision Making: Problems: Low: Acute, uncomplicated illness or injury Risk: Minimal: Minimal risk from testing/treatment Moderate: Drug management Medical Decision Making Level: 3 - Low I spent a total of 20 minutes on the date of the service which included preparing to see the patient, [id number] patient care, completing clinical documentation, performing a medically appropriate examination, counseling and educating the patient/family/caregiver, and ordering medications, tests, or procedures. Vandana Molina PA-C documented in this encounter [facility] 04-10-2024 Telephone encounter Note She states that she was put on it originally for after the loss of her son back in 2017 but they kept her on it for the depression but also for her essential tremor. She does have appt with py 05/12/24 Jeanna Napoles MA [facility] 04-10-2024 Miscellaneous Notes She states that she was put on it originally for after the loss of her son back in 2016 but they kept her on it for the depression but also for her essential tremor. She does have appt with py 05/12/24 Jeanna Napoles MA Called pt to discuss use of klonopin. She was referred to psychiatrist, called to find out if she has made appt to see one yet.Jayne Khanna DO pharm requesting refills: Last office visit 03/07/2024. Last refill 03/13/2024 nov 06/09/2024 Requested Prescriptions Pending Prescriptions Disp Refills clonazePAM (KLONOPIN) 1 mg tablet [Pharmacy Med Name: clonazePAM 1 MG Oral Tablet] 90 tablet 0 Sig: TAKE 1 TABLET BY MOUTH IN THE MORNING AND 2 IN THE EVENING Please review and advise. John Barbour MA documented in this encounter [facility] 04-10-2024 Telephone encounter Note Called pt to discuss use of klonopin. She was referred to psychiatrist, called to find out if she has made appt to see one yet.Jayne Khanna DO [facility] 04-09-2024 Telephone encounter Note patient electronically requesting refills as follows: Last seen 03/07/24 . Last refill 03/13/24 . Requested Prescriptions Pending Prescriptions Disp Refills clonazePAM (KLONOPIN) 1 mg tablet 90 tablet 0 Sig: TAKE 1 TABLET BY MOUTH EVERY MORNING and 2 (TWO) TABLETS EVERY EVENING Please review and advise. Jayy Jones MA [facility] 04-09-2024 Telephone encounter Note pharm requesting refills: Last office visit 03/07/2024. Last refill 03/13/2024 nov 06/09/2024 Requested Prescriptions Pending Prescriptions Disp Refills clonazePAM (KLONOPIN) 1 mg tablet [Pharmacy Med Name: clonazePAM 1 MG Oral Tablet] 90 tablet 0 Sig: TAKE 1 TABLET BY MOUTH IN THE MORNING AND 2 IN THE EVENING Please review and advise. John Barbour MA [facility] 04-09-2024 Miscellaneous Notes patient electronically requesting refills as follows: Last seen 03/07/24 . Last refill 03/13/24 . Requested Prescriptions Pending Prescriptions Disp Refills clonazePAM (KLONOPIN) 1 mg tablet 90 tablet 0 Sig: TAKE 1 TABLET BY MOUTH EVERY MORNING and 2 (TWO) TABLETS EVERY EVENING Please review and advise. Jayy Jones MA documented in this encounter [facility] 04-01-2024 Note Formatting of this n ote might be different from the original. April 01, 2024 PID: [id number] Carli Jerez [facility] [place] [address] Dear Ms. Jerez, We are pleased to inform you that the results of your recent breast imaging exam on 03/31/2024 are normal. Breast tissue can be either dense or not dense. Dense tissue makes it harder to find breast cancer on a mammogram and also raises the risk of developing breast cancer. Your breast tissue is not dense. Talk to your healthcare provider about breast density, risks for breast cancer, and your individual situation. Early detection of cancer is very important. We also understand recommendations regarding breast cancer screening are controversial. Please discuss with your primary care provider which strategy is best for you and whether a mammogram is right for you. Your imaging studies and report will be kept on file at [facility] as part of your permanent medical record and are available for your continuing care. Thank you for allowing us to help in meeting your health care needs. Sincerely, Dr. Rahman Interpreting Radiologist [facility] (Normal over 40) [facility] 04-01-2024 Miscellaneous Notes April 01, 2024 PID: [id number] Carli Jerez [address] [place] [address] Dear Ms. Jerez, We are pleased to inform you that the results of your recent breast imaging exam on 03/31/2024 are normal. Breast tissue can be either dense or not dense. Dense tissue makes it harder to find breast cancer on a mammogram and also raises the risk of developing breast cancer. Your breast tissue is not dense. Talk to your healthcare provider about breast density, risks for breast cancer, and your individual situation. Early detection of cancer is very important. We also understand recommendations regarding breast cancer screening are controversial. Please discuss with your primary care provider which strategy is best for you and whether a mammogram is right for you. Your imaging studies and report will be kept on file at [facility] as part of your permanent medical record and are available for your continuing care. Thank you for allowing us to help in meeting your health care needs. Sincerely, Dr. Rahman Interpreting Radiologist [facility] (Normal over 40) documented in this encounter [facility] 03-31-2024 History of Presen t illness Narrative Radiology Service Progress Note PATIENT NAME: Carli Jerez DATE OF SERVICE: March 31, 2024 TIME: 2:40 PM PATIENT IDENTITY VERIFICATION COMPLETED USING TWO (2) IDENTIFIERS: Name and Date of confirmed by patient verbally. FALL SCREENING: Has the patient had 2 falls in the last year or 1 fall with injury or currently using an Ambulatory Assistive Device (Walker, Cane, Wheelchair, Crutches, etc.)? Yes, Patient High Risk for Falls What interventions were put in place to prevent falls during this visit? Increased Observations by Caregivers PATIENT GENDER DATA: Female. status: : No status: NO. PATIENT RELEVANT IMPLANT DATA REVIEWED: Not Applicable PATIENT PRESENTS WITH AN IMPLANTABLE OR ATTACHED MIDDLEWARE ADMINISTRATOR: No RADIOLOGY DEPARTMENT: Mammography PERIPHERAL IV DATA: Not applicable SIGNED BY: Roberto Campos March 31, 2024 2:40 PM documented in this encounter [facility] 03-31-2024 Note HNO ID: [id number] Author: DEJA ROMERO Mammo Tech Service: ? Author Type: Shoe Fitter Type: Progress Notes Filed: 03/31/2024 14:41 Note Text: Radiology Service Progress Note PATIENT NAME: Carli Jerez DATE OF SERVICE: March 31, 2024 TIME: 2:40 PM PATIENT IDENTITY VERIFICATION COMPLETED USING TWO (2) IDENTIFIERS: Name and Date of confirmed by patient verbally. FALL SCREENING: Has the patient had 2 falls in the last year or 1 fall with injury or currently using an Ambulatory Assistive Device (Walker, Cane, Wheelchair, Crutches, etc.)? Yes, Patient High Risk for Falls What interventions were put in place to prevent falls during this visit? Increased Observations by Caregivers PATIENT GENDER DATA: Female. status: : No status: NO. PATIENT RELEVANT IMPLANT DATA REVIEWED: Not Applicable PATIENT PRESENTS WITH AN IMPLANTABLE OR ATTACHED MIDDLEWARE ADMINISTRATOR: No RADIOLOGY DEPARTMENT: Mammography PERIPHERAL IV DATA: Not applicable SIGNED BY: Roberto Campos March 31, 2024 2:40 PM [facility] 03-20-2024 Instructions Marylin Barraza APRN.INFORMATICA - 03/20/2024 12:07 PM EDT Images from the original note were not included. 1) Please consider starting or continue nasal steroid (Flonase, Nasonex, or similar) as instructed below 2) Would recommend utilizing a saline nasal irrigation like NeilMed sinus rinse or similar, especially before using medicated nasal sprays, to help thin and flush out secretions (if mixing yourself please only use distilled or previously boiled and cooled water per tenoner operator's instructions). Would recommend bringing the solution up to body temperature also before instilling in nose. Tilt your head slightly away from the nostril you have the bottle in to reduce risk of solution going into your ear. Aim the stream toward the back of your head, not the top of your head. This lets you spit some of the salt water out of your mouth. It will not hurt if you swallow a little. You want to work up to the majority of solution that goes in coming out your mouth, not out the other nostril. Instructions to spray medicated nose sprays (please note the best time to use Flonase, Nasonex, Rhinocort or similar is at night before bed). 1. Blow your nose out before spraying 2. Shake it before spraying each time. 3. Keep head in neutral position or looking down slightly. 4. Put about a quarter of the tip of the bottle in the right nostril and aim at the outside corner of the right eye. 5. Lyme one spray only. Take a sniff as you are spraying but do not snort. 6. Repeat in the left nostril while pointing towards the outside corner of the left eye 8. Then if you are doing two sprays in each nostril wait 4-5 minutes before spraying the second spray. 9. If it drips out every time such when the nose is very congested. Have the patient sit on the bed. Look down, spray and then lay down on their back on a bed. This will allow the medicine to coat the nose on the way back. Sit up and repeat for the other side. EXPRESS CARE PATIENT INFO I Feel So Sick, Don t I Need Antibiotics? Did you know. . . There s only a 1 in 4000 chance that an antibiotic will help most acute upper respiratory infections. But there s a 1 in 4 chance of diarrhea and a 1 in 50 chance of a skin reaction and a 1 in 1000 chance it ll cause an ER visit due to some side effect. Antibiotics can also lead to more resistant infections that are harder to treat. Bottom line: There s little to no benefit to taking antibiotics for most acute upper respiratory tract infections...and the downsides are real. Viruses cannot be treated by antibiotics. Viruses cause most upper respiratory infections, which include head colds, sore throats, bronchitis, and sinus infections. The common cold and influenza do not respond to antibiotics. Less than 10 percent of acute bronchitis cases are caused by bacteria. Most cases of acute ear infections also resolve without antibiotics. Sore throats (pharyngitis) are usually caused by viruses as well. Antibiotics are not recommended unless you have strep throat and only about 15 to 30 percent of pharyngitis cases in children and up to 10 percent of cases in adults are due to strep throat. Almost all cases of acute bacterial sinusitis resolve without antibiotics. There are a few situations in which antibiotics are needed, however. See your health care provider if you have a decreased immune system due to cancer, or if you are taking steroids, have HIV, or have had an organ transplant, or if your symptoms worsen or last longer than 7 to 10 days. Most often you should use the qypb-xuc-ddgofvw symptomatic treatment/s that your health care provider has recommended. These would include analgesic products such as acetaminophen (Tylenol ), decongestants, antihistamines, salt water gargles, drinking warm tea, and other methods to help treat the symptoms. Also remember that your best defense against getting the flu is to get a flu shot, but this does not, unfortunately, protect you against the many other viruses out in the environment that cause the other kinds of illnesses other than the actual influenza. Adult Sinusitis Patient Education What is Sinusitis? Sinusitis [vmwi-ugm-dlej-tis] is inflammation of the sinuses or swelling of the lining of the sinus cavity or nose. During an infection the sinuses become blocked with fluid causing swelling of the lining of the sinuses. Symptoms: (viral and bacterial infections) Stuffy nose Runny nose Postnasal drip Fever Toothache Headache Tiredness Cough Sore throat Face and head pressure and or pain Common causes: 98% of sinus infections are viral caused by viruses. Risk Factors of Sinusitis Include: Allergies, air pollution, indoor humidity and outdoor temperature changes, andstructural changes in the nose may contribute to sinus pain, pressure and congestion. When to get help? Temperature greater than 100.4 F Symptoms lasting more than 10 days or worsening symptoms greater than 7-10 days. If you do not improve or worsen after a course of antibiotics, you should be re-examined. Diagnosis and Treatment: Your healthcare provider will ask a number of questions about your symptoms and how long they have occurred. If symptoms of sinusitis persist greater than 10 days, it is possible you have a bacterial sinus infection and an antibiotic is prescribed. If it is viral, antibiotics will not help. You may be instructed to take ddcz-oru-rqpanam medications for symptoms. including fever reducers acetaminophen or ibuprofen, nasal saline spray, cough and cold preparations and decongestants as prescribed by the physician, nurse practitioner or physician environmental engineering assistant. Self-Care and Prevention: Rest Fluids for hydration Good hand washing Humidifier Avoid smoking and exposure to second hand smoke Avoid sick contacts documented in this encounter [facility] 03-20-2024 Note HNO ID: [id number] Author: MARYLIN BARRAZA APRN.MARIO Service: ? Author Type: Nurse Practitioner Type: Progress Notes Filed: 03/20/2024 12:07 Note Text: Telemedicine Evaluation for COVID-19 Infection MyChart Zoom Video Visit was used for evaluation of this patient. I have communicated my name and active licensure. The patient's identity and physical location were verified at the time of this visit. Either the patient or their legal major account representative has been informed of the risks and benefits of -- and alternatives to -- treatment through a remote evaluation and consents to proceed with the evaluation remotely. GENNA Jerez is a 59 year old female who presents with 2 weeks of symptoms that are stable. Symptoms include: Fever (?100.4F): No or Chills: No Cough: No Shortness of breath: No or Difficulty breathing: No Fatigue: No Muscle aches: No Headache: Yes New loss of smell or taste: No Sore throat: No Nasal congestion: Yes or Rhinorrhea: Yes Nausea: No or Vomiting: No Diarrhea: No Reports hx of nasal polyp to left side. OTC meds/remedies that patient has tried: Flonase. High risk category assessment Age > 60 years old Exposures: Sick contacts? No Family or close contacts with confirmed/probable COVID-19 in last 14 days? No She reports that she has been smoking cigarettes. She has been smoking an average of 0.8 packs per day. She has been exposed to tobacco smoke. She has never used smokeless tobacco. OBJECTIVE VIDEO EXAM (if available) GENERAL: well appearing, alert, in no acute distress HEENT: no conjunctival injection, pupils equal and moist mucous membranes PULMONARY: breathing comfortably on room air , no coughing noted, and no wheezing noted ASSESSMENT/PLAN (J01.90) Acute rhinosinusitis (primary encounter diagnosis) (J06.9) Viral upper respiratory tract infection with cough While could be reasonable to consider ABRS, she has had a CT and MRI of brain during this time with MRI just four days ago that shows generally normal sinuses. As a result, low concern that ABRS is causing her symptoms since these were present at that time and have persisted. Also has hx of C Diff and indicates would be taking oral Vanco prophylaxis with other antibiotics. As a result, just do not believe oral antibiotics are either necessary or indicated for the situation. Recommended she try nasal saline again and adjust her Flonase administration and f/u with PCP as needed. Marylin Barraza, EMELI.INFORMATICA - Discussed symptom monitoring and supportive care - Red flag symptoms requiring follow up discussed [facility] 03-20-2024 History of Presen t illness Narrative Telemedicine Evaluation for COVID-19 Infection MyChart Zoom Video Visit was used for evaluation of this patient. I have communicated my name and active licensure. The patient's identity and physical location were verified at the time of this visit. Either the patient or their legal major account representative has been informed of the risks and benefits of -- and alternatives to -- treatment through a remote evaluation and consents to proceed with the evaluation remotely. SUBJECTIVE Carli Jerez is a 59 year old female who presents with 2 weeks of symptoms that are stable. Symptoms include: Fever (?100.4F): No or Chills: No Cough: No Shortness of breath: No or Difficulty breathing: No Fatigue: No Muscle aches: No Headache: Yes New loss of smell or taste: No Sore throat: No Nasal congestion: Yes or Rhinorrhea: Yes Nausea: No or Vomiting: No Diarrhea: No Reports hx of nasal polyp to left side. OTC meds/remedies that patient has tried: Flonase. High risk category assessment Age > 60 years old Exposures: Sick contacts? No Family or close contacts with confirmed/probable COVID-19 in last 14 days? No She reports that she has been smoking cigarettes. She has been smoking an average of 0.8 packs per day. She has been exposed to tobacco smoke. She has never used smokeless tobacco. OBJECTIVE VIDEO EXAM (if available) GENERAL: well appearing, alert, in no acute distress HEENT: no conjunctival injection, pupils equal and moist mucous membranes PULMONARY: breathing comfortably on room air , no coughing noted, and no wheezing noted ASSESSMENT/PLAN (J01.90) Acute rhinosinusitis (primary encounter diagnosis) (J06.9) Viral upper respiratory tract infection with cough While could be reasonable to consider ABRS, she has had a CT and MRI of brain during this time with MRI just four days ago that shows generally normal sinuses. As a result, low concern that ABRS is causing her symptoms since these were present at that time and have persisted. Also has hx of C Diff and indicates would be taking oral Vanco prophylaxis with other antibiotics. As a result, just do not believe oral antibiotics are either necessary or indicated for the situation. Recommended she try nasal saline again and adjust her Flonase administration and f/u with PCP as needed. Marylin Barraza APRN.MARIO - Discussed symptom monitoring and supportive care - Red flag symptoms requiring follow up discussed documented in this encounter [facility] 03-19-2024 Note HNO ID: [id number] Author: BRYAN DURAND MD Service: ? Author Type: Physician Type: Progress Notes Filed: 03/19/2024 09:27 Note Text: 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 Carli Jerez is a 59 year old female who presents for problem visit to evaluate longstanding vulvovaginal itching since 2016 refractory to all manner of topical treatments. Wakes up scratching and sleeps with towel between legs. Similar itching on abdomen, thighs (always unilateral?never bilateral)and even nose. Some improvement with benadryl cream. Very savvy re. vulvar irritants - uses only clear detergents and no dryer sheets. . HPI: as above OB History No obstetric history on file. 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 PAST SURGICAL HISTORY Procedure Laterality Date APPENDECTOMY 2003 BLADDER SURGERY HX 2003 bladder lift COLON SURGERY HX 2003 colon resection ESOPHAGUS stricture repair HERNIA REPAIR HX 2003 x2 KNEE SURGERY HX Right 2015 cleaned out REDUCTION OF LARGE BREAST 1992 REMOVAL GALLBLADDER 2010 TOTAL ABDOM HYSTERECTOMY FAMILY HISTORY Problem Relation Age of Onset Hypertension Mother Leukemia Father metastacized Social History Tobacco Use Smoking status: Every Day Packs/day: .75 Types: Cigarettes Passive exposure: Current Smokeless tobacco: Never Vaping Use Vaping Use: Never used Substance Use Topics Alcohol use: Never Drug use: Never Current Outpatient Medications Medication Sig clonazePAM (KLONOPIN) 1 mg tablet TAKE 1 TABLET BY MOUTH EVERY MORNING and 2 (TWO) TABLETS EVERY EVENING valsartan (DIOVAN) 160 mg tablet Take 1 tablet by mouth every afternoon. valsartan (DIOVAN) 80 mg tablet Take 80 mg by mouth once daily. No current facility-administered medications for this visit. Allergies As of Date: 03/19/2024 Allergen Noted Reaction CIPRO [CIPROFLOXACIN HCL] 01/23/2024 Other: See Comments DIFLUCAN [FLUCONAZOLE] 01/23/2024 GI Upset OPIOIDS - MORPHINE ANALOGUES 01/23/2024 GI Upset PENICILLINS 01/23/2024 Rash and GI Upset Fully Assessed 03/07/2024 REVIEW OF SYSTEMS Abdomen: No bloating, early satiety, indigestion, or increased flatulence. No abdominal pain, nausea, vomiting, diarrhea, or constipation. Bladder: No dysuria, gross hematuria, urinary frequency, urinary urgency, or incontinence. Breast: No breast lumps, nipple d/c, overlying skin changes, redness or skin retraction. Expanded ROS: N/A Allergies and current medication updated:Yes EXAM: BP 120/64 Wt 296 lb 12.8 oz (134.6kg) GENERAL: pleasant, female in no apparent distress PELVIC: external genitalia normal, normal Bartholin's glands, urethra, George Mason's glands, no vulvar lesions, good vaginal support, physiologic discharge present, normal appearing perineal body and perianal region, cervix surgically absent BIMANUAL: no adnexal masses, non-tender, and uterus surgically absent DERM: nbo lesions to account for itching ASSESSMENT AND PLAN: Vulvovaginal itching with convoluted history and no evidence of lesions of any kind Yeast culture pending - given sx beyond vulva/perineum will likely need derm referral. ftfc>30m Bryan Durand MD [facility] 03-19-2024 History of Presen t illness Narrative 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 Carli Jerez is a 59 year old female who presents for problem visit to evaluate longstanding vulvovaginal itching since 2016 refractory to all manner of topical treatments. Wakes up scratching and sleeps with towel between legs. Similar itching on abdomen, thighs (always unilateral?never bilateral)and even nose. Some improvement with benadryl cream. Very savvy re. vulvar irritants - uses only clear detergents and no dryer sheets. . HPI: as above OB History No obstetric history on file. 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 PAST SURGICAL HISTORY Procedure Laterality Date APPENDECTOMY 2003 BLADDER SURGERY HX 2003 bladder lift COLON SURGERY HX 2003 colon resection ESOPHAGUS stricture repair HERNIA REPAIR HX 2003 x2 KNEE SURGERY HX Right 2015 cleaned out REDUCTION OF LARGE BREAST 1992 REMOVAL GALLBLADDER 2010 TOTAL ABDOM HYSTERECTOMY FAMILY HISTORY Problem Relation Age of Onset Hypertension Mother Leukemia Father metastacized Social History Tobacco Use Smoking status: Every Day Packs/day: .75 Types: Cigarettes Passive exposure: Current Smokeless tobacco: Never Vaping Use Vaping Use: Never used Substance Use Topics Alcohol use: Never Drug use: Never Current Outpatient Medications Medication Sig clonazePAM (KLONOPIN) 1 mg tablet TAKE 1 TABLET BY MOUTH EVERY MORNING and 2 (TWO) TABLETS EVERY EVENING valsartan (DIOVAN) 160 mg tablet Take 1 tablet by mouth every afternoon. valsartan (DIOVAN) 80 mg tablet Take 80 mg by mouth once daily. No current facility-administered medications for this visit. Allergies As of Date: 03/19/2024 Allergen Noted Reaction CIPRO [CIPROFLOXACIN HCL] 01/23/2024 Other: See Comments DIFLUCAN [FLUCONAZOLE] 01/23/2024 GI Upset OPIOIDS - MORPHINE ANALOGUES 01/23/2024 GI Upset PENICILLINS 01/23/2024 Rash and GI Upset Fully Assessed 03/07/2024 REVIEW OF SYSTEMS Abdomen: No bloating, early satiety, indigestion, or increased flatulence. No abdominal pain, nausea, vomiting, diarrhea, or constipation. Bladder: No dysuria, gross hematuria, urinary frequency, urinary urgency, or incontinence. Breast: No breast lumps, nipple d/c, overlying skin changes, redness or skin retraction. Expanded ROS: N/A Allergies and current medication updated:Yes EXAM: BP 120/64 Wt 296 lb 12.8 oz (134.6kg) GENERAL: pleasant, female in no apparent distress PELVIC: external genitalia normal, normal Bartholin's glands, urethra, George Mason's glands, no vulvar lesions, good vaginal support, physiologic discharge present, normal appearing perineal body and perianal region, cervix surgically absent BIMANUAL: no adnexal masses, non-tender, and uterus surgically absent DERM: nbo lesions to account for itching ASSESSMENT AND PLAN: Vulvovaginal itching with convoluted history and no evidence of lesions of any kind Yeast culture pending - given sx beyond vulva/perineum will likely need derm referral. ftfc>30m Bryan Durand MD documented in this encounter [facility] 03-16-2024 History of Presen t illness Narrative Radiology Service Progress Note PATIENT NAME: Carli Jerez DATE OF SERVICE: March 16, 2024 TIME: 9:59 AM PATIENT IDENTITY VERIFICATION COMPLETED USING TWO (2) IDENTIFIERS: Name and Date of confirmed by patient verbally and Name and Date of confirmed by identification band. FALL SCREENING: Has the patient had 2 falls in the last year or 1 fall with injury or currently using an Ambulatory Assistive Device (Walker, Cane, Wheelchair, Crutches, etc.)? No PATIENT GENDER DATA: Female. status: : No status: NO. PATIENT RELEVANT IMPLANT DATA REVIEWED: Yes PATIENT PRESENTS WITH AN IMPLANTABLE OR ATTACHED MIDDLEWARE ADMINISTRATOR: No RADIOLOGY DEPARTMENT: MR; Exam(s) Completed: Head: Routine Brain PERIPHERAL IV DATA: Site assessment: Clean,Dry and Intact, Site disposition Discontinued SIGNED BY: TRI Cazares) March 16, 2024 9:59 AM documented in this encounter [facility] 03-16-2024 Note HNO ID: [id number] Author: BONY HAHN RT(R) Service: Radiology Author Type: Technologist Type: Progress Notes Filed: 03/16/2024 09:59 Note Text: Radiology Service Progress Note PATIENT NAME: Carli Jerez DATE OF SERVICE: March 16, 2024 TIME: 9:59 AM PATIENT IDENTITY VERIFICATION COMPLETED USING TWO (2) IDENTIFIERS: Name and Date of confirmed by patient verbally and Name and Date of confirmed by identification band. FALL SCREENING: Has the patient had 2 falls in the last year or 1 fall with injury or currently using an Ambulatory Assistive Device (Walker, Cane, Wheelchair, Crutches, etc.)? No PATIENT GENDER DATA: Female. status: : No status: NO. PATIENT RELEVANT IMPLANT DATA REVIEWED: Yes PATIENT PRESENTS WITH AN IMPLANTABLE OR ATTACHED MIDDLEWARE ADMINISTRATOR: No RADIOLOGY DEPARTMENT: MR; Exam(s) Completed: Head: Routine Brain PERIPHERAL IV DATA: Site assessment: Clean,Dry and Intact, Site disposition Discontinued SIGNED BY: TRI Cazares) March 16, 2024 9:59 AM [facility] 03-16-2024 Nurse Note Radiology Service Progress Note DATE OF SERVICE: March 16, 2024 TIME: 9:44 AM PATIENT WEIGHT: 294LBS PATIENT IDENTITY VERIFICATION COMPLETED USING TWO (2) STANDARD IDENTIFIERS: Name and Date of confirmed by patient verbally and Name and Date of confirmed by identification band. FALL SCREENING: Has the patient had 2 falls in the last year or 1 fall with injury or currently using an Ambulatory Assistive Device (Walker, Cane, Wheelchair, Crutches, etc.)? Yes, Patient High Risk for Falls What interventions were put in place to prevent falls during this visit? [place] Risk Wristband Applied, Instructed Patient to Call for Help if Needed, Offered Assistance with Transfers/Clothing, Instructed Patient to Remain Seated (Not on Exam Table) Until Exam, and Increased Observations by Caregivers PATIENT GENDER DATA: Female. status: : No status: NO. ALLERGIES: Reviewed and unchanged CONTRAST ALLERGY: No EXAM: MRI - CONTRAST TYPE: GROUP II IV SITE: Ambulatory: A peripheral IV was started in the Right antecubital site with a Angio cath: 22 gauge. IV SITE APPEARANCE: Clean,Dry and Intact SIGNATURE: Katia Mancilla RN PATIENT NAME: Carli Jerez DATE: March 16, 2024 TIME: 9:44 AM [facility] 03-16-2024 Nurse Note Radiology Service Progress Note DATE OF SERVICE: March 16, 2024 TIME: 9:44 AM PATIENT WEIGHT: 294LBS PATIENT IDENTITY VERIFICATION COMPLETED USING TWO (2) STANDARD IDENTIFIERS: Name and Date of confirmed by patient verbally and Name and Date of confirmed by identification band. FALL SCREENING: Has the patient had 2 falls in the last year or 1 fall with injury or currently using an Ambulatory Assistive Device (Walker, Cane, Wheelchair, Crutches, etc.)? Yes, Patient High Risk for Falls What interventions were put in place to prevent falls during this visit? [place] Risk Wristband Applied, Instructed Patient to Call for Help if Needed, Offered Assistance with Transfers/Clothing, Instructed Patient to Remain Seated (Not on Exam Table) Until Exam, and Increased Observations by Caregivers PATIENT GENDER DATA: Female. status: : No status: NO. ALLERGIES: Reviewed and unchanged CONTRAST ALLERGY: No EXAM: MRI - CONTRAST TYPE: GROUP II IV SITE: Ambulatory: A peripheral IV was started in the Right antecubital site with a Angio cath: 22 gauge. IV SITE APPEARANCE: Clean,Dry and Intact SIGNATURE: Katia Mancilla RN PATIENT NAME: Carli Jerez DATE: March 16, 2024 TIME: 9:44 AM documented in this encounter [facility] 03-14-2024 Telephone encounter Note Patient informed. Jayy Jones MA [facility] 03-14-2024 Miscellaneous Notes Patient informed. Jayy Jones MA Steroids and smoking do increase wbcs. We can wait until she is off steroids to recheck the WBCs Jayne Khanna DO Pt. States she received message. She wants to let you know every time she uses a steroid her wbc is elevated. Also she states she smokes. John Barbour MA Lm on pt. Vm with all information. John Barbour MA Please call pt - her blood work shows a high white blood cell count and elevated hemoglobin. It also shows some other abnormalities that are not significant. I would like to order more blood work Jayne Khanna DO documented in this encounter [facility] 03-14-2024 Telephone encounter Note Steroids and smoking do increase wbcs. We can wait until she is off steroids to recheck the WBCs Jayne Khanna DO [facility] 03-14-2024 Telephone encounter Note Pt. States she received message. She wants to let you know every time she uses a steroid her wbc is elevated. Also she states she smokes. John Barbour MA [facility] 03-14-2024 Telephone encounter Note Lm on pt. Vm with all information. John Barbour MA [facility] 03-13-2024 Telephone encounter Note Please call pt - her blood work shows a high white blood cell count and elevated hemoglobin. It also shows some other abnormalities that are not significant. I would like to order more blood work Jayne Khanna DO [facility] 03-11-2024 Telephone encounter Note Please call pt and give her information on how to schedule the MRI Jayne Khanna DO [facility] 03-11-2024 Miscellaneous Notes Please call pt and give her information on how to schedule the MRI Jayne Khanna DO documented in this encounter [facility] 03-11-2024 Telephone encounter Note Pt is in the ED. She has a headache and fever. She had a CT of the brain showing 1.1 cm questionable soft tissue density in the body of the left ventricle. Needs MRI, he gave name of Neuro. Terry Burgess. Jayne Khanna DO [facility] 03-11-2024 Miscellaneous Notes Pt is in the ED. She has a headache and fever. She had a CT of the brain showing 1.1 cm questionable soft tissue density in the body of the left ventricle. Needs MRI, he gave name of Neuro. Terry Burgess. Jayne Khanna DO documented in this encounter [facility] 03-07-2024 Note HNO ID: [id number] Author: JAYNE KHANNA DO Service: ? Author Type: Physician Type: Progress Notes Filed: 03/12/2024 11:22 Note Text: SUBJECTIVE: 59 year old female here to establish. I have fully reviewed the past medical, surgical, social and family history and updated the Histories section of [facility]. She has a history of a thyroid nodule, HTN, anxiety, polyp in left nare, chronic yeast infection, essential tremor, fibromyalgia She has had mid-sternal chest pain It lasts about 5 minutes She has had pain in her left fifth finger with the chest pain She gets the chest pain at rest She does not get short of breath with the chest pain, but does get short of breath with exertion Pain is a deep ache, occasionally radiates to left shoulder She has a sore throat and fever today She reports that the sore throat is chronic, and she believes it is due the calcification in her thyroid She has sinus pressure, no cough, no sinus drainage, no ear pain She has been having headaches around her eyes and in her temples b/l She has had some burning with urination She smokes about 1 PPD, but is quitting She is cutting back by 2 cigarettes per day No LMP recorded. ALLERGIES Allergen Reactions Cipro [Ciprofloxaci* Other: See Comments Messes with heart Diflucan [Fluconazo* GI Upset Opioids - Morphine * GI Upset Penicillins Rash, GI Upset Current Outpatient Medications Medication Sig Dispense Refill valsartan (DIOVAN) 160 mg tablet Take 1 tablet by mouth every afternoon. clonazePAM (KLONOPIN) 1 mg tablet TAKE 1 TABLET BY MOUTH EVERY MORNING and 2 (TWO) TABLETS EVERY EVENING valsartan (DIOVAN) 80 mg tablet Take 80 mg by mouth once daily. No current facility-administered medications for this visit. There is no problem list on file for this patient. Social History Tobacco Use Smoking status: Every Day Packs/day: .75 Types: Cigarettes Passive exposure: Current Smokeless tobacco: Never Vaping Use Vaping Use: Never used Substance Use Topics Alcohol use: Never Drug use: Never Family History Problem Relation Age of Onset Hypertension Mother Leukemia Father metastacized Reviewed past medical history, family history and surgeries. All medications and supplements were reviewed with the patient. REVIEW OF SYSTEMS GENERAL: positive for fever today, no weight loss HEENT: Positive for headache, sinus congestion, throat tightness, no changes in hearing or vision, no nose bleeds NECK: Negative for lumps, goiter, pain and significant neck swelling RESPIRATORY: Positive for shortness of breath, negative for cough, hemoptysis, wheezing CARDIOVASCULAR:Positive for chest pain, shortness of breath GI: No nausea, vomiting, or diarrhea :positive for urinary frequency and urgency MUSCULOSKELETAL: Positive for muscle and joint pain SKIN: Negative for lesions, rash, and itching PSYCH: Positive for depression with anxiety HEMATOLOGY/LYMPHOLOGY: Negative for prolonged bleeding, bruising easily or swollen nodes ENDOCRINE: Negative for cold or heat intolerance, polyuria, polydipsia and goiter NEURO: No history of syncope, paralysis, seizures or tremors PHYSICAL EXAMINATION: BP 118/72 Pulse 86 Temp 37.8 ?C (100.1 ?F) Resp 16 Ht 171.5 cm (5' 7.5 ) Wt 133.4 kg (294 lb) SpO2 95% BMI 45.37 kg/m? General appearance: Well appearing, alert, in no acute distress, well-hydrated, obese Skin: Skin color, texture, turgor normal, no suspicious rashes or lesions Head: Normocephalic, no masses, lesions, tenderness or abnormalities Eyes: Anicteric sclera. Pupils are equally round and reactive to light. Extraocular movements are intact. Ears: External ears normal, canals clear Nose/Sinuses: Nares normal, septum midline, mucosa normal, no drainage or sinus tenderness Oropharynx: Lips, mucosa, and tongue normal, teeth and gums normal, oropharynx normal Neck: Supple, no adenopathy; thyroid symmetric, normal size, no bruits Back: Normal exam Lungs: Lungs clear to auscultation. No wheezing, rhonchi, rales. Heart: RRR without murmur, gallop, or rubs. No ectopy Abdomen: Normal abdominal exam, Abdomen soft, non-tender. Bowel sounds normal. No masses, organomegaly Extremities: No deformities, edema, skin discoloration, clubbing or cyanosis. Good capillary refill. Musculoskeletal: No joint swelling, deformity, or tenderness Peripheral pulses: Normal Neuro: Walks with rollator. ASSESSMENT/PLAN: 1. Hypertension, essential - ICD9: 401.9, ICD10: I10 (primary diagnosis) - Controlled - Recommend home blood pressure monitoring, to bring results to next visit - Encouraged sodium restriction, DASH or Mediterranean diet - Recommend regular aerobic exercise - COMPREHENSIVE METABOLIC PANEL - COMPLETE BLOOD COUNT 2. Thyroid nodule - ICD9: 241.0, ICD10: E04.1 - CONSULT TO ENT 3. Sore throat - ICD9: 462, ICD10: J02.9 - STREP A MOLECULAR (POC) negative (more content not included)... [facility] 03-07-2024 History of Presen t illness Narrative SUBJECTIVE: 59 year old female here to establish. I have fully reviewed the past medical, surgical, social and family history and updated the Histories section of [facility]. She has a history of a thyroid nodule, HTN, anxiety, polyp in left nare, chronic yeast infection, essential tremor, fibromyalgia She has had mid-sternal chest pain It lasts about 5 minutes She has had pain in her left fifth finger with the chest pain She gets the chest pain at rest She does not get short of breath with the chest pain, but does get short of breath with exertion Pain is a deep ache, occasionally radiates to left shoulder She has a sore throat and fever today She reports that the sore throat is chronic, and she believes it is due the calcification in her thyroid She has sinus pressure, no cough, no sinus drainage, no ear pain She has been having headaches around her eyes and in her temples b/l She has had some burning with urination She smokes about 1 PPD, but is quitting She is cutting back by 2 cigarettes per day No LMP recorded. ALLERGIES Allergen Reactions Cipro [Ciprofloxaci* Other: See Comments Messes with heart Diflucan [Fluconazo* GI Upset Opioids - Morphine * GI Upset Penicillins Rash, GI Upset Current Outpatient Medications Medication Sig Dispense Refill valsartan (DIOVAN) 160 mg tablet Take 1 tablet by mouth every afternoon. clonazePAM (KLONOPIN) 1 mg tablet TAKE 1 TABLET BY MOUTH EVERY MORNING and 2 (TWO) TABLETS EVERY EVENING valsartan (DIOVAN) 80 mg tablet Take 80 mg by mouth once daily. No current facility-administered medications for this visit. There is no problem list on file for this patient. Social History Tobacco Use Smoking status: Every Day Packs/day: .75 Types: Cigarettes Passive exposure: Current Smokeless tobacco: Never Vaping Use Vaping Use: Never used Substance Use Topics Alcohol use: Never Drug use: Never Family History Problem Relation Age of Onset Hypertension Mother Leukemia Father metastacized Reviewed past medical history, family history and surgeries. All medications and supplements were reviewed with the patient. REVIEW OF SYSTEMS GENERAL: positive for fever today, no weight loss HEENT: Positive for headache, sinus congestion, throat tightness, no changes in hearing or vision, no nose bleeds NECK: Negative for lumps, goiter, pain and significant neck swelling RESPIRATORY: Positive for shortness of breath, negative for cough, hemoptysis, wheezing CARDIOVASCULAR:Positive for chest pain, shortness of breath GI: No nausea, vomiting, or diarrhea :positive for urinary frequency and urgency MUSCULOSKELETAL: Positive for muscle and joint pain SKIN: Negative for lesions, rash, and itching PSYCH: Positive for depression with anxiety HEMATOLOGY/LYMPHOLOGY: Negative for prolonged bleeding, bruising easily or swollen nodes ENDOCRINE: Negative for cold or heat intolerance, polyuria, polydipsia and goiter NEURO: No history of syncope, paralysis, seizures or tremors PHYSICAL EXAMINATION: BP 118/72 Pulse 86 Temp 37.8 C (100.1 F) Resp 16 Ht 171.5 cm (5' 7.5 ) Wt 133.4 kg (294 lb) SpO2 95% BMI 45.37 kg/m General appearance: Well appearing, alert, in no acute distress, well-hydrated, obese Skin: Skin color, texture, turgor normal, no suspicious rashes or lesions Head: Normocephalic, no masses, lesions, tenderness or abnormalities Eyes: Anicteric sclera. Pupils are equally round and reactive to light. Extraocular movements are intact. Ears: External ears normal, canals clear Nose/Sinuses: Nares normal, septum midline, mucosa normal, no drainage or sinus tenderness Oropharynx: Lips, mucosa, and tongue normal, teeth and gums normal, oropharynx normal Neck: Supple, no adenopathy; thyroid symmetric, normal size, no bruits Back: Normal exam Lungs: Lungs clear to auscultation. No wheezing, rhonchi, rales. Heart: RRR without murmur, gallop, or rubs. No ectopy Abdomen: Normal abdominal exam, Abdomen soft, non-tender. Bowel sounds normal. No masses, organomegaly Extremities: No deformities, edema, skin discoloration, clubbing or cyanosis. Good capillary refill. Musculoskeletal: No joint swelling, deformity, or tenderness Peripheral pulses: Normal Neuro: Walks with rollator. ASSESSMENT/PLAN: 1. Hypertension, essential - ICD9: 401.9, ICD10: I10 (primary diagnosis) - Controlled - Recommend home blood pressure monitoring, to bring results to next visit - Encouraged sodium restriction, DASH or Mediterranean diet - Recommend regular aerobic exercise - COMPREHENSIVE METABOLIC PANEL - COMPLETE BLOOD COUNT 2. Thyroid nodule - ICD9: 241.0, ICD10: E04.1 - CONSULT TO ENT 3. Sore throat - ICD9: 462, ICD10: J02.9 - STREP A MOLECULAR (POC) negative - COVID & INFLUENZA A/B & RSV NAAT, ROUTINE 4. Fever in other diseases - ICD9: 780.61, ICD10: R50.81 - UA DIP, URINE (POC) negative for UTI 5. Depression with anxiety - ICD9: 300.4, ICD10: F41.8 - CONSULT TO PSYCHIATRY - CLONAZEPAM 1 MG TABLET 6. Chronic bronchitis, unspecified chronic bronchitis type (HCC) - ICD9: 491.9, ICD10: J42 Consider referral to pulmonology 7. Undifferentiated inflammatory arthritis (HCC) - ICD9: 714.9, ICD10: M06.4 Consider referral to rheumatology 8. Headache, unspecified headache type - ICD9: 784.0, ICD10: R51.9 Possibly due to siinusitis, refer to ENT 9. Nose polyp - ICD9: 471.9, ICD10: J33.9 - CONSULT TO ENT 10. Other chest pain - ICD9: 786.59, ICD10: R07.89 - ECG B/O W INTERP (MED OFFICE) - EKG abnormal - refer to cardiology 11. Smoker - ICD9: 305.1, ICD10: F17.200 - Cessation encouraged. - Physiologic and physical aspects of tobacco addiction as well as strategies for quitting were discussed. - Counseling was given focusing on the harmful effects of this addiction especially given the patient's medical condition(s) which will be worsened because of the chemicals in tobacco. 12. Allergy to opioid analgesic - ICD9: V14.5, ICD10: Z88.5 13. Screening for lipid disorders - ICD9: V77.91, ICD10: Z13.220 - LIPID PANEL BASIC 14. Encounter for screening mammogram for breast cancer - ICD9: V76.12, ICD10: Z12.31 - MARU SCREENING W MAR[place] 15. Abnormal EKG - ICD9: 794.31, ICD10: R94.31 - CONSULT TO CARDIOLOGY 16. Chronic vaginitis - ICD9: 616.10, ICD10: N76.1 - CONSULT TO COUNTY HEALTH OFFICER 17. Leukocytosis, unspecified type - ICD9: 288.60, ICD10: D72.829 - DIFFERENTIAL BLD 18. Class 3 severe obesity with body mass index (BMI) of 45.0 to 49.9 in adult, unspecified obesity type, unspecified whether serious comorbidity present (HCC) - ICD9: 278.01, V85.42, ICD10: E66.01, Z68.42 Lifestyle modification recommended Jayne Khanna DO documented in this encounter [facility] 01-23-2024 Note HNO ID: [id number] Author: KATINA BROOKS PA-C Service: ? Author Type: Physician Oracle Programmer Type: Progress Notes Filed: 01/23/2024 18:36 Note Text: This note was created using [employer]. Subjective Carli Jerez is a 58 year old female. HPI Presents with a chief complaint of a fall. She states she had tripped over her cat's food bowl onto some towels on the left side of her body. She caught herself with her arm. No head injury or neck pain. She states she also twisted her right knee on the way down. She is mainly complaining of pain to the left wrist. She states she has chronic problems with the right knee and knows she needs a replacement due to arthritis. She has been able to walk on the leg. No other injuries. She also has been having some swelling of the right leg over the past 3 weeks. She states they had driven 11 hours from [place] at the beginning of January. She denies chest pain or shortness of breath. States the top of her foot and calf area have felt swollen. Denies history of DVT before, she states she has had a superficial phlebitis in the left leg before. Review of Systems Constitutional: Negative. HENT: Negative. Respiratory: Negative. Cardiovascular: Positive for leg swelling. Gastrointestinal: Negative. Musculoskeletal: Left wrist and elbow pain, right knee pain, right leg swelling All other systems reviewed and are negative. No past medical history on file. Current Outpatient Medications Medication Sig Dispense Refill valsartan (DIOVAN) 160 mg tablet Take 1 tablet by mouth every afternoon. clonazePAM (KLONOPIN) 1 mg tablet TAKE 1 TABLET BY MOUTH EVERY MORNING and 2 (TWO) TABLETS EVERY EVENING valsartan (DIOVAN) 80 mg tablet Take 80 mg by mouth once daily. No current facility-administered medications for this visit. No past surgical history on file. No family history on file. Social History Tobacco Use Smoking status: Every Day Types: Cigarettes Passive exposure: Current Smokeless tobacco: Never Objective BP 110/68 Pulse 105 Temp 37.2 ?C (98.9 ?F) Resp 21 Wt 133.8 kg (294 lb 15.6 oz) SpO2 96% Physical Exam Vitals reviewed. Constitutional: Appearance: Normal appearance. HENT: Head: Normocephalic and atraumatic. Musculoskeletal: Comments: Patient does have limited flexion extension of the right knee, she does have chronic arthritic changes to the knee. She has some bowing of the knee. She is tender on the medial calf. Difficult to distinguish due to body habitus. No erythema. Patient has some tenderness to palpation to the dorsal left wrist. Some mild swelling. She is able to flex and extend, pain with pronation and supination of the forearm. Able to fully flex and extend at the elbow but states she does have pain. No tenderness to the medial or lateral epicondyle or olecranon of the elbow. Radial pulse 2+. Normal hand grasp strength. Skin: General: Skin is warm and dry. Neurological: Mental Status: She is alert. Assessment and Plan ASSESSMENT/PLAN: 1. Fall, initial encounter - ICD9: E888.9, ICD10: W19.XXXA (primary diagnosis) X-rays of the left wrist and left elbow are negative. X-ray of the right knee showed a lucency in the lateral tibial plateau, fracture considered per the radiologist but was not sure if this is acute or old. Patient does have a lot of pain with weightbearing on the knee. I did also obtain an ultrasound of the leg to rule out DVT from her right leg swelling the past 3 weeks, this was negative for DVT. I did attempt to page Dr. Elam with orthopedics, did not hear back. I then spoke with the ER virtual list Dr. Champagne who recommended she have a CT of the need to make sure if she has a fracture or not. He did recommend she be seen in the emergency department for this. The patient had already driven to [place] once today and was not willing to go back as she was back in [place] at this point. I did call and speak with Dr. English from [facility] and gave report. Patient was called and [facility] to [facility] [facility] today. - XR KNEE GENERAL 4V AP BOTH/PA BOTH/LAT/MERC RIGHT - XR ELBOW SPECIAL VIEWS AP/LAT/OTHER LEFT - XR WRIST INJURY 4V PA/LAT/OBL/SCAPH LEFT 2. Leg swelling - ICD9: 729.81, ICD10: M79.89 - US DVT LOWER RIGHT 3. Abnormal x-ray of knee - ICD9: 793.7, ICD10: R93.6 4. Wrist pain, acute, left - ICD9: 719.43, ICD10: M25.532 Katina Brooks PA-C [facility] 01-23-2024 History of Presen t illness Narrative This note was created using Memfo[employer]riter. Subjective Carli Jerez is a 58 year old female. HPI Presents with a chief complaint of a fall. She states she had tripped over her cat's food bowl onto some towels on the left side of her body. She caught herself with her arm. No head injury or neck pain. She states she also twisted her right knee on the way down. She is mainly complaining of pain to the left wrist. She states she has chronic problems with the right knee and knows she needs a replacement due to arthritis. She has been able to walk on the leg. No other injuries. She also has been having some swelling of the right leg over the past 3 weeks. She states they had driven 11 hours from [place] at the beginning of January. She denies chest pain or shortness of breath. States the top of her foot and calf area have felt swollen. Denies history of DVT before, she states she has had a superficial phlebitis in the left leg before. Review of Systems Constitutional: Negative. HENT: Negative. Respiratory: Negative. Cardiovascular: Positive for leg swelling. Gastrointestinal: Negative. Musculoskeletal: Left wrist and elbow pain, right knee pain, right leg swelling All other systems reviewed and are negative. No past medical history on file. Current Outpatient Medications Medication Sig Dispense Refill valsartan (DIOVAN) 160 mg tablet Take 1 tablet by mouth every afternoon. clonazePAM (KLONOPIN) 1 mg tablet TAKE 1 TABLET BY MOUTH EVERY MORNING and 2 (TWO) TABLETS EVERY EVENING valsartan (DIOVAN) 80 mg tablet Take 80 mg by mouth once daily. No current facility-administered medications for this visit. No past surgical history on file. No family history on file. Social History Tobacco Use Smoking status: Every Day Types: Cigarettes Passive exposure: Current Smokeless tobacco: Never Objective BP 110/68 Pulse 105 Temp 37.2 C (98.9 F) Resp 21 Wt 133.8 kg (294 lb 15.6 oz) SpO2 96% Physical Exam Vitals reviewed. Constitutional: Appearance: Normal appearance. HENT: Head: Normocephalic and atraumatic. Musculoskeletal: Comments: Patient does have limited flexion extension of the right knee, she does have chronic arthritic changes to the knee. She has some bowing of the knee. She is tender on the medial calf. Difficult to distinguish due to body habitus. No erythema. Patient has some tenderness to palpation to the dorsal left wrist. Some mild swelling. She is able to flex and extend, pain with pronation and supination of the forearm. Able to fully flex and extend at the elbow but states she does have pain. No tenderness to the medial or lateral epicondyle or olecranon of the elbow. Radial pulse 2+. Normal hand grasp strength. Skin: General: Skin is warm and dry. Neurological: Mental Status: She is alert. Assessment and Plan ASSESSMENT/PLAN: 1. Fall, initial encounter - ICD9: E888.9, ICD10: W19.XXXA (primary diagnosis) X-rays of the left wrist and left elbow are negative. X-ray of the right knee showed a lucency in the lateral tibial plateau, fracture considered per the radiologist but was not sure if this is acute or old. Patient does have a lot of pain with weightbearing on the knee. I did also obtain an ultrasound of the leg to rule out DVT from her right leg swelling the past 3 weeks, this was negative for DVT. I did attempt to page Dr. Elam with orthopedics, did not hear back. I then spoke with the ER virtual list Dr. Champagne who recommended she have a CT of the need to make sure if she has a fracture or not. He did recommend she be seen in the emergency department for this. The patient had already driven to [place] once today and was not willing to go back as she was back in [place] at this point. I did call and speak with Dr. English from [place] ER and gave report. Patient was called and will go to [place] ER today. - XR KNEE GENERAL 4V AP BOTH/PA BOTH/LAT/MERC RIGHT - XR ELBOW SPECIAL VIEWS AP/LAT/OTHER LEFT - XR WRIST INJURY 4V PA/LAT/OBL/SCAPH LEFT 2. Leg swelling - ICD9: 729.81, ICD10: M79.89 - US DVT LOWER RIGHT 3. Abnormal x-ray of knee - ICD9: 793.7, ICD10: R93.6 4. Wrist pain, acute, left - ICD9: 719.43, ICD10: M25.532 Katina Brooks PA-C documented in this encounter [facility] 01-23-2024 History of Presen t illness Narrative Radiology Service Progress Note PATIENT NAME: Carli Jerez DATE OF SERVICE: January 23, 2024 TIME: 3:03 PM PATIENT IDENTITY VERIFICATION COMPLETED USING TWO (2) IDENTIFIERS: Name and Date of confirmed by patient verbally. FALL SCREENING: Has the patient had 2 falls in the last year or 1 fall with injury or currently using an Ambulatory Assistive Device (Walker, Cane, Wheelchair, Crutches, etc.)? Yes, Patient High Risk for Falls What interventions were put in place to prevent falls during this visit? Offered Assistance with Transfers/Clothing, Instructed Patient to Remain Seated (Not on Exam Table) Until Exam, and Increased Observations by Caregivers PATIENT GENDER DATA: Female. status: : No status: NO. PATIENT RELEVANT IMPLANT DATA REVIEWED: Yes PATIENT PRESENTS WITH AN IMPLANTABLE OR ATTACHED MIDDLEWARE ADMINISTRATOR: No RADIOLOGY DEPARTMENT: General X-ray: Exam(s) Completed: Lower Extremity X-Ray(s): Knee, AP / Lat / Tunne / Merchant Right Upper Extremity X-Ray(s): Elbow, left and Wrist, left PERIPHERAL IV DATA: Not applicable SIGNED BY: RT Sanju(Marta) January 23, 2024 3:03 PM documented in this encounter [facility] 01-23-2024 Note HNO ID: [id number] Author: HALI SAHNI RT(R) Service: ? Author Type: Shoe Fitter Type: Progress Notes Filed: 01/23/2024 15:36 Note Text: Radiology Service Progress Note PATIENT NAME: Carli Jerez DATE OF SERVICE: January 23, 2024 TIME: 3:03 PM PATIENT IDENTITY VERIFICATION COMPLETED USING TWO (2) IDENTIFIERS: Name and Date of confirmed by patient verbally. FALL SCREENING: Has the patient had 2 falls in the last year or 1 fall with injury or currently using an Ambulatory Assistive Device (Walker, Cane, Wheelchair, Crutches, etc.)? Yes, Patient High Risk for Falls What interventions were put in place to prevent falls during this visit? Offered Assistance with Transfers/Clothing, Instructed Patient to Remain Seated (Not on Exam Table) Until Exam, and Increased Observations by Caregivers PATIENT GENDER DATA: Female. status: : No status: NO. PATIENT RELEVANT IMPLANT DATA REVIEWED: Yes PATIENT PRESENTS WITH AN IMPLANTABLE OR ATTACHED MIDDLEWARE ADMINISTRATOR: No RADIOLOGY DEPARTMENT: General X-ray: Exam(s) Completed: Lower Extremity X-Ray(s): Knee, AP / Lat / Tunne / Merchant Right Upper Extremity X-Ray(s): Elbow, left and Wrist, left PERIPHERAL IV DATA: Not applicable SIGNED BY: RT Sanju(R) January 23, 2024 3:03 PM [facility] Evaluation note Diagnosis Fall, initial encounter- Primary Leg swelling Swelling of limb Abnormal x-ray of knee Wrist pain, acute, left Leg swelling Swelling of limb Fall, initial encounter [facility]* Diagnosis Leg swelling Swelling of limb [facility]* Diagnosis Brain mass- Primary Unspecified condition of brain [facility]* Diagnosis Hypertension, essential- Primary Unspecified essential hypertension Thyroid nodule Nontoxic uninodular goiter Sore throat Acute pharyngitis Fever in other diseases Depression with anxiety Dysthymic disorder Chronic bronchitis, unspecified chronic bronchitis type (HCC) 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 Headache, unspecified headache type Nose polyp Unspecified nasal polyp Other chest pain Smoker Tobacco use disorder Allergy to opioid analgesic Screening for lipid disorders Encounter for screening mammogram for breast cancer Abnormal EKG Nonspecific abnormal electrocardiogram (ECG) (EKG) Chronic vaginitis Vaginitis and vulvovaginitis, unspecified Leukocytosis, unspecified type Class 3 severe obesity with body mass index (BMI) of 45.0 to 49.9 in adult, unspecified obesity type, unspecified whether serious comorbidity present (HCC) documented [facility]* Diagnosis Leukocytosis, unspecified type- Primary documented in this encounter [facility] note* Diagnosis Brain mass Unspecified condition of brain documented [facility]* Diagnosis Vaginal itching- Primary Pruritus of genital organs documented [facility]* Diagnosis Acute rhinosinusitis- Primary Acute sinusitis, unspecified Viral upper respiratory tract infection with cough Acute upper respiratory infections of unspecified site [facility]* Diagnosis Encounter for screening mammogram for breast cancer [facility]* Diagnosis Depression with anxiety Dysthymic disorder [facility]* Diagnosis Depression with anxiety Dysthymic disorder [facility]* Diagnosis Urgency of urination- Primary Dysuria Lower abdominal pain Abdominal pain, other specified site Urinary frequency [facility]* Diagnosis Fall, initial encounter [facility]* Diagnosis Generalized abdominal pain- Primary Abdominal pain, generalized [facility]* Diagnosis Lower abdominal pain- Primary Abdominal pain, other specified site Hypertension, essential Unspecified essential hypertension Diverticulosis Diverticulosis of colon (without mention of hemorrhage) [facility]* Diagnosis Hypertension, essential- Primary Unspecified essential hypertension documented in this encounter [facility] note* Diagnosis Diarrhea, unspecified type- Primary Hypertension, essential Unspecified essential hypertension Hypokalemia Hypopotassemia Smoker Tobacco use disorder [facility]* Diagnosis Vulvar pain- Primary Unspecified symptom associated with female genital organs [facility]* Diagnosis Diarrhea, unspecified type- Primary C. difficile colitis Intestinal infection due to clostridium difficile Interstitial cystitis Chronic interstitial cystitis Adrenal nodule (HCC) Unspecified disorder of adrenal glands documented in this encounter [facility] for referral (narrative)* Diagnostic Procedure Only (Urgent) - Closed Specialty Diagnoses / Procedures Referred By Contac t Referred To Contact XR IMAGING Diagnoses Fall, initial encounter Procedures XR WRIST INJURY 4V PA/LAT/OBL/SCAPH LEFT RADEX WRIST COMPLETE MINIMUM 3 VIEWS Katina Brooks PA-C [address] [place] [address] [place] [address] Referral ID Status Reason Start Date Expiration Date V isits Requested Visits Authorized [id number] Closed Auto-Generate d Referral 01/23/2024 02/21/2025 1 1 * Diagnostic Procedure Only (Urgent) - Closed Specialty Diagnoses / Procedures Referred By Contac t Referred To Contact US IMAGING Diagnoses Leg swelling Procedures US DVT LOWER RIGHT DUP-SCAN XTR VEINS UNILATERAL/LIMITED STUDY Katina Brooks PA-C [address] [place] [address] [place] [address] Referral ID Status Reason Start Date Expiration Date V isits Requested Visits Authorized [id number] Closed Auto-Generate d Referral 01/23/2024 09/02/2024 1 1 * Diagnostic Procedure Only (Urgent) - Closed Specialty Diagnoses / Procedures Referred By Contac t Referred To Contact XR IMAGING Diagnoses Fall, initial encounter Procedures XR ELBOW SPECIAL VIEWS AP/LAT/OTHER LEFT RADEX ELBOW COMPLETE MINIMUM 3 VIEWS Katina Brooks PA-C [address] [place] [address] [place] [address] Referral ID Status Reason Start Date Expiration Date V isits Requested Visits Authorized [id number] Closed Auto-Generate d Referral 01/23/2024 02/21/2025 1 1 * Diagnostic Procedure Only (Urgent) - Closed Specialty Diagnoses / Procedures Referred By Contac t Referred To Contact XR IMAGING Diagnoses Fall, initial encounter Procedures XR KNEE GENERAL 4V AP BOTH/PA BOTH/LAT/MERC RIGHT RADIOLOGIC EXAM KNEE COMPLETE 4/MORE VIEWS Katina Brooks PA-C [address] [place] [address] [place] [address] Referral ID Status Reason Start Date Expiration Date V isits Requested Visits Authorized [id number] Closed Auto-Generate d Referral 01/23/2024 02/21/2025 1 1 [facility] for referral (narrative)* Diagnostic Procedure Only (Urgent) - Closed Specialty Diagnoses / Procedures Referred By Contac t Referred To Contact US IMAGING Diagnoses Leg swelling Procedures US DVT LOWER RIGHT DUP-SCAN XTR VEINS UNILATERAL/LIMITED STUDY Katina Brooks PA-C [address] [place] [address] [place] [address] Referral ID Status Reason Start Date Expiration Date V isits Requested Visits Authorized [id number] Closed Auto-Generate d Referral 01/23/2024 09/02/2024 1 1 [facility] for referral (narrative)* Diagnostic Procedure Only (Urgent) - Closed Specialty Diagnoses / Procedures Referred By Contac t Referred To Contact XR IMAGING Diagnoses Fall, initial encounter Procedures XR WRIST INJURY 4V PA/LAT/OBL/SCAPH LEFT RADEX WRIST COMPLETE MINIMUM 3 VIEWS Katina Brooks PA-C [address] [place] [address] [place] [address] Referral ID Status Reason Start Date Expiration Date V isits Requested Visits Authorized [id number] Closed Auto-Generate d Referral 01/23/2024 02/21/2025 1 1 * Diagnostic Procedure Only (Urgent) - Closed Specialty Diagnoses / Procedures Referred By Contac t Referred To Contact XR IMAGING Diagnoses Fall, initial encounter Procedures XR ELBOW SPECIAL VIEWS AP/LAT/OTHER LEFT RADEX ELBOW COMPLETE MINIMUM 3 VIEWS Katina Brooks PA-C [address] [place] [address] [place] [address] Referral ID Status Reason Start Date Expiration Date V isits Requested Visits Authorized [id number] Closed Auto-Generate d Referral 01/23/2024 02/21/2025 1 1 * Diagnostic Procedure Only (Urgent) - Closed Specialty Diagnoses / Procedures Referred By Contac t Referred To Contact XR IMAGING Diagnoses Fall, initial encounter Procedures XR KNEE GENERAL 4V AP BOTH/PA BOTH/LAT/MERC RIGHT RADIOLOGIC EXAM KNEE COMPLETE 4/MORE VIEWS Katina Brooks PA-C [address] [place] [address] [place] [address] Referral ID Status Reason Start Date Expiration Date V isits Requested Visits Authorized [id number] Closed Auto-Generate d Referral 01/23/2024 02/21/2025 1 1 [facility] for visit Narrative* Diagnostic Procedure Only (Urgent) - Closed Specialty Diagnoses / Procedures Referred By Contac t Referred To Contact US IMAGING Diagnoses Leg swelling Procedures US DVT LOWER RIGHT DUP-SCAN XTR VEINS UNILATERAL/LIMITED STUDY Katina Brooks PA-C [address] [place] [address] [place] [address] Referral ID Status Reason Start Date Expiration Date V isits Requested Visits Authorized [id number] Closed Auto-Generate d Referral 01/23/2024 09/02/2024 1 1 [facility] for visit Narrative* Diagnostic Procedure Only (Routine) - Closed Specialty Diagnoses / Procedures Referred By Contac t Referred To Contact BR IMAGING Diagnoses Encounter for screening mammogram for breast cancer Procedures MARU SCREENING W MARIALUISA SCREENING DIGITAL BREAST TOMOSYNTHESIS BI SCREENING MAMMOGRAPHY BI 2-VIEW BREAST INC CAD Jayne Khanna, DO [address] [place] [address] [facility] [address] [place] [address] Referral ID Status Reason Start Date Expiration Date V isits Requested Visits Authorized [id number] Closed Auto-Generate d Referral 03/07/2024 09/02/2024 1 1 [facility] for visit Narrative* Diagnostic Procedure Only (Urgent) - Closed Specialty Diagnoses / Procedures Referred By Dagmarac t Referred To Contact XR IMAGING Diagnoses Fall, initial encounter Procedures XR WRIST INJURY 4V PA/LAT/OBL/SCAPH RIGHT RADEX WRIST COMPLETE MINIMUM 3 VIEWS Katina Brooks PA-C [address] [place] [address] [place] [address] Referral ID Status Reason Start Date Expiration Date V isits Requested Visits Authorized [id number] Closed Auto-Generate d Referral 01/23/2024 02/21/2025 1 1 [facility] Reason for Referral Specialty Diagnoses / Procedures Referred By Mario t Referred To Contact MR IMAGING Diagnoses Brain mass Procedures MRI BRAIN WO/W IVCON MRI BRAIN BRAIN STEM W/O W/CONTRAST MATERIAL Jayne Khanna, DO [address] [place] [address] [place] [address] Referral ID Status Reason Start Date Expiration Date Visits Requested Visits Authorized [id number] Pending Review Auto-Generat ed Referral 03/12/2024 04/10/2025 1 1 Specialty Diagnoses / Procedures Referred By Contac t Referred To Contact Diagnoses Chronic vaginitis Procedures CONSULT TO [facility] OFFICER OFFICE/OUTPATIENT [facility] 60 MINUTES Jayne Khanna, DO [address] [place] [address] Jenn Solis MD [address] [place] [id number] Referral ID Status Reason Start Date Expiration Date Visits Requested Visits Authorized [id number] Authorized PCP Requested Referral Auto-Generate d Referral 03/07/2024 03/07/2025 1 1 Specialty Diagnoses / Procedures Referred By Contac t Referred To Contact Diagnoses Abnormal EKG Procedures CONSULT TO CARDIOLOGY OFFICE/OUTPATIENT [facility] 60 MINUTES Jayne Khanna, DO [address] [place] [address] Luis Armando Diaz MD [address] [place] [address] Referral ID Status Reason Start Date Expiration Date Visits Requested Visits Authorized [id number] Authorized PCP Requested Referral 03/07/2024 03/07/2025 1 1 Specialty Diagnoses / Procedures Referred By Contac t Referred To Contact Diagnoses Depression with anxiety Procedures CONSULT TO PSYCHIATRY OFFICE/OUTPATIENT [facility] 60 MINUTES Jayne Khanna, DO [address] [place] [address] Clemencia Luciano [address] [place] [address] Referral ID Status Reason Start Date Expiration Date Visits Requested Visits Authorized [id number] Pending Review PCP Requested Referral 03/07/2024 03/07/2025 1 1 Specialty Diagnoses / Procedures Referred By Contac t Referred To Contact Diagnoses Thyroid nodule Nose polyp Procedures CONSULT TO ENT OFFICE/OUTPATIENT [facility] 60 MINUTES Jayne Khanna, DO [address] [place] [address] Nick Oshea [address] [place] [address] Referral ID Status Reason Start Date Expiration Date Visits Requested Visits Authorized [id number] Authorized PCP Requested Referral 03/07/2024 03/07/2025 1 1 Specialty Diagnoses / Procedures Referred By Contac t Referred To Contact BR IMAGING Diagnoses Encounter for screening mammogram for breast cancer Procedures MARU SCREENING W MARIALUISA SCREENING DIGITAL BREAST TOMOSYNTHESIS BI SCREENING MAMMOGRAPHY BI 2-VIEW BREAST INC CAD Jayne Khanna, DO [address] [place] [address] [facility] [address] [place] [address] Referral ID Status Reason Start Date Expiration Date Visits Requested Visits Authorized [id number] Authorized Auto-Generat ed Referral 03/07/2024 09/02/2024 1 1 Referral ID Status Reason Start Date Expiration Date V isits Requested Visits Authorized [id number] Closed Patient Cleared - Admin/Chairm an/Director advise to proceed or did not respond 03/13/2024 05/12/2024 1 1 Specialty Diagnoses / Procedures Referred By Contac t Referred To Contact CT IMAGING Diagnoses Generalized abdominal pain Procedures CT ABD/PEL W IVCON CT ABD & PELVIS W/CONTRAST Jayne Khanna, DO [address] [place] [address] [place] [address] Referral ID Status Reason Start Date Expiration Date Visits Requested Visits Authorized [id number] Authorized Auto-Generat ed Referral 05/28/2024 07/27/2024 1 1 Specialty Diagnoses / Procedures Referred By Contac t Referred To Contact Diagnoses Adrenal nodule (HCC) Procedures CONSULT TO ENDOCRINOLOGY OFFICE/OUTPATIENT [facility] 60 MINUTES Jayne Khanna, DO [address] [place] [address] Herbert Zavala MD [address] [facility] [address] [place] [address] Referral ID Status Reason Start Date Expiration Date Visits Requested Visits Authorized [id number] Authorized PCP Requested Referral 06/09/2024 06/09/2025 1 1 Specialty Diagnoses / Procedures Referred By Contac t Referred To Contact Diagnoses Interstitial cystitis Procedures CONSULT TO UROLOGY OFFICE/OUTPATIENT [facility] 60 MINUTES Geraldine Khannaclaudine Martines, DO [address] [place] [address] Kimberly Mcneill MD [address] [place] [address] Referral ID Status Reason Start Date Expiration Date Visits Requested Visits Authorized [id number] Authorized PCP Requested Referral 06/09/2024 06/09/2025 1 1 Specialty Diagnoses / Procedures Referred By Contac t Referred To Contact Diagnoses Diarrhea, unspecified type Procedures CONSULT TO GASTROENTEROLOGY OFFICE/OUTPATIENT [facility] 60 MINUTES Sheets Jayne C, DO [address] [place] [address] Deanna Prashant B, DO [address] [place] [address] Referral ID Status Reason Start Date Expiration Date Visits Requested Visits Authorized [id number] Authorized PCP Requested Referral 06/09/2024 06/09/2025 1 1 Summary Purpose Family History No Family History Records FoundNo Family History Records FoundNo Family History Records FoundNo Family History Records Found Advance Directives No Advanced Directives Records FoundNo Advanced Directives Records FoundNo Advanced Directives Records FoundNo Advanced Directives Records Found Additional Source Comments Source Comments (unrecognize d section and content) In the event this informatio n is protected by the Federal Confidentiality of Alcohol and Drug Abuse Patient Records regulations: The Federal rules restrict any use of the information to criminally investigate or prosecute any alcohol or drug abuse patient.[facility] event this information is protected by the Federal Confidentiality of Alcohol and Drug Abuse Patient Records regulations: The Federal rules restrict any use of the information to criminally investigate or prosecute any alcohol or drug abuse patient.[facility] the event this information is protected by the Federal Confidentiality of Alcohol and Drug Abuse Patient Records regulations: The Federal rules restrict any use of the information to criminally investigate or prosecute any alcohol or drug abuse patient.[facility] the event this information is protected by the Federal Confidentiality of Alcohol and Drug Abuse Patient Records regulations: The Federal rules restrict any use of the information to criminally investigate or prosecute any alcohol or drug abuse patient.[facility] the event this information is protected by the Federal Confidentiality of Alcohol and Drug Abuse Patient Records regulations: The Federal rules restrict any use of the information to criminally investigate or prosecute any alcohol or drug abuse patient.[facility] HospitalIn the event this information is protected by the Federal Confidentiality of Alcohol and Drug Abuse Patient Records regulations: The Federal rules restrict any use of the information to criminally investigate or prosecute any alcohol or drug abuse patient.[facility] HospitalIn the event this information is protected by the Federal Confidentiality of Alcohol and Drug Abuse Patient Records regulations: The Federal rules restrict any use of the information to criminally investigate or prosecute any alcohol or drug abuse patient.[facility] HospitalIn the event this information is protected by the Federal Confidentiality of Alcohol and Drug Abuse Patient Records regulations: The Federal rules restrict any use of the information to criminally investigate or prosecute any alcohol or drug abuse patient.[facility] HospitalIn the event this information is protected by the Federal Confidentiality of Alcohol and Drug Abuse Patient Records regulations: The Federal rules restrict any use of the information to criminally investigate or prosecute any alcohol or drug abuse patient.[facility] HospitalIn the event this information is protected by the Federal Confidentiality of Alcohol and Drug Abuse Patient Records regulations: The Federal rules restrict any use of the information to criminally investigate or prosecute any alcohol or drug abuse patient.[facility] HospitalIn the event this information is protected by the Federal Confidentiality of Alcohol and Drug Abuse Patient Records regulations: The Federal rules restrict any use of the information to criminally investigate or prosecute any alcohol or drug abuse patient.[facility] HospitalIn the event this information is protected by the Federal Confidentiality of Alcohol and Drug Abuse Patient Records regulations: The Federal rules restrict any use of the information to criminally investigate or prosecute any alcohol or drug abuse patient.[facility] HospitalIn the event this information is protected by the Federal Confidentiality of Alcohol and Drug Abuse Patient Records regulations: The Federal rules restrict any use of the information to criminally investigate or prosecute any alcohol or drug abuse patient.[facility] HospitalIn the event this information is protected by the Federal Confidentiality of Alcohol and Drug Abuse Patient Records regulations: The Federal rules restrict any use of the information to criminally investigate or prosecute any alcohol or drug abuse patient.[facility] HospitalIn the event this information is protected by the Federal Confidentiality of Alcohol and Drug Abuse Patient Records regulations: The Federal rules restrict any use of the information to criminally investigate or prosecute any alcohol or drug abuse patient.[facility] HospitalIn the event this information is protected by the Federal Confidentiality of Alcohol and Drug Abuse Patient Records regulations: The Federal rules restrict any use of the information to criminally investigate or prosecute any alcohol or drug abuse patient.[facility] HospitalIn the event this information is protected by the Federal Confidentiality of Alcohol and Drug Abuse Patient Records regulations: The Federal rules restrict any use of the information to criminally investigate or prosecute any alcohol or drug abuse patient.[facility] HospitalIn the event this information is protected by the Federal Confidentiality of Alcohol and Drug Abuse Patient Records regulations: The Federal rules restrict any use of the information to criminally investigate or prosecute any alcohol or drug abuse patient.[facility] HospitalIn the event this information is protected by the Federal Confidentiality of Alcohol and Drug Abuse Patient Records regulations: The Federal rules restrict any use of the information to criminally investigate or prosecute any alcohol or drug abuse patient.[facility] HospitalIn the event this information is protected by the Federal Confidentiality of Alcohol and Drug Abuse Patient Records regulations: The Federal rules restrict any use of the information to criminally investigate or prosecute any alcohol or drug abuse patient.[facility] HospitalIn the event this information is protected by the Federal Confidentiality of Alcohol and Drug Abuse Patient Records regulations: The Federal rules restrict any use of the information to criminally investigate or prosecute any alcohol or drug abuse patient.[facility] HospitalIn the event this information is protected by the Federal Confidentiality of Alcohol and Drug Abuse Patient Records regulations: The Federal rules restrict any use of the information to criminally investigate or prosecute any alcohol or drug abuse patient.[facility] HospitalIn the event this information is protected by the Federal Confidentiality of Alcohol and Drug Abuse Patient Records regulations: The Federal rules restrict any use of the information to criminally investigate or prosecute any alcohol or drug abuse patient.[facility] HospitalIn the event this information is protected by the Federal Confidentiality of Alcohol and Drug Abuse Patient Records regulations: The Federal rules restrict any use of the information to criminally investigate or prosecute any alcohol or drug abuse patient.[facility]In the event this information is protected by the Federal Confidentiality of Alcohol and Drug Abuse Patient Records regulations: The Federal rules restrict any use of the information to criminally investigate or prosecute any alcohol or drug abuse patient.[facility] HospitalIn the event this information is protected by the Federal Confidentiality of Alcohol and Drug Abuse Patient Records regulations: The Federal rules restrict any use of the information to criminally investigate or prosecute any alcohol or drug abuse patient.[facility] HospitalIn the event this information is protected by the Federal Confidentiality of Alcohol and Drug Abuse Patient Records regulations: The Federal rules restrict any use of the information to criminally investigate or prosecute any alcohol or drug abuse patient.[facility] HospitalIn the event this information is protected by the Federal Confidentiality of Alcohol and Drug Abuse Patient Records regulations: The Federal rules restrict any use of the information to criminally investigate or prosecute any alcohol or drug abuse patient.[facility] HospitalIn the event this information is protected by the Federal Confidentiality of Alcohol and Drug Abuse Patient Records regulations: The Federal rules restrict any use of the information to criminally investigate or prosecute any alcohol or drug abuse patient.[facility] HospitalIn the event this information is protected by the Federal Confidentiality of Alcohol and Drug Abuse Patient Records regulations: The Federal rules restrict any use of the information to criminally investigate or prosecute any alcohol or drug abuse patient.[facility] HospitalIn the event this information is protected by the Federal Confidentiality of Alcohol and Drug Abuse Patient Records regulations: The Federal rules restrict any use of the information to criminally investigate or prosecute any alcohol or drug abuse patient.[facility] HospitalIn the event this information is protected by the Federal Confidentiality of Alcohol and Drug Abuse Patient Records regulations: The Federal rules restrict any use of the information to criminally investigate or prosecute any alcohol or drug abuse patient.[facility] HospitalIn the event this information is protected by the Federal Confidentiality of Alcohol and Drug Abuse Patient Records regulations: The Federal rules restrict any use of the information to criminally investigate or prosecute any alcohol or drug abuse patient.[facility] Reason for Visit (unrecogniz ed section and content) Reason Comments Trauma Right ankle and knee , left knee and elbow pain. Fell x 1 hr ago Reason Comments New Patient Establish care previ ous pcp was Dr. Wilson in [facility] for 4 years her throat hurts and they found calcification on left side of thyroid and cyst on right side left there because it went untreated for 4 years. Has been having chest pain for the last couple weeks, a couple days ago it got really bad but she did not go to ER. Has had a yeast infection since 2016 she cannot get rid Reason Comments Call From ER Reason Comments Results Specialty Diagnoses / Procedures Referred By Mario vargas Referred To Contact MR IMAGING Diagnoses Brain mass Procedures MRI BRAIN WO/W IVCON MRI BRAIN BRAIN STEM W/O W/CONTRAST MATERIAL Chasity, Jayne Martines DO [address] [place] [address] [place] [id number] Referral ID Status Reason Start Date Expiration Date V isits Requested Visits Authorized [id number] Closed Patient Cleared - Admin/Chairm an/Director advise to proceed or did not respond 03/13/2024 05/12/2024 1 1 Reason Comments problem visit Vaginal Irritation Reason Comments Illness Reason Comments Refill Request Reason Onset Date Comments Refill Request 04/08/2024 Reason Comments Urinary Problem Pelvis pain, burning with urination, urgency x 6 days Reason Comments Lab Orders Reason Comments Orders Reason Comments bladder and kidney pain Pubic pain that is relieved by urinating and having a bowel movement. [facility] and there was blood in the urine, has history of internal hemorrhoids. Started after an episode of constipation 2 weeks ago. Would like to discuss going back on the valsartan HCTZ because she has increased her water intake Reason Comments ER F/U [facility] ER 05/18/24 for t he abdominal pain and weakness. States she has days that she feels better since she was in the ER. Had abnormal labs but CT was normal. Would like to go back on the plain BP medication without the HCTZ Reason Comments Pelvic Pain Reason Comments Telemedicine Reason Onset Date Comments ACM JUAN RN 06/10/2024 ED Utilizatio n Review per request of payor Care Teams (unrecognized sec tion and content) Solution Manager Relationship Specialty Start Date End Date Jayne Khanna DO [address] [place] [address] PCP - General Family Medicine 03/07/24 Solution Manager Relationship Specialty Start Date End Date Jayne Khanna DO [address] [place] [place] [address] PCP - General Family Medicine 03/07/24 Solution Manager Relationship Specialty Start Date End Date Jayne Khanna DO [address] [place] [place] [address] PCP - General Family Medicine 03/07/24 Solution Manager Relationship Specialty Start Date End Date Jayne Khanna DO [address] [place] [address] PCP - General Family Medicine 03/07/24 Solution Manager Relationship Specialty Start Date End Date Jayne Khanna DO [address] [place] [address] PCP - General Family Medicine 03/07/24 Solution Manager Relationship Specialty Start Date End Date Jayne Khanna, DO [address] [place] [address] PCP - General Family Medicine 03/07/24 Solution Manager Relationship Specialty Start Date End Date Sheets Jayne Martines DO [address] [place] [address] PCP - General Family Medicine 03/07/24 Solution Manager Relationship Specialty Start Date End Date Sheets Jayne Martines DO [address] [place] [address] PCP - General Family Medicine 03/07/24 Solution Manager Relationship Specialty Start Date End Date Sheets Jayne Martines DO [address] [place] [address] PCP - General Family Medicine 03/07/24 Solution Manager Relationship Specialty Start Date End Date Sheets Jayne Martines DO [address] [place] [address] PCP - General Family Medicine 03/07/24 Solution Manager Relationship Specialty Start Date End Date Chasity Jayne Martines DO [address] [place] [address] PCP - General Family Medicine 03/07/24 Solution Manager Relationship Specialty Start Date End Date Sheets Jayne Martines DO [address] [place] [address] PCP - General Family Medicine 03/07/24 Solution Manager Relationship Specialty Start Date End Date Chasity Jayne Martines DO [address] [place] [address] PCP - General Family Medicine 03/07/24 Solution Manager Relationship Specialty Start Date End Date Jayne Khanna DO [address] [place] [address] PCP - General Family Medicine 03/07/24 Solution Manager Relationship Specialty Start Date End Date Jayne Khanna DO [address] [place] [address] PCP - General Family Medicine 03/07/24 Solution Manager Relationship Specialty Start Date End Date Jayne Khanna DO [address] [place] [address] PCP - General Family Medicine 03/07/24 Solution Manager Relationship Specialty Start Date End Date Jayne Khanna DO [address] [place] [address] PCP - General Family Medicine 03/07/24 Solution Manager Relationship Specialty Start Date End Date Jayne Khanna DO [address] [place] [address] PCP - General Family Medicine 03/07/24 Solution Manager Relationship Specialty Start Date End Date Jayne Khanna DO [address] [place] [place] [address] PCP - General Family Medicine 03/07/24 Solution Manager Relationship Specialty Start Date End Date Jayne Khanna DO [address] [place] [address] PCP - General Family Medicine 03/07/24 Solution Manager Relationship Specialty Start Date End Date Jayne Khanna DO [address] [place] [address] PCP - General Family Medicine 03/07/24 INFORMATION SOURCE (unrecogn ized section and content) DATE CREATED AUTHOR 03/20/2024 [facility] DATE CREATED AUTHOR AUTHOR'S ORGANIZ ATION 06/08/2024 [facility] DATE CREATED AUTHOR AUTHOR'S ORGANIZ ATION 06/12/2024 [facility] DATE CREATED AUTHOR AUTHOR'S ORGANIZ ATION 06/14/2024 [facility] FOR RECORDS PERTAINING TO PATIENTS WHO ARE OR HAVE BEEN ENROLLED IN A CHEMICAL DEPENDENCY/SUBSTANCEABUSE PROGRAM, SOME INFORMATION MAY BE OMITTED. This clinical summary was aggregated from multiple sources. Caution should be exercised in using it in the provision of clinical care. This summary normalizes information from multiple sources, and as a consequence, information in this document may materially change the coding, format and clinical context of patient data. In addition, data may be omitted in some cases. CLINICAL DECISIONS SHOULD BE BASED ON THE PRIMARY CLINICAL RECORDS. [employer] [facility]. provides no warranty or guarantee of the accuracy or completeness of information in this document.
[2024-06-26 19:27] LABS: ALB/GLOB Ratio 0.8 RATIO (0.9-2.4); AST(SGOT) 38 U/L (15-37); Alanine Aminotransfer ALT/SGPT 42 U/L (13-56); Albumin, Serum 3.4 g/dL (3.2-5.0); Alkaline Phosphatase 123 U/L (45-117); Anion Gap 6 (5-15); BUN 13 mg/dL (7-18); BUN/Creat Ratio 13.9 RATIO (10-20); Chloride 109 mmol/L (98-107); Creatinine, Serum 0.94 mg/dL (0.55-1.02); EST Glomerular Filtration Rate 65 mL/min (>60); Est Glom Filt Rate - Afr Amer 79 mL/min (>60); Estimated Creatinine Clearance 95.22 ml/min; Globulin 4.3 g/dL (2.2-4.2); Glucose 103 mg/dL (74-106); Potassium 4.9 mmol/L (3.5-5.1); Protein, Total 7.7 g/dL (6.4-8.2); Sodium Level 137 mmol/L (136-145)
== END 2024-06-26 21:49 | disposition home or self-care (01) ==
PROVIDERS: Emergency Provider Emergency Medicine; PCP Family Medicine; Visit Provider Emergency Medicine
DX: A04.71 Enterocolitis due to Clostridium difficile, recurrent (principal); J44.9 Chronic obstructive pulmonary disease, unspecified; R30.0 Dysuria; I10 Essential (primary) hypertension; F32.A Depression, unspecified; G25.0 Essential tremor; E66.9 Obesity, unspecified; I25.10 Atherosclerotic heart disease of native coronary artery without angina pectoris; M79.7 Fibromyalgia; F17.210 Nicotine dependence, cigarettes, uncomplicated; Z88.1 Allergy status to other antibiotic agents; Z88.0 Allergy status to penicillin; Z90.49 Acquired absence of other specified parts of digestive tract; Z85.850 Personal history of malignant neoplasm of thyroid; Z79.899 Other long term (current) drug therapy
CPT/HCPCS: 80053; 81001; 83605; 85025; 87631; 94760; 99285; P9612; A4216

== ENCOUNTER → 2024-07-21 | Outpatient (CLI) | payer MEDICARE, MEDICAID, SELFPAY ==
[2024-07-21 16:26] LABS: Absolute Neutrophil Count 5.6 X10^3/uL (2.0-7.7); Basophil# 0.07 X10^3/uL; Basophil% 0.8 % (0-1); Eosinophil# 0.33 X10^3/uL; Eosinophils% 3.6 % (0-5); Hematocrit 52.2 % (37-47); Hemoglobin 16.4 g/dL (12.0-15.0); Lymphocyte % 26.3 % (19-41); Mean Corp Hgb Conc 31.4 g/dL (32-36); Mean Corpuscular Hgb 28.3 pg (27.0-32.0); Mean Corpuscular Volume 90.2 fL (81-99); Mean Platelet Vol. 9.2 fl (6.2-12.0); Monocyte# 0.72 X10^3/uL; Monocyte% 7.9 % (0-10); NRBC Flagged by Analyzer 0 % (0-5); Neutrophil # 5.55 X10^3/uL (2.7-7.7); Neutrophil % 60.9 % (47-70); Platelet Count 249 K/mm3 (150-450); RBC Distribution Width CV 13.5 % (11.6-14.6); RBC Distribution Width SD 44.7 fl (35.1-43.9); Red Blood Count 5.79 M/mm3 (4.2-5.4); White Blood Count 9.1 K/mm3 (4.4-11.0)
[2024-07-21 17:14] LABS: AST(SGOT) 32 U/L (15-37); Alanine Aminotransfer ALT/SGPT 90 U/L (13-56); Albumin, Serum 3.4 g/dL (3.2-5.0); Alkaline Phosphatase 107 U/L (45-117); Anion Gap 6 (5-15); BUN 13 mg/dL (7-18); BUN/Creat Ratio 16.8 RATIO (10-20); Calcium,Total 9.1 mg/dL (8.5-10.1); Chloride 108 mmol/L (98-107); Creatinine, Serum 0.78 mg/dL (0.55-1.02); EST Glomerular Filtration Rate 80 mL/min (>60); Est Glom Filt Rate - Afr Amer 97 mL/min (>60); Globulin 3.5 g/dL (2.2-4.2); Glucose 92 mg/dL (74-106); Potassium 4.1 mmol/L (3.5-5.1); Protein, Total 6.9 g/dL (6.4-8.2); Sodium Level 139 mmol/L (136-145)
[2024-07-21 17:46] LABS: Hepatitis B Surface Antibody Non-Reactive; Hepatitis B Surface Antigen Non-Reactive (Nonreactive); Hepatitis C Antibody Non-Reactive (Nonreactive)
[2024-07-23 06:10] LABS: Hepatitis A AB, Total Negative (Negative); Hepatitis B Core Ab Total Negative (Negative)
[2024-07-24 07:09] LABS: Calprotectin, Stool 10 ug/g (0-120)
== END | disposition home or self-care (01) ==
LOC: LAB 15:48
PROVIDERS: PCP Family Medicine; Referring Provider Nurse Practitioner Acute Care; Visit Provider Nurse Practitioner Acute Care
DX: R19.7 Diarrhea, unspecified (principal); K58.9 Irritable bowel syndrome, unspecified; R10.2 Pelvic and perineal pain; R15.9 Full incontinence of feces; K76.0 Fatty (change of) liver, not elsewhere classified; R74.8 Abnormal levels of other serum enzymes
CPT/HCPCS: 36415; 80053; 83993; 85025; 86704; 86706; 86708; 86803; 87177; 87209; 87329; 87340; 87493; 87506

== ENCOUNTER → 2024-07-23 | Outpatient (CLI) | payer MEDICARE, MEDICAID, SELFPAY ==
[2024-07-30 05:08] LABS: Pancreatic Elastase, Fecal > 800 (>200)
== END | disposition home or self-care (01) ==
LOC: LAB 19:50
PROVIDERS: PCP Family Medicine; Visit Provider Nurse Practitioner Acute Care
DX: R19.7 Diarrhea, unspecified (principal); R15.9 Full incontinence of feces; R15.2 Fecal urgency
CPT/HCPCS: 82653

== ENCOUNTER → 2024-08-04 | Outpatient (CLI) | payer MEDICARE, MEDICAID, SELFPAY ==
--- NOTE | 2024-08-04 08:09 | US_ITS ---
STUDY: ABDOMINAL ULTRASOUND - RIGHT UPPER QUADRANT; ELASTOGRAPHY REASON FOR VISIT: Female, 59 years old. Steatosis. TECHNIQUE: Ultrasound evaluation of the right upper quadrant was performed with real-time and static gaytan-scale imaging. Point quantification shear wave elastography was performed ([place]). TECHNICAL QUALITY: Adequate. COMPARISON: Comparison is made with prior CT scan abdomen and pelvis dated May 18, 2024. FINDINGS: Liver: The liver is enlarged and measures 20.2 cm. There is increased echogenicity consistent with fatty infiltration. The bile ducts are within normal limits. There is hepatic color flow. The direction of portal flow is hepatopetal. There is no demonstrated mass lesion. Median liver stiffness measured 4.4 kPa. Gallbladder: The patient is status post cholecystectomy. Common Bile Duct (C.B.D.): The common bile duct measures 10.2 mm. It tapers to 3.8 mm distally. Pancreas: There is increased echogenicity of the pancreas. There is no demonstrated pancreatic mass or cyst. Right Kidney: Normal size of the right kidney. The right kidney measures 11.6 cm x 5.9 cm x 5.4 cm. Normal renal cortex. The right cortex measures 1.3 cm. There is a 9 mm x 10 mm x 7 mm right renal cyst. There is no right hydronephrosis. US/ABD Limited w/ Elastography IMPRESSION: 1. Liver stiffness measures 4.4 kPa compatible with FO (Normal) Metavir score. Electronically Signed: Cuco Gonzalez MD at 13:14 EST ,
== END | disposition home or self-care (01) ==
LOC: US 08:08
PROVIDERS: PCP Family Medicine; Referring Provider Nurse Practitioner Acute Care; Visit Provider Nurse Practitioner Acute Care
DX: R19.7 Diarrhea, unspecified (principal); R15.9 Full incontinence of feces; R10.2 Pelvic and perineal pain; K76.0 Fatty (change of) liver, not elsewhere classified; R74.8 Abnormal levels of other serum enzymes
CPT/HCPCS: 76705; 76981

== ENCOUNTER → 2024-09-10 | Outpatient (CLI) | payer MEDICARE, MEDICAID, SELFPAY ==
[2024-09-10 17:29] LABS: AST(SGOT) 11 U/L (15-37); Alanine Aminotransfer ALT/SGPT 28 U/L (13-56); Albumin, Serum 3.5 g/dL (3.2-5.0); Alkaline Phosphatase 128 U/L (45-117); Amylase 49 U/L (25-115); Bilirubin, Direct 0.09 mg/dL (0.00-0.30); Ferritin 186 ng/mL (8-252); Globulin 3.6 g/dL (2.2-4.2); Iron 71 ug/dL (50-170); Lipase 38 U/L (13-75); Protein, Total 7.1 g/dL (6.4-8.2)
[2024-09-12 13:07] LABS: Anti-Mitochondrial AB <20.0 Units (0.0-20.0); Anti-Smooth Muscle ABS 17 Units (0-19); Cytoplasmic Ab (C-ANCA) <1:20 titer (Neg:<1:20); GGTP 14 IU/L (0-60); Perinuclear Ab (P-ANCA) <1:20 titer (Neg:<1:20)
== END | disposition home or self-care (01) ==
LOC: LAB 15:48
PROVIDERS: PCP Family Medicine; Referring Provider Nurse Practitioner Acute Care; Visit Provider Nurse Practitioner Acute Care
DX: R74.8 Abnormal levels of other serum enzymes (principal); K76.0 Fatty (change of) liver, not elsewhere classified; R19.7 Diarrhea, unspecified; K83.8 Other specified diseases of biliary tract
CPT/HCPCS: 36415; 80076; 82150; 82728; 82977; 83516; 83540; 83690; 86037

== ENCOUNTER → 2024-09-18 | Outpatient (CLI) | payer MEDICARE, MEDICAID, SELFPAY ==
[2024-10-01 09:08] LABS: DHEA Sulfate 62.4 ug/dL (29.4-220.5); Dopamine, Pl <30 pg/mL (0-48); Epinephrine, Pl <15 pg/mL (0-62); Norepinephrine, Pl 296 pg/mL (0-874); Thyroid Peroxidase AB < 9 IU/mL (0-34)
== END | disposition home or self-care (01) ==
LOC: LAB 13:59
PROVIDERS: PCP Family Medicine; Referring Provider Internal Medicine Endocrinology, Diabetes & Metabolism; Visit Provider Internal Medicine Endocrinology, Diabetes & Metabolism
DX: E04.1 Nontoxic single thyroid nodule (principal); E27.8 Other specified disorders of adrenal gland
CPT/HCPCS: 36415; 82384; 82627; 86376; 82626

== ENCOUNTER 2024-10-02 16:30 | Emergency (ER) | payer MEDICARE, MEDICAID, SELFPAY ==
[2024-10-02] VITALS (9 sets, daily range): BP systolic 105–159; BP diastolic 66–105; PULSE 78–91; RESP 15–22; TEMP 37.1–37.5; O2SAT 94–98; BMI 41.3
--- NOTE | 2024-10-02 16:33 | EKG12_ITS ---
Test Reason : CP Blood Pressure : */* mmHG Vent. Rate : 91 BPM Atrial Rate : 91 BPM P-R Int : 150 ms QRS Dur : 96 ms QT Int : 352 ms P-R-T Axes : 79 263 60 degrees QTcB Int : 432 ms Normal sinus rhythm Right superior axis deviation Incomplete right bundle branch block Right ventricular hypertrophy Nonspecific ST and T wave abnormality Abnormal ECG Confirmed by SKYLAR ZARAGOZA, HEIDE ([id number]), clinical editor JARRED JURADO ([id number]) on 10/06/2024 6:05:50 AM Referred By: Confirmed By: HEIDE CHENG MD
--- NOTE | 2024-10-02 17:28 | EX.ED.DYSGE1 ---
HPI <CANDELARIO Otoole - Last Filed: 10/02/24 19:34> History of Present Illness Chief Complaint: Chest Pain Narrative Narrative: Patient is a 59-year-old female with history of chronic abdominal pain, COPD, cholesterol, obesity, tobacco use presents to the emergency department for multiple complaints. Patient states she had some left-sided chest pain yesterday, today she still had the pain however she also felt weak, she has been coughing, congestion and feels like she has the flu. Patient denies any recent travel, patient denies any specific fever or chills. PFSH <CANDELARIO Otoole - Last Filed: 10/02/24 19:34> [facility] Medical History (Updated 10/02/24 @ 19:32 by CANDELARIO Otoole) Adrenal mass Thyroid nodule Chest pain Fibromyalgia Depression Hypertension History of ventricular tachycardia Hx of gastroesophageal reflux (GERD) Anxiety Gastritis Essential tremor Endometriosis COPD (chronic obstructive pulmonary disease) Cervical radiculopathy Coronary artery disease History of Clostridioides difficile colitis Right bundle branch block Atopic dermatitis Home Medications ?Medication ?Instructions ?Recorded ?Last Taken ?Type valsartan 160 mg tablet 240 mg PO DAILY 02/14/24 Unknown History clonazepam 1 mg tablet 1 mg PO TID 07/21/24 Unknown History mirtazapine 15 mg tablet (Remeron) 15 mg PO QDAY PRN 07/21/24 Unknown History albuterol sulfate 90 mcg/actuation 2 puff inhalation Q4H PRN PRN 10/02/24 Unknown Rx aerosol inhaler (Ventolin HFA) Wheezing #8.5 grams nystatin 100,000 unit/gram topical 1 applic topical BID #60 grams 10/02/24 Unknown Rx powder Allergy/AdvReac Type Severity Reaction Status Date / Time metronidazole (From Flagyl) Allergy Severe Shortness Verified 10/02/24 16:30 of breath ciprofloxacin (From Cipro) Allergy Mild Heart Verified 10/02/24 16:30 Condition fluconazole (From Diflucan) Allergy Mild Nausea Verified 10/02/24 16:30 Opioids - Morphine Analogues Allergy Mild Abd Pain Verified 10/02/24 16:30 Penicillins Allergy Mild Rash, GI Verified 10/02/24 16:30 Upset phenazopyridine (From Allergy Vomiting Verified 10/02/24 16:30 Pyridium) Family History Mother Hypertension Father Leukemia Surgical History Hx of resection of large bowel Hx of right knee surgery History of bladder suspension procedure History of herniorrhaphy History of total abdominal hysterectomy Hx of cholecystectomy Hx of appendectomy Social History Smoking Status: Current every day smoker tobacco type: cigarettes alcohol intake: never substance use type: does not use ROS <CANDELARIO Otoole - Last Filed: 10/02/24 19:34> ROS ED ROS Narrative Constitutional: Negative for fever, chills, weight loss. Positive for weakness Eyes: Negative for vision loss, vision change, double vision ENT: Negative for any sore throat, ear pain, congestion Cardiovascular: Negative for any palpitations. Positive chest pain, tightness Respiratory: Negative for any sputum production, hemoptysis, dyspnea on exertion, orthopnea. Positive cough, dyspnea Gastrointestinal: Negative for any abdominal pain, nausea, vomiting, diarrhea, constipation, blood in stool, blood in vomit : Negative for any urinary frequency, dysuria, retention, blood in urine Muscle skeletal: Negative for any neck pain, back pain. Positive myalgia Neurological: Negative for any headache, syncope, dizziness Skin: Negative for any rashes, itching, abrasions, lacerations Psychiatric: Negative for any depression, anxiety, stress, suicidal ideation, homicidal ideation Hematologic: Negative for any excessive bruising, easy bleeding EXAM <CANDELARIO Otoole - Last Filed: 10/02/24 19:34> Physical Exam Narrative Exam Narrative: Vital signs reviewed. HEET: Head normocephalic atraumatic, TMs clear bilaterally. Posterior pharynx is clear, moist mucous membranes. Nares clear bilaterally. Neck: Supple with no lymphadenopathy or tenderness. No signs of meningismus. Cardiac: Regular rate and rhythm no murmurs gallops or rubs, equal peripheral pulses bilaterally. Respiratory: Lungs are clear to the upper lobes, there is some expiratory wheezing to the lower lobes, slight diminished lung sounds. Could be related to body habitus.. No chest tenderness. Abdomen: Soft, nontender, nondistended. No abdominal bruit or pulsatile masses. No hepatosplenomegaly Extremities: No peripheral edema, no signs of gross trauma or deformity. Active full range of motion of all extremities. Neuro: Cranial nerves II through XII intact, no focal neurological deficits. Skin: Clean dry and intact with no rash, purpura, petechiae, vesicles or pustules. Backs/flank: No CVA tenderness, no midline spinal tenderness, no deformity. Psych: Normal mood and affect. No SI, HI or acute psychosis. Const Vital Signs: 10/02/24 16:31 10/02/24 16:33 10/02/24 17:30 Temperature 98.7 F 98.7 F Temperature Source Temporal Temporal Pulse Rate 91 91 Respiratory Rate 18 18 Respiratory Effort Respiratory Pattern Blood Pressure 159/105 H 159/105 H Blood Pressure Mean 123 123 Pulse Ox 98 98 95 Oxygen Delivery Method Room Air Room Air 10/02/24 17:30 10/02/24 17:30 10/02/24 17:33 Temperature 98.9 F Temperature Source Temporal Pulse Rate 85 83 Respiratory Rate 21 H 15 Respiratory Effort Short of Breath Respiratory Pattern Blood Pressure 130/66 H 130/66 H Blood Pressure Mean 87 87 Pulse Ox 94 96 Oxygen Delivery Method Room Air Room Air 10/02/24 17:39 10/02/24 18:00 10/02/24 19:00 Temperature 99.3 F H 99.5 F H Temperature Source Oral Oral Pulse Rate 90 86 82 Respiratory Rate 20 H 22 H 20 H Respiratory Effort Respiratory Pattern Normal Blood Pressure 133/71 H 105/69 Blood Pressure Mean 91 81 Pulse Ox 94 94 Oxygen Delivery Method Room Air Room Air 10/02/24 19:45 10/02/24 19:46 Temperature 98.7 F Temperature Source Pulse Rate 78 78 Respiratory Rate 19 H 19 H Respiratory Effort Respiratory Pattern Blood Pressure 112/67 112/67 Blood Pressure Mean 82 82 Pulse Ox 94 94 Oxygen Delivery Method <Dr. Ludin Parker MD - Last Filed: 10/02/24 23:23> Physical Exam Const Vital Signs: 10/02/24 16:31 10/02/24 16:33 10/02/24 17:30 Temperature 98.7 F 98.7 F Temperature Source Temporal Temporal Pulse Rate 91 91 Respiratory Rate 18 18 Respiratory Effort Respiratory Pattern Blood Pressure 159/105 H 159/105 H Blood Pressure Mean 123 123 Pulse Ox 98 98 95 Oxygen Delivery Method Room Air Room Air 10/02/24 17:30 10/02/24 17:30 10/02/24 17:33 Temperature 98.9 F Temperature Source Temporal Pulse Rate 85 83 Respiratory Rate 21 H 15 Respiratory Effort Short of Breath Respiratory Pattern Blood Pressure 130/66 H 130/66 H Blood Pressure Mean 87 87 Pulse Ox 94 96 Oxygen Delivery Method Room Air Room Air 10/02/24 17:39 10/02/24 18:00 10/02/24 19:00 Temperature 99.3 F H 99.5 F H Temperature Source Oral Oral Pulse Rate 90 86 82 Respiratory Rate 20 H 22 H 20 H Respiratory Effort Respiratory Pattern Normal Blood Pressure 133/71 H 105/69 Blood Pressure Mean 91 81 Pulse Ox 94 94 Oxygen Delivery Method Room Air Room Air 10/02/24 19:45 10/02/24 19:46 Temperature 98.7 F Temperature Source Pulse Rate 78 78 Respiratory Rate 19 H 19 H Respiratory Effort Respiratory Pattern Blood Pressure 112/67 112/67 Blood Pressure Mean 82 82 Pulse Ox 94 94 Oxygen Delivery Method WILL <CANDELARIO Otoole - Last Filed: 10/02/24 19:34> [facility] Lab Data Labs: Laboratory Results - last 24 hr 10/02/24 10/02/24 15:15 19:08 WBC 11.1 H RBC 5.89 H Hgb 17.2 H Hct 51.1 H MCV 86.8 MCH 29.2 MCHC 33.7 RDW Std Deviation 46.7 H RDW Coeff of Davy 14.7 H Plt Count 271 MPV 9.7 Immature Gran % (Auto) 0.500 Neut % (Auto) 69.0 Lymph % (Auto) 21.4 [place] % (Auto) 6.2 Eos % (Auto) 2.3 Baso % (Auto) 0.6 Absolute Neuts (auto) 7.6 Absolute Lymphs (auto) 2.36 Nucleated RBC % 0 Sodium 138 Potassium 3.8 Chloride 106 Carbon Dioxide 25.0 Anion Gap 7 BUN 6 L Creatinine 0.97 Estim Creat Clear Calc 90.96 Est GFR (MDRD) Af Amer 75 Est GFR (MDRD) Non-Af 62 BUN/Creatinine Ratio 6.2 L Glucose 111 H Calcium 9.1 Troponin I High Sens < 3 L 4 Radiography Diagnostic Testing: Clinical Impression(s) from Imaging Studies Chest X-Ray 10/02/24 18:08 IMPRESSION: No acute cardiopulmonary abnormalities. Cardiomegaly. Reading Location: [facility] EKG EKG normal sinus rhythm: Attestation: I personally reviewed and interpreted this EKG as follows: Comments: EKG shows normal sinus rhythm, rate of 91 bpm, IA interval 150 ms, QRS duration 96 ms, no acute ST elevation, no acute infarct noted. Treatment and Re-Evaluation :: Differential diagnosis includes however is not limited to: COPD exacerbation, community-acquired pneumonia, RSV, influenza, COVID-19, other respiratory virus, ACS, NC Patient appears generally well, vital signs are stable, patient is nontoxic-appearing. Presenting to the emergency department plaints of cough, congestion, chest pain. Patient will receive a cardiac workup including a respiratory viral like workup. Chest x-ray to be obtained. All radiologic examinations were read, reviewed by the emergency department attending. From these reads, a plan of care will be put in place. Patient's chest x-ray two-view shows no acute cardial pulmonary abnormality. Patient's laboratory values shows a leukocytosis with a white blood count of 11.1, slight hemoconcentrated with a hematocrit 51.1 with a hemoglobin of 17.2. Patient's chemistries were unremarkable. Troponin was less than 3. I do not believe that we need a second 1. Patient's COVID-19 influenza RSV swab was negative. Patient did feel better after breathing treatments. Speaking with the patient, she was less anxious. She states she does feel better. She will need to follow-up with her PCP she has a primary care appointment Sunday of this upcoming week. She did ask me for an albuterol inhaler prescription as well as nystatin powder, I will provide her with both these prescriptions. She is instructed return for any worsening symptoms, all questions answered, stable for discharge. <Dr. Ludin Parker MD - Last Filed: 10/02/24 23:23> [facility] Narrative Medical decision making narrative: I have personally performed a face to face assessment of the patient and have reviewed the [place] Note. I performed a substantive portion of the visit including all aspects of the following. My buchanan findings include: History is 1-2 days cough, congestion, pain in the lateral left chest wall that is worse with coughing. Some mild dyspnea and wheezing. Exam is mild diffuse expiratory wheezes. No respiratory distress. Left lateral rib cage is tender in the mid axillary line no crepitance, no step-off, no subcutaneous emphysema. No splinting with deep inspiration. Abdomen soft nontender nondistended. Medical Decison Making labs noted. Two-view chest x-ray my interpretation no pneumonia. her EKG and troponin are normal. Nebulizer, reeval per [facility] note; likely viral illness. Other additions or changes: [None] Lab Data Labs: Laboratory Results - last 24 hr 10/02/24 10/02/24 15:15 19:08 WBC 11.1 H RBC 5.89 H Hgb 17.2 H Hct 51.1 H MCV 86.8 MCH 29.2 MCHC 33.7 RDW Std Deviation 46.7 H RDW Coeff of Davy 14.7 H Plt Count 271 MPV 9.7 Immature Gran % (Auto) 0.500 Neut % (Auto) 69.0 Lymph % (Auto) 21.4 [place] % (Auto) 6.2 Eos % (Auto) 2.3 Baso % (Auto) 0.6 Absolute Neuts (auto) 7.6 Absolute Lymphs (auto) 2.36 Nucleated RBC % 0 Sodium 138 Potassium 3.8 Chloride 106 Carbon Dioxide 25.0 Anion Gap 7 BUN 6 L Creatinine 0.97 Estim Creat Clear Calc 90.96 Est GFR (MDRD) Af Amer 75 Est GFR (MDRD) Non-Af 62 BUN/Creatinine Ratio 6.2 L Glucose 111 H Calcium 9.1 Troponin I High Sens < 3 L 4 Radiography Diagnostic Testing: Clinical Impression(s) from Imaging Studies Chest X-Ray 10/02/24 18:08 IMPRESSION: No acute cardiopulmonary abnormalities. Cardiomegaly. Reading Location: [id number] Discharge Plan Triage Chief Complaint: Chest Pain ED Midlevel Provider: Kelechi Chino ED Provider: Ludin Parker Dx/Rx/DC Orders Clinical Impression: Acute viral syndrome, Cough, Chest wall discomfort Instructions: ED Chest Pain, Noncardiac, ED URI, Viral, No Abx (Adult) Prescriptions: New albuterol sulfate [Ventolin HFA] 90 mcg/actuation HFA aerosol inhaler 2 puff inhalation Q4H PRN PRN (Reason: Wheezing) Qty: 8.5 1RF nystatin 100,000 unit/gram powder 1 applic topical BID Qty: 60 0RF No Action mirtazapine [Remeron] 15 mg tablet 15 mg PO QDAY PRN valsartan 160 mg tablet 240 mg PO DAILY clonazepam 1 mg tablet 1 mg PO TID Rx Instructions: one tablet in AM and two tablets in PM Primary Care Provider: Jayne Gaspar Referrals: Jayne Gaspar DO [Primary Care Provider] - Activity Restrictions/Additional Instructions: Please follow-up outpatient. Print Language: Greek Disposition Disposition: Home, Self Care Discharge Date/Time: 10/02/24 19:51
[2024-10-02 17:32] LABS: Absolute Lymphocyte Count 2.36 X10^3/uL (0.83-4.51); Absolute Neutrophil Count 7.6 X10^3/uL (2.0-7.7); Basophil# 0.07 X10^3/uL; Basophil% 0.6 % (0-1); Eosinophil# 0.25 X10^3/uL; Eosinophils% 2.3 % (0-5); Hematocrit 51.1 % (37-47); Hemoglobin 17.2 g/dL (12.0-15.0); Lymphocyte # 2.36 X10^3/ul (0.83-4.51); Lymphocyte % 21.4 % (19-41); Mean Corp Hgb Conc 33.7 g/dL (32-36); Mean Corpuscular Hgb 29.2 pg (27.0-32.0); Mean Corpuscular Volume 86.8 fL (81-99); Mean Platelet Vol. 9.7 fl (6.2-12.0); Monocyte# 0.68 X10^3/uL; Monocyte% 6.2 % (0-10); NRBC Flagged by Analyzer 0 % (0-5); Neutrophil # 7.63 X10^3/uL (2.7-7.7); Platelet Count 271 K/mm3 (150-450); RBC Distribution Width CV 14.7 % (11.6-14.6); RBC Distribution Width SD 46.7 fl (35.1-43.9); Red Blood Count 5.89 M/mm3 (4.2-5.4); White Blood Count 11.1 K/mm3 (4.4-11.0)
[2024-10-02] MEDS: Ipratropium/Albuterol Sulfate 3 ML AMPUL.NEB INHALATION (17:38)
[2024-10-02] MEDS: Albuterol 2.5 MG/3 ML VIAL.NEB. INHALATION (17:38)
[2024-10-02 17:48] LABS: Anion Gap 7 (5-15); BUN 6 mg/dL (7-18); BUN/Creat Ratio 6.2 RATIO (10-20); Calcium,Total 9.1 mg/dL (8.5-10.1); Chloride 106 mmol/L (98-107); Creatinine, Serum 0.97 mg/dL (0.55-1.02); EST Glomerular Filtration Rate 62 mL/min (>60); Est Glom Filt Rate - Afr Amer 75 mL/min (>60); Estimated Creatinine Clearance 90.96 ml/min; Glucose 111 mg/dL (74-106); Potassium 3.8 mmol/L (3.5-5.1); Sodium Level 138 mmol/L (136-145); Troponin-I HS (w/2H Reflex) < 3 pg/mL (3.0-54.0)
--- NOTE | 2024-10-02 18:08 | RAD_ITS ---
PROCEDURE: CHEST PA AND LATERAL REASON FOR EXAM: Chest pain. TECHNIQUE: Frontal and lateral views of the chest. COMPARISON: Chest pain. FINDINGS: The heart is enlarged. The mediastinal contour is unremarkable. The lungs are clear. The bones are unremarkable. RAD/Chest PA and Lateral IMPRESSION: No acute cardiopulmonary abnormalities. Cardiomegaly. Reading Location: [id number]
[2024-10-02 19:22] LABS: Reflex Troponin-HS? (from REC) Y
[2024-10-02 19:49] LABS: Troponin-I HS 4 pg/mL (3.0-54.0)
== END 2024-10-02 19:51 | disposition home or self-care (01) ==
PROVIDERS: Emergency Provider Emergency Medicine; PCP Family Medicine; Visit Provider Emergency Medicine
DX: B34.9 Viral infection, unspecified (principal); J44.9 Chronic obstructive pulmonary disease, unspecified; R05.9 Cough, unspecified; R07.89 Other chest pain; I10 Essential (primary) hypertension; E66.9 Obesity, unspecified; E78.00 Pure hypercholesterolemia, unspecified; F32.A Depression, unspecified; F41.9 Anxiety disorder, unspecified; I25.10 Atherosclerotic heart disease of native coronary artery without angina pectoris; M79.7 Fibromyalgia; M54.12 Radiculopathy, cervical region; Z88.0 Allergy status to penicillin; Z88.1 Allergy status to other antibiotic agents; Z90.49 Acquired absence of other specified parts of digestive tract; Z86.19 Personal history of other infectious and parasitic diseases; Z87.19 Personal history of other diseases of the digestive system; Z79.899 Other long term (current) drug therapy; F17.210 Nicotine dependence, cigarettes, uncomplicated
CPT/HCPCS: 71046; 80048; 84484; 85025; 87631; 93005; 94640; 99284; A4216

== ENCOUNTER → 2024-10-07 | Outpatient (CLI) | payer MEDICARE, MEDICAID, SELFPAY ==
--- NOTE | 2024-10-07 14:22 | US_ITS ---
PROCEDURE: ULTRASOUND THYROID REASON FOR EXAM: LEFT THYROID NODULE TECHNIQUE: Real-time grayscale and color imaging was performed. Routine image documentation. COMPARISON: None. FINDINGS: Right thyroid lobe measures 5.1 x 2.1 x 2.8 cm.. Left thyroid lobe measures 5.2 x 1.9 x 2.8 cm.. Isthmus thickness is0.2 cm. Thyroid Size: Normal Background Echotexture: Heterogeneous parenchyma. Thyroid Nodules: Bilateral. RIGHT LOBE: Mid superior pole, predominantly cystic, 0.8 x 0.7 x 0.6 cm, anechoic, wider than tall, no calcification, TR 1. Midpole, predominantly cystic, 1.0 x 1.1 x 0.6 cm, anechoic, wider than tall, no calcification, TR 1. Mid inferior pole, predominantly solid, 0.8 x 0.9 x 0.7, hypoechoic, wider than tall, no calcifications, TR 4. LEFT LOBE: Medial inferior pole, predominantly solid, 1.4 x 1.7 x 1.4 cm, hypoechoic, wider than tall, with macrocalcification, TR 4. US/Thyroid IMPRESSION: 1. Benign TR 1 category predominantly cystic nodules in the right thyroid lobe . No FNA warranted. 2. A TR 4 category micronodule in the right thyroid lobe. No FNA warranted. 3. A TR 4 category nodule in the left inferior pole. FNA tissue sampling jaydon mmended for further evaluation. Reading Location: [facility]
== END | disposition home or self-care (01) ==
LOC: US 14:21
PROVIDERS: PCP Family Medicine; Referring Provider Internal Medicine Endocrinology, Diabetes & Metabolism; Visit Provider Internal Medicine Endocrinology, Diabetes & Metabolism
DX: E04.1 Nontoxic single thyroid nodule (principal)
CPT/HCPCS: 76536

== ENCOUNTER → 2024-10-21 | Outpatient (CLI) | payer MEDICARE, MEDICAID, SELFPAY ==
--- NOTE | 2024-10-21 15:56 | MRI_ITS ---
PROCEDURE: Noncontrast MRI of the abdomen/MRCP REASON FOR EXAM: Dilated common duct. Elevated alkaline phosphatase TECHNIQUE: Multiplanar, multisequence MRI images of the abdomen were obtained without IV contrast. Dedicated MRCP images were obtained. Maximum intensity projection MRCP images were created and reviewed. COMPARISON: Abdominal/pelvic CT 05/18/2024 FINDINGS: Mild degenerative changes in the spine. The included osseous structures otherwise unremarkable. Evaluation of the solid organs and vascular structures is limited due to lack of intravenous contrast. Heart is not enlarged. No sizable pericardial effusion. Included lower lungs grossly clear. No large abdominal wall defect. The pelvis is not included. No upper abdominal ascites or adenopathy. The included bowel segments are grossly unremarkable, although detail is limited. The kidneys are symmetric in size and signal. There are tiny peripheral cortical T2 hyperintense lesions of the kidneys, the largest on the right measuring 8 mm. No space-occupying T2 hyperintense liver lesion. Patchy wall thickening of the stomach may be due to lack of distention versus peristalsis. Lobulated bilateral adrenal nodules, the largest on the right measuring 3.1 cm, not significantly changed. Out of phase images were not obtained. No focal abnormality of the spleen or pancreas. The gallbladder is not demonstrated, absent by history. On dedicated MRCP images, the common duct measures 1 cm, similar to the comparison CT study. No MRI evidence of choledocholithiasis. No extrinsic mass effect on the common duct. MRI/MRCP Abdomen without Contrast IMPRESSION: 1 cm dilation of the common duct, which may be due to post cholecystectomy arreguin ge. No evidence of choledocholithiasis or extrinsic mass effect on the common duct. Similar-appearing bilateral adrenal nodules, the largest on the right at 3.1 cm . These are not significantly changed compared to the oldest available study of 02/14/2024, favored to represent adrenal adenomas . There are tiny T2 hyperintense lesions of the kidneys, the largest on the right at 5 mm, favored to represent tiny cysts. Reading [facility]
== END | disposition home or self-care (01) ==
LOC: MRI 15:28
PROVIDERS: PCP Family Medicine; Referring Provider Nurse Practitioner Acute Care; Visit Provider Nurse Practitioner Acute Care
DX: R74.8 Abnormal levels of other serum enzymes (principal); K76.0 Fatty (change of) liver, not elsewhere classified; R19.7 Diarrhea, unspecified; K83.8 Other specified diseases of biliary tract
CPT/HCPCS: 74181

== ENCOUNTER → 2024-11-05 | Outpatient (CLI) | payer MEDICARE, MEDICAID, SELFPAY ==
--- NOTE | 2024-11-05 10:00 | FLU_PTH ---
PATIENT: DEJA JEREZ LOC: [facility]#:[id number] AGE/SX: 59/F ROOM: RE11/05/[address]: Dr. Toni Vazquez MD : 1965 BED: DIS: 11/05/2024 SPEC #: [id number] RECD: 11/05/24 12:08 STATUS: MELLY ELSA #: [id number] JULIANNA: 11/05/24 10:[address]: Toni Vazquez DEPT: CYTOLOGY RECD BY: [employer] Duran ENTERED: 11/05/24 12:10 SP TYPE: Fluid OTHR DR: Dr. Jayne Gaspar, DO Tissues: A - Thyroid gland, NOS B - Thyroid gland, NOS Procedures: Special Stain Group II Surgery Specimen Level IV Cytospin Fluid HEADER OPERATION: Fine needle aspiration of thyroid nodules PRE-OP DIAGNOSIS: Thyroid nodules TISSUE SUBMITTED: A- Left inferior thyroid nodule fluid, B- Left inferior thyroid nodule slides DIAGNOSIS CYTOLOGY A, B. Left inferior thyroid nodule, cytospins, cellblock and smears: * Negative for malignant cells. * Benign follicular cells and colloid. * See Comment. COMMENT This specimen was reviewed by a second pathologist per Dr Vazquez's request, and the above diagnosis reflects a corrected diagnosis. Dr Vazquez's office (S[facility]) was informed of the corrected diagnosis by Dr Elliott Meredith (phone call 12:50 pm, 11/20/2024). The slides were reviewed in intradepartmental consultation by Dr Nadia Reyes (cytopathologist [facility]). CYTOLOGY STUDY Slides are reviewed. CYTOLOGY GROSS A. Received is 30 ml of fluid labeled with the patient's name and and designated per the requisition as Left inferior thyroid nodule. Submitted for cytology preparation including cell block. B. Received are 4 smears labeled with the patient's name and designated per the requisition as Left inferior thyroid nodule. Submitted for staining. Mr 11/05/2024 CPT: 83956z4,97563 , TC: 5
--- NOTE | 2024-11-05 10:00 | FLU_PTH ---
PATIENT: DEJA JEREZ LOC: [facility] #:[id number] AGE/SX: 59/F ROOM: RE11/05/[address]: Dr. Toni Vazquez MD : 1965 BED: DIS: 11/05/2024 SPEC #: [id number] RECD: 11/05/24 12:08 STATUS: MELLY ELSA #: [id number] JULIANNA: 11/05/24 10:[address]: Toni Vazquez DEPT: CYTOLOGY RECD BY: Grupo Duran ENTERED: 11/05/24 12:10 SP TYPE: Fluid OTHR DR: Dr. Jayne Gaspar, DO Tissues: A - Thyroid gland, NOS B - Thyroid gland, NOS Procedures: Special Stain Group II Surgery Specimen Level IV Cytospin Fluid HEADER OPERATION: Fine needle aspiration of thyroid nodules PRE-OP DIAGNOSIS: Thyroid nodules TISSUE SUBMITTED: A- Left inferior thyroid nodule fluid, B- Left inferior thyroid nodule slides DIAGNOSIS CYTOLOGY A. Left inferior thyroid nodule, cytology:Unsatisfactory for evaluationInsufficient well-visualized follicular cells to make a diagnosisBackground of lymphocytes and neutrophilsB. Left inferior thyroid nodule, cytology:Unsatisfactory for evaluationInsufficient well-visualized follicular cells to make a diagnosis (see comment)Background of lymphocytes and neutrophils COMMENT B. Within the obscuring blood on the slides there are a few macro follicles however nuclear detail cannot be examined. CYTOLOGY STUDY Slides are reviewed. CYTOLOGY GROSS A. Received is 30 ml of fluid labeled with the patient's name and and designated per the requisition as Left inferior thyroid nodule. Submitted for cytology preparation including cell block. B. Received are 4 smears labeled with the patient's name and designated per the requisition as Left inferior thyroid nodule. Submitted for staining. Mr 11/05/2024 CPT: [id number] , TC: 5
== END | disposition home or self-care (01) ==
LOC: LABSPEC 11:22
PROVIDERS: PCP Family Medicine; Referring Provider Surgery; Visit Provider Surgery
DX: E04.1 Nontoxic single thyroid nodule (principal)
CPT/HCPCS: 88108; 88305; 88313

== ENCOUNTER 2024-11-22 11:07 | Emergency (ER) | payer MEDICARE, MEDICAID, SELFPAY ==
[2024-11-22 11:10] VITALS: BP 148/69; PULSE 95; RESP 18; TEMP 37.2; O2SAT 98; BMI 27.8
--- NOTE | 2024-11-22 11:38 | EX.ED.DYSGE1 ---
HPI History of Present Illness Chief Complaint: General Illness Informant: patient Narrative Narrative: 59-year-old female presented with multiple complaints; she has had bronchial sputum production and a cough for maybe a couple weeks, for the last week she is felt very fatigued and weak all over, lightheaded at times, just sick. She had an episode of palpitations which she states she has had off-and-on all of her life due to PACs and PVCs, but earlier this week it was associated with pain in the left side of her chest and some discomfort in her left arm so she went to [facility] and she states she had a cardiac workup with 2 sets of enzymes that was all negative and she was discharged home on antibiotics because her chest x-ray looked like it showed pneumonia. She said it was on the right side. She had an outpatient follow-up chest x-ray that her doctor had done yesterday and was told it was normal. She was initially placed on azithromycin but her doctor changed it to doxycycline. She has a history of COPD, she states she has felt wheezing some, her pulse ox was 90% this morning, she is not on home oxygen she was really concerned about this, she feels like she may be dying and wants to make sure that she is not which is her main reason for coming here. She feels like her bones ache, when she states that she points to her face. She does not have a headache. She occasionally has some yellow sputum coming from her nose and a sore throat. Occasionally has some left upper quadrant pain. [place] nauseated this morning but no vomiting or blood in her stool. No abdominal pain now. No focal leg pain or swelling. No known fevers. Again, currently taking doxycycline. She states she knows she has a history of COPD but does not know what it feels like to have a COPD exacerbation. Because of the possibility of making herself have palpitations which has not recurred today but did last night, she has not used any albuterol for any of this. [facility] Medical History History of irregular heartbeat Seasonal allergies Wears dentures History of Clostridium difficile infection Thyroid disease History of renal disease Walker as ambulation aid Restless legs Back pain PONV (postoperative nausea and vomiting) History of hiatal hernia Colitis Shortness of breath on exertion Smoker Chronic cough History of edema Cardiology follow-up encounter History of echocardiogram Adrenal mass Thyroid nodule Chest pain Fibromyalgia Depression Hypertension History of ventricular tachycardia Hx of gastroesophageal reflux (GERD) Anxiety Gastritis Essential tremor Endometriosis COPD (chronic obstructive pulmonary disease) Cervical radiculopathy Coronary artery disease History of Clostridioides difficile colitis Right bundle branch block Atopic dermatitis Home Medications ?Medication ?Instructions ?Recorded ?Last Taken ?Type valsartan 160 mg tablet 160 mg PO DAILY 02/14/24 Unknown History clonazepam 1 mg tablet 1 mg PO BID 07/21/24 Unknown History mirtazapine 15 mg tablet (Remeron) 15 mg PO QDAY PRN DEPRESSION 07/21/24 Unknown History Held on 11/17/24. Instructions: PSYCHIATRIST IS WEANING OTHER MED FIRST albuterol sulfate 90 mcg/actuation 2 puff inhalation Q4H PRN PRN 10/02/24 Unknown Rx aerosol inhaler (Ventolin HFA) Wheezing #8.5 grams peg 3350-electrolytes 236 240 ml PO Q10M #4,000 mL 11/13/24 Unknown Rx gram-22.74 gram-6.74 gram-5.86 gram solution (Golytely) nystatin 100,000 unit/gram topical 1 applic topical BID PRN rash 11/17/24 Unknown History powder albuterol sulfate 2.5 mg/3 mL 2.5 mg (3 mL) inhalation Q4H PRN 11/22/24 Unknown Rx (0.083 %) solution for nebulization #25 vials prednisone 20 mg tablet 20 mg PO DAILY 5 days #5 tabs 11/22/24 Unknown Rx Allergy/AdvReac Type Severity Reaction Status Date / Time metronidazole (From Flagyl) Allergy Severe Shortness Verified 11/22/24 11:09 of breath ciprofloxacin (From Cipro) Allergy Mild Heart Verified 11/22/24 11:09 Condition fluconazole (From Diflucan) Allergy Mild Nausea Verified 11/22/24 11:09 Opioids - Morphine Analogues Allergy Mild OTHER Verified 11/22/24 11:09 Penicillins Allergy Mild Rash, GI Verified 11/22/24 11:09 Upset phenazopyridine (From Allergy Vomiting Verified 11/22/24 11:09 Pyridium) Family History Mother Hypertension Father Leukemia Cancer kidney Heart disease Hypertension Surgical History History of cardiac catheterization History of colonoscopy History of bilateral breast reduction surgery Hx of resection of large bowel Hx of right knee surgery History of bladder suspension procedure History of herniorrhaphy History of total abdominal hysterectomy Hx of cholecystectomy Hx of appendectomy Social History Smoking Status: Current every day smoker tobacco type: cigarettes quit status: not considering quitting alcohol intake: never substance use type: does not use ROS ROS ED Constitutional Constitutional ED: Reports body ache(s) and fatigue; Denies chills or fever(s) Eyes Eyes: Denies change in vision or diplopia ENT ENT ED: Reports facial pain, nasal discharge and sore throat; Denies ear pain or rhinorrhea Cardiovascular Cardiovascular: Reports other Details: Left-sided rib pain no other chest pain ; Denies palpitations Respiratory/Chest Respiratory/Chest: Reports cough, sputum and other Details: Dyspnea at times. Wheezing at times. Gastrointestinal Gastrointestinal: Reports abdominal pain and nausea; Denies diarrhea or vomiting Genitourinary Genitourinary ED: Denies dysuria or hematuria Musculoskeletal Musculoskeletal: Denies back pain or neck pain Integumentary Denies abscess or rash Neurologic Neurologic: Denies headache(s), paresthesias or weakness Psychiatric Psychiatric: Reports anxiety; Denies suicidal thoughts EXAM Physical Exam Const Vital Signs: 11/22/24 11:10 11/22/24 11:50 11/22/24 12:08 Temperature 98.9 F Temperature Source Oral Pulse Rate 95 94 105 H Respiratory Rate 18 18 20 H Respiratory Pattern Normal Blood Pressure 148/69 H Blood Pressure Mean 95 Pulse Ox 98 96 Oxygen Delivery Method Room Air Positive well nourished, well developed and obese General Appearance ED: well developed and NAD Nutritional Appearance: obese HEENT Reports moist mucous membranes normocephalic and atraumatic Eyes PERRL and EOMs intact bilaterally Neck full ROM and supple Chest Wall Chest Narrative: Point tender left lateral intercostal space approximately 6 or 7, no subcutaneous emphysema or step-off. Normal inspection of the chest wall in this area. Resp normal respiratory effort Resp Narrative: Slight end expiratory wheezes diffusely. Speaking in full sentences. Cardio regular rate, regular rhythm and no murmurs Rate: Negative for tachycardic GI non-tender and non-distended Auscultation: normoactive bowel sounds Palpation: soft Back/Spine no CVA tenderness General Back: other FROM Extremity normal to inspection General Extremety ED: Negative for edema, pulses abnormal or tenderness General Extremity: Negative for edema or pulses abnormal Neuro oriented x3, CN's II-XII intact bilaterally and no sensory deficits noted Sensorium / Orientation: awake and alert Motor Exam: strength 5/5 throughout Psych Mood & Affect: anxious Skin no rashes or lesions noted and no wounds MDM MDM MDM Narrative Medical decision making narrative: I do not have access to the report but the patient states she had a normal chest x-ray yesterday that her doctor reported to her. Therefore do not think that needs to be repeated given her exam and normal vital signs. She states my pulse was tachycardic, 107 when I arrived here in triage. Is not that abnormal? Triage reports that her pulse was 95 currently on my exam her pulse is in the 70s or 80s. I tried to reassure her, the rest of her vital signs look really good, she states that some of this feels like when she had COVID. I think reasonable to offer her a COVID/influenza/RSV swab in addition to a dose of Toradol 30 mg IM which we discussed, and an albuterol treatment, at the risk of giving her PACs or PVCs which can be uncomfortable but not dangerous, and I offered to do an EKG and/or put her on the monitor and she states that she does not want these because able to make her more anxious which I think is fine as I do not think she is having angina. COVID/influenza/RSV swab is negative. Meantime patient was given albuterol aerosol and she does feel better from that. She states her left upper quadrant is bothering her. It does not feel better after the Toradol although it took her intercostal muscle pain away in her left chest wall. She is concerned that her spleen is enlarged. 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 She has not traveled out of the country recently to expose herself to unusual parasitic illnesses, she has no history of hematologic problems that she knows of. I advised her that I was happy to obtain a CT scan to reassure her and image her spleen, but she declines. I also offered to obtain blood test to screen her for mononucleosis but she is declining that as well. My suspicion is that she has a virus such as rhinovirus and metapneumovirus that we do not have a rapid test for, as well as a mild COPD exacerbation. Her vital signs have been normal, and I do not think she is clinically septic. I offered her some prednisone and she is very apprehensive saying that 1 time she landed in the hospital as a result of which drawling from 20 mg a day for 4 days. I reassured her that that would not be likely, that if she has side effects from prednisone she can simply discontinue it without adverse effect to her body. I am prescribing her a 5-day course of 20 mg/day, she is comfortable with that as well as a box of albuterol vials to use with her nebulizer at home. Discharge Plan Triage Chief Complaint: General Illness ED Provider: Ludin Parker Dx/Rx/DC Orders Clinical Impression: Viral URI with cough, Left upper quadrant abdominal pain, Acute exacerbation of chronic obstructive pulmonary disease, Intercostal muscle strain, Anxiety Instructions: ED COPD Flare Prescriptions: New albuterol sulfate 2.5 mg /3 mL (0.083 %) solution for nebulization 2.5 mg inhalation Q4H PRN Qty: 25 0RF Rx Instructions: Use q4 hours and PRN for wheezing prednisone 20 mg tablet 20 mg PO DAILY 5 Days Qty: 5 0RF No Action mirtazapine [Remeron] 15 mg tablet 15 mg PO QDAY PRN (Reason: DEPRESSION) valsartan 160 mg tablet 160 mg PO DAILY clonazepam 1 mg tablet 1 mg PO BID Rx Instructions: one tablet in AM and two tablets in PM nystatin 100,000 unit/gram powder 1 applic topical BID PRN (Reason: rash) albuterol sulfate [Ventolin HFA] 90 mcg/actuation HFA aerosol inhaler 2 puff inhalation Q4H PRN PRN (Reason: Wheezing) Qty: 8.5 1RF peg 3350-electrolytes [Golytely] 236-22.74-6.74 -5.86 gram recon soln 240 ml PO Q10M Qty: 4000 0RF Rx Instructions: take as directed for split dose bowel prep Primary Care Provider: Jayne Gaspar Referrals: Jayne Gaspar DO [Primary Care Provider] - Keep Lili appointment Print Language: Vietnamese Disposition Disposition: Home, Self Care
[2024-11-22 11:50] VITALS: PULSE 94; RESP 18
[2024-11-22] MEDS: Ketorolac 30 MG/ML Syringe IM (11:50)
[2024-11-22] MEDS: Albuterol 2.5 MG/3 ML VIAL.NEB. INHALATION (11:50)
[2024-11-22 12:08] VITALS: PULSE 105; RESP 20; O2SAT 96
[2024-11-22 13:05] VITALS: BP 138/62; PULSE 80; RESP 18; TEMP 36.6; O2SAT 99
== END 2024-11-22 13:09 | disposition home or self-care (01) ==
PROVIDERS: Emergency Provider Emergency Medicine; PCP Family Medicine; Visit Provider Emergency Medicine
DX: J44.1 Chronic obstructive pulmonary disease with (acute) exacerbation (principal); J06.9 Acute upper respiratory infection, unspecified; R10.12 Left upper quadrant pain; S29.011A Strain of muscle and tendon of front wall of thorax, initial encounter; X58.XXXA Exposure to other specified factors, initial encounter; I10 Essential (primary) hypertension; F41.9 Anxiety disorder, unspecified; F32.A Depression, unspecified; E66.9 Obesity, unspecified; I25.10 Atherosclerotic heart disease of native coronary artery without angina pectoris; F17.210 Nicotine dependence, cigarettes, uncomplicated; Z87.19 Personal history of other diseases of the digestive system; Z79.899 Other long term (current) drug therapy
CPT/HCPCS: 87631; 94640; 96372; 99282

== ENCOUNTER 2024-12-21 11:46 | Emergency (ER) | payer MEDICARE, MEDICAID, SELFPAY ==
[2024-12-21 11:46] VITALS: BP 163/88; PULSE 94; RESP 20; TEMP 36.9; O2SAT 98; BMI 39.3
[2024-12-21 11:48] VITALS: BP 163/88; PULSE 94; RESP 20; TEMP 36.9; O2SAT 98
--- NOTE | 2024-12-21 11:58 | ED.VIS.GI ---
HPI HPI - GI History of Present Illness Chief Complaint: Abd Pain Informant: patient Abdominal Pain/Flank Pain Onset: Days (3) Context: Gradual Onset Timing: Continuous Quality: Stabbing Location: RUQ, LUQ and LLQ Worsened by: Nothing Relieved by: Nothing Nausea/Vomiting/Emesis GI Symptom: Positive for Nausea; Negative for Vomiting Diarrhea/Melena/Hematochezia GI Symptom: Positive for Diarrhea; Negative for Melena or Hematochezia Associated Symptoms Associated Symptoms: Positive for Hematuria; Negative for Dysuria or Frequency Narrative Narrative: Patient presents with abdominal pain that has been getting worse over the past 3 days. Patient states it came on gradually. Patient describes it as stabbing. Patient states it is mainly over the upper abdomen and left lower quadrant. Patient states nothing makes it worse and nothing makes it better. Patient admits to some nausea but denies any vomiting. Patient admits to some diarrhea. Patient states she has a history of C. difficile colitis and finished an antibiotic for pneumonia 1 month ago. Patient denies any fevers or chills. PFSH PFS Medical History History of irregular heartbeat Seasonal allergies Wears dentures History of Clostridium difficile infection Thyroid disease History of renal disease Walker as ambulation aid Restless legs Back pain PONV (postoperative nausea and vomiting) History of hiatal hernia Colitis Shortness of breath on exertion Smoker Chronic cough History of edema Cardiology follow-up encounter History of echocardiogram Adrenal mass Thyroid nodule Chest pain Fibromyalgia Depression Hypertension History of ventricular tachycardia Hx of gastroesophageal reflux (GERD) Anxiety Gastritis Essential tremor Endometriosis COPD (chronic obstructive pulmonary disease) Cervical radiculopathy Coronary artery disease History of Clostridioides difficile colitis Right bundle branch block Atopic dermatitis Home Medications ?Medication ?Instructions ?Recorded ?Last Taken ?Type valsartan 160 mg tablet 160 mg PO DAILY 02/14/24 Unknown History clonazepam 1 mg tablet 1 mg PO BID 07/21/24 Unknown History mirtazapine 15 mg tablet (Remeron) 15 mg PO QDAY PRN DEPRESSION 07/21/24 Unknown History Held on 11/17/24. Instructions: PSYCHIATRIST IS WEANING OTHER MED FIRST albuterol sulfate 90 mcg/actuation 2 puff inhalation Q4H PRN PRN 10/02/24 Unknown Rx aerosol inhaler (Ventolin HFA) Wheezing #8.5 grams peg 3350-electrolytes 236 240 ml PO Q10M #4,000 mL 11/13/24 Unknown Rx gram-22.74 gram-6.74 gram-5.86 gram solution (Golytely) nystatin 100,000 unit/gram topical 1 applic topical BID PRN rash 11/17/24 Unknown History powder albuterol sulfate 2.5 mg/3 mL 2.5 mg (3 mL) inhalation Q4H PRN 11/22/24 Unknown Rx (0.083 %) solution for nebulization #25 vials prednisone 20 mg tablet 20 mg PO DAILY 5 days #5 tabs 11/22/24 Unknown Rx dicyclomine 10 mg capsule 20 mg (2 x 10 mg) PO TIDAC #20 12/21/24 Unknown Rx CAPSULES ondansetron 4 mg disintegrating 4 mg PO Q8H PRN PRN Nausea #10 tabs 12/21/24 Unknown Rx tablet Allergy/AdvReac Type Severity Reaction Status Date / Time metronidazole (From Flagyl) Allergy Severe Shortness Verified 12/21/24 11:46 of breath ciprofloxacin (From Cipro) Allergy Mild Heart Verified 12/21/24 11:46 Condition fluconazole (From Diflucan) Allergy Mild Nausea Verified 12/21/24 11:46 Opioids - Morphine Analogues Allergy Mild OTHER Verified 12/21/24 11:46 Penicillins Allergy Mild Rash, GI Verified 12/21/24 11:46 Upset phenazopyridine (From Allergy Vomiting Verified 12/21/24 11:46 Pyridium) Family History Mother Hypertension Father Leukemia Cancer kidney Heart disease Hypertension Surgical History History of cardiac catheterization History of colonoscopy History of bilateral breast reduction surgery Hx of resection of large bowel Hx of right knee surgery History of bladder suspension procedure History of herniorrhaphy History of total abdominal hysterectomy Hx of cholecystectomy Hx of appendectomy Social History (Updated 12/21/24 @ 12:[address] Carter Heart DO) Smoking Status: Heavy Smoker (>10/day) quit status: considering quitting alcohol intake: never substance use type: does not use ROS ROS ED Constitutional Constitutional ED: Denies chills or fever(s) Eyes Eyes: Reports blurry vision left; Denies change in vision ENT ENT ED: Denies rhinorrhea or sore throat Cardiovascular Cardiovascular: Denies chest pain or palpitations Respiratory/Chest Respiratory/Chest: Denies cough or dyspnea Gastrointestinal Gastrointestinal: Reports abdominal pain, diarrhea and nausea; Denies melena or vomiting Genitourinary Genitourinary ED: Reports hematuria; Denies dysuria Musculoskeletal Musculoskeletal: Reports neck pain; Denies back pain Integumentary Reports rash; Denies abscess Neurologic Neurologic: Denies headache(s) or weakness Allergic/Immunologic Allergic/Immunologic ED: Denies mouth swelling or urticaria EXAM Physical Exam Const Vital Signs: 12/21/24 11:46 12/21/24 11:48 12/21/24 13:52 Temperature 98.5 F 98.5 F Temperature Source Oral Oral Pulse Rate 94 94 94 Respiratory Rate 20 H 20 H 16 Blood Pressure 163/88 H 163/88 H 163/90 H Blood Pressure Mean 113 113 114 Pulse Ox 98 98 97 Oxygen Delivery Method Room Air Room Air 12/21/24 15:45 Temperature 98.0 F Temperature Source Pulse Rate 95 Respiratory Rate 16 Blood Pressure 149/91 H Blood Pressure Mean 110 Pulse Ox 99 Oxygen Delivery Method Positive well nourished and well developed General Appearance ED: well developed and NAD HEENT Reports moist mucous membranes Neck supple and no JVD Resp normal respiratory effort and clear to auscultation bilaterally Cardio regular rate and regular rhythm GI non-distended Palpation: soft and tender epigastric, LLQ, LUQ and RUQ; Negative for guarding or rebound tenderness present Extremity full ROM Neuro CN's II-XII intact bilaterally, moves all extremities and no sensory deficits noted Sensorium / Orientation: alert Motor Exam: strength 5/5 throughout Psych mental status grossly normal and thought process normal MDM MDM MDM Narrative Medical decision making narrative: Differential diagnosis includes colitis, bowel obstruction, perforation, pancreatitis, diverticulitis, urinary tract infection, pyelonephritis, C. difficile, and gastroenteritis. CBC will be obtained to assess for leukocytosis and anemia. Comprehensive metabolic profile will be obtained to assess for hepatic function, renal function, and electrolyte abnormality. Lipase will be obtained to assess for pancreatitis. Urinalysis will be obtained to assess for urinary tract infection and hematuria. CT scan of the abdomen and pelvis will be obtained to assess for bowel obstruction, perforation, pancreatitis, and diverticulitis. History & Record Review Additional record(s) reviewed:: Prior ED visit and Prior labs Lab Data Attestation: I reviewed the patient's lab results. Lab results narrative: CBC was reordered. Hemoglobin was slightly elevated at 16.7 and hematocrit was 50.7. Platelets were normal. Comprehensive metabolic profile was reviewed and was essentially within normal limits. Lipase was reviewed and was 47. Urinalysis was reviewed. There is no evidence of urinary tract infection or hematuria. Labs: Laboratory Results - last 24 hr 12/21/24 12/21/24 12:12 13:26 WBC 10.5 RBC 5.62 H Hgb 16.7 H Hct 50.7 H MCV 90.2 MCH 29.7 MCHC 32.9 RDW Std Deviation 48.8 H RDW Coeff of Davy 14.6 Plt Count 268 MPV 9.2 Immature Gran % (Auto) 0.500 Neut % (Auto) 61.3 Lymph % (Auto) 27.5 [place] % (Auto) 7.3 Eos % (Auto) 2.7 Baso % (Auto) 0.7 Absolute Neuts (auto) 6.4 Absolute Lymphs (auto) 2.88 Nucleated RBC % 0 Sodium 137 Potassium 4.3 Chloride 105 Carbon Dioxide 20.4 L Anion Gap 12 BUN 10 Creatinine 0.92 Estim Creat Clear Calc 93.23 Est GFR (MDRD) Non-Af 71 BUN/Creatinine Ratio 10.5 Glucose 108 H Calcium 9.0 Total Bilirubin 0.19 AST 21 ALT 28 Alkaline Phosphatase 135 H Total Protein 7.0 Albumin 3.9 Globulin 3.1 Albumin/Globulin Ratio 1.3 Lipase 47 Urine Color Yellow Urine Clarity Clear Urine pH 5.0 Ur Specific Ocate 1.010 Urine Protein 15 H Urine Glucose (UA) Normal Urine Ketones Negative Urine Occult Blood 10 H Urine Nitrite Negative Urine Bilirubin Negative Urine Urobilinogen Normal Ur Leukocyte Esterase Negative Urine RBC 0 SEEN Urine WBC 0 SEEN Ur Squamous Epith Cells 0-5 SEEN Urine Bacteria 0 SEEN Urine Mucus 0 SEEN Radiography Diagnostic Testing: Clinical Impression(s) from Imaging Studies Abdomen/Pelvis CT 12/21/24 12:06 IMPRESSION: 1. No acute abdominopelvic finding. 2. Stable large bilateral adrenal nodules, [id number]. Reading Location: [facility] CT scan of the abdomen and pelvis was obtained. There is no acute abnormality noted. There is no free air or free fluid. There are stable bilateral adrenal nodules. This was interpreted by the radiologist and was also independently reviewed by myself. Treatment and Re-Evaluation :: Patient was given IV fluids, Zofran, and Bentyl. Patient was advised of her findings. Patient was feeling better on reevaluation. Patient was given a prescription for Zofran and Benadryl. Patient was unable to produce a stool specimen to test for C. difficile. Patient requested to bring a specimen in as an outpatient. Patient was instructed to follow-up with her primary care physician in 5 to 7 days. Patient instructed to return if worse in any way. Patient understood and was agreeable with the plan. All questions were answered. Discharge Plan Triage Chief Complaint: Abd Pain ED Provider: Carter Heart Dx/Rx/DC Orders Clinical Impression: Abdominal pain, Diarrhea Instructions: ED Abdominal Pain Unkn Cause Fem, ED Diarrhea, Unknown Cause Prescriptions: New ondansetron 4 mg tablet,disintegrating 4 mg PO Q8H PRN PRN (Reason: Nausea) Qty: 10 0RF dicyclomine 10 mg capsule 20 mg PO TIDAC Qty: 20 0RF No Action mirtazapine [Remeron] 15 mg tablet 15 mg PO QDAY PRN (Reason: DEPRESSION) albuterol sulfate 2.5 mg /3 mL (0.083 %) solution for nebulization 2.5 mg inhalation Q4H PRN Qty: 25 0RF Rx Instructions: Use q4 hours and PRN for wheezing prednisone 20 mg tablet 20 mg PO DAILY 5 Days Qty: 5 0RF valsartan 160 mg tablet 160 mg PO DAILY clonazepam 1 mg tablet 1 mg PO BID Rx Instructions: one tablet in AM and two tablets in PM nystatin 100,000 unit/gram powder 1 applic topical BID PRN (Reason: rash) albuterol sulfate [Ventolin HFA] 90 mcg/actuation HFA aerosol inhaler 2 puff inhalation Q4H PRN PRN (Reason: Wheezing) Qty: 8.5 1RF peg 3350-electrolytes [Golytely] 236-22.74-6.74 -5.86 gram recon soln 240 ml PO Q10M Qty: 4000 0RF Rx Instructions: take as directed for split dose bowel prep Primary Care Provider: Jayne Gaspar Referrals: Jayne Gaspar DO [Primary Care Provider] - 5-7 Days Print Language: Japanese Disposition Disposition: Home, Self Care Discharge Date/Time: 12/21/24 15:46
--- NOTE | 2024-12-21 12:06 | CT_ITS ---
PROCEDURE: ABDOMEN/PELVIS W IV CONT ONLY 12/21/2024 REASON FOR EXAM: ABDOMINAL PAIN TECHNIQUE: Abdomen and pelvis CT with intravenous contrast. Coronal and Sagittal reconstruction series were provided. PATIENT PREPARATION: Per protocol ORAL CONTRAST TYPE: None. CONTRAST: Isovue 370 VOLUME: 100 mL One or more dose reduction techniques were used (e.g., Automated exposure control, adjustment of the mA and/or kV according to patient size, use of iterative reconstruction technique. RADIATION DOSE SUMMARY: CTDlvol: 25 mGy DLP: 1500 mGycm COMPARISON: MRCP 10/21/2024 FINDINGS: Lung bases: Unremarkable. The heart is normal in size. Coronary artery calcifications. Liver: The liver is normal in size without focal hepatic mass. The major portal veins are patent. No biliary ductal dilation. Gallbladder: Prior cholecystectomy. Spleen: Normal size. Pancreas: Unremarkable. Adrenals: Unchanged large bilateral adrenal nodules, [id number], and unchanged since at least 02/14/2024. Kidneys: No hydronephrosis or nephrolithiasis. Bladder: Minimally distended and unremarkable. Reproductive Organs: Prior hysterectomy. Bowel: Prior distal colonic resection and anastomosis. The bowel loops are normal in caliber. No ascites or pneumoperitoneum. Prior appendectomy. Lymph nodes: No suspicious lymph node enlargement. Vasculature: Mild mixed atherosclerotic plaque throughout the aortoiliac vessels. Bones: Thoracolumbar spondylosis. 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 Unchanged thickening along the posterior midline lower back. CT/Abdomen/Pelvis W IV Cont ONLY IMPRESSION: 1. No acute abdominopelvic finding. 2. Stable large bilateral adrenal nodules, [id number]. Reading Location: [id number]
[2024-12-21] MEDS: 0.9% Normal Saline (1000mL) 1,000 ML 999 ML IV (12:16)
[2024-12-21] MEDS: Ondansetron 4 MG/2 ML Vial IV (12:16)
[2024-12-21] MEDS: Dicyclomine 20 MG/2 ML Vial IM (12:17)
[2024-12-21 12:18] LABS: Absolute Lymphocyte Count 2.88 X10^3/uL (0.83-4.51); Absolute Neutrophil Count 6.4 X10^3/uL (2.0-7.7); Basophil# 0.07 X10^3/uL; Basophil% 0.7 % (0-1); Eosinophil# 0.28 X10^3/uL; Eosinophils% 2.7 % (0-5); Hematocrit 50.7 % (37-47); Hemoglobin 16.7 g/dL (12.0-15.0); Lymphocyte # 2.88 X10^3/ul (0.83-4.51); Lymphocyte % 27.5 % (19-41); Mean Corp Hgb Conc 32.9 g/dL (32-36); Mean Corpuscular Hgb 29.7 pg (27.0-32.0); Mean Corpuscular Volume 90.2 fL (81-99); Mean Platelet Vol. 9.2 fl (6.2-12.0); Monocyte# 0.77 X10^3/uL; Monocyte% 7.3 % (0-10); NRBC Flagged by Analyzer 0 % (0-5); Neutrophil # 6.44 X10^3/uL (2.7-7.7); Neutrophil % 61.3 % (47-70); Platelet Count 268 K/mm3 (150-450); RBC Distribution Width CV 14.6 % (11.6-14.6); RBC Distribution Width SD 48.8 fl (35.1-43.9); Red Blood Count 5.62 M/mm3 (4.2-5.4); White Blood Count 10.5 K/mm3 (4.4-11.0)
[2024-12-21 12:41] LABS: ALB/GLOB Ratio 1.3 RATIO (0.9-2.4); AST(SGOT) 21 U/L (<=31); Alanine Aminotransfer ALT/SGPT 28 U/L (<=34); Albumin, Serum 3.9 g/dL (3.4-4.8); Alkaline Phosphatase 135 U/L (35-104); Anion Gap 12 (5-15); BUN 10 mg/dL (4-19); BUN/Creat Ratio 10.5 RATIO (10-20); Carbon Dioxide 20.4 mmol/L (21.0-32.0); Chloride 105 mmol/L (98-108); Creatinine, Serum 0.92 mg/dL (0.70-1.20); EST Glomerular Filtration Rate 71 (>60); Estimated Creatinine Clearance 93.23 ml/min (50-250); Globulin 3.1 g/dL (2.2-4.2); Glucose 108 mg/dL (70-99); Lipase 47 U/L (13-75); Potassium 4.3 mmol/L (3.3-5.1); Sodium Level 137 mmol/L (133-145); Total Bilirubin 0.19 mg/dL (0.00-1.30)
[2024-12-21 13:31] LABS: Bacteria 0 SEEN /hpf (None Seen); Mucous, Urine 0 SEEN /hpf (<or=2+); Red Blood Cells-Urine 0 SEEN /hpf (0-5); White Blood Cells 0 SEEN /hpf (0-5)
[2024-12-21 13:32] LABS: Color, Urine Yellow (Yellow); Glucose, Dipstick Normal (Normal); Ketone-Dipstick Negative (Negative); Leukocyte Esterase-Dipstick Negative /ul (Negative); Nitrite-Dipstick Negative (Negative); Occult Blood-Urine 10 /ul (Negative); Protein-Dipstick 15 mg/dl (Negative); Urine Bilirubin Dipstick Negative (Negative); Urine Clarity Clear (Clear); Urine Urobilinogen Normal (Normal)
[2024-12-21 13:38] LABS: Squamous Epithelial Cells - UA 0-5 SEEN /hpf (5-10)
[2024-12-21 13:52] VITALS: BP 163/90; PULSE 94; RESP 16; O2SAT 97
[2024-12-21 15:45] VITALS: BP 149/91; PULSE 95; RESP 16; TEMP 36.7; O2SAT 99
== END 2024-12-21 15:46 | disposition home or self-care (01) ==
PROVIDERS: Emergency Provider Emergency Medicine; PCP Family Medicine; Visit Provider Emergency Medicine
DX: R10.32 Left lower quadrant pain (principal); J44.9 Chronic obstructive pulmonary disease, unspecified; R11.0 Nausea; I10 Essential (primary) hypertension; R31.9 Hematuria, unspecified; I25.10 Atherosclerotic heart disease of native coronary artery without angina pectoris; R19.7 Diarrhea, unspecified
CPT/HCPCS: 74177; 80053; 81001; 83690; 85025; 96361; 96372; 96374; 99283; Q9967; A4216; J2405

== ENCOUNTER → 2024-12-22 | Outpatient (CLI) | payer MEDICARE, MEDICAID, SELFPAY | END | disposition home or self-care (01) | LOC: LABSPEC 07-15 11:48 | PROVIDERS: PCP Family Medicine; Visit Provider Family Medicine | DX: R19.7 Diarrhea, unspecified (principal) | CPT/HCPCS: 87070; 87205; 87493 ==

== ENCOUNTER 2025-04-13 13:01 | Emergency (ER) | payer MEDICARE, MEDICAID, SELFPAY ==
[2025-04-13 13:01] VITALS: BP 146/111; PULSE 88; RESP 14; TEMP 36.6; O2SAT 97
--- NOTE | 2025-04-13 13:16 | EKG12_ITS ---
Test Reason : CP/SOB Blood Pressure : */* mmHG Vent. Rate : 91 BPM Atrial Rate : 91 BPM P-R Int : 154 ms QRS Dur : 94 ms QT Int : 360 ms P-R-T Axes : 74 238 71 degrees QTcB Int : 442 ms Normal sinus rhythm Right superior axis deviation Incomplete right bundle branch block Right ventricular hypertrophy Nonspecific ST abnormality Abnormal ECG Confirmed by Toni Dean ([id number]), index editor JAY WEEKS ([id number]) on 04/14/2025 11:41:26 AM Referred By: BB/ALYSA Confirmed By: Toni Dean
--- NOTE | 2025-04-13 13:16 | EKG12_ITS ---
Test Reason : CP/SOB Blood Pressure : */* mmHG Vent. Rate : 91 BPM Atrial Rate : 91 BPM P-R Int : 154 ms QRS Dur : 94 ms QT Int : 360 ms P-R-T Axes : 74 238 71 degrees QTcB Int : 442 ms Normal sinus rhythm Right superior axis deviation Incomplete right bundle branch block Right ventricular hypertrophy Nonspecific ST abnormality Abnormal ECG Confirmed by Toni Dean ([id number]), editor continuity and script JAY WEEKS ([id number]) on 04/14/2025 11:41:26 AM Referred By: BB/ALYSA Confirmed By: Toni Dean
--- NOTE | 2025-04-13 13:20 | RAD_ITS ---
PROCEDURE: CHEST 1 VIEW (PORTABLE) 04/13/2025 REASON FOR EXAM: CHEST PAIN TECHNIQUE: Frontal view of the chest. COMPARISON: Chest x-ray study dated 10/02/2024 FINDINGS: AP portable upright radiograph of the chest was obtained and demonstrates the heart size and configuration to be within normal limits. Pulmonary vasculature and hilar structures are unremarkable. Trachea is midline. Lungs are expanded and clear without evidence of pneumothorax, atelectasis, consolidation, effusion or pneumonic infiltrate. No acute osseous process is noted. Soft tissues appear unremarkable. RAD/Chest 1 View (Portable) IMPRESSION: No acute cardiovascular process is identified radiographically. Reading Location: [id number]
--- NOTE | 2025-04-13 13:20 | RAD_ITS ---
PROCEDURE: CHEST 1 VIEW (PORTABLE) 04/13/2025 REASON FOR EXAM: CHEST PAIN TECHNIQUE: Frontal view of the chest. COMPARISON: Chest x-ray study dated 10/02/2024 FINDINGS: AP portable upright radiograph of the chest was obtained and demonstrates the heart size and configuration to be within normal limits. Pulmonary vasculature and hilar structures are unremarkable. Trachea is midline. Lungs are expanded and clear without evidence of pneumothorax, atelectasis, consolidation, effusion or pneumonic infiltrate. No acute osseous process is noted. Soft tissues appear unremarkable. RAD/Chest 1 View (Portable) IMPRESSION: No acute cardiovascular process is identified radiographically. Reading Location: [id number]
[2025-04-13 13:30] LABS: Hematocrit 51.7 % (37-47); Hemoglobin 16.6 g/dL (12.0-15.0); Immature Granulocytes Count 0.050 X10^3/uL (0.0-0.0); Mean Corp Hgb Conc 32.1 g/dL (32-36); Mean Corpuscular Volume 89.8 fL (81-99); Mean Platelet Vol. 8.8 fl (6.2-12.0); NRBC Flagged by Analyzer 0 % (0-5); Platelet Count 258 K/mm3 (150-450); RBC Distribution Width CV 13.7 % (11.6-14.6); RBC Distribution Width SD 45.1 fl (35.1-43.9); Red Blood Count 5.76 M/mm3 (4.2-5.4); White Blood Count 11.1 K/mm3 (4.4-11.0)
[2025-04-13 14:03] LABS: AST(SGOT) 26 U/L (<=31); Alanine Aminotransfer ALT/SGPT 36 U/L (<=34); Albumin, Serum 3.9 g/dL (3.4-4.8); Alkaline Phosphatase 126 U/L (35-104); Anion Gap 13 (5-15); BUN 12 mg/dL (4-19); BUN/Creat Ratio 12.4 RATIO (10-20); Bilirubin, Direct 0.11 mg/dL (0.00-0.30); Calcium,Total 9.2 mg/dL (7.6-11.0); Carbon Dioxide 22.4 mmol/L (21.0-32.0); Chloride 100 mmol/L (98-108); Globulin 3.2 g/dL (2.2-4.2); Glucose 111 mg/dL (70-99); Lipase 43 U/L (13-75); Potassium 4.3 mmol/L (3.3-5.1)
[2025-04-13 14:09] VITALS: BP 141/81; PULSE 98; O2SAT 94
[2025-04-13 14:18] LABS: Troponin T High Sensitivity 6 ng/L (<=14)
[2025-04-13 15:06] VITALS: O2SAT 94
[2025-04-13 15:16] VITALS: BMI 43.4
--- NOTE | 2025-04-13 15:50 | ED.VIS.CHEST ---
HPI History of Present Illness Chief Complaint: Chest Pain Detail of Chief Complaint: Initially right-sided chest pain now complains of left scapular pain and le Informant: patient Onset/Context/Timing Onset: Yesterday (The right-sided chest pain started last evening. She awoke with left scapular and left-sided chest pain this morning.) Activity at onset: sudden Timing: Intermittent and Lasts (When patient went to sleep last evening she still had pain on the right side.) Quality: Positive for Pain Location: Right Chest (Last night) and Left Chest (Upon awakening she noted it this morning.) Current Severity: Mild Maximum Severity: Mild Worsened By: Nothing Relieved By: Nothing Associated Symptoms: Positive for Dyspnea and - (Pain is not pleuritic.); Negative for Nausea, Vomiting, Diaphoresis, Cough, Fever, Lightheadedness, Acid Reflux or Palpitations Narrative Narrative: Patient is a 60-year-old woman. She has history of prediabetes, hypertension, hypercholesterolemia, hypothyroidism and is a smoker 1/2 pack/day. 5 years ago she smoked greater than 2 packs/day. She also has a history of fibromyalgia and COPD. Prior Similar Symptoms: No CVD Risk Factors: Positive for Hypertension, Diabetes (Prediabetes), Hypercholesterolemia and Smoking PE Risk Factors: Negative for Recent Travel/Surgery, Recent Immobilization, Prior DVT or PE, Cancer or OCP + Smoking + >/=35 TAD Risk Factors: Positive for Hypertension; Negative for Marfan's Syndrome or Family History [facility] Medical History History of irregular heartbeat Seasonal allergies Wears dentures History of Clostridium difficile infection Thyroid disease History of renal disease Walker as ambulation aid Restless legs Back pain PONV (postoperative nausea and vomiting) History of hiatal hernia Colitis Shortness of breath on exertion Smoker Chronic cough History of edema Cardiology follow-up encounter History of echocardiogram Adrenal mass Thyroid nodule Chest pain Fibromyalgia Depression Hypertension History of ventricular tachycardia Hx of gastroesophageal reflux (GERD) Anxiety Gastritis Essential tremor Endometriosis COPD (chronic obstructive pulmonary disease) Cervical radiculopathy Coronary artery disease History of Clostridioides difficile colitis Right bundle branch block Atopic dermatitis Home Medications ?Medication ?Instructions ?Recorded ?Last Taken ?Type valsartan 160 mg tablet 160 mg PO DAILY 02/14/24 04/13/25 History clonazepam 1 mg tablet 1 mg PO Q8H 07/21/24 04/13/25 History diltiazem HCl 180 mg 180 mg PO DAILY 04/13/25 Unknown History capsule,extended release 24 hr ezetimibe 10 mg tablet 10 mg PO DAILY 04/13/25 Unknown History omeprazole 20 mg capsule,delayed 20 mg PO DAILY 04/13/25 Unknown History release sodium chloride 0.65 % nasal spray 2 spray intranasal BID 04/13/25 Unknown History aerosol (Saline Mist) Allergy/AdvReac Type Severity Reaction Status Date / Time metronidazole (From Flagyl) Allergy Severe Shortness Verified 04/13/25 13:01 of breath ciprofloxacin (From Cipro) Allergy Mild Heart Verified 04/13/25 13:01 Condition fluconazole (From Diflucan) Allergy Mild Nausea Verified 04/13/25 13:01 Opioids - Morphine Analogues Allergy Mild OTHER Verified 04/13/25 13:01 Penicillins Allergy Mild Rash, GI Verified 04/13/25 13:01 Upset phenazopyridine (From Allergy Vomiting Verified 04/13/25 13:01 Pyridium) Family History Mother Hypertension Father Leukemia Cancer kidney Heart disease Hypertension Surgical History History of cardiac catheterization History of colonoscopy History of bilateral breast reduction surgery Hx of resection of large bowel Hx of right knee surgery History of bladder suspension procedure History of herniorrhaphy History of total abdominal hysterectomy Hx of cholecystectomy Hx of appendectomy Social History (Updated 04/13/25 @ 15:[address] Chuy Fitch MD) household members: spouse Smoking Status: Heavy Smoker (>10/day) quit status: considering quitting alcohol intake: never substance use type: does not use ROS ROS ED Constitutional Constitutional ED: Denies chills, fever(s), subjective, sweats or weight loss Eyes Eyes: Reports none ENT ENT ED: Denies ear pain, rhinorrhea or sore throat Cardiovascular Cardiovascular: Reports as per HPI; Denies orthopnea or paroxysmal nocturnal dyspnea Respiratory/Chest Respiratory/Chest: Reports dyspnea; Denies cough, dyspnea on exertion, orthopnea or paroxysmal nocturnal dyspnea Gastrointestinal Gastrointestinal: Denies abdominal pain, melena, nausea or vomiting Genitourinary Genitourinary ED: Denies dysuria, hematuria or urinary frequency Musculoskeletal Musculoskeletal: Denies arthralgias, back pain or myalgias Integumentary Denies rash Neurologic Neurologic: Denies headache(s) or paresthesias Psychiatric Psychiatric: Reports anxiety Endocrine Endocrinology: Denies cold intolerance or heat intolerance Hematologic/Lymphatic Hematologic/Lymphatic: Denies easy bleeding or easy bruising Allergic/Immunologic Allergic/Immunologic ED: Denies mouth swelling or tongue swelling EXAM Physical Exam Const Vital Signs: 04/13/25 13:01 04/13/25 13:18 04/13/25 14:09 Temperature 98 F Temperature Source Temporal Pulse Rate 88 98 Respiratory Rate 14 Blood Pressure 146/111 H 141/81 H Blood Pressure Mean 122 101 Pulse Ox 97 94 Oxygen Delivery Method Room Air Room Air 04/13/25 15:06 04/13/25 16:00 Temperature Temperature Source Pulse Rate 87 Respiratory Rate 18 Blood Pressure 141/69 H Blood Pressure Mean 93 Pulse Ox 94 96 Oxygen Delivery Method Room Air Positive well nourished and well developed Constitutional Narrative: Patient smells like she just put out a cigarette. When I entered room and began to ask questions she began to cry. When asked why she was crying she is concerned she is having a heart attack and is going to . General Appearance ED: well developed and NAD; Negative for pallor HEENT Reports moist mucous membranes normocephalic and atraumatic Eyes PERRL and EOMs intact bilaterally General Eye ED: Negative for pale conjunctiva or scleral icterus Neck no lymphadenopathy, supple and no JVD Resp normal respiratory effort and clear to auscultation bilaterally Cardio regular rate, regular rhythm, S1 normal heart sound, S2 normal heart sound and no murmurs GI normal to inspection, nondistended, normoactive bowel sounds, soft to palpation, non-tender, non-distended and no masses; Negative for hepatosplenomegaly Back/Spine no CVA tenderness Extremity normal to inspection Extremity Narrative: There is no acral cyanosis, clubbing or mottling. Distal pulses are palpable. Pulses are symmetric. Neuro oriented x3 and CN's II-XII intact bilaterally Sensorium / Orientation: awake and alert Motor Exam: strength 5/5 throughout Psych Mood & Affect: anxious and tearful Skin no rashes or lesions noted and no wounds General Skin Exam: Negative for jaundice or pallor MDM MDM MDM Narrative Medical decision making narrative: Differential diagnosis includes chest pain of unknown etiology, anxiety, fibromyalgia, pneumothorax, atypical presentation for cardiac, GERD. Her workup included EKG, chest x-ray and appropriate blood work including serial troponin levels. Lab Data Attestation: I reviewed the patient's lab results. Lab results narrative: CBC reveals polycythemia vera secondary, slight elevation white count with normal differential. Comprehensive metabolic panel is unremarkable. Glucose is elevated 111 with normal CO2 anion gap. Alkaline phosphatase elevated 126. First troponin is normal, 6. Lipase is normal at 43 2-hour troponin is 6 with a delta of 0. Will discharge to home. Labs: Laboratory Results - last 24 hr 04/13/25 04/13/25 13:12 15:11 WBC 11.1 H RBC 5.76 H Hgb 16.6 H Hct 51.7 H MCV 89.8 MCH 28.8 MCHC 32.1 RDW Std Deviation 45.1 H RDW Coeff of Davy 13.7 Plt Count 258 MPV 8.8 Immature Gran % (Auto) 0.500 Neut % (Auto) 67.0 Lymph % (Auto) 22.7 [place] % (Auto) 6.0 Eos % (Auto) 2.9 Baso % (Auto) 0.9 Absolute Neuts (auto) 7.4 Absolute Lymphs (auto) 2.51 Nucleated RBC % 0 Sodium 135 Potassium 4.3 Chloride 100 Carbon Dioxide 22.4 Anion Gap 13 BUN 12 Creatinine 0.95 Est GFR (MDRD) Non-Af 68 BUN/Creatinine Ratio 12.4 Glucose 111 H Calcium 9.2 Total Bilirubin 0.30 Direct Bilirubin 0.11 AST 26 ALT 36 H Alkaline Phosphatase 126 H Troponin T High Sens 6 Troponin T Hi Sens 2 Hr 6 Total Protein 7.1 Albumin 3.9 Globulin 3.2 Lipase 43 Radiography Chest X-Ray - ED: Read by ED Physician (Cardiac silhouette and size normal. Lung parenchyma reveals no acute process. There are some mild chronic changes. Hilum is normal. Osseous structures reveal no acute process. This is a plain reviewed interpreted by me at [id number]) Diagnostic Testing: Clinical Impression(s) from Imaging Studies Chest X-Ray 04/13/25 13:20 IMPRESSION: No acute cardiovascular process is identified radiographically. Reading Location: [facility] Additional Tests and Interventions Additional Tests or Interventions: Patient had outpatient nuclear stress test March 18. Estimated ejection fraction was 71%. The study was normal. This was performed at the [facility]. Discharge Plan Triage Chief Complaint: Chest Pain ED Provider: Chuy Fitch Dx/Rx/DC Orders Clinical Impression: Right-sided chest pain, Right bundle branch block, COPD (chronic obstructive pulmonary disease), History of ventricular tachycardia, Hypertension, Depression, Fibromyalgia, Metabolic dysfunction-associated steatotic liver disease (MASLD), Acute left-sided thoracic back pain, Left-sided chest pain Instructions: ED Chest Pain, Noncardiac, ED Chest Pain, Uncertain Cause Prescriptions: No Action diltiazem HCl 180 mg capsule,extended release 24hr 180 mg PO DAILY omeprazole 20 mg capsule,delayed release(DR/EC) 20 mg PO DAILY ezetimibe 10 mg tablet 10 mg PO DAILY Saline Mist 0.65 % aerosol,spray 2 spray INTRANASAL BID valsartan 160 mg tablet 160 mg PO DAILY clonazepam 1 mg tablet 1 mg PO Q8H Rx Instructions: one tablet in AM and two tablets in PM Primary Care Provider: Jayne Gaspar Referrals: Jayne Gaspar DO [Primary Care Provider] - 3-5 Days Activity Restrictions/Additional Instructions: It is in your best interest to throw away your pack of cigarettes. The cause of your pain is unknown. life-threatening processes have been ruled out. Print Language: [place] Disposition Disposition: Home, Self Care
[2025-04-13 16:00] VITALS: BP 141/69; PULSE 87; RESP 18; O2SAT 96
[2025-04-13 16:22] LABS: Troponin T High Sens 2 HR 6 ng/L (<=14)
[2025-04-13 16:50] VITALS: BP 139/86; PULSE 78; RESP 18; TEMP 36.6; O2SAT 95
== END 2025-04-13 16:51 | disposition home or self-care (01) ==
PROVIDERS: Emergency Provider Emergency Medicine; PCP Family Medicine; Visit Provider Emergency Medicine
DX: R07.9 Chest pain, unspecified (principal); J44.9 Chronic obstructive pulmonary disease, unspecified; E11.9 Type 2 diabetes mellitus without complications; I45.10 Unspecified right bundle-branch block; F32.A Depression, unspecified; M79.7 Fibromyalgia; F17.200 Nicotine dependence, unspecified, uncomplicated; E78.00 Pure hypercholesterolemia, unspecified; I25.10 Atherosclerotic heart disease of native coronary artery without angina pectoris; I10 Essential (primary) hypertension; K76.89 Other specified diseases of liver; M54.6 Pain in thoracic spine; Z79.899 Other long term (current) drug therapy
CPT/HCPCS: 71045; 80048; 80076; 83690; 84484; 85025; 93005; 99284; A4216